=== PATIENT | male | born 1945 | race Caucasian/White ===

== ENCOUNTER 2017-01-04 17:55 | Inpatient (IN) | payer OTHER, BC ==
[~2017-01-04] VITALS: Ht 170.2 cm; Wt 146.3 kg
[~2017-01-04 17:55] MED LIST: ASCO1CAP3 PO; ASPCH81X PO; ATEN50TA8 PO; ATOR-26 PO; CALC-279 PO; CYAN500T13 PO; DICL1GEL12 TOP; ERGO500037 PO; HYDR12.55 PO; IRON OTC PO; LISI-725 PO; MULT-513 PO; NTRGSL/4 UT; ZINC220T PO
--- NOTE | 2017-01-04 19:26 | EMERGENCY ROOM VISIT NOTE ---
History Report prepared by Vijaya: Izabella Sanchez Under the Supervision of: Dr. Janice Kim D.O. First contact with patient: 18:35 Chief Complaint: SHORTNESS OF BREATH Stated Complaint: SOB, DIZZY,HOT AND COLD Nursing Triage Summary: Pt became SOB yesterday. Pt states that he is just SOB with exertion. Pt stated that he is afraid that it is his heart. Pt has also experienced some dizzyness. Pts reports that he also has a history of anemia and has not taken an iron supplement in a week and a half. Pt does not use Oxygen at home. History of Present Illness The patient is a 71 year old male who presents to the Emergency Room with complaints of worsening shortness of breath for the past few days. He is accompanied by his . He reports his shortness of breath has been worse with exertion in the past few days. Today things worsened, so he spoke to his doctor and was referred to the ED. The patient admits to feeling lightheaded when he gets up to walk. He admits his own lips and face do look very pale today. His states he has not been taking his Iron for the past "couple of weeks", but he got it refilled yesterday and has been feeling a little better. The patient denies any history of iron transfusions. He does admit to some melena and hematochezia for the past few days. He denies any abdominal pain. His reports he was supposed to have a colonoscopy later this week. His last scope was approximately 6 years ago. The patients primary care physician is CAPRI Ron. The patient's does admit he passed out several years ago after experiencing a bleeding stomach ulcer. Source of History: patient, spouse/significant other () Onset: past few days Position: chest Quality: other (shortness of breath) Timing: worsening Modifying Factors (Worsening): exertion Associated Symptoms: + hematochezia, + melena, + weakness, No abdominal pain Review of Systems See HPI for pertinent positives & negatives. A total of 10 systems reviewed and were otherwise negative. Past Medical & Surgical Medical Problems: (1) CAD (coronary artery disease) (2) CHF (congestive heart failure) (3) GI bleed (4) HLD (hyperlipidemia) (5) HTN (hypertension) (6) Obesity (7) Osteoarthritis (8) Phimosis Surgical Problems: (1) Bariatric surgery status (2) H/O knee surgery (3) History of esophagogastroduodenoscopy (EGD) (4) History of liver biopsy (5) Hx of CABG (6) S/P cardiac catheterization (7) S/P cholecystectomy (8) S/P colonoscopy with polypectomy (9) S/P panniculectomy Family History FH: cancer FH: heart disease Hypertension Stroke Social History Smoking Status: Never Smoker Smokeless Tobacco Use: No Alcohol Use: occasionally Drug Use: none Marital Status: Housing Status: lives with family Occupation Status: retired Current/Historical Medications Scheduled Ascorbic Acid (Vitamin C), 500 MG PO QAM Aspirin (Aspirin Chewable), 81 MG PO QAM Atenolol (Tenormin), 50 MG PO QAM Atorvastatin (Lipitor), 80 MG PO QAM Calcium Citrate-Vitamin D (Calcium Citrate + D), 1 TAB PO QAM Cyanocobalamin (Vitamin B12 500MCG), 1,000 MCG PO QAM Ergocalciferol (Vitamin D 00511 Unit), 50,000 UNIT PO 2XWEEK Hydrochlorothiazide (Hydrochlorothiazide), 1 TAB PO 3XWEEK Lisinopril (Zestril), 20 MG PO QAM Zinc Sulfate (Zinc Sulfate), 220 MG PO QAM Scheduled PRN Diclofenac Sodium (Actinic Ker (Solaraze), 1 DOSE TOP QID PRN for Pain Nitroglycerin (Nitrostat), 0.4 MG UT UD PRN for Chest Pain Allergies Coded Allergies: No Known Allergies (Verified , 01/04/17) Physical Exam Vital Signs Date Time Temp Pulse Resp B/P Pulse Ox O2 Delivery O2 Flow Rate FiO2 01/04/17 19:44 61 01/04/17 18:40 98 Room Air 01/04/17 18:35 Room Air 01/04/17 18:28 36.8 72 24 106/40 95 Room Air Physical Exam HEENT: Head - normocephalic and atraumatic Pupils are equal, round, and reactive to light. Extraocular eye muscles are intact, and sclera are anicteric. Noted conjunctival pallor. Nose - moist nasal mucosa without discharge. Mouth - moist buccal mucosa. His lips are extremely pale. Oropharynx is nonerythematous and there is no tonsillar exudate or edema noted. Neck: Supple; no JVD, nuchal rigidity, cervical lymphadenopathy. Heart: Regular rate and rhythm. There is a normal S1 and S2 with no murmurs, clicks, or gallops appreciated. Lungs: Clear to auscultation bilaterally with no wheezes, rales, or rhonchi. Abdomen: Soft, completely nontender, nondistended, with good bowel sounds. There are no palpable pulsatile masses or hepatosplenomegaly. There is no guarding, rigidity, or rebound noted. Extremities: No evidence of cyanosis, clubbing, or edema. There are easily palpable peripheral pulses. Skin: Skin is extremely pale but warm and dry with good turgor and no rashes. Medical Decision & Procedures ER Provider Diagnostic Interpretation: This X-Ray was reviewed and interpreted by myself and the radiologist. CHEST ONE VIEW PORTABLE IMPRESSION: 1. No acute findings. 2. Stable moderate cardiomegaly. 3. Study compromised by suboptimal penetration related to portable technique. Electronically signed by: Tio Emmanuel M.D. 01/04/2017 7:29 PM Laboratory Results Test 01/04/17 19:10 Immature Granulocyte % (Auto) 0.7 % White Blood Count 10.56 K/uL (4.8-10.8) Red Blood Count 2.17 M/uL (4.7-6.1) Hemoglobin 6.0 g/dL (14.0-18.0) Hematocrit 18.3 % (42-52) Mean Corpuscular Volume 84.3 fL (80-100) Mean Corpuscular Hemoglobin 27.6 pg (25-34) Mean Corpuscular Hemoglobin Concent 32.8 g/dl (32-36) Platelet Count 257 K/uL (130-400) Mean Platelet Volume 8.8 fL (7.4-10.4) Neutrophils (%) (Auto) 61.1 % Lymphocytes (%) (Auto) 22.4 % Monocytes (%) (Auto) 12.0 % Eosinophils (%) (Auto) 3.7 % Basophils (%) (Auto) 0.1 % Neutrophils # (Auto) 6.45 K/uL (1.4-6.5) Lymphocytes # (Auto) 2.37 K/uL (1.2-3.4) Monocytes # (Auto) 1.27 K/uL (0.11-0.59) Eosinophils # (Auto) 0.39 K/uL (0-0.5) Basophils # (Auto) 0.01 K/uL (0-0.2) Immature Granulocyte # (Auto) 0.07 K/uL (0.00-0.02) Polychromasia 1+ Anisocytosis PRESENT Prothrombin Time 11.4 SECONDS (9.0-12.0) Prothromb Time International Ratio 1.1 (0.9-1.1) Activated Partial Thromboplast Time 22.8 SECONDS (21.0-31.0) Partial Thromboplastin Ratio 0.9 Total Bilirubin 0.5 mg/dl (0.2-1) Direct Bilirubin 0.1 mg/dl (0-0.2) Aspartate Amino Transf (AST/SGOT) 13 U/L (15-37) Alanine Aminotransferase (ALT/SGPT) 16 U/L (12-78) Alkaline Phosphatase 67 U/L (45-117) Total Creatine Kinase 91 U/L (39-308) Creatine Kinase MB 2.3 ng/ml (0.5-3.6) Creatine Kinase MB Ratio 2.5 (0-3.0) Troponin I 0.015 ng/ml (0-0.045) Pro-B-Type Natriuretic Peptide 929 pg/ml (0-900) Total Protein 6.3 gm/dl (6.4-8.2) Albumin 2.9 gm/dl (3.4-5.0) Hepatitis C Antibody Screen NEG (NEG) Laboratory results per my review. Procedure 2 units of packed red blood cells transfused ECG Indication: SOB/dyspnea Rate (beats per minute): 65 Rhythm: normal sinus (normal sinus rhythm) Findings: no acute ischemic change, no ectopy ED Course 184: Past medical records reviewed. The patient was evaluated in room B3. A complete history and physical exam was performed. An IV lock was initiated and labs were drawn as above. The patient was typed and crossed for packed red blood cells. He had a twelve-lead EKG as described above. He had a portal chest x-ray as described above. 2009: I reevaluated the patient. I discussed his lab results and my recommendation that he remain in the hospital for further evaluation and management and he verbalized complete understanding and agreement. 2017: [facility] the [facility] The patient will be further evaluated. 2020: I reevaluated the patient. He is resting comfortably. I also performed blood consent paperwork. His blood transfusion will start. Medical Decision The patient is a 71 year old male who presents to the ED with shortness of breath. The differential diagnoses include iron deficiency, blood loss anemia, GI bleeding, CHF and cardiac ischemia. Lab results show WBC is 10.5, Hemoglobin is 6, Hematocrit is 18.3, Platelets are 257, BUN is 32, Creatinine is 0.8, Glucose is 103, cardiac enzymes are negative, LFT's are normal, COAG's are normal. This is a 71-year-old male patient presents to the emergency department with extreme weakness and increasing exertional shortness of breath the past couple of days. His has noticed that he is pale. He was scheduled to have colonoscopy on this upcoming Wednesday. The patient was hemodynamically stable. He had no active GI bleeding while here in the emergency department. He was typed and crossed for 2 units of packed red blood cells. [facility] and [facility] will [facility] for further management. Impression Primary Impression: GI bleeding Additional Impression: Anemia Critical Care I have personally spent greater than 45 minutes of critical care time in the direct management of this patient. This includes bedside care, interpretation of diagnostic studies, and testing, discussion with consultants, patient, and family members, and other required patient management activities. This 45 minutes is in excess of all separately billable procedures. Scribe Attestation The scribe's documentation has been prepared under my direction and personally reviewed by me in its entirety. I confirm that the note above accurately reflects all work, treatment, procedures, and medical decision making performed by me. Departure Information Dispostion Being Evaluated By Hospitalist Referrals Corona Fleming D.O. (PCP) Patient Instructions My [facility] Problem Qualifiers
--- NOTE | 2017-01-04 19:30 | DIAGNOSTIC IMAGING REPORT ---
CHEST ONE VIEW PORTABLE CLINICAL HISTORY: Shortness of breath. COMPARISON STUDY: Chest radiograph August 06, 2016. FINDINGS: There are median sternotomy wires. This study is compromised by suboptimal penetration related to portable technique and body habitus. Moderate cardiomegaly is unchanged. There is no evidence of pulmonary edema. There is no lobar consolidation. IMPRESSION: 1. No acute findings. 2. Stable moderate cardiomegaly. 3. Study compromised by suboptimal penetration related to portable technique. Electronically signed by: Tio Emmanuel M.D. 01/04/2017 7:29 PM Dictated Date/Time: 01/04/2017 7:28 PM
[2017-01-04 19:33] LABS: INR 1.1 (0.9-1.1); PARTIAL THROMBOPLASTIN RATIO 0.9; PROTHROMBIN TIME (PATIENT) 11.4 SECONDS (9.0-12.0)
[2017-01-04 19:45] LABS: BUN/CREATININE RATIO 37.6 (10-20); CALCIUM 8.4 mg/dl (8.5-10.1); CREATININE 0.85 mg/dl (0.60-1.40); POTASSIUM 4.5 mmol/L (3.5-5.1)
[2017-01-04 19:49] LABS: HEMATOCRIT 18.3 % (42-52); MEAN CELL VOLUME 84.3 fL (80-100); MEAN CORPUSCULAR HEMOGLOBIN 27.6 pg (25-34); MEAN CORPUSCULAR HGB CONC 32.8 g/dl (32-36); MEAN PLATELET VOLUME 8.8 fL (7.4-10.4); PLATELET COUNT 257 K/uL (130-400); RED BLOOD COUNT 2.17 M/uL (4.7-6.1); WHITE BLOOD COUNT 10.56 K/uL (4.8-10.8)
[2017-01-04 19:50] LABS: CKMB/CK RATIO 2.5 (0-3.0)
[2017-01-04 19:56] LABS: ANISOCYTOSIS PRESENT; BASO % 0.1 %; BASO ABS # 0.01 K/uL (0-0.2); COMPLETE YES; EOS % 3.7 %; IG% 0.7 %; LYMPH % 22.4 %; LYMPH ABS # 2.37 K/uL (1.2-3.4); NEUT % 61.1 %; POLYCHROMASIA 1+
[2017-01-04] MEDS ORDERED: DICL3GEL TOP (20:40)
[2017-01-04] MEDS ORDERED: ACETAMINOPHEN 325 MG TAB PO PRN (21:00)
[2017-01-04] MEDS ORDERED: ONDANSETRON INJ 2 MG/ML 2 ML VIAL IV PRN (21:00)
[2017-01-04] MEDS ORDERED: NITROGLYCERIN 0.4 MG SL PER TAB CHARGE UT PRN (21:15)
[2017-01-04 21:17] VITALS: Ht 170.2 cm; Wt 146.3 kg
[2017-01-04] MEDS ORDERED: PANTOprazole INJ 80 MG in DEXTROSE 5% 100ML IV SCH (21:45)
[2017-01-04] MEDS ORDERED: FUROSEMIDE INJ 40 MG in SYRINGE 0 ML IV SCH (21:45)
--- NOTE | 2017-01-04 21:48 | History and Physical ---
History & Physical Date & Time of Service: Jan 04, 2017 at 21:15 Chief Complaint: Sob, Dizzy,Hot And Cold Primary Care Physician: Corona Fleming D.O. History of Present Illness Source: patient, clinic records, hospital records This is a 71 year old male with PMH of CAD s/p CABG x 4, chronic diastolic CHF, hypertension, dyslipidemia, obesity s/p gastric bypass, hx gastric ulcer, hx colon polyps, who presented to the ED with dizziness and SOB. Patient was recently seen in clinic on 12/28/16 with complaint of intermittent hematochezia and melena. At that time rectal exam was positive for occult blood. Patient was referred for colonoscopy scheduled for 01/07/17. Pt then had normal stool again until 2 days ago he had recurrent black stool with bright red blood x 2 episodes , had similar movements x 2 yesterday, then today TIM[facility] RIDER had 1 episode of black stool without red blood. Since yesterday he was intermittently lightheaded. Then today he was SOB at rest and with activity. He states he is still mildly SOB at present. He reports chronic L>R edema which is unchanged from baseline. Denies fever, chills, cough, syncope, chest pain, reflux, abdominal pain, nausea , vomiting, diarrhea, urinary change, weight gain. He takes baby aspirin daily and topical Voltaren gel PRN but no other NSAID or blood thinner. Prior EGD in by Dr. Munoz showed gastric bypass, anastomotic ulcer. Per patient last colonoscopy was approximately 4-5 years ago at [facility] and polyps were removed at that time. Past Medical/Surgical History Medical Problems: (1) CAD (coronary artery disease) Status: Chronic (2) CHF (congestive heart failure) Permanent Comment: echo 11/2015- EF 55-59%, grade I diastolic dysfunction Status: Chronic (3) HLD (hyperlipidemia) Status: Chronic (4) HTN (hypertension) Status: Chronic (5) Osteoarthritis Status: Chronic Surgical Problems: (1) Bariatric surgery status Status: Chronic (2) H/O knee surgery Status: Chronic (3) History of esophagogastroduodenoscopy (EGD) Status: Chronic (4) History of liver biopsy Status: Chronic (5) Hx of CABG Permanent Comment: Status: Chronic (6) S/P cardiac catheterization Permanent Comment: 12/24/2015- Severe viejas vessel disease. Patent PUGA-mid LAD, patent SVG-PDA, patent jump graft [id number]. The left ventricular end diastolic pressure was normal. Status: Chronic (7) S/P cholecystectomy Status: Chronic (8) S/P colonoscopy with polypectomy Status: Chronic (9) S/P panniculectomy Status: Chronic Family History FH: cancer FH: heart disease Hypertension Stroke Social History Smoking Status: Former Smoker (quit 40 years ago. prior 1 ppd x 10 years) Alcohol Use: occasionally (none in past few weeks) Drug Use: none Marital Status: Housing status: lives with family Occupational Status: retired Immunizations History of Tetanus Vaccine?: Unknown History of Pneumococcal: Unknown History of Hepatitis B Vaccine: Unknown Multi-Drug Resistant Organisms History of MDRO: No Allergies Coded Allergies: No Known Allergies (Verified , 01/04/17) Home Medications Scheduled Ascorbic Acid (Vitamin C), 500 MG PO QAM Aspirin (Aspirin Chewable), 81 MG PO QAM Atenolol (Tenormin), 50 MG PO QAM Atorvastatin (Lipitor), 80 MG PO QAM Calcium Citrate-Vitamin D (Calcium Citrate + D), 1 TAB PO QAM Cyanocobalamin (Vitamin B12 500MCG), 1,000 MCG PO QAM Ergocalciferol (Vitamin D 97858 Unit), 50,000 UNIT PO 2XWEEK Hydrochlorothiazide (Hydrochlorothiazide), 1 TAB PO 3XWEEK Lisinopril (Zestril), 20 MG PO QAM Zinc Sulfate (Zinc Sulfate), 220 MG PO QAM Scheduled PRN Diclofenac Sodium (Actinic Ker (Solaraze), 1 DOSE TOP QID PRN for Pain Nitroglycerin (Nitrostat), 0.4 MG UT UD PRN for Chest Pain Review of Systems Ten point ROS performed with pertinent positives and negatives noted in HPI. Physical Exam Vital Signs Date Time Temp Pulse Resp B/P Pulse Ox O2 Delivery O2 Flow Rate FiO2 01/04/17 19:44 61 01/04/17 18:40 98 Room Air 01/04/17 18:35 Room Air 01/04/17 18:28 36.8 72 24 106/40 95 Room Air General Appearance: + obese, + pertinent finding (pleasant alert 71 y/o male, not in distress, at bedside) Head: normocephalic, atraumatic Eyes: normal inspection, PERRL, EOMI, sclerae normal ENT: hearing grossly normal, pharynx normal Neck: supple, no JVD, trachea midline, + pertinent finding (neck is thick) Respiratory/Chest: lungs clear, normal breath sounds, no respiratory distress, no accessory muscle use Cardiovascular: regular rate, rhythm, no murmur Abdomen/GI: normal bowel sounds, non tender, soft, + pertinent finding ( paniculectomy scar across lower abdomen) Extremities/Musculoskelatal: no calf tenderness, + pertinent finding (1+ pretibial edema L> R, unchanged from baseline per ) Neurologic/Psych: alert, normal mood/affect, oriented x 3, + pertinent finding (grossly nonfocal ) Skin: warm/dry, + pallor Diagnostics Laboratory Results Results Past 24 Hours Test 01/04/17 19:10 Range/Units White Blood Count 10.56 4.8-10.8 K/uL Red Blood Count 2.17 4.7-6.1 M/uL Hemoglobin 6.0 14.0-18.0 g/dL Hematocrit 18.3 42-52 % Mean Corpuscular Volume 84.3 80-100 fL Mean Corpuscular Hemoglobin 27.6 25-34 pg Mean Corpuscular Hemoglobin Concent 32.8 32-36 g/dl Platelet Count 257 130-400 K/uL Mean Platelet Volume 8.8 7.4-10.4 fL Neutrophils (%) (Auto) 61.1 % Lymphocytes (%) (Auto) 22.4 % Monocytes (%) (Auto) 12.0 % Eosinophils (%) (Auto) 3.7 % Basophils (%) (Auto) 0.1 % Neutrophils # (Auto) 6.45 1.4-6.5 K/uL Lymphocytes # (Auto) 2.37 1.2-3.4 K/uL Monocytes # (Auto) 1.27 0.11-0.59 K/uL Eosinophils # (Auto) 0.39 0-0.5 K/uL Basophils # (Auto) 0.01 0-0.2 K/uL RDW Standard Deviation 47.8 36.4-46.3 fL RDW Coefficient of Variation 16.7 11.5-14.5 % Immature Granulocyte % (Auto) 0.7 % Immature Granulocyte # (Auto) 0.07 0.00-0.02 K/uL Polychromasia 1+ Anisocytosis PRESENT Prothrombin Time 11.4 9.0-12.0 SECONDS Prothromb Time International Ratio 1.1 0.9-1.1 Activated Partial Thromboplast Time 22.8 21.0-31.0 SECONDS Partial Thromboplastin Ratio 0.9 Sodium Level 140 136-145 mmol/L Potassium Level 4.5 3.5-5.1 mmol/L Chloride Level 106 98-107 mmol/L Carbon Dioxide Level 23 21-32 mmol/L Anion Gap 11.0 3-11 mmol/L Blood Urea Nitrogen 32 7-18 mg/dl Creatinine 0.85 0.60-1.40 mg/dl Est Creatinine Clear Calc Drug Dose 112.6 ml/min Estimated GFR () 101.6 Estimated GFR (Non- 87.7 BUN/Creatinine Ratio 37.6 10-20 Random Glucose 103 70-99 mg/dl Calcium Level 8.4 8.5-10.1 mg/dl Total Bilirubin 0.5 0.2-1 mg/dl Direct Bilirubin 0.1 0-0.2 mg/dl Aspartate Amino Transf (AST/SGOT) 13 15-37 U/L Alanine Aminotransferase (ALT/SGPT) 16 12-78 U/L Alkaline Phosphatase 67 45-117 U/L Total Creatine Kinase 91 39-308 U/L Creatine Kinase MB 2.3 0.5-3.6 ng/ml Creatine Kinase MB Ratio 2.5 0-3.0 Troponin I 0.015 0-0.045 ng/ml Pro-B-Type Natriuretic Peptide 929 0-900 pg/ml Total Protein 6.3 6.4-8.2 gm/dl Albumin 2.9 3.4-5.0 gm/dl Diagnostic Radiology CHEST ONE VIEW PORTABLE CLINICAL HISTORY: Shortness of breath. COMPARISON STUDY: Chest radiograph August 06, 2016. FINDINGS: There are median sternotomy wires. This study is compromised by suboptimal penetration related to portable technique and body habitus. Moderate cardiomegaly is unchanged. There is no evidence of pulmonary edema. There is no lobar consolidation. IMPRESSION: 1. No acute findings. 2. Stable moderate cardiomegaly. 3. Study compromised by suboptimal penetration related to portable technique. EKG NSR, incomplete RBBB- also present on EKG in [facility] in July 2016 Impression Assessment and Plan SYMPTOMATIC ANEMIA Presents with lightheadedness, SOB, intermittent melena/ hematochezia, heme positive in clinic 12/28/16 Secondary to acute blood loss from GI bleed; possibly upper GI source History of gastric ulcer in 2006; hx colon polyps 4-5 y ago per patient On baby aspirin- will hold Hg is 6.0; hemodynamically stable Transfuse 2 units pRBC with 40 mg IV Lasix in between H/H q4 hours IV Protonix drip Consult GI CAD S/P CABG Cardiac cath 11/2015 showed patent grafts Hold aspirin due to GI bleed Hold statin for now HISTORY OF HYPERTENSION BP running in 100s systolic Hold lisinopril and HCTZ for now Monitor BP CHRONIC DIASTOLIC CHF Echo 11/2015- EF 55-59%, grade I diastolic dysfunction Appears euvolemic Will receive Lasix 40 mg IV between transfusions DVT PROPHYLAXIS SCD's due to GI bleed DISPOSITION Admit to telemetry Follows with Dr. Fleming of [facility] Patient seen in collaboration with Dr. Davis. Please see his addendum. Attending Addendum: The patient was seen and examined in ER About 1 week h/o Black stool and bright red blood per rectum for the last day or two Dizziness with exertional SOB today Denies any pain,Nausea and or vomiting and denies any use of NSAIDs H/O Gastric ulcer and Gastric Bypass O/E No acute distress Pale Hemodynamically stable Chest-clear Heart-regular Legs-trace edema bilaterally ,Left >right Labs and Imaging studies were noted Hb ~6 Transfuse,IV Protonix and GI evaluation Agree with assessment and plan. DR Rosario Davis VTE Prophylaxis VTE Risk Assessment Done? Y/N: Yes Risk Level: Moderate
[2017-01-04] MEDS: PANTOprazole INJ 40 MG in DEXTROSE 5% 100ML IV SCH (22:02)
[2017-01-04 22:04] VITALS: BP 108/58; PULSE 74; TEMP 36.9; O2SAT 92
[2017-01-04] MEDS ORDERED: PNEUMOCOCCAL ADMINISTRATION CHARGE ONE (22:15)
[2017-01-04] MEDS ORDERED: PNEUMOCOCCAL POLYSACCHARIDES 25 MCG/0.5 ML VIAL/SYR IM. ONE (22:15)
[2017-01-04 22:19] VITALS: BP 113/65; PULSE 65; TEMP 37; O2SAT 92
[2017-01-04 22:45] VITALS: BP 111/65; PULSE 64; TEMP 37; O2SAT 96
[2017-01-04 23:15] VITALS: BP 121/71; PULSE 64; TEMP 37; O2SAT 96
[2017-01-04 23:43] VITALS: BP 111/64; PULSE 64; TEMP 36.5; O2SAT 97
[2017-01-05] VITALS (21 sets, daily range): BP systolic 103–150; BP diastolic 59–79; PULSE 50–86; TEMP 36.2–37.1; O2SAT 93–99
[2017-01-05 00:44] LABS: URINE APPEARANCE CLEAR (CLEAR); URINE BILIRUBIN NEG (NEG); URINE COLOR YELLOW; URINE EPITHELIAL CELL AUTO >30 /lpf (0-5); URINE NITRITE NEG (NEG); URINE SPECIFIC GRAVITY 1.011 (1.000-1.030); UROBILINOGEN NEG (NEG)
[2017-01-05 00:52] LABS: MANUAL MICROSCOPIC REQUIRED? NO; REVIEW REQ? YES
[2017-01-05] MEDS: PANTOprazole INJ 40 MG in DEXTROSE 5% 100ML IV SCH ×2 (02:31→08:55)
[2017-01-05 04:42] LABS: HEMATOCRIT 23.8 % (42-52); MEAN CELL VOLUME 84.4 fL (80-100); MEAN CORPUSCULAR HEMOGLOBIN 27.7 pg (25-34); MEAN CORPUSCULAR HGB CONC 32.8 g/dl (32-36); MEAN PLATELET VOLUME 9.5 fL (7.4-10.4); PLATELET COUNT 267 K/uL (130-400); RED BLOOD COUNT 2.82 M/uL (4.7-6.1); WHITE BLOOD COUNT 9.61 K/uL (4.8-10.8)
[2017-01-05 04:50] LABS: BUN/CREATININE RATIO 33.1 (10-20); CALCIUM 8.2 mg/dl (8.5-10.1); CREATININE 0.82 mg/dl (0.60-1.40); MAGNESIUM 2.3 mg/dl (1.8-2.4); POTASSIUM 4.1 mmol/L (3.5-5.1)
[2017-01-05] MEDS: FUROSEMIDE INJ 40 MG in SYRINGE 0 ML IV SCH ×2 (06:15→13:40)
[2017-01-05 08:25] LABS: HEMATOCRIT 23.7 % (42-52)
[2017-01-05] MEDS ORDERED: PROPOFOL IV EMULSION 10 MG/ML 20 ML VIAL IV ONE (10:30)
[2017-01-05] MEDS ORDERED: LIDOCAINE HCL 2% 2 ML VIAL (20MG/ML) ONE (10:30)
--- NOTE | 2017-01-05 11:15 | Gastrointestinal Consultation ---
Gastrointestinal Consultation Date of Consultation: Jan 05, 2017 Attending Physician: Miguel Palomino Consulting Physician: Bob Romero Reason for Consultation: GI bleed History of Present Illness Patient is a 71 year old male w PMHx of CAD s/p CABG x 4, chronic diastolic CHF , HTN, dyslipidemia, gastric bypass hx of anastomotic ulcer, colon polyps who presented to ED w c/o dizziness and SOB. He had been seen in outpt clinic by his PCP on 12/28/16 w c/o intermittent rectal bleeding. His rectal exam was positive for occult blood. He had been scheduled for outpt colonoscopy on . Pt now reports that he's seen dark stools w bleeding for over a week now. He denies any abd pain, n/v. He was having SOB w CP yesterday. Cardiac enzymes negative, BNP 900s. Hgb on admission was 6 (baseline 12). He's been given 2U PRBC overnight and now Hgb is 8. He's on ASA but denies any other blood thinners or NSAIDs. Hx of gastric bypass w EGD on 03/[address] Munoz showing anastomotic ulcer. Hx of colonoscopy 5 yrs ago at [facility] w colon polyps removal. Past Medical/Surgical History Medical Problems: (1) Anemia Status: Acute (2) GI bleeding Status: Acute Past Medical History: See above. Past Surgical History: See above, hx of also cholecystectomy, panniculectomy Family History FH: cancer FH: heart disease Hypertension Stroke Social History Smoking Status: Former Smoker (quit 40 years ago. prior 1 ppd x 10 years) Alcohol Use: occasionally Drug Use: none Marital Status: Housing Status: lives with family Occupation Status: retired Allergies Coded Allergies: No Known Allergies (Verified , 01/04/17) Current Medications Home Meds and Scripts Medications Dose Route/Sig Max Daily Dose Days Date Category Dose Instructions Solaraze (Diclofenac Sodium (Actinic Ker) 3 % Gel 1 Dose TOP QID PRN 01/04/17 Reported Aspirin Chewable (Aspirin) 81 Mg Chew 81 Mg PO QAM 12/31/16 Reported Nitrostat (Nitroglycerin) 0.4 Mg Tab 0.4 Mg UT UD PRN 07/30/16 Reported Calcium Citrate + D (Calcium Citrate-Vitamin D) 1 Tab Tab 1 Tab PO QAM 07/30/16 Reported Vitamin B12 500MCG (Cyanocobalamin) 500 Mcg Tab 1,000 Mcg PO QAM 07/30/16 Reported Vitamin C (Ascorbic Acid) 500 Mg Cap 500 Mg PO QAM 07/30/16 Reported Zestril (Lisinopril) 20 Mg Tab 20 Mg PO QAM 07/30/16 Reported Tenormin (Atenolol) 50 Mg Tab 50 Mg PO QAM 07/30/16 Reported Lipitor (Atorvastatin Calcium) 80 Mg Tab 80 Mg PO QAM 07/30/16 Reported Vitamin D 64738 Unit (Ergocalciferol) 50,000 Unit Cap 50,000 Unit PO 2XWEEK 07/30/16 Reported Zinc Sulfate 220 Mg Tab 220 Mg PO QAM 07/30/16 Reported Hydrochlorothiazide 12.5 Mg Tab 1 Tab PO 3XWEEK 07/30/16 Reported Wednesday AM Review of Systems Constitutional: No chills, No fever Respiratory: + shortness of breath (resolved), No cough Cardiac: + chest pain (resolved) Abdomen: + GI bleeding, No diarrhea, No nausea, No pain, No vomiting Physical Exam Date Time Temp Pulse Resp B/P Pulse Ox O2 Delivery O2 Flow Rate FiO2 01/05/17 10:58 36.3 62 20 149/64 96 0.0 01/05/17 10:53 36.3 63 20 149/64 97 Room Air 01/05/17 08:10 36.2 70 18 133/79 96 Room Air 01/05/17 08:00 Room Air 01/05/17 04:00 Room Air 01/05/17 03:10 36.6 61 20 103/65 97 01/05/17 02:19 36.6 62 20 131/70 95 01/05/17 01:40 37.0 66 16 109/63 93 01/05/17 01:15 37.0 68 16 109/63 93 01/05/17 01:00 37.0 64 16 115/64 96 01/05/17 00:30 37.0 65 18 111/65 96 01/05/17 00:01 37.0 68 18 121/71 96 01/04/17 23:59 Room Air 01/04/17 23:43 36.5 64 20 111/64 97 Room Air 01/04/17 23:15 37.0 64 18 121/71 96 01/04/17 22:45 37.0 64 18 111/65 96 01/04/17 22:19 37.0 65 18 113/65 92 01/04/17 22:04 36.9 74 18 108/58 92 01/04/17 21:20 67 22 110/62 99 Room Air 01/04/17 21:17 Room Air 01/04/17 19:44 61 01/04/17 18:40 98 Room Air 01/04/17 18:35 Room Air 01/04/17 18:28 36.8 72 24 106/40 95 Room Air General Appearance: WD/WN, no apparent distress, + obese Eyes: normal inspection, PERRL, EOMI Neck: supple, no JVD, trachea midline Respiratory/Chest: no respiratory distress, no accessory muscle use, + decreased breath sounds Cardiovascular: regular rate, rhythm, no gallop, no murmur Abdomen: normal bowel sounds, non tender, soft Extremities: normal inspection, no pedal edema, no calf tenderness Neurologic/Psych: alert, normal mood/affect, oriented x 3 Skin: normal color, no jaundice, no rash Laboratory Results Last 24 Hours Test 01/04/17 19:10 01/05/17 00:00 01/05/17 04:27 01/05/17 08:00 White Blood Count 10.56 K/uL 9.61 K/uL Red Blood Count 2.17 M/uL 2.82 M/uL Hemoglobin 6.0 g/dL 7.8 g/dL 8.0 g/dL Hematocrit 18.3 % 23.8 % 23.7 % Mean Corpuscular Volume 84.3 fL 84.4 fL Mean Corpuscular Hemoglobin 27.6 pg 27.7 pg Mean Corpuscular Hemoglobin Concent 32.8 g/dl 32.8 g/dl Platelet Count 257 K/uL 267 K/uL Mean Platelet Volume 8.8 fL 9.5 fL Neutrophils (%) (Auto) 61.1 % Lymphocytes (%) (Auto) 22.4 % Monocytes (%) (Auto) 12.0 % Eosinophils (%) (Auto) 3.7 % Basophils (%) (Auto) 0.1 % Neutrophils # (Auto) 6.45 K/uL Lymphocytes # (Auto) 2.37 K/uL Monocytes # (Auto) 1.27 K/uL Eosinophils # (Auto) 0.39 K/uL Basophils # (Auto) 0.01 K/uL RDW Standard Deviation 47.8 fL 46.1 fL RDW Coefficient of Variation 16.7 % 16.4 % Immature Granulocyte % (Auto) 0.7 % Immature Granulocyte # (Auto) 0.07 K/uL Polychromasia 1+ Anisocytosis PRESENT Prothrombin Time 11.4 SECONDS Prothromb Time International Ratio 1.1 Activated Partial Thromboplast Time 22.8 SECONDS Partial Thromboplastin Ratio 0.9 Sodium Level 140 mmol/L 142 mmol/L Potassium Level 4.5 mmol/L 4.1 mmol/L Chloride Level 106 mmol/L 106 mmol/L Carbon Dioxide Level 23 mmol/L 30 mmol/L Anion Gap 11.0 mmol/L 6.0 mmol/L Blood Urea Nitrogen 32 mg/dl 27 mg/dl Creatinine 0.85 mg/dl 0.82 mg/dl Est Creatinine Clear Calc Drug Dose 112.6 ml/min 116.8 ml/min Estimated GFR () 101.6 103.1 Estimated GFR (Non- 87.7 89.0 BUN/Creatinine Ratio 37.6 33.1 Random Glucose 103 mg/dl 95 mg/dl Calcium Level 8.4 mg/dl 8.2 mg/dl Total Bilirubin 0.5 mg/dl Direct Bilirubin 0.1 mg/dl Aspartate Amino Transf (AST/SGOT) 13 U/L Alanine Aminotransferase (ALT/SGPT) 16 U/L Alkaline Phosphatase 67 U/L Total Creatine Kinase 91 U/L Creatine Kinase MB 2.3 ng/ml Creatine Kinase MB Ratio 2.5 Troponin I 0.015 ng/ml Pro-B-Type Natriuretic Peptide 929 pg/ml Total Protein 6.3 gm/dl Albumin 2.9 gm/dl Hepatitis C Antibody Screen NEG Urine Color YELLOW Urine Appearance CLEAR Urine pH 5.0 Urine Specific [place] 1.011 Urine Protein NEG Urine Glucose (UA) NEG Urine Ketones NEG Urine Occult Blood NEG Urine Nitrite NEG Urine Bilirubin NEG Urine Urobilinogen NEG Urine Leukocyte Esterase MODERATE Urine WBC (Auto) 10-30 /hpf Urine RBC (Auto) 0-4 /hpf Urine Hyaline Casts (Auto) 1-5 /lpf Urine Epithelial Cells (Auto) >30 /lpf Urine Bacteria (Auto) NEG Urine Renal Epithelial Cells /lpf Magnesium Level 2.3 mg/dl Impression Patient is a 71 year old male currently admission for symptomatic anemia (SOB, CP), treated w 2U PRBC transfusion. Hgb improving from 6 to 8. He had been noticing dark stools w some red blood intermittently for last week. On ASA 81mg daily but denies any NSAIDs or other anticoagulations. Hx of gastric bypass w anastomotic ulcer in 2006 Plan - Keep NPO, for EGD evaluation by Dr. Romero today - Keep PPI gtt for now. - Will evaluate for timing of colonoscopy depending on EGD finding. - Monitor H/H and transfuse prn Attg add: I interviewed and examined pt, reviewed chart and labs. Pt with rectal bleeding, melena x 3 days, small drop in Hgb. Plan EGD.
--- NOTE | 2017-01-05 11:51 | GI REPORT ---
Procedure Date: 01/05/2017 11:09 AM Procedure: Upper GI endoscopy Indications: Melena Medicines: See the Anesthesia note for documentation of the administered medications Complications: No immediate complications. Estimated Blood Loss: Estimated blood loss: none. Procedure: Pre-Anesthesia Assessment: - ASA Grade Assessment: III - A patient with severe systemic disease. After obtaining informed consent, the endoscope was passed under direct vision. Throughout the procedure, the patient's blood pressure, pulse, and oxygen saturations were monitored continuously. The scope was introduced through the mouth, and advanced to the afferent jejunal loop. The upper GI endoscopy was accomplished without difficulty. The patient tolerated the procedure well. Findings: The GE junction was at 37 cm. There was an inflammatory nodule at the GE junction with a small clot and no evidence of bleeding. Two clips were placed on this nodule. There was a poinpoint at the GE junction with brisk oozing; there was no ulcer there, and possible causes of bleeding include AVM or dieulafoy. Three clips were placed on this spot with cessation of oozing. The gastric pouch was unremarkable. There was evidence of a prior gastro enteric anastamosis. The anastamosis was unremarkable, without ulcer. The small intestine was normal. Impression: - Bleeding at the GE junction, clipped with hemostasis. Recommendation: - Discharge patient to floor. I am not sure if this is the source of pt's melena and anemia - plan colonoscopy tomorrow to r/o LGI source. Twice daily oral PPI. Bob Romero M.D. Bob Romero MD 01/05/2017 11:50:34 AM This report has been signed electronically. Note Initiated On: 01/05/2017 11:09 AM I attest to the content of the Intraoperative Record and orders documented therein, exceptions below
--- NOTE | 2017-01-05 12:04 | Anesthesiology Progress Note ---
Anesthesia Post Op Note Date & Time Jan 05, 2017 at 12:05 Vital Signs Pain Intensity: 0 Vital Signs Past 12 Hours Date Time Temp Pulse Resp B/P Pulse Ox O2 Delivery O2 Flow Rate FiO2 01/05/17 11:50 62 20 120/64 99 Mask 10 01/05/17 11:23 36.3 20 149/64 96 Room Air 0.0 01/05/17 10:58 36.3 62 20 149/64 96 0.0 01/05/17 10:53 36.3 63 20 149/64 97 Room Air 01/05/17 09:40 36.7 86 18 129/64 99 01/05/17 09:10 36.5 78 16 116/59 96 01/05/17 08:50 36.5 57 16 109/61 97 01/05/17 08:37 36.3 56 18 104/62 94 01/05/17 08:10 36.2 70 18 133/79 96 Room Air 01/05/17 08:00 Room Air 01/05/17 04:00 Room Air 01/05/17 03:10 36.6 61 20 103/65 97 01/05/17 02:19 36.6 62 20 131/70 95 01/05/17 01:40 37.0 66 16 109/63 93 01/05/17 01:15 37.0 68 16 109/63 93 01/05/17 01:00 37.0 64 16 115/64 96 01/05/17 00:30 37.0 65 18 111/65 96 Notes Mental Status: alert / awake / arousable, participated in evaluation Pt Amnestic to Procedure: Yes Nausea / Vomiting: adequately controlled Pain: adequately controlled Airway Patency, RR, SpO2: stable & adequate BP & HR: stable & adequate Hydration State: stable & adequate Anesthetic Complications: no major complications apparent
[2017-01-05 13:02] LABS: HEMATOCRIT 24.5 % (42-52)
[2017-01-05] MEDS ORDERED: BISACODYL 5 MG TABEC PO ONE (17:00)
[2017-01-05] MEDS ORDERED: POLYETHYLENE (MIRALAX) 17 GM PACK PO ONE ×2 (17:00→21:00)
[2017-01-05 17:02] LABS: HEMATOCRIT 24.4 % (42-52)
--- NOTE | 2017-01-05 19:47 | Progress Note ---
Medicine Progress Note Date & Time of Visit: Jan 05, 2017 at 19:44. Subjective seen resting in bedside chair s/p EGD no recurrence of melena/hematochezia states he is feeling improved denies chest pain, dyspnea, dizziness, weakness no other symptoms Objective Last 8 Hrs Date Time Temp Pulse Resp B/P Pulse Ox O2 Delivery O2 Flow Rate FiO2 01/05/17 16:00 Room Air 01/05/17 15:47 37.1 50 18 118/74 98 Room Air 01/05/17 13:22 58 128/69 01/05/17 13:00 Room Air 01/05/17 12:42 36.8 60 18 150/73 94 01/05/17 12:05 63 20 122/58 97 Room Air 01/05/17 11:50 62 20 120/64 99 Mask 10 Physical Exam: General- oriented x 3, not in distress, speaks in sentences with no effort Eyes- anicteric Neck- supple, no JVD Lungs- clear to auscultation b/l Heart- regular rhythm; no murmur Abdomen- normal bowel sounds, soft, nontender Extremities- no pretibial edema, no calf tenderness Neuro- alert, oriented x 3;no gross focal deficits Skin- warm & dry Laboratory Results: Last 24 Hours Test 01/05/17 00:00 01/05/17 04:27 01/05/17 08:00 01/05/17 12:42 Urine Color YELLOW Urine Appearance CLEAR Urine pH 5.0 Urine Specific [place] 1.011 Urine Protein NEG Urine Glucose (UA) NEG Urine Ketones NEG Urine Occult Blood NEG Urine Nitrite NEG Urine Bilirubin NEG Urine Urobilinogen NEG Urine Leukocyte Esterase MODERATE Urine WBC (Auto) 10-30 /hpf Urine RBC (Auto) 0-4 /hpf Urine Hyaline Casts (Auto) 1-5 /lpf Urine Epithelial Cells (Auto) >30 /lpf Urine Bacteria (Auto) NEG Urine Renal Epithelial Cells /lpf White Blood Count 9.61 K/uL Red Blood Count 2.82 M/uL Hemoglobin 7.8 g/dL 8.0 g/dL 8.3 g/dL Hematocrit 23.8 % 23.7 % 24.5 % Mean Corpuscular Volume 84.4 fL Mean Corpuscular Hemoglobin 27.7 pg Mean Corpuscular Hemoglobin Concent 32.8 g/dl RDW Standard Deviation 46.1 fL RDW Coefficient of Variation 16.4 % Platelet Count 267 K/uL Mean Platelet Volume 9.5 fL Sodium Level 142 mmol/L Potassium Level 4.1 mmol/L Chloride Level 106 mmol/L Carbon Dioxide Level 30 mmol/L Anion Gap 6.0 mmol/L Blood Urea Nitrogen 27 mg/dl Creatinine 0.82 mg/dl Est Creatinine Clear Calc Drug Dose 116.8 ml/min Estimated GFR () 103.1 Estimated GFR (Non- 89.0 BUN/Creatinine Ratio 33.1 Random Glucose 95 mg/dl Calcium Level 8.2 mg/dl Magnesium Level 2.3 mg/dl Test 01/05/17 16:15 Hemoglobin 8.2 g/dL Hematocrit 24.4 % Assessment & Plan ACUTE BLOOD LOSS ANEMIA, LIKELY FROM GI BLEED - s/p EGD 01/05/17 (+) small point of bleeding and nodule s/p clipping for EGD in AM - on Protonix BID - Hg 8.2 s/p 3 units pRBC monitor to maintain > 8 - Aspirin held CAD S/P CABG Cardiac cath 11/2015 showed patent grafts Hold aspirin due to GI bleed Hold statin for now CHRONIC DIASTOLIC CHF Echo 11/2015- EF 55-59%, grade I diastolic dysfunction Appears euvolemic received Lasix 40 mg IV between transfusions HISTORY OF HYPERTENSION BP running in 100s systolic Hold lisinopril and HCTZ for now DVT PROPHYLAXIS SCD's due to GI bleed DISPOSITION pending anticipate d/c home when medically stable Current Inpatient Medications: Current Inpatient Medications Medications (Trade) Dose Ordered Sig/Laura Route Start Time Stop Time Status Last Admin Dose Admin Acetaminophen (Tylenol Tab) 650 mg Q4H PRN PO 01/04/17 21:00 02/03/17 20:59 Ondansetron HCl (Zofran Inj) 4 mg Q6H PRN IV 01/04/17 21:00 02/03/17 20:59 Atenolol (Tenormin Tab) 50 mg QAM PO 01/05/17 09:00 02/04/17 08:59 01/05/17 09:46 50 MG Nitroglycerin (Nitrostat Tab) 0.4 mg UD PRN UT 01/04/17 21:15 02/03/17 21:14 Polyethylene (Miralax Powder Packet) 119 gm ONE ONCE PO 01/05/17 21:00 01/05/17 21:01 Pantoprazole Sodium (Protonix Tab) 40 mg BID PO 01/05/17 21:00 02/04/17 20:59
[2017-01-05 20:25] LABS: HEMATOCRIT 25.3 % (42-52)
[2017-01-05] MEDS: PANTOprazole SOD 40 MG TAB PO SCH (20:58)
[2017-01-06] VITALS (7 sets, daily range): BP systolic 127–158; BP diastolic 68–88; PULSE 56–110; TEMP 36.4–36.7; O2SAT 93–98
[2017-01-06 08:36] LABS: EOS % 4.4 %; HEMATOCRIT 25.5 % (42-52); IG% 0.2 %; LYMPH ABS # 1.54 K/uL (1.2-3.4); MEAN CELL VOLUME 83.6 fL (80-100); MEAN CORPUSCULAR HEMOGLOBIN 27.9 pg (25-34); MEAN CORPUSCULAR HGB CONC 33.3 g/dl (32-36); MEAN PLATELET VOLUME 8.8 fL (7.4-10.4); MONO % 9.5 %; NEUT % 66.9 %; PLATELET COUNT 249 K/uL (130-400); RED BLOOD COUNT 3.05 M/uL (4.7-6.1); WHITE BLOOD COUNT 8.09 K/uL (4.8-10.8)
[2017-01-06 09:06] LABS: COMPLETE YES; GIANT PLATELETS 1+; POLYCHROMASIA 1+
[2017-01-06 09:08] LABS: BUN/CREATININE RATIO 22.5 (10-20); CALCIUM 8.3 mg/dl (8.5-10.1); CREATININE 0.72 mg/dl (0.60-1.40)
[2017-01-06 11:07] LABS: FERRITIN 45.5 ng/ml (8.0-388.0)
--- NOTE | 2017-01-06 11:22 | GI REPORT ---
Procedure Date: 01/06/2017 10:30 AM Procedure: Colonoscopy Indications: Melena Medicines: See the Anesthesia note for documentation of the administered medications Complications: No immediate complications. Estimated Blood Loss: Estimated blood loss: none. Procedure: Pre-Anesthesia Assessment: - ASA Grade Assessment: III - A patient with severe systemic disease. After I obtained informed consent, the scope was passed under direct vision. Throughout the procedure, the patient's blood pressure, pulse, and oxygen saturations were monitored continuously. The scope was introduced through the anus and advanced to the terminal ileum. The colonoscopy was performed without difficulty. The patient tolerated the procedure well. The quality of the bowel preparation was good. Findings: The perianal and digital rectal examinations were normal. Two sessile polyps were found in the ascending colon and in the cecum. The polyps were 1 to 2 mm in size. These polyps were removed with a cold biopsy forceps. Resection and retrieval were complete. Three sessile polyps were found in the sigmoid colon, in the descending colon and in the transverse colon. The polyps were 3 to 5 mm in size. These polyps were removed with a cold snare. Resection and retrieval were complete. Multiple small and large-mouthed diverticula were found in the sigmoid colon and in the descending colon. Hemorrhoids on retroflexion. The exam was otherwise without abnormality. Impression: - Two 1 to 2 mm polyps in the ascending colon and in the cecum, removed with a cold biopsy forceps. Resected and retrieved. - Three 3 to 5 mm polyps in the sigmoid colon, in the descending colon and in the transverse colon, removed with a cold snare. Resected and retrieved. - Diverticulosis in the sigmoid colon and in the descending colon. - The examination was otherwise normal. Recommendation: - Discharge patient to home. Pt is without further evidence of GIB x 48 hours. OK for d/c home from our stand point. Pt should f/u with PCP for hgb check. Should cont empiric BID PPI x 2 weeks, and then d/c. Ok to resume baby asa today. Bob Romero M.D. Bob Romero MD 01/06/2017 11:21:58 AM This report has been signed electronically. Note Initiated On: 01/06/2017 10:30 AM I attest to the content of the Intraoperative Record and orders documented therein, exceptions below
--- NOTE | 2017-01-06 14:21 | Progress Note ---
Medicine Progress Note Date & Time of Visit: Jan 06, 2017 at 14:15. Subjective patient seen sitting up in bed s/p Colonoscopy today denies melena/hematochezia denies chest pain, dyspnea, dizziness, abdominal pain no other symptoms states he is ready and would like to be discharged today Objective Last 8 Hrs Date Time Temp Pulse Resp B/P Pulse Ox O2 Delivery O2 Flow Rate FiO2 01/06/17 12:00 Room Air 01/06/17 11:55 56 156/75 01/06/17 11:38 61 18 139/59 97 Room Air 0 01/06/17 11:20 63 18 141/63 97 Room Air 0.0 01/06/17 11:05 63 16 105/51 97 Room Air 0.0 01/06/17 09:55 36.5 65 20 142/74 97 Room Air 01/06/17 08:00 97 Room Air 01/06/17 07:40 36.7 68 18 158/88 97 Room Air 0.0 01/06/17 07:40 36.7 68 18 158/88 97 Room Air Physical Exam: General- oriented x 3, not in distress, speaks in sentences with no effort Neck- no JVD Lungs- clear breath sounds bilaterally Heart- normal rate, regular rhythm; no murmur Abdomen- normal bowel sounds, soft, nontender Extremities- no pretibial edema, no calf tenderness Neuro- alert, oriented x 3;no gross focal deficits Skin- warm & dry Laboratory Results: Last 24 Hours Test 01/05/17 16:15 01/05/17 20:13 01/06/17 08:22 Hemoglobin 8.2 g/dL 8.3 g/dL 8.5 g/dL Hematocrit 24.4 % 25.3 % 25.5 % White Blood Count 8.09 K/uL Red Blood Count 3.05 M/uL Mean Corpuscular Volume 83.6 fL Mean Corpuscular Hemoglobin 27.9 pg Mean Corpuscular Hemoglobin Concent 33.3 g/dl Platelet Count 249 K/uL Mean Platelet Volume 8.8 fL Neutrophils (%) (Auto) 66.9 % Lymphocytes (%) (Auto) 19.0 % Monocytes (%) (Auto) 9.5 % Eosinophils (%) (Auto) 4.4 % Basophils (%) (Auto) 0.0 % Neutrophils # (Auto) 5.40 K/uL Lymphocytes # (Auto) 1.54 K/uL Monocytes # (Auto) 0.77 K/uL Eosinophils # (Auto) 0.36 K/uL Basophils # (Auto) 0.00 K/uL RDW Standard Deviation 48.6 fL RDW Coefficient of Variation 17.3 % Immature Granulocyte % (Auto) 0.2 % Immature Granulocyte # (Auto) 0.02 K/uL Giant Platelets 1+ Polychromasia 1+ Sodium Level 141 mmol/L Potassium Level 4.0 mmol/L Chloride Level 107 mmol/L Carbon Dioxide Level 28 mmol/L Anion Gap 6.0 mmol/L Blood Urea Nitrogen 16 mg/dl Creatinine 0.72 mg/dl Est Creatinine Clear Calc Drug Dose 130.7 ml/min Estimated GFR () 108.8 Estimated GFR (Non- 93.9 BUN/Creatinine Ratio 22.5 Random Glucose 93 mg/dl Calcium Level 8.3 mg/dl Iron Level 27 mcg/dl Total Iron Binding Capacity 349 mcg/dl Ferritin 45.5 ng/ml Assessment & Plan ACUTE BLOOD LOSS ANEMIA, LIKELY FROM GI BLEED, IRON DEFICIENCY - evaluated by GI Dr. Romero/CARLOS Drake - s/p EGD 01/05/17: Impression:- Bleeding at the GE junction, clipped with hemostasis. s/p Colonoscopy 01/06/17: Impression: - Two 1 to 2 mm polyps in the ascending colon and in the cecum, removed with a cold biopsy forceps. Resected and retrieved. - Three 3 to 5 mm polyps in the sigmoid colon, in the descending colon and in the transverse colon, removed with a cold snare. Resected and retrieved. - Diverticulosis in the sigmoid colon and in the descending colon. - The examination was otherwise normal. Iron Level 27 - Placed on Protonix drip transitioned to Protonix 40mg po BID - s/p 3 units pRBC Hg improved from 6.0 to 8.5 no recurrence of melena/hematochezia - discharge plan: Protonix 40mg BID x 2 weeks FeSO4 BID resume Aspirin no NSAIDs repeat CBC in 1 week ff up Biopsy from EGD and Colonoscopy CAD S/P CABG Cardiac cath 11/2015 showed patent grafts may resume Aspirin per GI CHRONIC DIASTOLIC CHF Echo 11/2015- EF 55-59%, grade I diastolic dysfunction euvolemic HISTORY OF HYPERTENSION resume lisinopril and HCTZ DVT PROPHYLAXIS SCD's due to GI bleed DISPOSITION d/c home today ff up with PCP in 1 week Current Inpatient Medications: Current Inpatient Medications Medications (Trade) Dose Ordered Sig/Laura Route Start Time Stop Time Status Last Admin Dose Admin Acetaminophen (Tylenol Tab) 650 mg Q4H PRN PO 01/04/17 21:00 02/03/17 20:59 Ondansetron HCl (Zofran Inj) 4 mg Q6H PRN IV 01/04/17 21:00 02/03/17 20:59 Atenolol (Tenormin Tab) 50 mg QAM PO 01/05/17 09:00 02/04/17 08:59 01/05/17 09:46 50 MG Nitroglycerin (Nitrostat Tab) 0.4 mg UD PRN UT 01/04/17 21:15 02/03/17 21:14 Pantoprazole Sodium (Protonix Tab) 40 mg BID PO 01/05/17 21:00 02/04/17 20:59 01/05/17 20:58 40 MG
[2017-01-06] MEDS ORDERED: FRRS300 PO (14:24)
[2017-01-06] MEDS ORDERED: PRT40 PO (14:24)
--- NOTE | 2017-01-06 14:38 | Discharge Instructions ---
Discharge Instructions Date of Service Jan 06, 2017. Admission Reason for Admission: Anemia, Gi Bleed Discharge Discharge Diagnosis / Problem: ANEMIA FROM GASTROINTESTINAL BLEEDING Discharge Goals Goal(s): Diagnostic testing, Therapeutic intervention Activity Recommendations Activity Limitations: as noted below (NO HEAVY EXERTION UNTIL RE-EVALUATED BY PRIMARY CARE PHYSICIAN) . Instructions / Follow-Up Instructions / Follow-Up PLEASE REVIEW YOUR NEW MEDICATION LIST AND FOLLOW INSTRUCTIONS CAREFULLY. DO NOT TAKE NSAIDS (EX. IBUPROFEN, NAPROXEN, CELEBREX, ETC.) CONSULT WITH YOUR DOCTOR PRIOR TO STARTING ANY NEW MEDICATION. AVOID ALCOHOLIC/CARBONATED DRINKS, SMOKING. CALL YOUR PRIMARY CARE PHYSICIAN IMMEDIATELY IF WITH RECURRENCE OF SYMPTOMS, BLOOD IN THE STOOLS, WEAKNESS, DIZZINESS, SHORTNESS OF BREATH. FOLLOW UP WITH DR. PENA ON WEDNESDAY JANUARY 11, 2017 AT 2:10PM. Current Hospital Diet Patient's current hospital diet: AHA Diet (Heart Healthy) Discharge Diet Recommended Diet: AHA Diet (Heart Healthy) Procedures Procedures Performed: EGD ON 01/05/17; COLONOSCOPY WITH POLYPECTOMY ON 01/06/17 Pending Studies Studies pending at discharge: yes List of pending studies: REPEAT BLOOD WORK CBC Medical Emergencies . Who to Call and When: Medical Emergencies: If at any time you feel your situation is an emergency, please call 911 immediately. . Non-Emergent Contact Non-Emergency issues call your: Primary Care Provider Call Non-Emergent contact if: you have a fever, you have any medication questions . Past History Medical & Surgical History: (1) Obesity (2) CAD (coronary artery disease) (3) CHF (congestive heart failure) (4) HTN (hypertension) (5) HLD (hyperlipidemia) (6) Phimosis (7) GI bleeding (8) Anemia (9) Osteoarthritis (10) Hx of CABG (11) Bariatric surgery status (12) H/O knee surgery (13) S/P cholecystectomy (14) History of esophagogastroduodenoscopy (EGD) (15) History of liver biopsy (16) S/P cardiac catheterization (17) S/P colonoscopy with polypectomy (18) S/P panniculectomy . "Provider Documentation" section prepared by Miguel Palomino. VTE Core Measure Inpt VTE Proph given/why not?: SCD's
--- NOTE | 2017-01-06 14:44 | Discharge Summary ---
Discharge Summary Date of Service Jan 06, 2017. Discharge Summary Admission Date: Jan 04, 2017 at 20:33 Discharge Date: Jan 06, 2017 Discharge Disposition: Home Principal Diagnosis: ACUTE BLOOD LOSS ANEMIA, LIKELY FROM GI BLEED, IRON DEFICIENCY Secondary Diagnoses/Problems: PLEASE REFER TO HOSPITAL COURSE BELOW FOR FURTHER DETAILS. Procedures: S/P EGD 01/05/17 AND COLONOSCOPY WITH POLYPECTOMY 01/06/[address] CASTRO; S/P 3 UNITS PRBC TRANSFUSION Procedure Date: 01/05/2017 11:09 AM Procedure: Upper GI endoscopy Indications: Melena Medicines: See the Anesthesia note for documentation of the administered medications Complications: No immediate complications. Estimated Blood Loss: Estimated blood loss: none. Procedure: Pre-Anesthesia Assessment: - ASA Grade Assessment: III - A patient with severe systemic disease. After obtaining informed consent, the endoscope was passed under direct vision. Throughout the procedure, the patient's blood pressure, pulse, and oxygen saturations were monitored continuously. The scope was introduced through the mouth, and advanced to the afferent jejunal loop. The upper GI endoscopy was accomplished without difficulty. The patient tolerated the procedure well. Findings: The GE junction was at 37 cm. There was an inflammatory nodule at the GE junction with a small clot and no evidence of bleeding. Two clips were placed on this nodule. There was a poinpoint at the GE junction with brisk oozing; there was no ulcer there, and possible causes of bleeding include AVM or dieulafoy. Three clips were placed on this spot with cessation of oozing. The gastric pouch was unremarkable. There was evidence of a prior gastro enteric anastamosis. The anastamosis was unremarkable, without ulcer. The small intestine was normal. Impression: - Bleeding at the GE junction, clipped with hemostasis. Recommendation: - Discharge patient to floor. I am not sure if this is the source of pt's melena and anemia - plan colonoscopy tomorrow to r/o LGI source. Twice daily oral PPI. Bob Castro M.D. Bob Castro MD 01/05/2017 11:50:34 AM Procedure Date: 01/06/2017 10:30 AM Procedure: Colonoscopy Indications: Melena Medicines: See the Anesthesia note for documentation of the administered medications Complications: No immediate complications. Estimated Blood Loss: Estimated blood loss: none. Procedure: Pre-Anesthesia Assessment: - ASA Grade Assessment: III - A patient with severe systemic disease. After I obtained informed consent, the scope was passed under direct vision. Throughout the procedure, the patient's blood pressure, pulse, and oxygen saturations were monitored continuously. The scope was introduced through the anus and advanced to the terminal ileum. The colonoscopy was performed without difficulty. The patient tolerated the procedure well. The quality of the bowel preparation was good. Findings: The perianal and digital rectal examinations were normal. Two sessile polyps were found in the ascending colon and in the cecum. The polyps were 1 to 2 mm in size. These polyps were removed with a cold biopsy forceps. Resection and retrieval were complete. Three sessile polyps were found in the sigmoid colon, in the descending colon and in the transverse colon. The polyps were 3 to 5 mm in size. These polyps were removed with a cold snare. Resection and retrieval were complete. Multiple small and large-mouthed diverticula were found in the sigmoid colon and in the descending colon. Hemorrhoids on retroflexion. The exam was otherwise without abnormality. Impression: - Two 1 to 2 mm polyps in the ascending colon and in the cecum, removed with a cold biopsy forceps. Resected and retrieved. - Three 3 to 5 mm polyps in the sigmoid colon, in the descending colon and in the transverse colon, removed with a cold snare. Resected and retrieved. - Diverticulosis in the sigmoid colon and in the descending colon. - The examination was otherwise normal. Recommendation: - Discharge patient to home. Pt is without further evidence of GIB x 48 hours. OK for d/c home from our stand point. Pt should f/u with PCP for hgb check. Should cont empiric BID PPI x 2 weeks, and then d/c. Ok to resume baby asa today. Bob Castro M.D. Bob Castro MD 01/06/2017 11:21:58 AM Consultations: GI - DR. CASTRO Pending Studies/Follow-Up: PLEASE REPEAT CBC ON FOLLOW UP ; PLEASE REFER TO HOSPITAL COURSE BELOW FOR FURTHER DETAILS. Medication Reconciliation New Medications: Ferrous Sulfate (Ferrous Sulfate) 325 Mg Tab 1 TAB PO BID for 30 Days, #60 TABS 2 Refills Pantoprazole (Pantoprazole Sodium) 40 Mg Tab 40 MG PO BID for 14 Days, #28 TAB 0 Refills take 30 minutes before breakfast and dinner Continued Medications: Ascorbic Acid (Vitamin C) 500 Mg Cap 500 MG PO QAM Aspirin (Aspirin Chewable) 81 Mg Chew 81 MG PO QAM Atenolol (Tenormin) 50 Mg Tab 50 MG PO QAM, TAB Atorvastatin (Lipitor) 80 Mg Tab 80 MG PO QAM, TAB Calcium Citrate-Vitamin D (Calcium Citrate + D) 1 Tab Tab 1 TAB PO QAM Cyanocobalamin (Vitamin B12 500MCG) 500 Mcg Tab 1000 MCG PO QAM, TAB Ergocalciferol (Vitamin D 81271 Unit) 50,000 Unit Cap 52361 UNIT PO 2XWEEK, CAP Hydrochlorothiazide (Hydrochlorothiazide) 12.5 Mg Tab 1 TAB PO 3XWEEK for 90 Days, TAB 3 Refills Wednesday AM Lisinopril (Zestril) 20 Mg Tab 20 MG PO QAM, TAB Nitroglycerin (Nitrostat) 0.4 Mg Tab 0.4 MG UT UD PRN for Chest Pain, BTL Zinc Sulfate (Zinc Sulfate) 220 Mg Tab 220 MG PO QAM Discontinued Medications: Diclofenac Sodium (Actinic Ker (Solaraze) 3 % Gel 1 DOSE TOP QID PRN for Pain Admission Information HPI (per Admitting provider): This is a 71 year old male with PMH of CAD s/p CABG x 4, chronic diastolic CHF, hypertension, dyslipidemia, obesity s/p gastric bypass, hx gastric ulcer, hx colon polyps, who presented to the ED with dizziness and SOB. Patient was recently seen in clinic on 12/28/16 with complaint of intermittent hematochezia and melena. At that time rectal exam was positive for occult blood. Patient was referred for colonoscopy scheduled for 01/07/17. Pt then had normal stool again until 2 days ago he had recurrent black stool with bright red blood x 2 episodes , had similar movements x 2 yesterday, then today [employer] had 1 episode of black stool without red blood. Since yesterday he was intermittently lightheaded. Then today he was SOB at rest and with activity. He states he is still mildly SOB at present. He reports chronic L>R edema which is unchanged from baseline. Denies fever, chills, cough, syncope, chest pain, reflux, abdominal pain, nausea , vomiting, diarrhea, urinary change, weight gain. He takes baby aspirin daily and topical Voltaren gel PRN but no other NSAID or blood thinner. Prior EGD in by Dr. Munoz showed gastric bypass, anastomotic ulcer. Per patient last colonoscopy was approximately 4-5 years ago at [facility] and polyps were removed at that time. Physical Exam (per Admitting): General Appearance: + obese, + pertinent finding (pleasant alert 71 y/o male , not in distress, at bedside) Head: normocephalic, atraumatic Eyes: normal inspection, PERRL, EOMI, sclerae normal ENT: hearing grossly normal, pharynx normal Neck: supple, no JVD, trachea midline, + pertinent finding (neck is thick) Respiratory/Chest: lungs clear, normal breath sounds, no respiratory distress, no accessory muscle use Cardiovascular: regular rate, rhythm, no murmur Abdomen/GI: normal bowel sounds, non tender, soft, + pertinent finding ( paniculectomy scar across lower abdomen) Extremities/Musculoskelatal: no calf tenderness, + pertinent finding (1+ pretibial edema L> R, unchanged from baseline per ) Neurologic/Psych: alert, normal mood/affect, oriented x 3, + pertinent finding (grossly nonfocal ) Skin: warm/dry, + pallor Hospital Course ACUTE BLOOD LOSS ANEMIA, LIKELY FROM GI BLEED, IRON DEFICIENCY - evaluated by GI Dr. Castro/CARLOS Drake - s/p EGD 01/05/17: Impression:- Bleeding at the GE junction, clipped with hemostasis. s/p Colonoscopy 01/06/17: Impression: - Two 1 to 2 mm polyps in the ascending colon and in the cecum, removed with a cold biopsy forceps. Resected and retrieved. - Three 3 to 5 mm polyps in the sigmoid colon, in the descending colon and in the transverse colon, removed with a cold snare. Resected and retrieved. - Diverticulosis in the sigmoid colon and in the descending colon. - The examination was otherwise normal. Iron Level 27 - Placed on Protonix drip transitioned to Protonix 40mg po BID - s/p 3 units pRBC Hg improved from 6.0 to 8.5 no recurrence of melena/hematochezia - discharge plan: Protonix 40mg BID x 2 weeks FeSO4 BID resume Aspirin no NSAIDs repeat CBC in 1 week ff up Biopsy from EGD and Colonoscopy CAD S/P CABG Cardiac cath 11/2015 showed patent grafts may resume Aspirin per GI CHRONIC DIASTOLIC CHF Echo 11/2015- EF 55-59%, grade I diastolic dysfunction euvolemic HYPERTENSION resume lisinopril and HCTZ DVT PROPHYLAXIS SCD's due to GI bleed DISPOSITION d/c home ff up with PCP in 1 week Total time spent on discharge = 35 MINUTES This includes examination of the patient, discharge planning, medication reconciliation, and communication with other providers. Discharge Instructions Discharge Instructions Date of Service Jan 06, 2017. Admission Reason for Admission: Anemia, Gi Bleed Discharge Discharge Diagnosis / Problem: ANEMIA FROM GASTROINTESTINAL BLEEDING Discharge Goals Goal(s): Diagnostic testing, Therapeutic intervention Activity Recommendations Activity Limitations: as noted below (NO HEAVY EXERTION UNTIL RE-EVALUATED BY PRIMARY CARE PHYSICIAN) . Instructions / Follow-Up Instructions / Follow-Up PLEASE REVIEW YOUR NEW MEDICATION LIST AND FOLLOW INSTRUCTIONS CAREFULLY. DO NOT TAKE NSAIDS (EX. IBUPROFEN, NAPROXEN, CELEBREX, ETC.) CONSULT WITH YOUR DOCTOR PRIOR TO STARTING ANY NEW MEDICATION. AVOID ALCOHOLIC/CARBONATED DRINKS, SMOKING. CALL YOUR PRIMARY CARE PHYSICIAN IMMEDIATELY IF WITH RECURRENCE OF SYMPTOMS, BLOOD IN THE STOOLS, WEAKNESS, DIZZINESS, SHORTNESS OF BREATH. FOLLOW UP WITH DR. PENA ON WEDNESDAY JANUARY 11, 2017 AT 2:10PM. Current Hospital Diet Patient's current hospital diet: AHA Diet (Heart Healthy) Discharge Diet Recommended Diet: AHA Diet (Heart Healthy) Procedures Procedures Performed: EGD ON 01/05/17; COLONOSCOPY WITH POLYPECTOMY ON 01/06/17 Pending Studies Studies pending at discharge: yes List of pending studies: REPEAT BLOOD WORK CBC Medical Emergencies . Who to Call and When: Medical Emergencies: If at any time you feel your situation is an emergency, please call 911 immediately. . Non-Emergent Contact Non-Emergency issues call your: Primary Care Provider Call Non-Emergent contact if: you have a fever, you have any medication questions . Past History Medical & Surgical History: (1) Obesity (2) CAD (coronary artery disease) (3) CHF (congestive heart failure) (4) HTN (hypertension) (5) HLD (hyperlipidemia) (6) Phimosis (7) GI bleeding (8) Anemia (9) Osteoarthritis (10) Hx of CABG (11) Bariatric surgery status (12) H/O knee surgery (13) S/P cholecystectomy (14) History of esophagogastroduodenoscopy (EGD) (15) History of liver biopsy (16) S/P cardiac catheterization (17) S/P colonoscopy with polypectomy (18) S/P panniculectomy . "Provider Documentation" section prepared by Miguel Palomino. VTE Core Measure Inpt VTE Proph given/why not?: SCD's
[2017-01-06] MEDS: PANTOprazole SOD 40 MG TAB PO SCH (14:51)
[2017-03-18] MEDS ORDERED: HYDR12.56 PO (18:42)
[2017-03-18] MEDS ORDERED: FURO-85 PO (18:42)
== END 2017-01-06 16:20 | disposition home or self-care (01) | DRG 378 ==
LOC: ENRESERVTM → ENRESERVDT → C.EDB 17:56 → C.2T 20:33
PROVIDERS: ADMIT Internal Medicine; ATTEND Internal Medicine
PROC: 0W3P8ZZ Control Bleeding in Gastrointestinal Tract, Via Natural or Artificial Opening Endoscopic (ICD-10-PCS; principal; 2017-01-05 11:00)
PROC: 0DBK8ZX Excision of Ascending Colon, Via Natural or Artificial Opening Endoscopic, Diagnostic (ICD-10-PCS; 2017-01-06)
PROC: 0DBL8ZX Excision of Transverse Colon, Via Natural or Artificial Opening Endoscopic, Diagnostic (ICD-10-PCS; 2017-01-06)
PROC: 0DBM8ZX Excision of Descending Colon, Via Natural or Artificial Opening Endoscopic, Diagnostic (ICD-10-PCS; 2017-01-06)
PROC: 0DBH8ZX Excision of Cecum, Via Natural or Artificial Opening Endoscopic, Diagnostic (ICD-10-PCS; 2017-01-06)
PROC: 0DBN8ZX Excision of Sigmoid Colon, Via Natural or Artificial Opening Endoscopic, Diagnostic (ICD-10-PCS; 2017-01-06)
DX: K92.2 Gastrointestinal hemorrhage, unspecified (principal); D62 Acute posthemorrhagic anemia; I50.32 Chronic diastolic (congestive) heart failure; K57.31 Diverticulosis of large intestine without perforation or abscess with bleeding; I25.10 Atherosclerotic heart disease of native coronary artery without angina pectoris; I11.0 Hypertensive heart disease with heart failure; E78.5 Hyperlipidemia, unspecified; D12.5 Benign neoplasm of sigmoid colon; I45.10 Unspecified right bundle-branch block; D12.2 Benign neoplasm of ascending colon; D12.0 Benign neoplasm of cecum; Z95.1 Presence of aortocoronary bypass graft; Z87.891 Personal history of nicotine dependence; Z82.3 Family history of stroke; Z82.49 Family history of ischemic heart disease and other diseases of the circulatory system; Z80.9 Family history of malignant neoplasm, unspecified; Z79.82 Long term (current) use of aspirin; K64.9 Unspecified hemorrhoids; Z98.84 Bariatric surgery status; I85.00 Esophageal varices without bleeding; M19.90 Unspecified osteoarthritis, unspecified site

== ENCOUNTER 2017-03-16 17:53 | Inpatient (IN) | payer OTHER, BC ==
[~2017-03-16] VITALS: Ht 170.2 cm; Wt 147.6 kg
[~2017-03-16 17:53] MED LIST changes: -DICL1GEL12 TOP; +FRRS300 PO; -IRON OTC PO; -MULT-513 PO; +PRT40 PO
[2017-03-17] VITALS (11 sets, daily range): BP systolic 91–133; BP diastolic 58–78; PULSE 58–80; TEMP 36.4–36.8; O2SAT 95–100; Ht 170.2 cm; Wt 147.6 kg
--- NOTE | 2017-03-17 01:12 | History and Physical ---
History & Physical Date & Time of Service: March 17, 2017 at 01:06 Chief Complaint: Complicated Gi Bleed Primary Care Physician: Corona Fleming D.ODarshan History of Present Illness Source: patient This is a 71 year old male with PMH of CAD s/p CABG x 4, chronic diastolic CHF, hypertension, dyslipidemia, obesity s/p gastric bypass, hx gastric ulcer, hx colon polyps, sent as a direct admission form ED for anemia , GI bleed pt was seen at [facility] for complain of chest pain /SOB had CT chest with contrast -which was negative for PE cardiac markers negative ,EKG no acute change pt's HB was found to be in 6.9 with dark stool pt was given 2 units of PRBC transfusion as pt been followed with GI at [facility] had EGD , colonoscopy done pt was transferred to [facility] Past Medical/Surgical History Medical Problems: (1) CAD (coronary artery disease) Status: Chronic (2) CHF (congestive heart failure) Permanent Comment: echo 11/2015- EF 55-59%, grade I diastolic dysfunction Status: Chronic (3) HLD (hyperlipidemia) Status: Chronic (4) HTN (hypertension) Status: Chronic (5) Osteoarthritis Status: Chronic Surgical Problems: (1) Bariatric surgery status Status: Chronic (2) H/O knee surgery Status: Chronic (3) History of esophagogastroduodenoscopy (EGD) Status: Chronic (4) History of liver biopsy Status: Chronic (5) Hx of CABG Permanent Comment: Status: Chronic (6) S/P cardiac catheterization Permanent Comment: 12/24/2015- Severe salt river vessel disease. Patent PUGA-mid LAD, patent SVG-PDA, patent jump graft [id number]. The left ventricular end diastolic pressure was normal. Status: Chronic (7) S/P cholecystectomy Status: Chronic (8) S/P colonoscopy with polypectomy Status: Chronic (9) S/P panniculectomy Status: Chronic Family History FH: cancer FH: heart disease Hypertension Stroke Social History Smoking Status: Former Smoker Drug Use: none Marital Status: Housing status: lives with family Occupational Status: retired Immunizations History of Tetanus Vaccine?: Unknown History of Pneumococcal: Unknown History of Hepatitis B Vaccine: Unknown Multi-Drug Resistant Organisms History of MDRO: No Allergies Coded Allergies: No Known Allergies (Verified , 01/04/17) Home Medications Scheduled Ascorbic Acid (Vitamin C), 500 MG PO QAM Aspirin (Aspirin Chewable), 81 MG PO QAM Atenolol (Tenormin), 50 MG PO QAM Atorvastatin (Lipitor), 80 MG PO QAM Calcium Citrate-Vitamin D (Calcium Citrate + D), 1 TAB PO QAM Cyanocobalamin (Vitamin B12 500MCG), 1,000 MCG PO QAM Ergocalciferol (Vitamin D 03625 Unit), 50,000 UNIT PO 2XWEEK Ferrous Sulfate (Ferrous Sulfate), 1 TAB PO BID Lisinopril (Zestril), 20 MG PO QAM Pantoprazole (Pantoprazole Sodium), 40 MG PO BID Zinc Sulfate (Zinc Sulfate), 220 MG PO QAM Scheduled PRN Nitroglycerin (Nitrostat), 0.4 MG UT UD PRN for Chest Pain Review of Systems Respiratory: + shortness of breath Cardiovascular: + chest pain Abdomen: + GI bleeding Physical Exam General Appearance: no apparent distress Head: normocephalic, atraumatic Respiratory/Chest: chest non-tender, lungs clear, normal breath sounds, no respiratory distress, no accessory muscle use Cardiovascular: regular rate, rhythm Abdomen/GI: non tender, soft Extremities/Musculoskelatal: no calf tenderness, normal capillary refill, no pedal edema Neurologic/Psych: alert, normal mood/affect, oriented x 3 Skin: normal color, warm/dry, no rash Lymphatic: no adenopathy Diagnostics Laboratory Results Results Past 24 Hours Test 03/17/17 01:01 Range/Units Impression Assessment and Plan ANEMIA /POSSIBLE GI BLEED sent form out side hospital with hb 6.9 s/p 2 units of PRBC transfusion last Hb check in office 03/08/17 10.7 rule out GI bleed ordered for NPO repeat H&H Protonix IV gtt GI eval requested pt is known to [facility] GI team had EGD /Colonoscopy done at [facility] on 01/06/17 for concern for GI bleed coloscopy done by Dr Romero showed colonic polyps , sigmoid diverticulosis EGD 01/05/17 : Bleeding at GE junction , clipped with hemostasis pt is kept NPO may need possible repeat Endoscopy this admission GI eval requested CHEST PAIN /SOB; possible due to symptomatic anemia work up at outside hospital was negative -CT chest negative for PE /normal EKG , cardiac markers no symptom now s/p 2 units of PRBC tx Hb improved ~ 8 monitor in tele follow H&H HTN ; BP stable monitor in tele hold Lasix , HCTZ/ACEI for concern for GI bleed Atenolol with sips of water CHRONIC DIASTOLIC HEART FAILURE : ECHO 11/2015 : EF 55-59 % , grade 1 diastolic dysfunction currently compensated hold Lasix for concern of GI bleed HX OF CAD no angina symptom hold Aspirin due to anemia , concern for GI bleed Atenolol can be continued in AM with sips of water prior to procedure hold statin DYSLIPIDEMIA hold statin due to NPO status FULL CODE DVT PROPHYLAXIS SCD and TEDS ambulate avoid anticoagulation due to concern for GI bleed , anemia DISPOSITION ; expected to return home when medically stable Level of Care Med/Surg Resuscitation Status FULL RESUSCITATION VTE Prophylaxis VTE Risk Assessment Done? Y/N: Yes Risk Level: Moderate Given or contraindicated: TDarshanEArtur Stockings, SCD's Additional Copies To Bob Romero M.D.
[2017-03-17] MEDS ORDERED: ACETAMINOPHEN 325 MG TAB PO PRN (01:15)
[2017-03-17] MEDS ORDERED: ONDANSETRON INJ 2 MG/ML 2 ML VIAL IV PRN (01:15)
[2017-03-17] MEDS ORDERED: NITROGLYCERIN 0.4 MG SL PER TAB CHARGE SL PRN (01:15)
[2017-03-17] MEDS ORDERED: PANTOprazole INJ 80 MG in DEXTROSE 5% 100ML IV STA (01:21)
[2017-03-17 01:43] LABS: MEAN CELL VOLUME 88.2 fL (80-100); MEAN CORPUSCULAR HEMOGLOBIN 28.4 pg (25-34); MEAN CORPUSCULAR HGB CONC 32.2 g/dl (32-36); MEAN PLATELET VOLUME 9.5 fL (7.4-10.4); PLATELET COUNT 238 K/uL (130-400); RED BLOOD COUNT 3.06 M/uL (4.7-6.1); WHITE BLOOD COUNT 12.08 K/uL (4.8-10.8)
[2017-03-17 01:56] LABS: PROTHROMBIN TIME (PATIENT) 10.7 SECONDS (9.0-12.0)
[2017-03-17 02:00] LABS: ALT/SGPT 14 U/L (12-78); AST/SGOT 13 U/L (15-37); BLOOD UREA NITROGEN 34 mg/dl (7-18); BUN/CREATININE RATIO 52.2 (10-20); CALCIUM 7.9 mg/dl (8.5-10.1); CARBON DIOXIDE 32 mmol/L (21-32); CHLORIDE 108 mmol/L (98-107); CREATININE 0.66 mg/dl (0.60-1.40); GLUCOSE 93 mg/dl (70-99); POTASSIUM 4.3 mmol/L (3.5-5.1); SODIUM 145 mmol/L (136-145)
[2017-03-17 02:03] LABS: ALKALINE PHOSPHATASE 63 U/L (45-117)
[2017-03-17] MEDS: PANTOprazole INJ 40 MG in DEXTROSE 5% 100ML IV SCH ×3 (02:17→12:31)
[2017-03-17 06:48] LABS: HEMATOCRIT 25.9 % (42-52)
--- NOTE | 2017-03-17 08:02 | DIAGNOSTIC IMAGING REPORT ---
CHEST ONE VIEW PORTABLE CLINICAL HISTORY: pre op preoperative evaluation COMPARISON STUDY: 01/04/2017 FINDINGS: Mild stable cardiomegaly. Prior median sternotomy. Lungs are clear. IMPRESSION: No acute process. Mild stable cardiomegaly. Electronically signed by: Julien Armenta M.D. 03/17/2017 8:01 AM Dictated Date/Time: 03/17/2017 8:00 AM
--- NOTE | 2017-03-17 09:18 | Gastrointestinal Consultation ---
Gastrointestinal Consultation Date of Consultation: March 17, 2017 Attending Physician: Dhruv Huddleston Consulting Physician: Bob Alexis Reason for Consultation: Anemia, GI bleed History of Present Illness Patient is a 71 year old male who was transferred from [facility] for symptomatic anemia, dark stools. He presented there w s/s of CP, SOB, w/u negative for PE, cardiac enzymes negative, no EKG changes. His Hgb was noted to be 6.9, he was also c/o dizziness, started having dark stools on Wednesday. He was having associated dizziness, epigastric abd pain, nausea. He had similar symptoms when he was admitted here last in December. He has hx of gastric bypass, found to have gastric ulcer in 2006 via EGD when done by Dr. Munoz. He had EGD /Colonoscopy in December [address] Romero. EGD w blood noted on GE junction but source unknown, Colonoscopy showed TA polyps, diverticulosis. He was given 2U PRBC at [facility] currently Hgb around 8. He had last BM at night, stools still dark and tarry per pt's report. He denies any more dizziness, CP, SOB, nausea, but still having some epigastric area discomfort. At home he was taking ASA 81mg daily and Protonix 40mg BID. Coags normal. CMP unremarkable. Past Medical/Surgical History Medical Problems: (1) Anemia Status: Acute (2) GI bleeding Status: Acute Past Medical History: CAD, CHF, Hyperlipidemia, HTN, OA, Past Surgical History: Knee surgery, CABG, Cholecystectomy, Panniculectomy Family History FH: cancer FH: heart disease Hypertension Stroke Social History Smoking Status: Former Smoker Alcohol Use: occasionally Drug Use: none Marital Status: Housing Status: lives with family Occupation Status: retired Allergies Coded Allergies: No Known Allergies (Verified , 01/04/17) Current Medications Home Meds and Scripts Medications Dose Route/Sig Max Daily Dose Days Date Category Dose Instructions Ferrous Sulfate 325 Mg Tab 1 Tab PO BID 30 01/06/17 Rx Pantoprazole Sodium (Pantoprazole) 40 Mg Tab 40 Mg PO BID 14 01/06/17 Rx take 30 minutes before breakfast and dinner Aspirin Chewable (Aspirin) 81 Mg Chew 81 Mg PO QAM 12/31/16 Reported Calcium Citrate + D (Calcium Citrate-Vitamin D) 1 Tab Tab 1 Tab PO QAM 07/30/16 Reported Vitamin B12 500MCG (Cyanocobalamin) 500 Mcg Tab 1,000 Mcg PO QAM 07/30/16 Reported Vitamin C (Ascorbic Acid) 500 Mg Cap 500 Mg PO QAM 07/30/16 Reported Zestril (Lisinopril) 20 Mg Tab 20 Mg PO QAM 07/30/16 Reported Tenormin (Atenolol) 50 Mg Tab 50 Mg PO QAM 07/30/16 Reported Lipitor (Atorvastatin Calcium) 80 Mg Tab 80 Mg PO QAM 07/30/16 Reported Vitamin D 31797 Unit (Ergocalciferol) 50,000 Unit Cap 50,000 Unit PO 2XWEEK 07/30/16 Reported Zinc Sulfate 220 Mg Tab 220 Mg PO QAM 07/30/16 Reported Review of Systems Constitutional: No chills, No fever Respiratory: No cough, No shortness of breath Cardiac: No chest pain, No edema Abdomen: + GI bleeding, + see HPI, No nausea, No pain, No vomiting Skin: No itch, No rash Physical Exam Date Time Temp Pulse Resp B/P Pulse Ox O2 Delivery O2 Flow Rate FiO2 03/17/17 07:18 36.6 77 20 130/70 95 Nasal Cannula 2.0 03/17/17 05:57 36.8 72 18 91/58 98 Nasal Cannula 2.0 03/17/17 04:00 Nasal Cannula 2.0 03/17/17 04:00 36.8 72 18 91/58 98 03/17/17 00:03 36.8 80 18 118/66 95 Nasal Cannula 2.0 General Appearance: WD/WN, no apparent distress, + obese Eyes: normal inspection, PERRL, EOMI Neck: supple, no JVD, trachea midline Respiratory/Chest: normal breath sounds, no respiratory distress, no accessory muscle use Cardiovascular: regular rate, rhythm, no gallop, no murmur Abdomen: normal bowel sounds, non tender, soft Extremities: + swelling (bilateral LE ) Neurologic/Psych: alert, normal mood/affect, oriented x 3 Skin: normal color, no jaundice, no rash Laboratory Results Last 24 Hours Test 03/17/17 01:32 03/17/17 06:24 White Blood Count 12.08 K/uL Red Blood Count 3.06 M/uL Hemoglobin 8.7 g/dL 8.1 g/dL Hematocrit 27.0 % 25.9 % Mean Corpuscular Volume 88.2 fL Mean Corpuscular Hemoglobin 28.4 pg Mean Corpuscular Hemoglobin Concent 32.2 g/dl RDW Standard Deviation 49.4 fL RDW Coefficient of Variation 15.5 % Platelet Count 238 K/uL Mean Platelet Volume 9.5 fL Prothrombin Time 10.7 SECONDS Prothromb Time International Ratio 1.0 Sodium Level 145 mmol/L Potassium Level 4.3 mmol/L Chloride Level 108 mmol/L Carbon Dioxide Level 32 mmol/L Anion Gap 5.0 mmol/L Blood Urea Nitrogen 34 mg/dl Creatinine 0.66 mg/dl Estimated GFR () 112.7 Estimated GFR (Non- 97.3 BUN/Creatinine Ratio 52.2 Random Glucose 93 mg/dl Calcium Level 7.9 mg/dl Total Bilirubin 0.5 mg/dl Aspartate Amino Transf (AST/SGOT) 13 U/L Alanine Aminotransferase (ALT/SGPT) 14 U/L Alkaline Phosphatase 63 U/L Total Protein 6.1 gm/dl Albumin 3.0 gm/dl Globulin 3.1 gm/dl Albumin/Globulin Ratio 1.0 Impression Patient is a 71 year old male admitted as a transfer from [facility] w symptomatic anemia, s/s of dark stools. Hx of gastric bypass surgery previously had gastric ulcer in 2006, recent EGD in December 2016 w signs of GE junction bleed w/o obvious source, colonoscopy around that time w benign findings. Plan - Keep NPO, plan for EGD w Dr. Romero today - Monitor H/H and transfuse prn - Further recs after EGD completed.
[2017-03-17] MEDS ORDERED: PROPOFOL IV EMULSION 10 MG/ML 20 ML VIAL IV ONE (11:33)
[2017-03-17] MEDS ORDERED: PHENYLEPHRINE 100MCG/ML 5ML SYR ONE (11:33)
[2017-03-17] MEDS ORDERED: LIDOCAINE HCL 2% 2 ML VIAL (20MG/ML) ONE (11:33)
--- NOTE | 2017-03-17 11:42 | GI REPORT ---
Procedure Date: 03/17/2017 11:05 AM Procedure: Upper GI endoscopy Indications: Melena Medicines: See the Anesthesia note for documentation of the administered medications Complications: No immediate complications. Estimated Blood Loss: Estimated blood loss: none. Procedure: Pre-Anesthesia Assessment: - ASA Grade Assessment: III - A patient with severe systemic disease. After obtaining informed consent, the endoscope was passed under direct vision. Throughout the procedure, the patient's blood pressure, pulse, and oxygen saturations were monitored continuously. The scope was introduced through the mouth, and advanced to the afferent and efferent jejunal loops. The upper GI endoscopy was accomplished without difficulty. The patient tolerated the procedure well. Findings: LA Grade B (one or more mucosal breaks greater than 5 mm, not extending between the tops of two mucosal folds) esophagitis with no bleeding was found. Lower esophagus was mildy tortuous. The Z-line was found 38 cm from the incisors. There was a gastroenteric anastamosis. There was a single small erosion in the stomach pouch. There were parish in the stomach. The anastamosis was unremarkable. The examined portion of the small intestine was normal. Impression: - LA Grade B reflux esophagitis. - No anastamotic ulcer. Recommendation: - Discharge patient to floor. Consider colonoscopy. Bob Romero M.D. Bob Romero MD 03/17/2017 11:42:59 AM This report has been signed electronically. Note Initiated On: 03/17/2017 11:05 AM I attest to the content of the Intraoperative Record and orders documented therein, exceptions below
--- NOTE | 2017-03-17 12:26 | Anesthesiology Progress Note ---
Anesthesia Post Op Note Date & Time March 17, 2017 at 12:25 Vital Signs Pain Intensity: 0.0 Vital Signs Past 12 Hours Date Time Temp Pulse Resp B/P Pulse Ox O2 Delivery O2 Flow Rate FiO2 03/17/17 12:05 61 16 115/47 100 Nasal Cannula 3 03/17/17 11:50 60 16 97/53 98 Nasal Cannula 3 03/17/17 11:35 67 12 107/50 97 Mask 15 03/17/17 10:32 36.7 60 20 110/49 96 Nasal Cannula 3 03/17/17 10:04 36.6 77 20 130/70 95 Nasal Cannula 2.0 03/17/17 08:00 Nasal Cannula 2.0 03/17/17 07:18 36.6 77 20 130/70 95 Nasal Cannula 2.0 03/17/17 05:57 36.8 72 18 91/58 98 Nasal Cannula 2.0 03/17/17 04:00 Nasal Cannula 2.0 03/17/17 04:00 36.8 72 18 91/58 98 Notes Mental Status: alert / awake / arousable, participated in evaluation Pt Amnestic to Procedure: Yes Nausea / Vomiting: adequately controlled Pain: adequately controlled Airway Patency, RR, SpO2: stable & adequate BP & HR: stable & adequate Hydration State: stable & adequate Anesthetic Complications: no major complications apparent
[2017-03-17 14:37] LABS: HEMATOCRIT 24.9 % (42-52)
[2017-03-17] MEDS ORDERED: BISACODYL 5 MG TABEC PO ONE (17:00)
[2017-03-17] MEDS ORDERED: POLYETHYLENE (MIRALAX) 17 GM PACK PO ONE ×2 (17:00→21:00)
--- NOTE | 2017-03-17 17:38 | Progress Note ---
Internal Med Progress Note Date of Service: March 17, 2017. Provider Documentation: SUBJECTIVE: feeling much better today no sob or chest pain no abdominal pain no bloody bowel movements stool is more brown today OBJECTIVE: Vital Signs-as noted below Exam: General-alert and awake and oriented x 3 ENT-normal hearing Neck-no neck masses Lungs-cta b/l no wheezing or crackles Heart-s1 and s2 heard regular rate and rhythm no murmurs Abdomen-soft bowel sounds present non tender no distension Extremities- no edema present no erythema Neuro-alert and awake oriented x 3 moves extremities Lab data as noted below. ASSESSMENT & PLAN: ANEMIA /POSSIBLE GI BLEED sent form out side hospital with hb 6.9 s/p 2 units of PRBC transfusion As pwer H and P: 'had EGD /Colonoscopy done at [facility] on 01/06/17 for concern for GI bleed coloscopy done by Dr Romero showed colonic polyps , sigmoid diverticulosis EGD 01/05/17 : Bleeding at GE junction , clipped with hemostasis' s/p EGD today: reflux gastritis no anastomosis ulcer hb 7.8 will transfuse two more units prbc today monitor on tele. CHEST PAIN /SOB; mostly from above asymptomatic today HTN ; BP stable monitor in tele holding Lasix and HCTZ/ACEI for concern for GI bleed Atenolol with hold parameters CHRONIC DIASTOLIC HEART FAILURE : ECHO 11/2015 : EF 55-59 % , grade 1 diastolic dysfunction currently compensated holding Lasix for concern of GI bleed monitor for volume overload. HX OF CAD no angina symptom holding Aspirin due to anemia , concern for GI bleed hold statin continuing atenolol, DYSLIPIDEMIA hold statin FULL CODE DVT PROPHYLAXIS SCD and TEDS ambulate avoid anticoagulation due to concern for GI bleed , anemia DISPOSITION ; expected to return home when medically stable Vital Signs: Date Time Temp Pulse Resp B/P Pulse Ox O2 Delivery O2 Flow Rate FiO2 03/17/17 12:15 Nasal Cannula 2.0 03/17/17 12:15 36.7 60 20 133/76 100 Nasal Cannula 3.0 03/17/17 12:05 61 16 115/47 100 Nasal Cannula 3 03/17/17 11:50 60 16 97/53 98 Nasal Cannula 3 03/17/17 11:35 67 12 107/50 97 Mask 15 03/17/17 10:32 36.7 60 20 110/49 96 Nasal Cannula 3 03/17/17 10:04 36.6 77 20 130/70 95 Nasal Cannula 2.0 03/17/17 08:00 Nasal Cannula 2.0 03/17/17 07:18 36.6 77 20 130/70 95 Nasal Cannula 2.0 03/17/17 05:57 36.8 72 18 91/58 98 Nasal Cannula 2.0 03/17/17 04:00 Nasal Cannula 2.0 03/17/17 04:00 36.8 72 18 91/58 98 03/17/17 00:03 36.8 80 18 118/66 95 Nasal Cannula 2.0 Lab Results: Results Past 24 Hours Test 03/17/17 01:32 03/17/17 06:24 03/17/17 14:07 Range/Units White Blood Count 12.08 4.8-10.8 K/uL Red Blood Count 3.06 4.7-6.1 M/uL Hemoglobin 8.7 8.1 7.8 14.0-18.0 g/dL Hematocrit 27.0 25.9 24.9 42-52 % Mean Corpuscular Volume 88.2 80-100 fL Mean Corpuscular Hemoglobin 28.4 25-34 pg Mean Corpuscular Hemoglobin Concent 32.2 32-36 g/dl RDW Standard Deviation 49.4 36.4-46.3 fL RDW Coefficient of Variation 15.5 11.5-14.5 % Platelet Count 238 130-400 K/uL Mean Platelet Volume 9.5 7.4-10.4 fL Prothrombin Time 10.7 9.0-12.0 SECONDS Prothromb Time International Ratio 1.0 0.9-1.1 Sodium Level 145 136-145 mmol/L Potassium Level 4.3 3.5-5.1 mmol/L Chloride Level 108 98-107 mmol/L Carbon Dioxide Level 32 21-32 mmol/L Anion Gap 5.0 3-11 mmol/L Blood Urea Nitrogen 34 7-18 mg/dl Creatinine 0.66 0.60-1.40 mg/dl Estimated GFR () 112.7 Estimated GFR (Non- 97.3 BUN/Creatinine Ratio 52.2 10-20 Random Glucose 93 70-99 mg/dl Calcium Level 7.9 8.5-10.1 mg/dl Total Bilirubin 0.5 0.2-1 mg/dl Aspartate Amino Transf (AST/SGOT) 13 15-37 U/L Alanine Aminotransferase (ALT/SGPT) 14 12-78 U/L Alkaline Phosphatase 63 45-117 U/L Total Protein 6.1 6.4-8.2 gm/dl Albumin 3.0 3.4-5.0 gm/dl Globulin 3.1 2.5-4.0 gm/dl Albumin/Globulin Ratio 1.0 0.9-2
[2017-03-17] MEDS ORDERED: FUROSEMIDE INJ 20 MG in SYRINGE 0 ML IV SCH (18:00)
[2017-03-17] MEDS: PANTOprazole SOD 40 MG TAB PO SCH (20:40)
[2017-03-18] VITALS (12 sets, daily range): BP systolic 102–138; BP diastolic 54–81; PULSE 60–88; TEMP 36.4–37.1; O2SAT 91–98
[2017-03-18 05:37] LABS: HEMATOCRIT 28.9 % (42-52); MEAN CELL VOLUME 88.7 fL (80-100); MEAN CORPUSCULAR HEMOGLOBIN 28.5 pg (25-34); MEAN CORPUSCULAR HGB CONC 32.2 g/dl (32-36); MEAN PLATELET VOLUME 9.7 fL (7.4-10.4); PLATELET COUNT 231 K/uL (130-400); RED BLOOD COUNT 3.26 M/uL (4.7-6.1); WHITE BLOOD COUNT 13.38 K/uL (4.8-10.8)
[2017-03-18 06:18] LABS: BUN/CREATININE RATIO 30.1 (10-20); CALCIUM 8.4 mg/dl (8.5-10.1); CREATININE 0.67 mg/dl (0.60-1.40); POTASSIUM 4.2 mmol/L (3.5-5.1)
--- NOTE | 2017-03-18 07:12 | Clinical Documentation Query ---
QUERY 1 OF [address] ROY, In your clinical opinion is this patient being managed for: ( ) Acute blood loss anemia ( ) Other explanation of clinical findings (Please Explain) ( ) Unable to determine (Please Define) ( ) Need to Discuss ( ) Not Agree The medical record reflects the following clinical findings, treatment, and risk factors. Clinical Indicators:71 yo male transferred to [facility] for symptomatic anemia and possible GI bleed. Had been transfused 2U PRBC at prior hospital due to Hgb 6.9/Hct 21.7. Initial [facility] labs: Hgb 8.7/Hct 27 which dropped to 7.8/24.9. Pt had anemia associated chest pain. Treatment: Transfuse additional 2U PRBC, IV protonix gtt, GI consult, EGD, O2 support, tele monitoring, serial H/H Risk Factors: suspected GI bleed, Hx gastric ulcers, reflux esophagitis QUERY 2 OF 2 In your clinical opinion is this patient being managed for: ( ) Morbid obesity with BMI of 51.8 ( ) Other explanation of clinical findings (Please Explain) ( ) Unable to determine (Please Define) ( ) Need to Discuss ( ) Not Agree BMI: A significantly high (> 40) BMI will impact the severity of illness and risk of mortality of your patient. However, the physician must document a correlating diagnosis in the medical Record. Please clarify and document your clinical opinion in the progress notes and discharge summary. Terms such as "probable", "suspected", "likely", "questionable", "possible", or "still to be ruled out" are acceptable. IF IN AGREEMENT, YOU MUST DOCUMENT ABOVE DIAGNOSTIC STATEMENT IN DAILY PROGRESS NOTES AND DISCHARGE SUMMARY. This document is not part of the patient's record. Thank You, Akila Sepulveda RN [phone]
[2017-03-18] MEDS: PANTOprazole SOD 40 MG TAB PO SCH ×2 (07:40→20:56)
[2017-03-18] MEDS ORDERED: EpHEDrine SULFATE INJ 50 MG/ML AMP IV PRN (10:00)
[2017-03-18] MEDS ORDERED: ATROPINE SULFATE 0.1 MG/ML 5ML SYR IV PRN (10:00)
[2017-03-18] MEDS ORDERED: MIDAZOLAM HCL 1 MG/ML 2ML VIAL ONE (10:17)
[2017-03-18] MEDS ORDERED: LIDOCAINE HCL 2% 2 ML VIAL (20MG/ML) ONE (10:18)
[2017-03-18] MEDS ORDERED: PROPOFOL IV EMULSION 10 MG/ML 20 ML VIAL IV ONE (10:19)
[2017-03-18] MEDS ORDERED: ONDANSETRON INJ 2 MG/ML 2 ML VIAL ONE (10:20)
[2017-03-18] MEDS ORDERED: EpHEDrine SULFATE 50MG/5ML SYR ONE (10:57)
--- NOTE | 2017-03-18 11:17 | Anesthesiology Progress Note ---
Anesthesia Post Op Note Date & Time March 18, 2017 at 11:17 Vital Signs Pain Intensity: 0.0 Vital Signs Past 12 Hours Date Time Temp Pulse Resp B/P Pulse Ox O2 Delivery O2 Flow Rate FiO2 03/18/17 11:14 75 16 101/41 95 Nasal Cannula 2 03/18/17 10:59 74 16 106/45 100 Room Air 5 Mask 03/18/17 09:41 36.1 66 16 136/57 98 Room Air 03/18/17 08:00 Nasal Cannula 2.0 03/18/17 07:24 36.7 78 20 138/72 91 Room Air 03/18/17 04:00 Nasal Cannula 2.0 03/18/17 03:15 37.1 75 20 105/63 93 03/18/17 02:02 36.6 73 21 102/64 91 2.5 03/18/17 01:10 36.5 73 20 118/71 91 2.5 03/18/17 00:40 36.6 72 22 110/55 98 2.5 03/18/17 00:25 36.5 70 20 104/62 98 2.5 03/18/17 00:10 36.5 88 21 107/63 96 2.5 03/18/17 00:00 Nasal Cannula 2.0 Notes Mental Status: alert / awake / arousable, participated in evaluation Pt Amnestic to Procedure: Yes Nausea / Vomiting: adequately controlled Pain: adequately controlled Airway Patency, RR, SpO2: stable & adequate BP & HR: stable & adequate Hydration State: stable & adequate Anesthetic Complications: no major complications apparent
--- NOTE | 2017-03-18 11:28 | GI REPORT ---
Procedure Date: 03/18/2017 10:20 AM Procedure: Colonoscopy Indications: Melena Medicines: See the Anesthesia note for documentation of the administered medications Complications: No immediate complications. Estimated Blood Loss: Estimated blood loss: none. Procedure: Pre-Anesthesia Assessment: - ASA Grade Assessment: IV - A patient with severe systemic disease that is a constant threat to life. After I obtained informed consent, the scope was passed under direct vision. Throughout the procedure, the patient's blood pressure, pulse, and oxygen saturations were monitored continuously. The Scope was introduced through the anus and advanced to the terminal ileum. The colonoscopy was performed without difficulty. The patient tolerated the procedure well. The quality of the bowel preparation was good. Findings: The perianal and digital rectal examinations were normal. There was dark stool throughout the colon. The prep in the ascending colon was fair. There was scant red blood in the proximal colon. There appeared to be an adherent blood clot in the ascending colon, just distal to the IC valve. This was removed with a cold snare. There was mild oozing at the point the clot was removed, although no AVM's were seen. This was clipped with one clip. Pictures of this were lost. There was a small lipoma in theascending colon. There was diverticulosis throughout the sigmoid and descending colon. The ileum was normal. Impression: Clot in the ascending colon, removed with cold snare and site clipped. Recommendation: - Discharge patient to floor. Adv diet as tolerated. If pt rebleeds now or in the future, would consider small bowel eval. He is ok for d/c tomorrow if hgb remains stable. Bob Romero M.D. Bob Romero MD 03/18/2017 11:28:45 AM This report has been signed electronically. Note Initiated On: 03/18/2017 10:20 AM I attest to the content of the Intraoperative Record and orders documented therein, exceptions below
[2017-03-18] MEDS ORDERED: HYDR12.56 PO (18:42)
[2017-03-18] MEDS ORDERED: FURO-85 PO (18:42)
--- NOTE | 2017-03-18 18:43 | Progress Note ---
Internal Med Progress Note Date of Service: March 18, 2017. Provider Documentation: SUBJECTIVE: resting comfortably no black stools afebrile no chest pain or sob OBJECTIVE: Vital Signs-as noted below Exam: General-alert and awake and oriented x 3 ENT-normal hearing Neck-no neck masses Lungs-cta b/l no wheezing or crackles Heart-s1 and s2 heard regular rate and rhythm no murmurs Abdomen-soft bowel sounds present non tender no distension Extremities- no edema present no erythema Neuro-alert and awake oriented x 3 moves extremities Lab data as noted below. ASSESSMENT & PLAN: ANEMIA /POSSIBLE GI BLEED sent form out side hospital with hb 6.9 s/p 2 units of PRBC transfusion As pwer H and P: 'had EGD /Colonoscopy done at [facility] on 01/06/17 for concern for GI bleed coloscopy done by Dr Romero showed colonic polyps , sigmoid diverticulosis EGD 01/05/17 : Bleeding at GE junction , clipped with hemostasis' s/p EGD today: reflux gastritis no anastomosis ulcer hb 7.8 . transfused two more units prbc hb 9.3 today s/p colonoscopy unremarkable. plan for small bowel workup if rebleeds as per Gi monitor on tele. CHEST PAIN /SOB; mostly from above asymptomatic now HTN ; BP stable monitor in tele restart lisinopril in am Atenolol with hold parameters CHRONIC DIASTOLIC HEART FAILURE : ECHO 11/2015 : EF 55-59 % , grade 1 diastolic dysfunction currently compensated holding Lasix for concern of GI bleed monitor for volume overload. HX OF CAD no angina symptom holding Aspirin due to anemia , concern for GI bleed hold statin continuing atenolol, DYSLIPIDEMIA hold statin FULL CODE DVT PROPHYLAXIS SCD and TEDS ambulate avoid anticoagulation due to concern for GI bleed , anemia DISPOSITION ; possible d/c in am Vital Signs: Date Time Temp Pulse Resp B/P Pulse Ox O2 Delivery O2 Flow Rate FiO2 03/18/17 16:00 98 Room Air 03/18/17 15:43 37.0 60 16 107/54 98 Room Air 03/18/17 12:00 Nasal Cannula 2.0 03/18/17 11:40 36.4 66 18 138/81 96 Nasal Cannula 2.0 03/18/17 11:14 75 16 101/41 95 Nasal Cannula 2 03/18/17 10:59 74 16 106/45 100 Room Air 5 Mask 03/18/17 09:41 36.1 66 16 136/57 98 Room Air 03/18/17 08:00 Nasal Cannula 2.0 03/18/17 07:24 36.7 78 20 138/72 91 Room Air 03/18/17 04:00 Nasal Cannula 2.0 03/18/17 03:15 37.1 75 20 105/63 93 03/18/17 02:02 36.6 73 21 102/64 91 2.5 03/18/17 01:10 36.5 73 20 118/71 91 2.5 03/18/17 00:40 36.6 72 22 110/55 98 2.5 03/18/17 00:25 36.5 70 20 104/62 98 2.5 03/18/17 00:10 36.5 88 21 107/63 96 2.5 03/18/17 00:00 Nasal Cannula 2.0 03/17/17 22:15 36.4 69 16 106/67 96 03/17/17 21:15 36.6 63 15 119/74 99 03/17/17 20:45 36.7 59 16 97/61 95 03/17/17 20:30 36.4 60 22 115/78 98 2.0 03/17/17 20:00 Nasal Cannula 2.0 Lab Results: Results Past 24 Hours Test 03/18/17 05:18 Range/Units White Blood Count 13.38 4.8-10.8 K/uL Red Blood Count 3.26 4.7-6.1 M/uL Hemoglobin 9.3 14.0-18.0 g/dL Hematocrit 28.9 42-52 % Mean Corpuscular Volume 88.7 80-100 fL Mean Corpuscular Hemoglobin 28.5 25-34 pg Mean Corpuscular Hemoglobin Concent 32.2 32-36 g/dl RDW Standard Deviation 49.6 36.4-46.3 fL RDW Coefficient of Variation 15.3 11.5-14.5 % Platelet Count 231 130-400 K/uL Mean Platelet Volume 9.7 7.4-10.4 fL Sodium Level 143 136-145 mmol/L Potassium Level 4.2 3.5-5.1 mmol/L Chloride Level 105 98-107 mmol/L Carbon Dioxide Level 33 21-32 mmol/L Anion Gap 5.0 3-11 mmol/L Blood Urea Nitrogen 20 7-18 mg/dl Creatinine 0.67 0.60-1.40 mg/dl Est Creatinine Clear Calc Drug Dose 142.6 ml/min Estimated GFR () 112.0 Estimated GFR (Non- 96.7 BUN/Creatinine Ratio 30.1 10-20 Random Glucose 90 70-99 mg/dl Calcium Level 8.4 8.5-10.1 mg/dl
[2017-03-19 00:36] VITALS: BP 110/62; PULSE 76; TEMP 37.5; O2SAT 93
[2017-03-19 03:54] VITALS: BP 98/60; PULSE 70; TEMP 36.8; O2SAT 93
[2017-03-19 07:33] VITALS: BP 115/68; PULSE 68; TEMP 37.1; O2SAT 95
[2017-03-19 07:51] LABS: COMPLETE YES; EOS % 3.1 %; HEMATOCRIT 28.1 % (42-52); IG% 0.3 %; LYMPH % 11.1 %; LYMPH ABS # 1.13 K/uL (1.2-3.4); MEAN CELL VOLUME 90.4 fL (80-100); MEAN CORPUSCULAR HEMOGLOBIN 28.9 pg (25-34); MONO % 10.8 %; NEUT % 74.7 %; PLATELET COUNT 252 K/uL (130-400); RED BLOOD COUNT 3.11 M/uL (4.7-6.1); WHITE BLOOD COUNT 10.16 K/uL (4.8-10.8)
[2017-03-19 08:21] LABS: BUN/CREATININE RATIO 19.9 (10-20); CREATININE 0.81 mg/dl (0.60-1.40); MAGNESIUM 2.3 mg/dl (1.8-2.4); POTASSIUM 4.1 mmol/L (3.5-5.1)
[2017-03-19 09:00] LABS: CALCIUM 8.3 mg/dl (8.5-10.1)
[2017-03-19] MEDS ORDERED: LISINOPRIL 20 MG TAB PO SCH (09:00)
[2017-03-19] MEDS: PANTOprazole SOD 40 MG TAB PO SCH (09:53)
[2017-03-19 11:23] VITALS: BP 119/67; PULSE 64; TEMP 37.3; O2SAT 90
[2017-03-19 11:38] VITALS: BP 119/67; PULSE 64; TEMP 37.3; O2SAT 90
--- NOTE | 2017-03-19 12:26 | Gastroenterology Progress Note ---
Progress Note Date of Service: March 19, 2017 Subjective Pt evaluation today including: conversation w/ patient, conversation w/ family , physical exam, chart review, lab review, review of inpatient medication list Pt feels well, denies any more signs of GI bleeding, also no abd pain, n/v. Hgb improved to 9. Review of Systems Constitutional: No chills, No fever Respiratory: No cough, No shortness of breath Cardiac: No chest pain Abdomen: No GI bleeding, No nausea, No pain, No vomiting Medications Current Inpatient Medications Medications (Trade) Dose Ordered Sig/Laura Route Start Time Stop Time Status Last Admin Dose Admin Acetaminophen (Tylenol Tab) 650 mg Q4H PRN PO 03/17/17 01:15 04/16/17 01:14 Ondansetron HCl (Zofran Inj) 4 mg Q6H PRN IV 03/17/17 01:15 04/16/17 01:14 Nitroglycerin (Nitrostat Tab) 0.4 mg UD PRN SL 03/17/17 01:15 04/16/17 01:14 Atenolol (Tenormin Tab) 50 mg QAM PO 03/17/17 09:00 04/16/17 08:59 03/18/17 20:57 50 MG Pantoprazole Sodium (Protonix Tab) 40 mg BID PO 03/17/17 21:00 04/16/17 20:59 03/19/17 09:53 40 MG Lisinopril (Zestril Tab) 20 mg QAM PO 03/19/17 09:00 04/18/17 08:59 03/19/17 09:53 20 MG Objective Vital Signs Date Time Temp Pulse Resp B/P Pulse Ox O2 Delivery O2 Flow Rate FiO2 03/19/17 11:38 37.3 64 18 119/67 90 2.0 03/19/17 11:23 37.3 64 18 119/67 90 2.0 03/19/17 08:00 Room Air 03/19/17 07:33 37.1 68 16 115/68 95 Nasal Cannula 2.0 03/19/17 03:54 36.8 70 20 98/60 93 Nasal Cannula 2.0 03/19/17 00:36 37.5 76 20 110/62 93 Nasal Cannula 4.0 03/18/17 23:59 Nasal Cannula 2.0 03/18/17 20:04 36.8 73 20 123/70 94 Room Air 03/18/17 20:00 94 Room Air 03/18/17 16:00 98 Room Air 03/18/17 15:43 37.0 60 16 107/54 98 Room Air Physical Exam General Appearance: WD/WN, no apparent distress, + obese Eyes: normal inspection, PERRL, EOMI Neck: supple, no JVD, trachea midline Respiratory/Chest: no respiratory distress, no accessory muscle use Extremities: + swelling Neurologic/Psych: alert, normal mood/affect, oriented x 3 Skin: normal color, no jaundice, no rash Laboratory Results Last 24 Hours Test 03/19/17 06:38 White Blood Count 10.16 K/uL Red Blood Count 3.11 M/uL Hemoglobin 9.0 g/dL Hematocrit 28.1 % Mean Corpuscular Volume 90.4 fL Mean Corpuscular Hemoglobin 28.9 pg Mean Corpuscular Hemoglobin Concent 32.0 g/dl Platelet Count 252 K/uL Mean Platelet Volume 10.0 fL Neutrophils (%) (Auto) 74.7 % Lymphocytes (%) (Auto) 11.1 % Monocytes (%) (Auto) 10.8 % Eosinophils (%) (Auto) 3.1 % Basophils (%) (Auto) 0.0 % Neutrophils # (Auto) 7.59 K/uL Lymphocytes # (Auto) 1.13 K/uL Monocytes # (Auto) 1.10 K/uL Eosinophils # (Auto) 0.31 K/uL Basophils # (Auto) 0.00 K/uL RDW Standard Deviation 52.0 fL RDW Coefficient of Variation 15.7 % Immature Granulocyte % (Auto) 0.3 % Immature Granulocyte # (Auto) 0.03 K/uL Sodium Level 139 mmol/L Potassium Level 4.1 mmol/L Chloride Level 102 mmol/L Carbon Dioxide Level 32 mmol/L Anion Gap 5.0 mmol/L Blood Urea Nitrogen 16 mg/dl Creatinine 0.81 mg/dl Est Creatinine Clear Calc Drug Dose 116.8 ml/min Estimated GFR () 103.6 Estimated GFR (Non- 89.4 BUN/Creatinine Ratio 19.9 Random Glucose 94 mg/dl Calcium Level 8.3 mg/dl Magnesium Level 2.3 mg/dl Assessment and Plan Impression Patient is a 71 year old male admitted as a transfer from [facility] w symptomatic anemia, s/s of dark stools. Hx of gastric bypass surgery previously had gastric ulcer in 2006, recent EGD in December 2016 w signs of GE junction bleed w/o obvious source, colonoscopy around that time w benign findings. EGD on 03/17/17: - Grade B Relux Esophagitis - No ulcer noted Colonoscopy on 02/23/17: - Diverticulosis - Clot on ascending colon near IC valve area, some oozing noted but no AVMs - Lipoma Pt hasn't any anymore s/s of GI bleeding. H/H improving. Also no abd pain, n/v - OK for DC from GI standpoint - Diet advanced to regular - May need small bowel exam such as w VCE if anemia, GI bleeding reoccurs
--- NOTE | 2017-03-19 13:21 | Discharge Instructions ---
Discharge Instructions Date of Service March 19, 2017. Admission Reason for Admission: Complicated Gi Bleed Discharge Discharge Diagnosis / Problem: anemia. Gi bleed Discharge Goals Goal(s): Decrease discomfort, Improve function Activity Recommendations Activity Limitations: resume your previous activity . Instructions / Follow-Up Instructions / Follow-Up FOLLOWUP WITH FAMILY DOCTOR Corona Cerrato ON March AT 10:20AM. LAB:CBC IN ONE WEEK AND FOLLOW RESULTS WITH FAMILY DOCTOR. TO USE OXYGEN 2LTS CONTINUOUSLY Current Hospital Diet Patient's current hospital diet: Regular Diet, AHA Diet (Heart Healthy) Discharge Diet Recommended Diet: AHA Diet (Heart Healthy) Procedures Procedures Performed: COLONOSCOPY WITH ENDO CLIP Pending Studies Studies pending at discharge: no Medical Emergencies . Who to Call and When: Medical Emergencies: If at any time you feel your situation is an emergency, please call 911 immediately. . Non-Emergent Contact Non-Emergency issues call your: Primary Care Provider . . "Provider Documentation" section prepared by Dhruv Huddleston. . VTE Core Measure Inpt VTE Proph given/why not?: Gera Thayer, SCD's
[2017-03-19 13:30] VITALS: BP 119/67; PULSE 64; TEMP 37.3; O2SAT 90
--- NOTE | 2017-03-19 18:45 | Progress Note ---
Internal Med Progress Note Date of Service: March 19, 2017. Provider Documentation: SUBJECTIVE: resting comfortably stools are brown now no chest pain requiring oxygen all the time on two step afebrile ok to go home OBJECTIVE: Vital Signs-as noted below Exam: General-alert and awake and oriented x 3 ENT-normal hearing Neck-no neck masses Lungs-cta b/l no wheezing or crackles Heart-s1 and s2 heard regular rate and rhythm no murmurs Abdomen-soft bowel sounds present non tender no distension Extremities- no edema present no erythema Neuro-alert and awake oriented x 3 moves extremities Lab data as noted below. ASSESSMENT & PLAN: ANEMIA /POSSIBLE GI BLEED ACUTE BLOOD LOSS ANEMIA? sent form out side hospital with hb 6.9 s/p 2 units of PRBC transfusion As pwer H and P: 'had EGD /Colonoscopy done at [facility] on 01/06/17 for concern for GI bleed coloscopy done by Dr Romero showed colonic polyps , sigmoid diverticulosis EGD 01/05/17 : Bleeding at GE junction , clipped with hemostasis' s/p EGD today: reflux gastritis no anastomosis ulcer hb 7.8 . transfused two more units prbc hb 9.0 today s/p colonoscopy unremarkable. plan for small bowel workup if rebleeds as per Gi stable f/u labs with pcp CHEST PAIN /SOB; mostly from above asymptomatic now HTN ; BP stable monitor in tele restarted lisinopril Atenolol with hold parameters CHRONIC DIASTOLIC HEART FAILURE : ECHO 11/2015 : EF 55-59 % , grade 1 diastolic dysfunction currently compensated holding Lasix for concern of GI bleed restarted home medications on discharge requiring 2lts oxygen all the time on two step. HX OF CAD no angina symptom holding Aspirin due to anemia , concern for GI bleed hold statin continuing atenolol, stable DYSLIPIDEMIA statin MORBID OBESITY BMI 51 F/U WITH PCP discharged home Vital Signs: Date Time Temp Pulse Resp B/P Pulse Ox O2 Delivery O2 Flow Rate FiO2 03/19/17 13:30 37.3 64 18 90 Nasal Cannula 03/19/17 12:00 Room Air 03/19/17 11:38 37.3 64 18 119/67 90 2.0 03/19/17 11:23 37.3 64 18 119/67 90 2.0 03/19/17 08:00 Room Air 03/19/17 07:33 37.1 68 16 115/68 95 Nasal Cannula 2.0 03/19/17 03:54 36.8 70 20 98/60 93 Nasal Cannula 2.0 03/19/17 00:36 37.5 76 20 110/62 93 Nasal Cannula 4.0 03/18/17 23:59 Nasal Cannula 2.0 03/18/17 20:04 36.8 73 20 123/70 94 Room Air 03/18/17 20:00 94 Room Air Lab Results: Results Past 24 Hours Test 03/19/17 06:38 Range/Units White Blood Count 10.16 4.8-10.8 K/uL Red Blood Count 3.11 4.7-6.1 M/uL Hemoglobin 9.0 14.0-18.0 g/dL Hematocrit 28.1 42-52 % Mean Corpuscular Volume 90.4 80-100 fL Mean Corpuscular Hemoglobin 28.9 25-34 pg Mean Corpuscular Hemoglobin Concent 32.0 32-36 g/dl Platelet Count 252 130-400 K/uL Mean Platelet Volume 10.0 7.4-10.4 fL Neutrophils (%) (Auto) 74.7 % Lymphocytes (%) (Auto) 11.1 % Monocytes (%) (Auto) 10.8 % Eosinophils (%) (Auto) 3.1 % Basophils (%) (Auto) 0.0 % Neutrophils # (Auto) 7.59 1.4-6.5 K/uL Lymphocytes # (Auto) 1.13 1.2-3.4 K/uL Monocytes # (Auto) 1.10 0.11-0.59 K/uL Eosinophils # (Auto) 0.31 0-0.5 K/uL Basophils # (Auto) 0.00 0-0.2 K/uL RDW Standard Deviation 52.0 36.4-46.3 fL RDW Coefficient of Variation 15.7 11.5-14.5 % Immature Granulocyte % (Auto) 0.3 % Immature Granulocyte # (Auto) 0.03 0.00-0.02 K/uL Sodium Level 139 136-145 mmol/L Potassium Level 4.1 3.5-5.1 mmol/L Chloride Level 102 98-107 mmol/L Carbon Dioxide Level 32 21-32 mmol/L Anion Gap 5.0 3-11 mmol/L Blood Urea Nitrogen 16 7-18 mg/dl Creatinine 0.81 0.60-1.40 mg/dl Est Creatinine Clear Calc Drug Dose 116.8 ml/min Estimated GFR () 103.6 Estimated GFR (Non- 89.4 BUN/Creatinine Ratio 19.9 10-20 Random Glucose 94 70-99 mg/dl Calcium Level 8.3 8.5-10.1 mg/dl Magnesium Level 2.3 1.8-2.4 mg/dl
--- NOTE | 2017-03-19 18:48 | Discharge Summary ---
Discharge Summary Date of Service March 19, 2017. Discharge Summary Admission Date: March 17, 2017 at 00:11 Discharge Date: March 19, 2017 Discharge Disposition: Home Principal Diagnosis: GI bleed acute blood loss anemia Secondary Diagnoses/Problems: 1) CAD (coronary artery disease) Status: Chronic (2) CHF (congestive heart failure) Permanent Comment: echo 11/2015- EF 55-59%, grade I diastolic dysfunction Status: Chronic (3) HLD (hyperlipidemia) Status: Chronic (4) HTN (hypertension) Status: Chronic (5) Osteoarthritis Status: Chronic Procedures: S/P EGD S/P COLONOSCOPY Consultations: GI Medication Reconciliation Continued Medications: Ascorbic Acid (Vitamin C) 500 Mg Cap 500 MG PO QAM Aspirin (Aspirin Chewable) 81 Mg Chew 81 MG PO QAM Atenolol (Tenormin) 50 Mg Tab 50 MG PO QAM, TAB Atorvastatin (Lipitor) 80 Mg Tab 80 MG PO QAM, TAB Calcium Citrate-Vitamin D (Calcium Citrate + D) 1 Tab Tab 1 TAB PO QAM Cyanocobalamin (Vitamin B12 500MCG) 500 Mcg Tab 1000 MCG PO QAM, TAB Ergocalciferol (Vitamin D 56798 Unit) 50,000 Unit Cap 21255 UNIT PO 2XWEEK, CAP Ferrous Sulfate (Ferrous Sulfate) 325 Mg Tab 1 TAB PO BID for 30 Days, #60 TABS 2 Refills Furosemide (Lasix) 20 Mg Tab 20 MG PO DAILY for 30 Days, #30 TAB Hydrochlorothiazide (Hctz) 12.5 Mg Cap 1 CAP PO 3XWK for 30 Days, CAP 1 Refill Lisinopril (Zestril) 20 Mg Tab 20 MG PO QAM, TAB Nitroglycerin (Nitrostat) 0.4 Mg Tab 0.4 MG UT UD PRN for Chest Pain, BTL Pantoprazole (Pantoprazole Sodium) 40 Mg Tab 40 MG PO BID for 14 Days, #28 TAB 0 Refills take 30 minutes before breakfast and dinner Zinc Sulfate (Zinc Sulfate) 220 Mg Tab 220 MG PO QAM Admission Information HPI (per Admitting provider): This is a 71 year old male with PMH of CAD s/p CABG x 4, chronic diastolic CHF, hypertension, dyslipidemia, obesity s/p gastric bypass, hx gastric ulcer, hx colon polyps, sent as a direct admission form [facility] ED for anemia , GI bleed pt was seen at [facility] for complain of chest pain /SOB had CT chest with contrast -which was negative for PE cardiac markers negative ,EKG no acute change pt's HB was found to be in 6.9 with dark stool pt was given 2 units of PRBC transfusion as pt been followed with GI at [facility] had EGD , colonoscopy done pt was transferred to [facility] Physical Exam (per Admitting): General Appearance: no apparent distress Head: normocephalic, atraumatic Respiratory/Chest: chest non-tender, lungs clear, normal breath sounds, no respiratory distress, no accessory muscle use Cardiovascular: regular rate, rhythm Abdomen/GI: non tender, soft Extremities/Musculoskelatal: no calf tenderness, normal capillary refill, no pedal edema Neurologic/Psych: alert, normal mood/affect, oriented x 3 Skin: normal color, warm/dry, no rash Lymphatic: no adenopathy Hospital Course ANEMIA /POSSIBLE GI BLEED ACUTE BLOOD LOSS ANEMIA? sent form out side hospital with hb 6.9 s/p 2 units of PRBC transfusion As pwer H and P: 'had EGD /Colonoscopy done at [facility] on 01/06/17 for concern for GI bleed coloscopy done by Dr Romero showed colonic polyps , sigmoid diverticulosis EGD 01/05/17 : Bleeding at GE junction , clipped with hemostasis' s/p EGD today: reflux gastritis no anastomosis ulcer hb 7.8 . transfused two more units prbc hb 9.0 today s/p colonoscopy unremarkable. plan for small bowel workup if rebleeds as per Gi stable f/u labs with pcp CHEST PAIN /SOB; mostly from above asymptomatic now HTN ; BP stable monitor in tele restarted lisinopril Atenolol with hold parameters CHRONIC DIASTOLIC HEART FAILURE : ECHO 11/2015 : EF 55-59 % , grade 1 diastolic dysfunction currently compensated holding Lasix for concern of GI bleed restarted home medications on discharge requiring 2lts oxygen all the time on two step. HX OF CAD no angina symptom holding Aspirin due to anemia , concern for GI bleed hold statin continuing atenolol, stable DYSLIPIDEMIA statin discharged home Total time spent on discharge = 35MINUTES This includes examination of the patient, discharge planning, medication reconciliation, and communication with other providers. Discharge Instructions Discharge Instructions Date of Service March 19, 2017. Admission Reason for Admission: Complicated Gi Bleed Discharge Discharge Diagnosis / Problem: anemia. Gi bleed Discharge Goals Goal(s): Decrease discomfort, Improve function Activity Recommendations Activity Limitations: resume your previous activity . Instructions / Follow-Up Instructions / Follow-Up FOLLOWUP WITH FAMILY DOCTOR Corona Cerrato ON March AT 10:20AM. LAB:CBC IN ONE WEEK AND FOLLOW RESULTS WITH FAMILY DOCTOR. TO USE OXYGEN 2LTS CONTINUOUSLY Current Hospital Diet Patient's current hospital diet: Regular Diet, AHA Diet (Heart Healthy) Discharge Diet Recommended Diet: AHA Diet (Heart Healthy) Procedures Procedures Performed: COLONOSCOPY WITH ENDO CLIP Pending Studies Studies pending at discharge: no Medical Emergencies . Who to Call and When: Medical Emergencies: If at any time you feel your situation is an emergency, please call 911 immediately. . Non-Emergent Contact Non-Emergency issues call your: Primary Care Provider . . "Provider Documentation" section prepared by Dhruv Huddleston. . VTE Core Measure Inpt VTE Proph given/why not?: Gera Thayer, SCD's
== END 2017-03-19 14:00 | disposition home or self-care (01) | DRG 378 ==
LOC: C.2T 03-17 00:11
PROVIDERS: ADMIT Hospitalist; ATTEND Internal Medicine
PROC: 0W3P8ZZ Control Bleeding in Gastrointestinal Tract, Via Natural or Artificial Opening Endoscopic (ICD-10-PCS; principal; 2017-03-17 10:25)
PROC: 0DCK8ZZ Extirpation of Matter from Ascending Colon, Via Natural or Artificial Opening Endoscopic (ICD-10-PCS; 2017-03-18)
PROC: 0DJ08ZZ Inspection of Upper Intestinal Tract, Via Natural or Artificial Opening Endoscopic (ICD-10-PCS; 2017-03-18)
DX: K92.2 Gastrointestinal hemorrhage, unspecified (principal); D62 Acute posthemorrhagic anemia; I50.32 Chronic diastolic (congestive) heart failure; Z68.43 Body mass index [BMI] 50.0-59.9, adult; K55.9 Vascular disorder of intestine, unspecified; I25.10 Atherosclerotic heart disease of native coronary artery without angina pectoris; K63.5 Polyp of colon; E78.5 Hyperlipidemia, unspecified; K29.60 Other gastritis without bleeding; M19.90 Unspecified osteoarthritis, unspecified site; R07.9 Chest pain, unspecified; E66.01 Morbid (severe) obesity due to excess calories; G47.33 Obstructive sleep apnea (adult) (pediatric); R06.02 Shortness of breath; I11.0 Hypertensive heart disease with heart failure; Z95.1 Presence of aortocoronary bypass graft; Z87.891 Personal history of nicotine dependence; Z79.899 Other long term (current) drug therapy; Z79.82 Long term (current) use of aspirin; Z87.11 Personal history of peptic ulcer disease

== ENCOUNTER 2017-05-26 10:28 | Emergency (ER) | payer OTHER, BC ==
[~2017-05-26] VITALS: Ht 172.7 cm; Wt 140.0 kg
[~2017-05-26 10:28] MED LIST changes: -HYDR12.55 PO; +HYDR12.56 PO
[2017-05-26 10:30] VITALS: TEMP 36.9; Ht 172.7 cm; Wt 140.0 kg
[2017-05-26 11:04] LABS: BASO % 0.1 %; BASO ABS # 0.01 K/uL (0-0.2); COMPLETE YES; EOS % 4.8 %; HEMATOCRIT 32.1 % (42-52); IG% 0.3 %; LYMPH % 14.4 %; LYMPH ABS # 1.49 K/uL (1.2-3.4); MEAN CELL VOLUME 82.7 fL (80-100); MEAN CORPUSCULAR HEMOGLOBIN 26.3 pg (25-34); MEAN CORPUSCULAR HGB CONC 31.8 g/dl (32-36); MEAN PLATELET VOLUME 9.4 fL (7.4-10.4); MONO % 9.5 %; NEUT % 70.9 %; PLATELET COUNT 289 K/uL (130-400); RED BLOOD COUNT 3.88 M/uL (4.7-6.1); WHITE BLOOD COUNT 10.32 K/uL (4.8-10.8)
[2017-05-26 11:16] LABS: BLOOD UREA NITROGEN 30 mg/dl (7-18); BUN/CREATININE RATIO 31.9 (10-20); CALCIUM 8.8 mg/dl (8.5-10.1); CARBON DIOXIDE 29 mmol/L (21-32); CHLORIDE 105 mmol/L (98-107); CREATININE 0.94 mg/dl (0.60-1.40); GLUCOSE 92 mg/dl (70-99); POTASSIUM 4.5 mmol/L (3.5-5.1); SODIUM 139 mmol/L (136-145)
[2017-05-26 11:21] LABS: CKMB/CK RATIO 1.5 (0-3.0)
--- NOTE | 2017-05-26 11:27 | DIAGNOSTIC IMAGING REPORT ---
CHEST ONE VIEW PORTABLE HISTORY: Atypical Chest Pain COMPARISON: Chest 03/17/2017. FINDINGS: Poststernotomy changes. The heart remains mildly enlarged. There are low lung volumes. No pneumothorax. No pleural effusions. A few bibasilar linear densities favor scarring or atelectasis. No new focal lung consolidations. No evidence for pulmonary edema. IMPRESSION: No significant change compared to the prior study. No acute process. Stable mild cardiomegaly. Electronically signed by: Tom Gonzalez M.D. 05/26/2017 11:26 AM Dictated Date/Time: 05/26/2017 11:25 AM
[2017-05-26] MEDS ORDERED: SODIUM CHLORIDE 0.9% 1000ML 1,000 ML IV STA (11:38)
[2017-05-26] MEDS ORDERED: OPTIRAY 320 IV PRN (11:45)
--- NOTE | 2017-05-26 11:48 | EMERGENCY ROOM VISIT NOTE ---
History First contact with patient: 10:49 Chief Complaint: CARDIAC ASSESSMENT Stated Complaint: CHEST DISCOMFORT,SOB Nursing Triage Summary: increased sob and "mild " cp for several days. called md this am told to come in. pain is an ache that comes and goes History of Present Illness The patient is a 71 year old male who presents to the Emergency Room for evaluation of right chest pain. Ongoing last few days after working in heat. Worst yesterday when in heat and over exerting self. Associated with mild SOB worse with humid air. Symptoms resolved now. Notes history CAD with CABG 25 yrs ago though cath last year was negative. No history DVT. Takes ASA 81mg Daily. No other symptoms. Denies syncope, palpitations, nausea, vomiting, headache, neck pain, radiation of pain. No mediations prior to arrival. Humidity makes worse, rest makes better. Review of Systems See HPI for pertinent positives & negatives. A total of 10 systems reviewed and were otherwise negative. Past Medical/Surgical History Medical Problems: (1) Anemia (2) CAD (coronary artery disease) (3) CHF (congestive heart failure) (4) GI bleed (5) HLD (hyperlipidemia) (6) HTN (hypertension) (7) Obesity (8) Osteoarthritis (9) Phimosis Surgical Problems: (1) Bariatric surgery status (2) H/O knee surgery (3) History of esophagogastroduodenoscopy (EGD) (4) History of liver biopsy (5) Hx of CABG (6) S/P cardiac catheterization (7) S/P cholecystectomy (8) S/P colonoscopy with polypectomy (9) S/P panniculectomy Family History FH: cancer FH: heart disease Hypertension Stroke Social History Smoking Status: Former Smoker Alcohol Use: occasionally Drug Use: none Marital Status: Housing Status: lives with family Occupation Status: retired Current/Historical Medications Scheduled Ascorbic Acid (Vitamin C), 500 MG PO QAM Aspirin (Aspirin Chewable), 81 MG PO QAM Atenolol (Tenormin), 50 MG PO QAM Atorvastatin (Lipitor), 80 MG PO QAM Calcium Citrate-Vitamin D (Calcium Citrate + D), 1 TAB PO QAM Cyanocobalamin (Vitamin B12 500MCG), 1,000 MCG PO QAM Ergocalciferol (Vitamin D 95218 Unit), 50,000 UNIT PO 2XWEEK Ferrous Sulfate (Ferrous Sulfate), 1 TAB PO BID Hydrochlorothiazide (Hctz), 1 CAP PO 3XWK Lisinopril (Zestril), 20 MG PO QAM Pantoprazole (Pantoprazole Sodium), 40 MG PO BID Zinc Sulfate (Zinc Sulfate), 220 MG PO QAM Scheduled PRN Nitroglycerin (Nitrostat), 0.4 MG UT UD PRN for Chest Pain Physical Exam Vital Signs Date Time Temp Pulse Resp B/P (MAP) Pulse Ox O2 Delivery O2 Flow Rate FiO2 05/26/17 14:16 53 16 113/58 96 05/26/17 12:57 56 05/26/17 12:12 57 20 99/52 96 Room Air 05/26/17 10:44 64 05/26/17 10:41 Room Air 05/26/17 10:30 36.9 62 18 134/62 94 Room Air Physical Exam GENERAL: Patient is well appearing and in no acute distress. HEENT: No acute trauma, normocephalic atraumatic, mucous membranes moist, no nasal congestion, no scleral icterus. NECK: No stridor, no adenopathy, no meningismus, trachea is midline. LUNGS: No dyspnea. Clear to auscultation and equal bilaterally. No wheeze, no rhonchi. HEART: Regular rate and rhythm. No murmurs, rubs, gallops appreciated. ABDOMEN: Soft, nontender, bowel sounds positive, no masses appreciated, no peritonitis. BACK: No midline tenderness, no CVA tenderness EXTREMITIES: Normal motion all extremities, no cyanosis, no edema. NEUROLOGIC: Alert and oriented, no acute motor or sensory deficits, no focal weakness, cranial nerves grossly intact. SKIN: No rash, no jaundice, no diaphoresis. Medical Decision & Procedures Laboratory Results 05/26/17 10:45 Red Blood Count 3.88, Mean Corpuscular Volume 82.7, Mean Corpuscular Hemoglobin 26.3, Mean Corpuscular Hemoglobin Concent 31.8, Mean Platelet Volume 9.4, Neutrophils (%) (Auto) 70.9, Lymphocytes (%) (Auto) 14.4, Monocytes (%) (Auto) 9.5, Eosinophils (%) (Auto) 4.8, Basophils (%) (Auto) 0.1, Neutrophils # (Auto) 7.31, Lymphocytes # (Auto) 1.49, Monocytes # (Auto) 0.98, Eosinophils # (Auto) 0.50, Basophils # (Auto) 0.01 05/26/17 10:45 Test 05/26/17 10:45 05/26/17 12:30 White Blood Count 10.32 K/uL (4.8-10.8) Red Blood Count 3.88 M/uL (4.7-6.1) Hemoglobin 10.2 g/dL (14.0-18.0) Hematocrit 32.1 % (42-52) Mean Corpuscular Volume 82.7 fL (80-100) Mean Corpuscular Hemoglobin 26.3 pg (25-34) Mean Corpuscular Hemoglobin Concent 31.8 g/dl (32-36) Platelet Count 289 K/uL (130-400) Mean Platelet Volume 9.4 fL (7.4-10.4) Neutrophils (%) (Auto) 70.9 % Lymphocytes (%) (Auto) 14.4 % Monocytes (%) (Auto) 9.5 % Eosinophils (%) (Auto) 4.8 % Basophils (%) (Auto) 0.1 % Neutrophils # (Auto) 7.31 K/uL (1.4-6.5) Lymphocytes # (Auto) 1.49 K/uL (1.2-3.4) Monocytes # (Auto) 0.98 K/uL (0.11-0.59) Eosinophils # (Auto) 0.50 K/uL (0-0.5) Basophils # (Auto) 0.01 K/uL (0-0.2) RDW Standard Deviation 45.3 fL (36.4-46.3) RDW Coefficient of Variation 15.0 % (11.5-14.5) Immature Granulocyte % (Auto) 0.3 % Immature Granulocyte # (Auto) 0.03 K/uL (0.00-0.02) D-Dimer 1000 ug/L FEU (0-500) Anion Gap 5.0 mmol/L (3-11) Est Creatinine Clear Calc Drug Dose 98.9 ml/min Estimated GFR () 94.2 Estimated GFR (Non- 81.2 BUN/Creatinine Ratio 31.9 (10-20) Calcium Level 8.8 mg/dl (8.5-10.1) Total Creatine Kinase 123 U/L (39-308) Creatine Kinase MB 1.8 ng/ml (0.5-3.6) Creatine Kinase MB Ratio 1.5 (0-3.0) Troponin I < 0.015 ng/ml (0-0.045) Pro-B-Type Natriuretic Peptide 543 pg/ml (0-900) Bedside Troponin I < 0.030 ng/ml (0-0.045) Medications Administered Medications (Trade) Dose Ordered Sig/Laura Route Start Time Stop Time Status Last Admin Dose Admin Sodium Chloride 1,000 ml @ 75 mls/hr [id number] STAT IV 05/26/17 11:38 05/26/17 14:33 DC 05/26/17 11:38 75 MLS/HR Medical Decision Differential: Cardiac Ischemia (STEMI, NSTEMI, Unstable Angina, etc), Aortic Dissection, Arrhythmia, Pulmonary Embolism, Pneumonia, Pneumothorax, MSK, Infectious, Pericarditis/Myocarditis, Esophageal Rupture, Gastrointestinal, amongst other pathologies entertained. Pleasant 71 yr old male with history of CABG 25 yrs ago though no cardiac issues since and a reportedly clear cath (per patient) within the last year. Notes exertion in yard yesterday and since with right chest discomfort which has slowly been improving. EKG looks OK, Trop x 2 negative, CXR clear. Mild bump in dimer thus CT which is negative though with poor contrast thus US legs which are negative. I do not feel this is PE nor dissection. With a recent cath and cardiac rule out here I feel that obs for stress is not indicated in setting of patient who has close relationship with his Child Adolescent Psychiatrist. I do not feel this is ACS given > 24 hours symptoms with now 2 negative trops. Stable and in no distress breathing comfortably. He wishes to go home as does . Stressed calling PCP in am. RTED at any time if change in symptoms or worsening. Suspect MSK cause, especially given started while gardening. Medication Reconcilliation Current Medication List: was personally reviewed by me Blood Pressure Screening Patient's blood pressure: Normal blood pressure Impression Primary Impression: Right-sided chest pain Departure Information Dispostion Home / Self-Care Condition GOOD Referrals Corona Fleming D.O. (PCP) Patient Instructions ED Chest Pain Atypical Unkn Cause, My [facility] Additional Instructions Call your survey supervisor tomorrow to schedule a follow up appointment.
--- NOTE | 2017-05-26 12:18 | DIAGNOSTIC IMAGING REPORT ---
CT ANGIOGRAM OF THE CHEST CLINICAL HISTORY: Atypical chest pain and shortness of breath COMPARISON STUDY: Chest x-ray dated 05/26/2017 TECHNIQUE: Following the IV administration of 118 mL of [id number]-320, CT angiogram of the thorax was performed from the thoracic inlet to the lung bases utilizing the pulmonary embolus protocol. Images are reviewed in the axial, sagittal, and coronal planes. IV contrast was administered without complication. MIP imaging was performed. A dose lowering technique was utilized adhering to the principles of ALARA. CT DOSE: 552.92 mGy.cm FINDINGS: Within the upper abdomen, there are partially visualized left renal cysts. There is cholelithiasis. There are postsurgical changes involving the stomach. Right paratracheal lymph nodes are the upper limits of normal in size. There is no pathologic axillary, mediastinal, or hilar adenopathy by size criteria. There are coronary artery calcifications present. The ascending thoracic aorta measures 37 mm in diameter No central emboli are visualized. Evaluation of lower lobe pulmonary artery branches is significantly limited due to respiratory motion artifact. There are few small equivocal lower lobe filling defects but these may be artifactual. Correlation with serial leg ultrasonography is recommended. No pleural effusions are visualized. There are mild lower lobe atelectatic changes. There is no lobar consolidation. IMPRESSION: 1. Technically limited study secondary to respiratory motion artifact 2. No central emboli identified 3. Limited evaluation of lower lobe pulmonary artery branches. There are a few equivocal small filling defects, these may be artifactual. Correlation with serial leg ultrasonography should be considered 4. Cholelithiasis Electronically signed by: Kobe Turner M.D. 05/26/2017 12:17 PM Dictated Date/Time: 05/26/2017 12:11 PM
--- NOTE | 2017-05-26 13:51 | DIAGNOSTIC IMAGING REPORT ---
ULTRASOUND VENOUS DOPPLER LWR EXT BILA CLINICAL HISTORY: Positive d-dimer. TECHNICAL LIMITED CT ANGIOGRAPHY THE CHEST. COMPARISON STUDY: 08/06/2016 FINDINGS: Real-time and color flow Doppler imaging were performed. Flow was seen within the femoral, popliteal and calf veins with no intraluminal thrombus demonstrated. The saphenous vein is patent. IMPRESSION: No evidence of lower extremity DVT. Electronically signed by: Kobe Turner M.D. 05/26/2017 1:49 PM Dictated Date/Time: 05/26/2017 1:45 PM
[2017-05-26 14:16] VITALS: BP 113/58; PULSE 53; O2SAT 96
== END 2017-05-26 14:17 | disposition home or self-care (01) ==
LOC: C.EDB 10:30 → C.EDC 14:17
DX: R07.9 Chest pain, unspecified (principal); R06.02 Shortness of breath; I10 Essential (primary) hypertension; I25.10 Atherosclerotic heart disease of native coronary artery without angina pectoris; Z95.1 Presence of aortocoronary bypass graft; Z79.899 Other long term (current) drug therapy

== ENCOUNTER 2017-06-23 09:20 | Emergency (ER) | payer OTHER, BC ==
[~2017-06-23] VITALS: Ht 172.7 cm; Wt 135.1 kg
[2017-06-23 09:23] VITALS: TEMP 36.6; Ht 172.7 cm; Wt 135.1 kg
[2017-06-23] MEDS ORDERED: FAMOTIDINE 20MG/102 ML D5W IV STA (09:54)
[2017-06-23] MEDS ORDERED: GI COCKTAIL PO STA (09:54)
--- NOTE | 2017-06-23 10:01 | EMERGENCY ROOM VISIT NOTE ---
History Report prepared by Vijaya: Amy Ingram Under the Supervision of: Dr. Tawanda Richardson M.D. First contact with patient: 09:33 Chief Complaint: NAUSEA Stated Complaint: NAUSEA History of Present Illness The patient is a 71 year old male who presents to the Emergency Room with complaints of intermittent nausea that began two days ago. He currently rates his discomfort as a 3/10 in severity. The patient states that two days ago he began experiencing nausea and dry heaving, but denies any vomiting. He states that he has experienced constant dull abdominal pain from retching. The patient denies ever having symptoms like this in the past. He denies the pain being related to eating. The patient states that he has experienced central chest discomfort intermittently and states that he felt short of breath two days ago. He denies any history of a cholecystectomy. The patient reports a surgical history of coronary bypass surgery. He denies being on any anticoagulants. The patient denies any fever, chills, back pain, arm pain, diarrhea, constipation, or urinary symptoms. He states that his last bowel movement was yesterday, noting that his it was mostly brown, but additionally notes black colored stool. The patient reports a history of rectal bleeding in February. He states that he has a history of anemia, noting that he is on iron supplements. The patient additionally reports a history of gastric bypass six years ago, denying any complications. Source of History: patient Onset: two days ago Position: other (global) Symptom Intensity: 3/10 Quality: other (nausea) Timing: intermittent Associated Symptoms: + chest pain, + SOB, + abdominal pain, No fevers, No chills, No vomiting, No back pain, No diarrhea, No urinary symptoms Note: Associated Symptoms: dry heaving Review of Systems See HPI for pertinent positives and negatives. A total of ten systems were reviewed and were otherwise negative. Past Medical & Surgical Medical Problems: (1) Anemia (2) CAD (coronary artery disease) (3) CHF (congestive heart failure) (4) GI bleed (5) HLD (hyperlipidemia) (6) HTN (hypertension) (7) Obesity (8) Osteoarthritis (9) Phimosis Surgical Problems: (1) Bariatric surgery status (2) H/O knee surgery (3) History of esophagogastroduodenoscopy (EGD) (4) History of liver biopsy (5) Hx of CABG (6) S/P cardiac catheterization (7) S/P cholecystectomy (8) S/P colonoscopy with polypectomy (9) S/P panniculectomy Family History FH: cancer FH: heart disease Hypertension Stroke Social History Smoking Status: Former Smoker Alcohol Use: occasionally Drug Use: none Marital Status: Housing Status: lives with family Occupation Status: retired Current/Historical Medications Scheduled Ascorbic Acid (Vitamin C), 500 MG PO QAM Aspirin (Aspirin Chewable), 81 MG PO QAM Atenolol (Tenormin), 50 MG PO QAM Atorvastatin (Lipitor), 80 MG PO QAM Calcium Citrate-Vitamin D (Calcium Citrate + D), 1 TAB PO QAM Cyanocobalamin (Vitamin B12 500MCG), 1,000 MCG PO QAM Ergocalciferol (Vitamin D 78037 Unit), 50,000 UNIT PO 2XWEEK Famotidine (Pepcid), 20 MG PO BID Ferrous Sulfate (Ferrous Sulfate), 1 TAB PO BID Hydrochlorothiazide (Hctz), 1 CAP PO 3XWK Lisinopril (Zestril), 20 MG PO QAM Ondasetron Odt (Zofran Odt), 4 MG SL Q6H Pantoprazole (Pantoprazole Sodium), 40 MG PO BID Zinc Sulfate (Zinc Sulfate), 220 MG PO QAM Scheduled PRN Nitroglycerin (Nitrostat), 0.4 MG UT UD PRN for Chest Pain Allergies Coded Allergies: No Known Allergies (Verified , 06/23/17) Physical Exam Vital Signs Date Time Temp Pulse Resp B/P (MAP) Pulse Ox O2 Delivery O2 Flow Rate FiO2 06/23/17 16:26 61 17 117/65 98 06/23/17 14:34 69 16 131/80 06/23/17 13:49 66 06/23/17 13:48 69 15 132/59 06/23/17 11:33 56 17 116/60 06/23/17 10:34 61 18 130/60 06/23/17 09:51 54 06/23/17 09:38 56 22 142/60 06/23/17 09:23 36.6 57 20 131/75 97 Room Air Physical Exam GENERAL: Awake, alert, well-appearing, in no distress HENT: Normocephalic, atraumatic. Dry mucous membranes. EYES: Normal conjunctiva. Sclera non-icteric. NECK: Supple. No nuchal rigidity. FROM. No JVD. RESPIRATORY: Clear to auscultation. CARDIAC: Regular rate, normal rhythm. Extremities warm and well perfused. Pulses equal. ABDOMEN: Soft, non-distended. Mild epigastric and right upper quadrant tenderness to palpation. No peritoneal signs. No rebound or guarding. No masses. RECTAL: Deferred. MUSCULOSKELETAL: Chest examination reveals no tenderness. The back is symmetrical on inspection without obvious abnormality. There is no CVA tenderness to palpation. No joint edema. LOWER EXTREMITIES: 1+ lower extremity edema at baseline. Calves are equal size bilaterally and non-tender. No discoloration. NEURO: Normal sensorium. No sensory or motor deficits noted. SKIN: No rash or jaundice noted. Medical Decision & Procedures ER Provider Diagnostic Interpretation: Radiology results as stated below per my review and radiologist interpretation: CHEST ONE VIEW PORTABLE HISTORY: Atypical CHEST PAIN COMPARISON: Chest 05/26/2017. FINDINGS: The heart remains enlarged. There are poststernotomy changes. No pneumothorax. No pleural effusions. No focal lung consolidations to suggest pneumonia. No evidence for pulmonary edema. IMPRESSION: No significant change compared to the prior study. No acute process. Stable cardiomegaly. Electronically signed by: Tom Gonzalez M.D. 06/23/2017 10:23 AM Dictated Date/Time: 06/23/2017 10:22 AM ABD/PELVIS IV AND ORAL CONT HISTORY: 71 years-old Male acute epigastric abdominal pain with nausea and vomiting. History of prior gastric bypass. COMPARISON: CTA 03/16/2017. TECHNIQUE: Multiple axial CT images of the abdomen and pelvis were obtained utilizing the intravenous administration of 119 mL Optiray 320. Oral contrast was also used. A dose lowering technique was used consistent with the principals of ALARA. FINDINGS: Unchanged right partially calcified and soft tissue attenuating pleural plaque is noted. Groundglass opacities of the lung bases suggest atelectasis. There is no pneumoperitoneum identified. Prior median sternotomy. The imaged inferior cardiac chambers are enlarged with dense calcifications seen involving the mitral annulus. Coronary arterial calcifications are also noted. The liver, spleen and adrenal glands are within normal limits. Multiple layering gallstones are seen within the gallbladder without CT evidence of acute cholecystitis or biliary ductal dilation. There is mild stranding stranding the pancreatic head and proximal duodenum. Mild wall thickening of the duodenum is also seen. Additionally, there are a few nonspecific mildly prominent periduodenal lymph nodes seen measuring up to 7 mm in short axis. There is background moderate pancreatic atrophy. Low attenuating lesions involving the kidneys bilaterally suggests cysts, largest within the interpolar left kidney measuring 7.4 x 7.1 cm containing a thin internal calcified septations. No renal calculi or hydronephrosis. Prostate is enlarged causing mass effect upon the floor of the urinary bladder. There is moderate atherosclerotic plaquing of the abdominal aorta and its branches. No bulky adenopathy is identified. Small right and large left inguinal hernias are present which are fat filled. Prior gastric bypass which appears to be a Mahesh-en-Y. Oral contrast is noted within the third and fourth portions of the duodenum, likely from retrograde flow without oral contrast seen within the excluded stomach. Appendix not seen and may be surgically absent. Postsurgical changes are seen involving the anterior abdominal wall. Severe multilevel facet arthrosis involves the lower lumbar spine with severe multilevel intervertebral disc space narrowing. IMPRESSION: 1. Mild inflammatory stranding surrounding the pancreatic head and proximal duodenum is suspicious for developing acute pancreatitis without associated fluid collection. Correlate with lipase level. 2. Cholelithiasis without CT evidence of acute cholecystitis. 3. Prior Mahesh-en-Y gastric bypass without complication. There is however oral contrast seen within the distal duodenum, likely from retrograde flow with no contrast seen within the excluded stomach to suggest dehiscence. 4. Multiple bilateral renal cysts with mildly complicated large cyst of the lateral left kidney. 5. Prostamegaly. 6. Small right and large left fat filled inguinal hernias. The above report was generated using voice recognition software. It may contain grammatical, syntax or spelling errors. Electronically signed by: Aditya Nicolas M.D. 06/23/2017 1:58 PM Dictated Date/Time: 06/23/2017 1:44 PM Laboratory Results 06/23/17 10:15 Red Blood Count 3.81, Mean Corpuscular Volume 81.6, Mean Corpuscular Hemoglobin 26.5, Mean Corpuscular Hemoglobin Concent 32.5, Mean Platelet Volume 10.1, Neutrophils (%) (Auto) 78.4, Lymphocytes (%) (Auto) 11.9, Monocytes (%) (Auto) 7.3, Eosinophils (%) (Auto) 2.0, Basophils (%) (Auto) 0.1, Neutrophils # (Auto) 8.00, Lymphocytes # (Auto) 1.21, Monocytes # (Auto) 0.74, Eosinophils # (Auto) 0.20, Basophils # (Auto) 0.01 06/23/17 10:15 Test 06/23/17 10:15 06/23/17 14:34 White Blood Count 10.19 K/uL (4.8-10.8) Red Blood Count 3.81 M/uL (4.7-6.1) Hemoglobin 10.1 g/dL (14.0-18.0) Hematocrit 31.1 % (42-52) Mean Corpuscular Volume 81.6 fL (80-100) Mean Corpuscular Hemoglobin 26.5 pg (25-34) Mean Corpuscular Hemoglobin Concent 32.5 g/dl (32-36) Platelet Count 276 K/uL (130-400) Mean Platelet Volume 10.1 fL (7.4-10.4) Neutrophils (%) (Auto) 78.4 % Lymphocytes (%) (Auto) 11.9 % Monocytes (%) (Auto) 7.3 % Eosinophils (%) (Auto) 2.0 % Basophils (%) (Auto) 0.1 % Neutrophils # (Auto) 8.00 K/uL (1.4-6.5) Lymphocytes # (Auto) 1.21 K/uL (1.2-3.4) Monocytes # (Auto) 0.74 K/uL (0.11-0.59) Eosinophils # (Auto) 0.20 K/uL (0-0.5) Basophils # (Auto) 0.01 K/uL (0-0.2) RDW Standard Deviation 45.0 fL (36.4-46.3) RDW Coefficient of Variation 15.1 % (11.5-14.5) Immature Granulocyte % (Auto) 0.3 % Immature Granulocyte # (Auto) 0.03 K/uL (0.00-0.02) Anion Gap 7.0 mmol/L (3-11) Est Creatinine Clear Calc Drug Dose 107.2 ml/min Estimated GFR () 101.6 Estimated GFR (Non- 87.7 BUN/Creatinine Ratio 39.5 (10-20) Calcium Level 9.4 mg/dl (8.5-10.1) Total Bilirubin 0.5 mg/dl (0.2-1) Direct Bilirubin 0.1 mg/dl (0-0.2) Aspartate Amino Transf (AST/SGOT) 15 U/L (15-37) Alanine Aminotransferase (ALT/SGPT) 13 U/L (12-78) Alkaline Phosphatase 92 U/L (45-117) Pro-B-Type Natriuretic Peptide 936 pg/ml (0-900) Total Protein 7.1 gm/dl (6.4-8.2) Albumin 3.5 gm/dl (3.4-5.0) Lipase 325 U/L (73-393) Troponin I < 0.015 ng/ml (0-0.045) Laboratory results reviewed by me Medications Administered Medications (Trade) Dose Ordered Sig/Laura Route Start Time Stop Time Status Last Admin Dose Admin Famotidine (Pepcid 20mg/100 ml) 20 mg ONE STAT IV 06/23/17 09:54 06/23/17 09:59 DC 06/23/17 10:47 20 MG Al Hydroxide/Mg Hydroxide (Maalox Susp) 30 ml STK-MED ONCE .ROUTE 06/23/17 10:32 06/23/17 10:33 DC 06/23/17 10:47 30 ML Lidocaine HCl (Viscous Lidocaine 2% Soln) 20 ml STK-MED ONCE .ROUTE 06/23/17 10:32 06/23/17 10:33 DC 06/23/17 10:47 20 ML Sodium Chloride 500 ml @ 999 mls/hr Q31M STAT IV 06/23/17 14:25 06/23/17 14:55 DC 06/23/17 14:37 999 MLS/HR ECG Indication: nausea, SOB/dyspnea Rate (beats per minute): 63 Rhythm: normal sinus Findings: no acute ischemic change, other (normal intervals) ED Course 0953: The patient was evaluated in room B3B. A complete history and physical exam was performed. 0954: Ordered GI Cocktail 25 ml PO, Famotidine 20 mg IV. 1415: I reevaluated the patient and he is feeling better. I discussed the exam findings with him and I discussed the treatment plan. He is going to have a repeat EKG and a repeat troponin. Medical Decision Differential diagnosis: Etiologies such as cardiac ischemia, aortic dissection, pulmonary embolism, pneumonia, pneumothorax, musculoskeletal, infections, pericarditis, myocarditis , gastrointestinal, as well as others were entertained. I reviewed the patient's past medical history, medications, and the nursing notes as described above. Patient is a 71-year-old gentleman with a past medical history of CAD status post cardiac bypass as well as history of gastric bypass who presents to emergency department with intermittent nausea for the past 2 days per history of present illness. The patient is in no acute distress. Afebrile stable vital signs. On exam he has mild discomfort in the epigastric region but no peritoneal signs. EKG and troponin are unremarkable. Chest x-ray negative. LFTs unremarkable. Lipase in the 300s but still within normal limits. CT scan with IV and oral contrast in the setting of the patient's history of gastric bypass notable only for question of stranding around the pancreatic head without any fluid collection recommending correlation with lab results. Given that the patient's lipase is within normal limits and otherwise no LFT elevations concerning for obstructive pathology patient's symptoms are unlikely secondary to pancreatitis. Further clarified with right upper quadrant ultrasound and CBC wnl and otherwise unremarkable. Delta 4 hour trop and EKG unchanged in the setting of patient's constant prolonged sx. Thus, ACS unlikely. Patient denies tearing pain and pulses equal making dissection/ aneurysm unlikely. Patient improved sx with IV Pepcid and GI cocktail suggesting likely gastritis. Findings and plan for follow-up d/w patient. Patient agreeable and d/c'd per discharge instructions. Medication Reconcilliation Current Medication List: was personally reviewed by me Impression Primary Impression: Nausea Additional Impression: Acute gastritis Scribe Attestation The scribe's documentation has been prepared under my direction and personally reviewed by me in its entirety. I confirm that the note above accurately reflects all work, treatment, procedures, and medical decision making performed by me. Departure Information Dispostion Home / Self-Care Prescriptions Ondasetron Odt (ZOFRAN ODT) 4 Mg Tab 4 MG SL Q6H for Nausea, #6 TAB Prov: Tawanda Richardson M.D. 06/23/17 Famotidine (PEPCID) 20 Mg Tab 20 MG PO BID for 10 Days, #20 TAB Prov: Tawanda Richardson M.D. 06/23/17 Referrals Corona Fleming D.O. (PCP) Patient Instructions ED Gastritis, ED Nausea Vomiting, My [facility] Additional Instructions Please follow up with your primary care physician in the next 1-3 days for re- evaluation. Otherwise, your exam, EKG, Chest xray, lab results, CT scan, and ultrasound did not show signs of an emergent condition at this time. Pepcid as directed. Zofran as need for nausea. Return to the emergency department for worsening symptoms as described in the accompanying instructions. Problem Qualifiers
--- NOTE | 2017-06-23 10:24 | DIAGNOSTIC IMAGING REPORT ---
CHEST ONE VIEW PORTABLE HISTORY: Atypical CHEST PAIN COMPARISON: Chest 05/26/2017. FINDINGS: The heart remains enlarged. There are poststernotomy changes. No pneumothorax. No pleural effusions. No focal lung consolidations to suggest pneumonia. No evidence for pulmonary edema. IMPRESSION: No significant change compared to the prior study. No acute process. Stable cardiomegaly. Electronically signed by: Tom Gonzalez M.D. 06/23/2017 10:23 AM Dictated Date/Time: 06/23/2017 10:22 AM
[2017-06-23 10:29] LABS: BASO % 0.1 %; BASO ABS # 0.01 K/uL (0-0.2); COMPLETE YES; HEMATOCRIT 31.1 % (42-52); IG% 0.3 %; LYMPH % 11.9 %; LYMPH ABS # 1.21 K/uL (1.2-3.4); MEAN CELL VOLUME 81.6 fL (80-100); MEAN CORPUSCULAR HEMOGLOBIN 26.5 pg (25-34); MEAN CORPUSCULAR HGB CONC 32.5 g/dl (32-36); MEAN PLATELET VOLUME 10.1 fL (7.4-10.4); MONO % 7.3 %; NEUT % 78.4 %; PLATELET COUNT 276 K/uL (130-400); RED BLOOD COUNT 3.81 M/uL (4.7-6.1); WHITE BLOOD COUNT 10.19 K/uL (4.8-10.8)
[2017-06-23] MEDS ORDERED: LIDOCAINE HCL 2% VISC SOLN 20 ML UDC ONE (10:32)
[2017-06-23] MEDS ORDERED: ALUMINUM/MAGNESIUM SUSP 30 ML UDC ONE (10:32)
[2017-06-23 10:48] LABS: ALT/SGPT 13 U/L (12-78); AST/SGOT 15 U/L (15-37); BLOOD UREA NITROGEN 34 mg/dl (7-18); BUN/CREATININE RATIO 39.5 (10-20); CALCIUM 9.4 mg/dl (8.5-10.1); CARBON DIOXIDE 27 mmol/L (21-32); CHLORIDE 104 mmol/L (98-107); CREATININE 0.85 mg/dl (0.60-1.40); GLUCOSE 112 mg/dl (70-99); POTASSIUM 4.2 mmol/L (3.5-5.1); SODIUM 138 mmol/L (136-145)
[2017-06-23 10:53] LABS: ALKALINE PHOSPHATASE 92 U/L (45-117)
[2017-06-23] MEDS ORDERED: OPTIRAY 320 IV PRN (11:00)
--- NOTE | 2017-06-23 13:59 | DIAGNOSTIC IMAGING REPORT ---
ABD/PELVIS IV AND ORAL CONT HISTORY: 71 years-old Male acute epigastric abdominal pain with nausea and vomiting. History of prior gastric bypass. COMPARISON: CTA 03/16/2017. TECHNIQUE: Multiple axial CT images of the abdomen and pelvis were obtained utilizing the intravenous administration of 119 mL Optiray 320. Oral contrast was also used. A dose lowering technique was used consistent with the principals of CELESTINA. FINDINGS: Unchanged right partially calcified and soft tissue attenuating pleural plaque is noted. Groundglass opacities of the lung bases suggest atelectasis. There is no pneumoperitoneum identified. Prior median sternotomy. The imaged inferior cardiac chambers are enlarged with dense calcifications seen involving the mitral annulus. Coronary arterial calcifications are also noted. The liver, spleen and adrenal glands are within normal limits. Multiple layering gallstones are seen within the gallbladder without CT evidence of acute cholecystitis or biliary ductal dilation. There is mild stranding stranding the pancreatic head and proximal duodenum. Mild wall thickening of the duodenum is also seen. Additionally, there are a few nonspecific mildly prominent periduodenal lymph nodes seen measuring up to 7 mm in short axis. There is background moderate pancreatic atrophy. Low attenuating lesions involving the kidneys bilaterally suggests cysts, largest within the interpolar left kidney measuring 7.4 x 7.1 cm containing a thin internal calcified septations. No renal calculi or hydronephrosis. Prostate is enlarged causing mass effect upon the floor of the urinary bladder. There is moderate atherosclerotic plaquing of the abdominal aorta and its branches. No bulky adenopathy is identified. Small right and large left inguinal hernias are present which are fat filled. Prior gastric bypass which appears to be a Mahesh-en-Y. Oral contrast is noted within the third and fourth portions of the duodenum, likely from retrograde flow without oral contrast seen within the excluded stomach. Appendix not seen and may be surgically absent. Postsurgical changes are seen involving the anterior abdominal wall. Severe multilevel facet arthrosis involves the lower lumbar spine with severe multilevel intervertebral disc space narrowing. IMPRESSION: 1. Mild inflammatory stranding surrounding the pancreatic head and proximal duodenum is suspicious for developing acute pancreatitis without associated fluid collection. Correlate with lipase level. 2. Cholelithiasis without CT evidence of acute cholecystitis. 3. Prior Mahesh-en-Y gastric bypass without complication. There is however oral contrast seen within the distal duodenum, likely from retrograde flow with no contrast seen within the excluded stomach to suggest dehiscence. 4. Multiple bilateral renal cysts with mildly complicated large cyst of the lateral left kidney. 5. Prostamegaly. 6. Small right and large left fat filled inguinal hernias. The above report was generated using voice recognition software. It may contain grammatical, syntax or spelling errors. Electronically signed by: Aditya Nicolas M.D. 06/23/2017 1:58 PM Dictated Date/Time: 06/23/2017 1:44 PM
[2017-06-23] MEDS ORDERED: SODIUM CHLORIDE 0.9% 500ML 500 ML IV STA (14:25)
--- NOTE | 2017-06-23 15:54 | DIAGNOSTIC IMAGING REPORT ---
GALLBLADDER-ABD LIMITED HISTORY: 71 years-old Male acute epigastric pain.- r/o obstructing gallstone COMPARISON: CT abdomen and pelvis 06/23/2017 TECHNIQUE: Multiple real-time sonographic images of the abdominal right upper quadrant were obtained assessing grayscale appearance. FINDINGS: Study is limited secondary to patient body habitus and increased bowel gas. Pancreas is mostly obscured by bowel gas. The liver appears mildly heterogeneous and echogenic which is nonspecific without focal mass. Cholelithiasis noted without gallbladder wall thickening or pericholecystic fluid. Positive sonographic Hutchison's sign was not reported. Common bile duct appears normal, 0.5 cm. No right-sided hydronephrosis. IMPRESSION: 1. Cholelithiasis without sonographic evidence of acute cholecystitis. 2. Heterogeneous echogenic hepatic parenchyma suggests fatty infiltration. 3. Pancreas obscured by bowel gas. 4. No biliary ductal dilation. The above report was generated using voice recognition software. It may contain grammatical, syntax or spelling errors. Electronically signed by: Aditya Nicolas M.D. 06/23/2017 3:52 PM Dictated Date/Time: 06/23/2017 3:49 PM
[2017-06-23] MEDS ORDERED: ONDA4TAB10 SL (15:59)
[2017-06-23] MEDS ORDERED: FAMO20TA9 PO (15:59)
[2017-06-23 16:26] VITALS: BP 117/65; PULSE 61; O2SAT 98
== END 2017-06-23 16:25 | disposition home or self-care (01) ==
LOC: C.EDB 09:22
DX: K29.00 Acute gastritis without bleeding (principal); Z95.1 Presence of aortocoronary bypass graft; D64.9 Anemia, unspecified; I25.10 Atherosclerotic heart disease of native coronary artery without angina pectoris; I10 Essential (primary) hypertension; E78.5 Hyperlipidemia, unspecified; E66.9 Obesity, unspecified; Z68.42 Body mass index [BMI] 45.0-49.9, adult; M19.90 Unspecified osteoarthritis, unspecified site; Z90.49 Acquired absence of other specified parts of digestive tract; Z86.010 Personal history of colon polyps; Z80.9 Family history of malignant neoplasm, unspecified; Z82.49 Family history of ischemic heart disease and other diseases of the circulatory system; Z82.3 Family history of stroke; Z87.891 Personal history of nicotine dependence; Z79.82 Long term (current) use of aspirin; Z79.899 Other long term (current) drug therapy; Z98.84 Bariatric surgery status

== ENCOUNTER 2023-04-21 10:17 | Inpatient (IN) ==
--- NOTE | 2023-04-21 10:43 | Emergency Department Note ---
Impression & Plan Chest pain, CHF (congestive heart failure) ED Provider Note NAME: TAY VIEYRA AGE: 77 SEX: M : 1945 ARRIVES VIA: Walk-In INFORMANT: Patient, the patient's family member ED PROVIDER(S): Aiden Lindsay DO CHIEF COMPLAINT: Palpitations HPI: The patient is a 77-year-old male who presented to the emergency department for an evaluation of palpitations. Family member noted that he was gaining weight and noticing lower extremity edema. 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 ROS: See above HPI for pertinent positives & negatives. A total of 10 systems reviewed and were otherwise negative. PAST MEDICAL HISTORY: See Below PAST SURGICAL HISTORY: See Below FAMILY HISTORY: See Below SOCIAL HISTORY: See Below HOME MEDICATIONS: See Below ALLERGIES: See Below VITALS: See Below PHYSICAL EXAMINATION: GENERAL: Patient is awake alert in no acute distress patient is resting comfortably and showing no signs of anxiety EYES: The conjunctivae are clear. The pupils are round and reactive. EARS, NOSE, MOUTH AND THROAT: The nose is without any evidence of any deformity. Mucous membranes are moist. Tongue is midline. NECK: The neck is nontender and supple. RESPIRATORY: Normal respiratory effort is noted there is no evidence of wheezing rhonchi or rales CARDIOVASCULAR: Regular rate and rhythm noted there no murmurs rubs or gallops normal S1 normal S2. GASTROINTESTINAL: The abdomen is soft. Abdomen is nontender. MUSCULOSKELETAL/EXTREMITIES: There is no evidence of gross deformity full range of motion is noted in the hips and shoulders. SKIN: Pedal edema was noted bilaterally. Skin was warm and dry. NEUROLOGIC: Patient is awake alert and oriented x3 MEDICAL DECISION MAKING: The patient is a 77-year-old male who presented to the emergency department for an evaluation of difficulty breathing as well as lower extremity swelling. The patient has a history of CHF as well as coronary artery disease. The patient's had bypass in the past. The patient was found have signs of possible pneumonia on chest x-ray. He was not febrile but he did have an elevation in his white blood cell count. The patient's history is difficult as he does have some underlying dementia. I discussed the patient's laboratory and radiographic studies with him and his family member. I also discussed his condition with the on-call [facility] hospitalist group. I will defer any antibiotics to their discretion but I did order inflammatory markers as well as blood cultures. Triage Nursing notes reviewed. Prior medical records reviewed Vital Signs: reviewed and remarkable for elevated blood pressure. Differential diagnosis: Premature contractions, electrolyte abnormality, cardiac dysrhythmia, thyroid dysfunction, pulmonary embolism, infection, gastrointestinal, as well as other pathologies. ER treatment provided: See below Diagnostics interpreted by me: ECG: EKG was obtained in the emergency department. My interpretation is normal sinus rhythm at 67 bpm. PACs were noted. LVH was suggested by voltage criteria. This was compared to a tracing from June 23, 2017. The ectopy is new otherwise no changes were noted. A second EKG was obtained in the emergency department for ongoing chest pain. My interpretation is sinus bradycardia at 50 bpm. LVH was noted by voltage criteria. There is no acute ST segment abnormalities. This compares favorably to the previous EKG. Cardiac Monitoring: An order was placed for continuous cardiac monitoring. The monitor shows a rate of 66 bpm with sinus rhythm. Laboratory studies: As stated above and show below. Imaging studies: See below. Radiographic imaging was reviewed by myself Consultation(s): I discussed this case with [place] who is on for the [facility] hospitalist group. Past Med/Surg History Medical History Anemia Arteriosclerosis of both carotid arteries CAD (coronary artery disease) CHF (congestive heart failure) "echo 11/2015- EF 55-59%, grade I diastolic dysfunction " GERD without esophagitis GI bleed Hearing loss History of MT (myocardial infarction) HLD (hyperlipidemia) HTN (hypertension) Mixed Alzheimer's and vascular dementia Obesity Surgical History Bariatric surgery status H/O knee surgery History of esophagogastroduodenoscopy (EGD) History of liver biopsy Hx of CABG S/P cardiac catheterization "12/24/2015- Severe knik vessel disease. Patent PUGA-mid LAD, patent SVG-PDA, patent jump graft [id number]. The left ventricular end diastolic pressure was normal. " S/P cholecystectomy S/P colonoscopy with polypectomy S/P panniculectomy Family History (Updated 04/21/23 @ 15:23 by Lily Domínguez PA-C) Mother Hypertension Stroke Father Hypertension Cancer Social History (Updated 04/21/23 @ 15:24 by Lily Domínguez PA-C) Smoking Status: Former smoker Current Living Situation: Spouse Feels Safe at Home: Yes Assistive Devices: Cane Allergies Allergies Allergy/AdvReac Type Severity Reaction Status Date / Time No Known Allergies Allergy Verified 04/21/23 12:33 Home Meds Home Medications Medication Instructions Recorded Confirmed ascorbic acid (vitamin C) 500 mg 500 mg PO QAM ##0 07/30/16 04/21/23 tablet atenolol 50 mg tablet 50 mg PO QAM #0 tabs 07/30/16 04/21/23 atorvastatin 80 mg tablet 80 mg PO QAM #0 tabs 07/30/16 04/21/23 cyanocobalamin (vitamin B-12) 50 1,000 mcg PO QAM #0 tabs 07/30/16 04/21/23 mcg tablet lisinopril 20 mg tablet 20 mg PO QAM #0 tabs 07/30/16 04/21/23 nitroglycerin 0.4 mg sublingual 0.4 mg UT UD PRN Chest Pain #0 BTLS 07/30/16 04/21/23 tablet (Nitrostat) aspirin 81 mg chewable tablet 81 mg PO QAM ##0 12/31/16 04/21/23 cholecalciferol (vitamin D3) 50 50 mcg PO QAM 04/21/23 04/21/23 mcg (2,000 unit) tablet (Vitamin D3) donepezil 10 mg tablet 10 mg PO QAM 04/21/23 04/21/23 famotidine 20 mg tablet 20 mg PO DAILY 04/21/23 04/21/23 ferrous sulfate 325 mg (65 mg 325 mg PO BID 04/21/23 04/21/23 iron) tablet furosemide 20 mg tablet 20 mg PO QAM 04/21/23 04/21/23 omega-3 fatty acids-vitamin E 1 cap PO DAILY 04/21/23 04/21/23 1,000 mg-5 unit capsule Results & Data (ED) Vital Signs Vital Signs - 24 hr 04/21/23 10:26 04/21/23 10:26 04/21/23 10:35 Temperature 36.8 C Temperature Source Oral Pulse Rate 65 68 Pulse Rate [Apical] 66 Pulse Rhythm Regular Respiratory Rate 20 20 Respiratory Effort / Characteristics Non-Labored Spontaneous Non-Labored Respiratory Depth Normal Normal Blood Pressure 114/61 Blood Pressure [Right Arm] 114/61 Blood Pressure Mean 78 Blood Pressure Mean [Right Arm] 78 Blood Pressure Position [Right Arm] Pulse Oximetry 93 95 95 Oxygen Delivery Method Room Air Room Air Room Air Sepsis Recent Fever Within 48 Hours No Sepsis New/Unexplained Change in Mental Status No Sepsis Action Taken by Nursing No Action Required 04/21/23 12:11 04/21/23 12:02 04/21/23 15:08 Temperature Temperature Source Pulse Rate 66 Pulse Rate [Apical] 54 L Pulse Rhythm Respiratory Rate 17 Respiratory Effort / Characteristics Respiratory Depth Blood Pressure Blood Pressure [Right Arm] 145/61 H Blood Pressure Mean Blood Pressure Mean [Right Arm] 89 Blood Pressure Position [Right Arm] Semi-fowlers Pulse Oximetry 94 Oxygen Delivery Method Room Air Room Air Sepsis Recent Fever Within 48 Hours Sepsis New/Unexplained Change in Mental Status Sepsis Action Taken by Intermediate Medications Current Medication List: was personally reviewed by me Laboratory Data Attestation: I reviewed the patient's lab results. 04/21/23 10:30 04/21/23 10:30 Lab Results 04/21/23 04/21/23 04/21/23 Range/Units 10:30 10:30 10:30 WBC 12.40 H (4.8-10.8) K/ul RBC 4.41 L (4.70-6.10) M/uL Hgb 11.9 L (14.0-18.0) g/dl Hct 37.3 L (42.0-52.0) % MCV 84.6 (80.0-100.0) fL MCH 27.0 (25.0-34.0) pg MCHC 31.9 L (32.0-36.0) g/dL RDW Std Deviation 44.2 (36.4-46.3) fL RDW Coeff of Jean Claude 14.2 (11.5-14.5) % Plt Count 284 (130-400) K/uL MPV 9.8 (9.4-12.4) fL Immature Gran % (Auto) 0.3 % Neut % (Auto) 74.8 % Lymph % (Auto) 10.5 % [place] % (Auto) 9.8 % Eos % (Auto) 4.4 % Baso % (Auto) 0.2 % Neut # (Auto) 9.27 H (1.40-6.50) K/uL Lymph # (Auto) 1.30 (1.2-3.4) K/uL [place] # (Auto) 1.22 H (0.11-0.59) K/uL Eos # (Auto) 0.55 H (0-0.50) K/uL Baso # (Auto) 0.02 (0-0.2) K/uL Immature Gran # (Auto) 0.04 (0.01-0.20) K/uL PT 11.2 (9.0-12.0) Seconds INR 1.0 (0.9-1.1) APTT 26.0 (21.0-31.0) Seconds PTT Ratio 0.9 Sodium 138 (136-145) mmol/L Potassium 4.5 (3.5-5.1) mmol/L Chloride 105 (98-107) mmol/L Carbon Dioxide 26 (21-32) mmol/L Anion Gap 7 (3-11) BUN 30 H (6-23) mg/dl Creatinine 1.00 (0.6-1.4) mg/dl Est Cr Clr Drug Dosing 84.7 ml/min Est GFR ( Amer) 83.8 ml/min Est GFR (Non-Af Amer) 72.3 ml/min BUN/Creatinine Ratio 30.0 H (10-20) Glucose 104 H (70-99(Fasting)) mg/dl Lactate (0.4-2.0) mmol/L Calcium 8.8 (8.6-10.3) mg/dl Total Bilirubin 0.9 (0.2-1.0) mg/dl AST 12 L (13-39) U/L ALT 6 L (7-52) U/L Alkaline Phosphatase 108 H (34-104) U/L Troponin I High Sens 7.6 (0-20) pg/ml C-Reactive Protein 0.81 H (0-0.5) mg/dl B-Natriuretic Peptide (0-100) pg/ml Total Protein 7.0 (6.0-8.3) gm/dl Albumin 3.7 (3.4-5.0) gm/dl Globulin 3.3 (2.5-4.0) gm/dl Albumin/Globulin Ratio 1.1 (0.9-2) Lipase 30 (11-82) U/L Procalcitonin (0-0.5) ng/ml SARS-CoV-2, RNA, NAAT (NEGATIVE) 04/21/23 04/21/23 04/21/23 Range/Units 10:30 10:37 11:57 WBC (4.8-10.8) K/ul RBC (4.70-6.10) M/uL Hgb (14.0-18.0) g/dl Hct (42.0-52.0) % MCV (80.0-100.0) fL MCH (25.0-34.0) pg MCHC (32.0-36.0) g/dL RDW Std Deviation (36.4-46.3) fL RDW Coeff of Jean Claude (11.5-14.5) % Plt Count (130-400) K/uL MPV (9.4-12.4) fL Immature Gran % (Auto) % Neut % (Auto) % Lymph % (Auto) % [place] % (Auto) % Eos % (Auto) % Baso % (Auto) % Neut # (Auto) (1.40-6.50) K/uL Lymph # (Auto) (1.2-3.4) K/uL [place] # (Auto) (0.11-0.59) K/uL Eos # (Auto) (0-0.50) K/uL Baso # (Auto) (0-0.2) K/uL Immature Gran # (Auto) (0.01-0.20) K/uL PT (9.0-12.0) Seconds INR (0.9-1.1) APTT (21.0-31.0) Seconds PTT Ratio Sodium (136-145) mmol/L Potassium (3.5-5.1) mmol/L Chloride (98-107) mmol/L Carbon Dioxide (21-32) mmol/L Anion Gap (3-11) BUN (6-23) mg/dl Creatinine (0.6-1.4) mg/dl Est Cr Clr Drug Dosing ml/min Est GFR ( Amer) ml/min Est GFR (Non-Af Amer) ml/min BUN/Creatinine Ratio (10-20) Glucose (70-99(Fasting)) mg/dl Lactate 1.0 (0.4-2.0) mmol/L Calcium (8.6-10.3) mg/dl Total Bilirubin (0.2-1.0) mg/dl AST (13-39) U/L ALT (7-52) U/L Alkaline Phosphatase (34-104) U/L Troponin I High Sens (0-20) pg/ml C-Reactive Protein (0-0.5) mg/dl B-Natriuretic Peptide 462 H (0-100) pg/ml Total Protein (6.0-8.3) gm/dl Albumin (3.4-5.0) gm/dl Globulin (2.5-4.0) gm/dl Albumin/Globulin Ratio (0.9-2) Lipase (11-82) U/L Procalcitonin (0-0.5) ng/ml SARS-CoV-2, RNA, NAAT NEGATIVE (NEGATIVE) 04/21/23 Range/Units 14:00 WBC (4.8-10.8) K/ul RBC (4.70-6.10) M/uL Hgb (14.0-18.0) g/dl Hct (42.0-52.0) % MCV (80.0-100.0) fL MCH (25.0-34.0) pg MCHC (32.0-36.0) g/dL RDW Std Deviation (36.4-46.3) fL RDW Coeff of Jean Claude (11.5-14.5) % Plt Count (130-400) K/uL MPV (9.4-12.4) fL Immature Gran % (Auto) % Neut % (Auto) % Lymph % (Auto) % [place] % (Auto) % Eos % (Auto) % Baso % (Auto) % Neut # (Auto) (1.40-6.50) K/uL Lymph # (Auto) (1.2-3.4) K/uL [place] # (Auto) (0.11-0.59) K/uL Eos # (Auto) (0-0.50) K/uL Baso # (Auto) (0-0.2) K/uL Immature Gran # (Auto) (0.01-0.20) K/uL PT (9.0-12.0) Seconds INR (0.9-1.1) APTT (21.0-31.0) Seconds PTT Ratio Sodium (136-145) mmol/L Potassium (3.5-5.1) mmol/L Chloride (98-107) mmol/L Carbon Dioxide (21-32) mmol/L Anion Gap (3-11) BUN (6-23) mg/dl Creatinine (0.6-1.4) mg/dl Est Cr Clr Drug Dosing ml/min Est GFR ( Amer) ml/min Est GFR (Non-Af Amer) ml/min BUN/Creatinine Ratio (10-20) Glucose (70-99(Fasting)) mg/dl Lactate (0.4-2.0) mmol/L Calcium (8.6-10.3) mg/dl Total Bilirubin (0.2-1.0) mg/dl AST (13-39) U/L ALT (7-52) U/L Alkaline Phosphatase (34-104) U/L Troponin I High Sens (0-20) pg/ml C-Reactive Protein (0-0.5) mg/dl B-Natriuretic Peptide (0-100) pg/ml Total Protein (6.0-8.3) gm/dl Albumin (3.4-5.0) gm/dl Globulin (2.5-4.0) gm/dl Albumin/Globulin Ratio (0.9-2) Lipase (11-82) U/L Procalcitonin < 0.05 (0-0.5) ng/ml SARS-CoV-2, RNA, NAAT (NEGATIVE) Administered Medications Discontinued Medications Furosemide (Furosemide 40 Mg/4 Ml Vial) 40 mg IV ONE ONE Stop: 04/21/23 13:13 Last Admin: 04/21/23 13:24 Dose: 40 mg Documented By: AB Imaging Data Attestation: I personally reviewed and interpreted this imaging study as follows: My Impression: 1 view chest x-ray was obtained in the emergency department. My interpretation is cardiomegaly, no free air, final report below. Radiologist's Impression: Chest X-Ray 04/21/23 10:30 XR chest 1V portable CLINICAL HISTORY: Chest pain, nonspecific COMPARISON STUDY: Chest CT May 26, 2017 and chest radiograph June 23, 2017. FINDINGS: Median sternotomy wires are noted. There is no pneumothorax or pleural effusion. Cardiomegaly is unchanged. There is no evidence for overt pulmonary edema. A 1.3 cm nodular right midlung opacity is present. IMPRESSION: 1. 1.3 cm nodular right midlung opacity. This could represent an infectious process or pulmonary nodule. Radiographic follow up to ensure resolution is recommended. 2. Cardiomegaly without overt pulmonary edema. ACT 112: Negative or not required by law. Electronically signed by: Tio Emmanuel M.D. 04/21/2023 10:56 AM Discharge Plan Visit Data Chief Complaint: Cardiac Assessment Stated Complaint: PALPITATIONS,CHEST PAIN,SOB, ED Provider: Aiden Lindsay Discharge Problem: Chest pain, CHF (congestive heart failure) Patient Disposition: Admitted As Inpatient Discharge Instructions Interventions: ED Discharge Assessment Last Done: 04/21/23 15:08 Forms Stand Alone Forms: [facility] [email or web address] Prescriptions Prescriptions: No Action atorvastatin 80 mg Tablet 80 mg PO QAM Qty: 0 lisinopril 20 mg Tablet 20 mg PO QAM Qty: 0 cyanocobalamin (vitamin B-12) 50 mcg Tablet 1,000 mcg PO QAM Qty: 0 ascorbic acid (vitamin C) 500 mg Tablet 500 mg PO QAM Qty: 0 atenolol 50 mg Tablet 50 mg PO QAM Qty: 0 nitroglycerin [Nitrostat] 0.4 mg Tablet, Sublingual 0.4 mg UT UD PRN (Reason: Chest Pain) Qty: 0 aspirin 81 mg Tablet,Chewable 81 mg PO QAM Qty: 0 donepezil 10 mg tablet 10 mg PO QAM famotidine 20 mg tablet 20 mg PO DAILY ferrous sulfate 325 mg (65 mg iron) tablet 325 mg PO BID furosemide 20 mg tablet 20 mg PO QAM Rx Instructions: May take an additional 20 mg as needed but not consecutively cholecalciferol (vitamin D3) [Vitamin D3] 50 mcg (2,000 unit) Tablet 50 mcg PO QAM [place]-3 Fish Oil 1,000-5 mg-unit Capsule 1 cap PO DAILY Referrals Referrals: PCP,NO [Physician] -
--- NOTE | 2023-04-21 10:57 | XRay Report ---
XR chest 1V portable CLINICAL HISTORY: Chest pain, nonspecific COMPARISON STUDY: Chest CT May 26, 2017 and chest radiograph June 23, 2017. FINDINGS: Median sternotomy wires are noted. There is no pneumothorax or pleural effusion. Cardiomega ly is unchanged. There is no evidence for overt pulmonary edema. A 1.3 cm nodular right midlung opaci ty is present. IMPRESSION: 1. 1.3 cm nodular right midlung opacity. This could represent an infectious process or pulmonary nodu le. Radiographic follow up to ensure resolution is recommended. 2. Cardiomegaly without overt pulmonary edema. ACT 112: Negative or not required by law. Electronically signed by: Tio Emmanuel M.D. 04/21/2023 10:56 AM
[2023-04-21 11:09] LABS: Basophils # (auto) 0.02 K/uL (0-0.2); Basophils % (auto) 0.2 %; Eosinophils # (auto) 0.55 K/uL (0-0.50); Eosinophils % (auto) 4.4 %; Hematocrit (blood only) 37.3 % (42.0-52.0); Hemoglobin 11.9 g/dl (14.0-18.0); Immature Granulocytes # (auto) 0.04 K/uL (0.01-0.20); Immature Granulocytes % (auto) 0.3 %; Lymphocytes % (auto) 10.5 %; Mean Corpuscular Hgb Conc 31.9 g/dL (32.0-36.0); Mean Corpuscular Volume 84.6 fL (80.0-100.0); Mean Platelet Volume 9.8 fL (9.4-12.4); Monocytes # (auto) 1.22 K/uL (0.11-0.59); Monocytes % (auto) 9.8 %; Neutrophils # (auto) 9.27 K/uL (1.40-6.50); Neutrophils % (auto) 74.8 %; Platelet Count 284 K/uL (130-400); RDW Coefficient of Variation 14.2 % (11.5-14.5); RDW Standard Deviation 44.2 fL (36.4-46.3); Red Blood Count 4.41 M/uL (4.70-6.10)
[2023-04-21 11:24] LABS: Albumin Globulin Ratio 1.1 (0.9-2); Albumin Level 3.7 gm/dl (3.4-5.0); Bilirubin,Total 0.9 mg/dl (0.2-1.0); Calcium 8.8 mg/dl (8.6-10.3); Creatinine Clr Calc Pharmacy 84.7 ml/min; Est GFR (African American) 83.8 ml/min; Est GFR (Non-African American) 72.3 ml/min; Globulin 3.3 gm/dl (2.5-4.0); Potassium 4.5 mmol/L (3.5-5.1)
[2023-04-21 11:29] LABS: Troponin I High Sensitivity 7.6 pg/ml (0-20)
[2023-04-21 11:35] LABS: Partial Thromboplastin Ratio 0.9; Prothrombin Time 11.2 Seconds (9.0-12.0)
[2023-04-21 12:23] LABS: C Reactive Protein 0.81 mg/dl (0-0.5)
--- NOTE | 2023-04-21 12:34 | Electrocardiogram Report ---
Test Reason : Blood Pressure : / mmHG Vent. Rate : 067 BPM Atrial Rate : 067 BPM P-R Int : 172 ms QRS Dur : 098 ms QT Int : 430 ms P-R-T Axes : 055 -21 022 degrees QTc Int : 454 ms Sinus rhythm with Premature atrial complexes Incomplete right bundle branch block Minimal voltage criteria for LVH, may be normal variant ( R in aVL ) Borderline ECG When compared with ECG of 23-JUN-2017 14:46, Premature atrial complexes are now Present Incomplete right bundle branch block is now Present Confirmed by Corona Masterson ([id number]) on 04/21/2023 12:34:24 PM Referred By: REFERRED SELF Confirmed By:Corona Masterson
[2023-04-21] MEDS ORDERED: FUROSEMIDE 40 MG/4 ML VIAL IV ONE (13:12)
--- NOTE | 2023-04-21 13:17 | Electrocardiogram Report ---
Test Reason : Blood Pressure : / mmHG Vent. Rate : 058 BPM Atrial Rate : 058 BPM P-R Int : 154 ms QRS Dur : 092 ms QT Int : 456 ms P-R-T Axes : 028 -19 019 degrees QTc Int : 447 ms Sinus bradycardia with marked sinus arrhythmia Incomplete right bundle branch block Minimal voltage criteria for LVH, may be normal variant ( R in aVL ) Borderline ECG When compared with ECG of 21-APR-2023 10:27, (unconfirmed) Premature atrial complexes are no longer Present Confirmed by Corona Masterson ([id number]) on 04/21/2023 1:17:33 PM Referred By: REFERRED SELF Confirmed By:Corona Masterson
--- NOTE | 2023-04-21 14:13 | History & Physical Report ---
Date of Service April 21, 2023 Assessment & Plan (1) Chest pain: Plan: This is a 77 y/o male with a history of chronic diastolic heart failure, CAD s/p CABG, SCOTT, HTN, prior LA, GERD, dyslipidemia, dementia, and carotid artery disease who presents to the ED with an episode of heart racing, chest pain, and trouble breathing. His weight is up 4 lbs from last month and he is noted to have LE edema on exam, elevated BNP. CXR reviewed and c/w mild pulmonary vascular congestion. Clinical picture seems most consistent with acute on chronic CHF. Procalcitonin is negative, pt is afebrile and denies s/s that would be more consistent with infection so pneumonia thought less likely. - Observe in PCU overnight - trend troponin, repeat EKG in AM - Given furosemide 40 mg IV x 1 in the ED with appropriate diuresis. Will continue 40 mg IV daily for now and titrate as needed - Check ECHO since last done in 2017 - Will hold on cardiology consult for today but would have low threshold for consult pending additional work-up, clinical response to diuresis - Continue other home meds - Daily weights, Is and Os - Follow BMP and magnesium with diuresis and replete as needed (2) Leukocytosis: Plan: No clear infectious etiology at present. Procal is normal. - Repeat in AM and continue to monitor. Holding antibiotics for now (3) Acute on chronic diastolic (congestive) heart failure: Plan: See plan for #1 (4) Mixed Alzheimer's and vascular dementia: Plan: Pt needs frequent reorientation. Continue to reorient as needed. requests updates from the provider directly as pt will likely forget anything he is told. (5) HTN (hypertension): (6) HLD (hyperlipidemia): (7) CAD (coronary artery disease): (8) GERD without esophagitis: Plan Continue other home medications as appropriate Pt seen and reviewed with collaborating physician, Dr. Zarate. Plan of care discussed and as outlined above. Code Status: Full code DVT Prophylaxis: Mari Domínguez PA-C History of Present Illness Chief Complaint: heart racing, chest pain Primary Care Provider: Mika Baxter MD This is a 77 y/o male with a history of chronic diastolic heart failure, CAD s/p CABG, SCOTT, HTN, prior LA, GERD, dyslipidemia, dementia, and carotid artery disease who presents to the ED with an episode of heart racing, chest pain, and trouble breathing. Pt has dementia with short-term memory issues so history from the pt was limited and pt struggled to remember his symptoms at times. His at the bedside assisted with the history. Two days ago, pt had an episode of heart racing in the morning lasting a few minutes. His thought it may be due to fluid so she gave him an extra furosemide. Yesterday, he was at his baseline. Around 7 am today, he again started with heart racing but this time had associated left substernal chest pain and shortness of breath. The breathing and palpitations have improved but he is still having some intermittent chest pain. He has not had any recent illness. They deny fevers, chills, URI symptoms, N/V/D, dizziness, syncope, or recent falls. His weight is up 4 lbs from last month but he does not weigh himself daily at home. He takes furosemide 20 mg daily but can take an additional dose prn. His reports t hat he takes this extra dose about once a week. His pedal edema has been about at baseline. His last ECHO in 2017 showed moderately increased LV wall thickness with normal motion; LVEF 60-64%; grade I LV diastolic dysfunction; moderate aortic valve sclerosis; moderate LAE. Allergies Allergy/AdvReac Type Severity Reaction Status Date / Time No Known Allergies Allergy Verified 04/21/23 12:33 Home Medications Medication Instructions Recorded Confirmed Type ascorbic acid (vitamin C) 500 mg 500 mg PO QAM ##0 07/30/16 04/21/23 History tablet atenolol 50 mg tablet 50 mg PO QAM #0 tabs 07/30/16 04/21/23 History atorvastatin 80 mg tablet 80 mg PO QAM #0 tabs 07/30/16 04/21/23 History cyanocobalamin (vitamin B-12) 50 1,000 mcg PO QAM #0 tabs 07/30/16 04/21/23 History mcg tablet lisinopril 20 mg tablet 20 mg PO QAM #0 tabs 07/30/16 04/21/23 History nitroglycerin 0.4 mg sublingual 0.4 mg UT UD PRN Chest Pain #0 BTLS 07/30/16 04/21/23 History tablet (Nitrostat) aspirin 81 mg chewable tablet 81 mg PO QAM ##0 12/31/16 04/21/23 History cholecalciferol (vitamin D3) 50 50 mcg PO QAM 04/21/23 04/21/23 History mcg (2,000 unit) tablet (Vitamin D3) donepezil 10 mg tablet 10 mg PO QAM 04/21/23 04/21/23 History famotidine 20 mg tablet 20 mg PO DAILY 04/21/23 04/21/23 History ferrous sulfate 325 mg (65 mg 325 mg PO BID 04/21/23 04/21/23 History iron) tablet furosemide 20 mg tablet 20 mg PO QAM 04/21/23 04/21/23 History omega-3 fatty acids-vitamin E 1 cap PO DAILY 04/21/23 04/21/23 History 1,000 mg-5 unit capsule Past Med/Surg History Medical History Anemia Arteriosclerosis of both carotid arteries CAD (coronary artery disease) CHF (congestive heart failure) "echo 11/2015- EF 55-59%, grade I diastolic dysfunction " GERD without esophagitis GI bleed Hearing loss History of [place] (myocardial infarction) HLD (hyperlipidemia) HTN (hypertension) Mixed Alzheimer's and vascular dementia Obesity Surgical History Bariatric surgery status H/O knee surgery History of esophagogastroduodenoscopy (EGD) History of liver biopsy Hx of CABG S/P cardiac catheterization "12/24/2015- Severe [place] vessel disease. Patent PUGA-mid LAD, patent SVG-PDA, patent jump graft [id number]. The left ventricular end diastolic pressure was normal. " S/P cholecystectomy S/P colonoscopy with polypectomy S/P panniculectomy Family History (Updated 04/21/23 @ 15:23 by Lily Domínguez PA-C) Mother Hypertension Stroke Father Hypertension Cancer Social History (Updated 04/21/23 @ 15:24 by Lily Domínguez PA-C) Smoking Status: Former smoker Hx Alcohol Use: No Hx Substance Use: No Preferred Language: Macedonian Communication Ability: Effective Telegraph Inspector Required: No Beliefs That Will Affect Care: None Current Living Situation: Spouse and Family Other Information That Helps Us Care for You: No Feels Safe at Home: Yes Safety Concerns: Feels Safe At This Time Assistive Devices: Cane and Glasses Review of Systems Review of Systems: Other (limited due to dementia - see HPI) Physical Exam Constitutional: well developed and well nourished; no acute distress Eyes: + anicteric sclerae ENMT: external ear and nose normal, oropharynx normal Neck: trachea midline Respiratory: no respiratory distress and no labored breathing Auscultation: + diminished lung sounds (at bilateral bases) Cardiovascular: Rate/Rhythm: regular rate and regular rhythm Vessels: radial pulses present Extremities: + pedal edema Gastrointestinal (Abdomen): Inspection/Auscultation: normal bowel sounds; abdomen not distended Percussion/Palpation: abdomen soft; abdomen nontender Musculoskeletal: Head/Neck/Chest: normocephalic, head atraumatic and neck supple Skin: no jaundice Neurologic: moves all extremities; no focal motor deficits short-term memory issues - did not remember that he was in/why he was in the hospital despite redirecting and discussing several times during the encounter Results & Data Results & Data Vital Signs (Past 12 Hours) Vital Signs Temp Pulse Pulse Resp BP BP Pulse Ox 04/21/23 12:02 54 L 17 145/61 H 94 04/21/23 12:11 66 04/21/23 10:35 68 95 04/21/23 10:26 66 20 114/61 95 04/21/23 10:26 36.8 C 65 20 114/61 93 O2 Del Method 04/21/23 12:02 Room Air 04/21/23 12:11 04/21/23 10:35 Room Air 04/21/23 10:26 Room Air 04/21/23 10:26 Room Air Laboratory Results Laboratory Results - last 24 hr 04/21/23 04/21/23 04/21/23 10:30 10:30 10:30 WBC 12.40 H RBC 4.41 L Hgb 11.9 L Hct 37.3 L MCV 84.6 MCH 27.0 MCHC 31.9 L RDW Std Deviation 44.2 RDW Coeff of [place] 14.2 Plt Count 284 MPV 9.8 Immature Gran % (Auto) 0.3 Neut % (Auto) 74.8 Lymph % (Auto) 10.5 [place] % (Auto) 9.8 Eos % (Auto) 4.4 Baso % (Auto) 0.2 Neut # (Auto) 9.27 H Lymph # (Auto) 1.30 [place] # (Auto) 1.22 H Eos # (Auto) 0.55 H Baso # (Auto) 0.02 Immature Gran # (Auto) 0.04 PT 11.2 INR 1.0 APTT 26.0 PTT Ratio 0.9 Sodium 138 Potassium 4.5 Chloride 105 Carbon Dioxide 26 Anion Gap 7 BUN 30 H Creatinine 1.00 Est Cr Clr Drug Dosing 84.7 Est GFR ( Amer) 83.8 Est GFR (Non-Af Amer) 72.3 BUN/Creatinine Ratio 30.0 H Glucose 104 H Lactate Calcium 8.8 Total Bilirubin 0.9 AST 12 L ALT 6 L Alkaline Phosphatase 108 H Troponin I High Sens 7.6 C-Reactive Protein 0.81 H B-Natriuretic Peptide Total Protein 7.0 Albumin 3.7 Globulin 3.3 Albumin/Globulin Ratio 1.1 Lipase 30 Procalcitonin SARS-CoV-2, RNA, NAAT 04/21/23 04/21/23 04/21/23 10:30 10:37 11:57 WBC RBC Hgb Hct MCV MCH MCHC RDW Std Deviation RDW Coeff of [place] Plt Count MPV Immature Gran % (Auto) Neut % (Auto) Lymph % (Auto) [place] % (Auto) Eos % (Auto) Baso % (Auto) Neut # (Auto) Lymph # (Auto) [place] # (Auto) Eos # (Auto) Baso # (Auto) Immature Gran # (Auto) PT INR APTT PTT Ratio Sodium Potassium Chloride Carbon Dioxide Anion Gap BUN Creatinine Est Cr Clr Drug Dosing Est GFR ( Amer) Est GFR (Non-Af Amer) BUN/Creatinine Ratio Glucose Lactate 1.0 Calcium Total Bilirubin AST ALT Alkaline Phosphatase Troponin I High Sens C-Reactive Protein B-Natriuretic Peptide 462 H Total Protein Albumin Globulin Albumin/Globulin Ratio Lipase Procalcitonin SARS-CoV-2, RNA, NAAT NEGATIVE 04/21/23 14:00 WBC RBC Hgb Hct MCV MCH MCHC RDW Std Deviation RDW Coeff of Jean Claude Plt Count MPV Immature Gran % (Auto) Neut % (Auto) Lymph % (Auto) [place] % (Auto) Eos % (Auto) Baso % (Auto) Neut # (Auto) Lymph # (Auto) [place] # (Auto) Eos # (Auto) Baso # (Auto) Immature Gran # (Auto) PT INR APTT PTT Ratio Sodium Potassium Chloride Carbon Dioxide Anion Gap BUN Creatinine Est Cr Clr Drug Dosing Est GFR ( Amer) Est GFR (Non-Af Amer) BUN/Creatinine Ratio Glucose Lactate Calcium Total Bilirubin AST ALT Alkaline Phosphatase Troponin I High Sens C-Reactive Protein B-Natriuretic Peptide Total Protein Albumin Globulin Albumin/Globulin Ratio Lipase Procalcitonin Pending SARS-CoV-2, RNA, NAAT Diagnostic Findings Chest X-Ray 04/21/23 10:30 XR chest 1V portable CLINICAL HISTORY: Chest pain, nonspecific COMPARISON STUDY: Chest CT May 26, 2017 and chest radiograph June 23, 2017. FINDINGS: Median sternotomy wires are noted. There is no pneumothorax or pleural effusion. Cardiomegaly is unchanged. There is no evidence for overt pulmonary edema. A 1.3 cm nodular right midlung opacity is present. IMPRESSION: 1. 1.3 cm nodular right midlung opacity. This could represent an infectious process or pulmonary nodule. Radiographic follow up to ensure resolution is recommended. 2. Cardiomegaly without overt pulmonary edema. ACT 112: Negative or not required by law. Electronically signed by: Tio Emmanuel M.D. 04/21/2023 10:56 AM Medications Administered Discontinued Medications Furosemide (Furosemide 40 Mg/4 Ml Vial) 40 mg IV ONE ONE Stop: 04/21/23 13:13 Last Admin: 04/21/23 13:24 Dose: 40 mg Documented By:
[2023-04-21] MEDS ORDERED: ACETAMINOPHEN 325 MG TAB PO PRN (15:56)
[2023-04-21] MEDS ORDERED: NITROGLYCERIN SL 0.4 MG/TAB TAB SL PRN (15:56)
[2023-04-21] MEDS: DONEPEZIL HCL 10 MG TAB PO SCH (16:59)
[2023-04-21 17:52] LABS: Magnesium 2.1 mg/dl (1.7-2.4)
[2023-04-21 17:59] LABS: Troponin I High Sensitivity 7.4 pg/ml (0-20)
--- NOTE | 2023-04-21 18:38 | Communication Note ---
Date of Service: April 21, 2023 Notified by RN that patient had a recurrent episode of chest pain while coming back from the bathroom. Rated as 4/10. EKG repeated - personally reviewed, no ischemic changes. When I evaluated patient shortly after being notified, he reported that chest pain was already improving. Vitals stable. Troponin from 16:39 negative. Repeat troponin scheduled for later this evening. Diuresing well from IV furosemide x1 given in the ED. >400 cc urine output since arriving on the floor plus urine output in the ED, which was not measured. No additional interventions at this time. Discussed with collaborating physician, Dr. Zarate. Chelle Domínguez PA-C
[2023-04-21] MEDS: FERROUS SULFATE 325 MG TAB PO SCH (20:13)
[2023-04-22 06:47] LABS: Basophils # (auto) 0.01 K/uL (0-0.2); Basophils % (auto) 0.1 %; Eosinophils # (auto) 0.46 K/uL (0-0.50); Eosinophils % (auto) 4.3 %; Hematocrit (blood only) 34.4 % (42.0-52.0); Hemoglobin 11.2 g/dl (14.0-18.0); Immature Granulocytes # (auto) 0.04 K/uL (0.01-0.20); Immature Granulocytes % (auto) 0.4 %; Lymphocytes # (auto) 1.56 K/uL (1.2-3.4); Lymphocytes % (auto) 14.7 %; Mean Corpuscular Hemoglobin 27.3 pg (25.0-34.0); Mean Corpuscular Hgb Conc 32.6 g/dL (32.0-36.0); Mean Corpuscular Volume 83.9 fL (80.0-100.0); Mean Platelet Volume 9.7 fL (9.4-12.4); Monocytes # (auto) 1.03 K/uL (0.11-0.59); Monocytes % (auto) 9.7 %; Neutrophils # (auto) 7.52 K/uL (1.40-6.50); Neutrophils % (auto) 70.8 %; Platelet Count 261 K/uL (130-400); RDW Coefficient of Variation 14.2 % (11.5-14.5); RDW Standard Deviation 43.1 fL (36.4-46.3); White Blood Count 10.62 K/ul (4.8-10.8)
[2023-04-22 07:13] LABS: Calcium 8.8 mg/dl (8.6-10.3); Creatinine Clr Calc Pharmacy 87.8 ml/min; Est GFR (African American) 91.5 ml/min; Est GFR (Non-African American) 78.9 ml/min; Magnesium 2.1 mg/dl (1.7-2.4); Potassium 4.1 mmol/L (3.5-5.1)
[2023-04-22] MEDS: CHOLECALCIFEROL 1,000 UNITS 25 MCG TAB PO SCH (08:16)
[2023-04-22] MEDS: FAMOTIDINE 20 MG TAB PO SCH (08:16)
[2023-04-22] MEDS: ATORVASTATIN 40 MG TAB PO SCH (08:16)
[2023-04-22] MEDS: OMEGA-3 (PURIFIED FISH OIL) 1 GM CAP PO SCH (08:16)
[2023-04-22] MEDS: DONEPEZIL HCL 10 MG TAB PO SCH (08:16)
[2023-04-22] MEDS: lisinopril 20 MG TAB PO SCH (08:16)
[2023-04-22] MEDS: ASCORBIC ACID 500 MG TAB PO SCH (08:16)
[2023-04-22] MEDS: CYANOCOBALAMIN (B-12) 500 MCG TABLET PO SCH (08:17)
[2023-04-22] MEDS: FUROSEMIDE 40 MG/4 ML VIAL IV SCH (08:17)
[2023-04-22] MEDS: FERROUS SULFATE 325 MG TAB PO SCH ×2 (08:17→19:36)
[2023-04-22] MEDS: ENOXAPARIN INJ 40 MG/0.4 ML SYR SQ SCH (08:17)
--- NOTE | 2023-04-22 08:31 | Electrocardiogram Report ---
Test Reason : Blood Pressure : / mmHG Vent. Rate : 069 BPM Atrial Rate : 069 BPM P-R Int : 174 ms QRS Dur : 102 ms QT Int : 426 ms P-R-T Axes : 059 -22 017 degrees QTc Int : 456 ms Normal sinus rhythm with sinus arrhythmia Voltage criteria for left ventricular hypertrophy Borderline ECG When compared with ECG of 21-APR-2023 11:30, Incomplete right bundle branch block no longer present Confirmed by Kingston Lozano ([id number]) on 04/22/2023 8:31:29 AM Referred By: REFERRED SELF Confirmed By:Kingston Lozano
--- NOTE | 2023-04-22 08:41 | Electrocardiogram Report ---
Test Reason : Blood Pressure : / mmHG Vent. Rate : 062 BPM Atrial Rate : 062 BPM P-R Int : 176 ms QRS Dur : 098 ms QT Int : 432 ms P-R-T Axes : 014 -21 005 degrees QTc Int : 438 ms Sinus rhythm with marked sinus arrhythmia Incomplete right bundle branch block Minimal voltage criteria for LVH, may be normal variant Borderline ECG When compared with ECG of 21-APR-2023 18:20, Incomplete right bundle branch block is now Present Confirmed by Kingston Lozano ([id number]) on 04/22/2023 8:40:56 AM Referred By: REFERRED SELF Confirmed By:Kingston Lozano
[2023-04-22] MEDS ORDERED: ATENOLOL 50 MG TABLET PO SCH (09:00)
[2023-04-22] MEDS: ASPIRIN 81 MG CHEW PO SCH (09:19)
[2023-04-22] MEDS: ATENOLOL 25 MG TABLET PO SCH (09:19)
--- NOTE | 2023-04-22 18:01 | Hospitalist Progress Note ---
Date of Service April 22, 2023 Assessment & Plan (1) Chest pain: Plan: Patient is a 77 yr male with H/O Chronic diastolic heart failure, CAD s/p CABG, SCOTT, HTN, prior [place], GERD, dyslipidemia, dementia, and carotid artery disease who presents to the ED with an episode of heart racing, chest pain, and trouble breathing. His weight is up 4 lbs from last month and he is noted to have LE edema on exam, elevated BNP. Acute on chronic diastolic heart failure --CXR:1.3 cm nodular right midlung opacity. This could represent an infectious process or pulmonary nodule. Radiographic follow up to ensure resolution is recommended. Cardiomegaly without overt pulmonary edema. Elevated BNP --ECHO: Left ventricle is normal in size. Moderate concentric LVH. Left ventricle wall motion is normal. EF 60 to 65%. Grade 1 diastolic dysfunction. Aortic valve sclerosis and calcification, moderate without significant aortic valvular stenosis. Mild mitral annular calcification. --Continue IV Lasix Monitor I's and O's, daily weight . Follows with [facility] cardiology as outpatient We will consider cardiology evaluation if needed Sinus arrhythmia Atrial tachycardia ? Tachybradycardia syndrome Increase atenolol dose to 75 mg daily Monitor on telemetry Consult cardiology if no improvement (2) Leukocytosis: Plan: No clear infectious etiology Resolved Monitor (3) Acute on chronic diastolic (congestive) heart failure: Plan: Management as above (4) Mixed Alzheimer's and vascular dementia: Plan: Needs frequent reorientation. Continue Aricept for now Stated to discontinue Aricept if bradycardia persists (5) HTN (hypertension): Plan: Continue lisinopril, atenolol (6) HLD (hyperlipidemia): Plan: Continue on Lipitor (7) CAD (coronary artery disease): Plan: Continue aspirin, beta-nadeem, statin (8) GERD without esophagitis: Plan: Continue Pepcid Plan DVT Px: Lovenox SQ Code Status: Full code Admission and Anticipated Discharge Date Admission Date: April 21, 2023 Subjective Patient is seen and examined at bedside Historian unreliable secondary to dementia States palpitations resolved Denies any chest pain, dyspnea, dizziness, nausea, vomiting, abdominal pain Has chronic lower extremity edema Discussed with patient's at bedside Review of Systems Review of Systems: All systems reviewed & are unremarkable except as noted in Subjective Physical Exam Physical Exam: Physical Exam: Vitals signs as noted above General Appearance:Morbidly Obese, no apparent distress Head: normocephalic, Atraumatic Eyes: normal inspection, EOMI Neck: supple, Trachea midline Respiratory/Chest: Normal breath sounds, CTA, No accessory muscle use Cardiovascular: S1, S2, Irregular, No murmur Abdomen/GI:Soft, Non tender, Bowel sounds present Extremities/Musculoskeletal:normal inspection, B/L LE edema Neurologic/Psych:AAOX3, grossly no focal neurological deficits Skin: normal color, warm Results & Data Results & Data Vital Signs (Past 12 Hours) Vital Signs Temp Pulse Pulse Resp BP Pulse Ox O2 Del Method 04/22/23 15:45 36.4 C L 51 L 18 100/60 95 Room Air 04/22/23 15:38 68 04/22/23 12:00 68 04/22/23 11:16 36.7 C 61 19 118/71 92 Room Air 04/22/23 08:00 68 04/22/23 07:28 36.5 C 63 17 122/72 95 Room Air Laboratory Results Short CBC 04/22/23 Range/Units 05:39 WBC 10.62 (4.8-10.8) K/ul Hgb 11.2 L (14.0-18.0) g/dl Hct 34.4 L (42.0-52.0) % Plt Count 261 (130-400) K/uL BMP 04/22/23 05:39 Sodium 140 Potassium 4.1 Chloride 104 Carbon Dioxide 29 BUN 26 H Creatinine 0.93 Glucose 84 Calcium 8.8
[2023-04-23 06:02] LABS: Basophils # (auto) 0.02 K/uL (0-0.2); Basophils % (auto) 0.2 %; Eosinophils # (auto) 0.52 K/uL (0-0.50); Eosinophils % (auto) 5.1 %; Hematocrit (blood only) 34.7 % (42.0-52.0); Hemoglobin 11.2 g/dl (14.0-18.0); Immature Granulocytes # (auto) 0.03 K/uL (0.01-0.20); Immature Granulocytes % (auto) 0.3 %; Lymphocytes # (auto) 1.79 K/uL (1.2-3.4); Lymphocytes % (auto) 17.5 %; Mean Corpuscular Hemoglobin 27.2 pg (25.0-34.0); Mean Corpuscular Hgb Conc 32.3 g/dL (32.0-36.0); Mean Corpuscular Volume 84.2 fL (80.0-100.0); Mean Platelet Volume 9.8 fL (9.4-12.4); Monocytes # (auto) 1.18 K/uL (0.11-0.59); Monocytes % (auto) 11.5 %; Neutrophils # (auto) 6.71 K/uL (1.40-6.50); Neutrophils % (auto) 65.4 %; Platelet Count 260 K/uL (130-400); RDW Coefficient of Variation 14.2 % (11.5-14.5); RDW Standard Deviation 43.4 fL (36.4-46.3); Red Blood Count 4.12 M/uL (4.70-6.10); White Blood Count 10.25 K/ul (4.8-10.8)
[2023-04-23 06:23] LABS: BUN Creatinine Ratio 31.7 (10-20); Calcium 8.6 mg/dl (8.6-10.3); Creatinine Clr Calc Pharmacy 78.5 ml/min; Est GFR (African American) 79.9 ml/min; Est GFR (Non-African American) 68.9 ml/min; Magnesium 2.1 mg/dl (1.7-2.4); Potassium 4.1 mmol/L (3.5-5.1)
[2023-04-23] MEDS: ATORVASTATIN 40 MG TAB PO SCH (08:39)
[2023-04-23] MEDS: ATENOLOL 25 MG TABLET PO SCH (08:39)
[2023-04-23] MEDS: ASCORBIC ACID 500 MG TAB PO SCH (08:39)
[2023-04-23] MEDS: CHOLECALCIFEROL 1,000 UNITS 25 MCG TAB PO SCH (08:40)
[2023-04-23] MEDS: lisinopril 20 MG TAB PO SCH (08:40)
[2023-04-23] MEDS: OMEGA-3 (PURIFIED FISH OIL) 1 GM CAP PO SCH (08:40)
[2023-04-23] MEDS: CYANOCOBALAMIN (B-12) 500 MCG TABLET PO SCH (08:40)
[2023-04-23] MEDS: FERROUS SULFATE 325 MG TAB PO SCH ×2 (08:40→20:53)
[2023-04-23] MEDS: FAMOTIDINE 20 MG TAB PO SCH (08:40)
[2023-04-23] MEDS: FUROSEMIDE 40 MG/4 ML VIAL IV SCH (08:40)
[2023-04-23] MEDS: ENOXAPARIN INJ 40 MG/0.4 ML SYR SQ SCH (08:40)
[2023-04-23] MEDS: DONEPEZIL HCL 10 MG TAB PO SCH (08:40)
[2023-04-23] MEDS: ASPIRIN 81 MG CHEW PO SCH (08:48)
--- NOTE | 2023-04-23 12:12 | Cardiology Consultation ---
Date of Consultation April 23, 2023 Assessment & Plan (1) Acute on chronic diastolic (congestive) heart failure: (2) Mixed Alzheimer's and vascular dementia: (3) Palpitations with regular cardiac rhythm: Plan 77-year-old male admitted for chest pressure, palpitations and increasing edema, diastolic heart failure per review of records. Patient unable to offer information regarding symptoms preceding admission. No significant arrhythmias noted on telemetry other than bradycardia during sleeping hours. Bradycardia more pronounced after increasing atenolol dosing this admission Lower extremity edema and diastolic heart failure per report has responded to IV furosemide Recommendations: Transition furosemide to 40 mg p.o. daily. Given heart failure diagnosis as well as bradycardia would discontinue atenolol. Begin heart failure indicated beta-nadeem with metoprolol succinate 50 mg p.o. daily Elevated potassium as outpatient precludes use of spironolactone. Would begin Jardiance 10 mg p.o. daily if formulary costs allow Nocturnal bradycardia suggestive of hypoventilation. Nocturnal oximetry will be ordered Contact with further questions History of Present Illness Reason for Consultation: Sinus arrhythmia Requesting Physician: Dr. Anglin Attending Physician: Kit Anglin MD History of Present Illness Patient is a 77-year-old male with ongoing cardiac and medical issues by review of records longstanding hypertension which include 1. Chronic stable ischemic heart disease status post coronary artery bypass grafting May 1997, PUGA graft LAD, saphenous vein graft to PDA, sequential saphenous vein graft LAD diagonal, marginal. Patent grafts with severe [place] vessel coronary disease 2015 2. Chronic atypical right-sided chest pain 3. Longstanding hypertension/hypertensive heart disease 4. Chronic diastolic heart failure 5. Mixed etiology dementia 6. Morbid obesity Patient very poor historian. Uncertain of exact etiology as to why he is in hospital. Outpatient and inpatient records reviewed Records reflect admission for heart racing and shortness of breath Telemetry reveals only one 6 beat run of atrial tachycardia since admission mild sinus arrhythmia and a tendency towards slow heart rates during sleep hours Atenolol increased during this admission He has been treated for diastolic heart failure/lower extremity edema since admission. Patient feels edema may have been improved but not certain Denies any current complaints but poor historian Allergies Allergy/AdvReac Type Severity Reaction Status Date / Time No Known Allergies Allergy Verified 04/21/23 12:33 Home Medications Medication Instructions Recorded Confirmed Type ascorbic acid (vitamin C) 500 mg 500 mg PO QAM ##0 07/30/16 04/21/23 History tablet atenolol 50 mg tablet 50 mg PO QAM #0 tabs 07/30/16 04/21/23 History atorvastatin 80 mg tablet 80 mg PO QAM #0 tabs 07/30/16 04/21/23 History cyanocobalamin (vitamin B-12) 50 1,000 mcg PO QAM #0 tabs 07/30/16 04/21/23 History mcg tablet lisinopril 20 mg tablet 20 mg PO QAM #0 tabs 07/30/16 04/21/23 History nitroglycerin 0.4 mg sublingual 0.4 mg UT UD PRN Chest Pain #0 BTLS 07/30/16 04/21/23 History tablet (Nitrostat) aspirin 81 mg chewable tablet 81 mg PO QAM ##0 12/31/16 04/21/23 History cholecalciferol (vitamin D3) 50 50 mcg PO QAM 04/21/23 04/21/23 History mcg (2,000 unit) tablet (Vitamin D3) donepezil 10 mg tablet 10 mg PO QAM 04/21/23 04/21/23 History famotidine 20 mg tablet 20 mg PO DAILY 04/21/23 04/21/23 History ferrous sulfate 325 mg (65 mg 325 mg PO BID 04/21/23 04/21/23 History iron) tablet furosemide 20 mg tablet 20 mg PO QAM 04/21/23 04/21/23 History omega-3 fatty acids-vitamin E 1 cap PO DAILY 04/21/23 04/21/23 History 1,000 mg-5 unit capsule Patient History Medical History Anemia Arteriosclerosis of both carotid arteries CAD (coronary artery disease) CHF (congestive heart failure) "echo 11/2015- EF 55-59%, grade I diastolic dysfunction " GERD without esophagitis GI bleed Hearing loss History of [place] (myocardial infarction) HLD (hyperlipidemia) HTN (hypertension) Mixed Alzheimer's and vascular dementia Obesity Surgical History Bariatric surgery status H/O knee surgery History of esophagogastroduodenoscopy (EGD) History of liver biopsy Hx of CABG S/P cardiac catheterization "12/24/2015- Severe [place] vessel disease. Patent PUGA-mid LAD, patent SVG-PDA, patent jump graft [id number]. The left ventricular end diastolic pressure was normal. " S/P cholecystectomy S/P colonoscopy with polypectomy S/P panniculectomy Family History Mother Hypertension Stroke Father Hypertension Cancer Social History Smoking Status: Former smoker Hx Alcohol Use: No Hx Substance Use: No Preferred Language: Japanese Communication Ability: Impaired Closing Coordinator Required: No Beliefs That Will Affect Care: None Current Living Situation: Spouse and Family Other Information That Helps Us Care for You: No Feels Safe at Home: Yes Safety Concerns: Feels Safe At This Time Assistive Devices: Cane Review of Systems Review of Systems: Unobtainable due to cognitive status Physical Exam Constitutional: + obese; no acute distress Eyes: PERRL, conjunctivae normal, anicteric sclerae ENMT: external ear and nose normal, oropharynx normal Neck: trachea midline, no thyromegaly Respiratory: normal respiratory effort, lungs clear to auscultation Cardiovascular: Rate/Rhythm: regular rate and regular rhythm Heart Sounds: normal S1 and normal S2 Vessels: no JVD Extremities: + edema (Chronic 2+ stasis edema) Gastrointestinal (Abdomen): normal bowel sounds, soft, nontender, no hepatosplenomegaly Musculoskeletal: no cyanosis or clubbing, extremities motor strength 5/5 Psychiatric: Orientation: alert Marked short-term memory abnormality Results & Data Vital Signs (Past 12 Hours) Vital Signs Temp Pulse Pulse Resp BP Pulse Ox O2 Del Method 04/23/23 11:56 52 L 04/23/23 11:47 36.7 C 77 16 129/69 97 Room Air 04/23/23 08:00 52 L 04/23/23 07:54 36.6 C 69 20 119/65 97 Room Air 04/23/23 03:18 36.4 C L 56 L 18 103/66 95 Room Air Laboratory Results Laboratory Results - last 24 hr 04/23/23 04/23/23 05:25 05:25 WBC 10.25 RBC 4.12 L Hgb 11.2 L Hct 34.7 L MCV 84.2 MCH 27.2 MCHC 32.3 RDW Std Deviation 43.4 RDW Coeff of Jean Claude 14.2 Plt Count 260 MPV 9.8 Immature Gran % (Auto) 0.3 Neut % (Auto) 65.4 Lymph % (Auto) 17.5 [place] % (Auto) 11.5 Eos % (Auto) 5.1 Baso % (Auto) 0.2 Neut # (Auto) 6.71 H Lymph # (Auto) 1.79 [place] # (Auto) 1.18 H Eos # (Auto) 0.52 H Baso # (Auto) 0.02 Immature Gran # (Auto) 0.03 Sodium 137 Potassium 4.1 Chloride 103 Carbon Dioxide 28 Anion Gap 6 BUN 33 H Creatinine 1.04 Est Cr Clr Drug Dosing 78.5 Est GFR ( Amer) 79.9 Est GFR (Non-Af Amer) 68.9 BUN/Creatinine Ratio 31.7 H Glucose 86 Calcium 8.6 Magnesium 2.1
--- NOTE | 2023-04-23 15:59 | Hospitalist Progress Note ---
Date of Service April 23, 2023 Assessment & Plan (1) Chest pain: Plan: Patient is a 77 yr male with H/O Chronic diastolic heart failure, CAD s/p CABG, SCOTT, HTN, prior [place], GERD, dyslipidemia, dementia, and carotid artery disease who presents to the ED with an episode of heart racing, chest pain, and trouble breathing. His weight is up 4 lbs from last month and he is noted to have LE edema on exam, elevated BNP. Acute on chronic diastolic heart failure --CXR:1.3 cm nodular right midlung opacity. This could represent an infectious process or pulmonary nodule. Radiographic follow up to ensure resolution is recommended. Cardiomegaly without overt pulmonary edema. Elevated BNP --ECHO: Left ventricle is normal in size. Moderate concentric LVH. Left ventricle wall motion is normal. EF 60 to 65%. Grade 1 diastolic dysfunction. Aortic valve sclerosis and calcification, moderate without significant aortic valvular stenosis. Mild mitral annular calcification. --Continue IV Lasix>> transition to Lasix 40 mg daily Monitor I's and O's, daily weight Follows with [facility] cardiology as outpatient Started on Jardiance 10 mg daily Appreciate cardiology input Sinus arrhythmia Possible Atrial tachycardia Sinus bradycardia ? Tachybradycardia syndrome Atenolol changed to metoprolol succinate 50 mg daily Monitor on telemetry Appreciate cardiology input Plan for nocturnal oximetry study today (2) Leukocytosis: Plan: No clear infectious etiology Resolved Monitor (3) Acute on chronic diastolic (congestive) heart failure: Plan: Management as above (4) Mixed Alzheimer's and vascular dementia: Plan: Needs frequent reorientation. Continue Aricept for now Consider to discontinue Aricept if bradycardia persists (5) HTN (hypertension): Plan: Continue lisinopril, metoprolol (6) HLD (hyperlipidemia): Plan: Continue on Lipitor (7) CAD (coronary artery disease): Plan: Continue aspirin, beta-nadeem, statin (8) GERD without esophagitis: Plan: Continue Pepcid Plan DVT Px: Lovenox SQ Code Status: Full code Admission and Anticipated Discharge Date Admission Date: April 22, 2023 Subjective Patient is seen and examined at bedside Historian unreliable secondary to dementia Offers no new complaint Denies any chest pain, dyspnea, dizziness, nausea, vomiting, abdominal pain Has chronic lower extremity edema Discussed with cardiology today Review of Systems Review of Systems: All systems reviewed & are unremarkable except as noted in Subjective Physical Exam Physical Exam: Physical Exam: Vitals signs as noted above General Appearance:Morbidly Obese, no apparent distress Head: normocephalic, Atraumatic Eyes: normal inspection, EOMI Neck: supple, Trachea midline Respiratory/Chest: Normal breath sounds, CTA, No accessory muscle use Cardiovascular: S1, S2, No murmur Abdomen/GI:Soft, Non tender, Bowel sounds present Extremities/Musculoskeletal:normal inspection, B/L LE edema Neurologic/Psych:AAOX3, grossly no focal neurological deficits Skin: normal color, warm Results & Data Results & Data Vital Signs (Past 12 Hours) Vital Signs Temp Pulse Pulse Resp BP Pulse Ox O2 Del Method 04/23/23 15:35 52 L 04/23/23 11:56 52 L 04/23/23 11:47 36.7 C 77 16 129/69 97 Room Air 04/23/23 08:00 52 L 04/23/23 07:54 36.6 C 69 20 119/65 97 Room Air Laboratory Results Short CBC 04/23/23 Range/Units 05:25 WBC 10.25 (4.8-10.8) K/ul Hgb 11.2 L (14.0-18.0) g/dl Hct 34.7 L (42.0-52.0) % Plt Count 260 (130-400) K/uL BMP 04/23/23 05:25 Sodium 137 Potassium 4.1 Chloride 103 Carbon Dioxide 28 BUN 33 H Creatinine 1.04 Glucose 86 Calcium 8.6
[2023-04-24 06:17] LABS: Hemoglobin 12.4 g/dl (14.0-18.0); Mean Corpuscular Hemoglobin 27.3 pg (25.0-34.0); Mean Corpuscular Hgb Conc 32.6 g/dL (32.0-36.0); Mean Corpuscular Volume 83.5 fL (80.0-100.0); Mean Platelet Volume 9.3 fL (9.4-12.4); Platelet Count 300 K/uL (130-400); RDW Coefficient of Variation 14.2 % (11.5-14.5); RDW Standard Deviation 43.3 fL (36.4-46.3); Red Blood Count 4.55 M/uL (4.70-6.10); White Blood Count 13.11 K/ul (4.8-10.8)
[2023-04-24 06:18] LABS: Basophils # (auto) 0.02 K/uL (0-0.2); Basophils % (auto) 0.2 %; Eosinophils # (auto) 0.59 K/uL (0-0.50); Eosinophils % (auto) 4.5 %; Immature Granulocytes # (auto) 0.05 K/uL (0.01-0.20); Immature Granulocytes % (auto) 0.4 %; Lymphocytes # (auto) 2.59 K/uL (1.2-3.4); Lymphocytes % (auto) 19.8 %; Monocytes # (auto) 1.35 K/uL (0.11-0.59); Monocytes % (auto) 10.3 %; Neutrophils # (auto) 8.51 K/uL (1.40-6.50); Neutrophils % (auto) 64.8 %
[2023-04-24 06:43] LABS: BUN Creatinine Ratio 33.1 (10-20); Calcium 8.9 mg/dl (8.6-10.3); Creatinine Clr Calc Pharmacy 61.4 ml/min; Est GFR (African American) 59.3 ml/min; Est GFR (Non-African American) 51.2 ml/min; Potassium 4.4 mmol/L (3.5-5.1)
[2023-04-24] MEDS: FERROUS SULFATE 325 MG TAB PO SCH (08:44)
[2023-04-24] MEDS: lisinopril 20 MG TAB PO SCH (08:46)
[2023-04-24] MEDS: FAMOTIDINE 20 MG TAB PO SCH (08:47)
[2023-04-24] MEDS: ATORVASTATIN 40 MG TAB PO SCH (08:48)
[2023-04-24] MEDS: DONEPEZIL HCL 10 MG TAB PO SCH (08:49)
[2023-04-24] MEDS: ASCORBIC ACID 500 MG TAB PO SCH (08:50)
[2023-04-24] MEDS: CYANOCOBALAMIN (B-12) 500 MCG TABLET PO SCH (08:50)
[2023-04-24] MEDS: ENOXAPARIN INJ 40 MG/0.4 ML SYR SQ SCH (08:51)
[2023-04-24] MEDS: CHOLECALCIFEROL 1,000 UNITS 25 MCG TAB PO SCH (08:51)
[2023-04-24] MEDS: OMEGA-3 (PURIFIED FISH OIL) 1 GM CAP PO SCH (08:51)
[2023-04-24] MEDS ORDERED: EMPAGLIFLOZIN 10 MG TAB PO SCH (09:00)
[2023-04-24] MEDS ORDERED: FUROSEMIDE 40 MG TAB PO SCH (09:00)
[2023-04-24] MEDS ORDERED: METOPROLOL SUCC 50MG EXT REL TAB PO SCH (09:00)
[2023-04-24] MEDS: ASPIRIN 81 MG CHEW PO SCH (09:40)
--- NOTE | 2023-04-24 13:08 | Hospitalist Progress Note ---
Date of Service April 24, 2023 Assessment & Plan (1) Chest pain: Plan: Patient is a 77 yr male with H/O Chronic diastolic heart failure, CAD s/p CABG, SCOTT, HTN, prior [place], GERD, dyslipidemia, dementia, and carotid artery disease who presents to the ED with an episode of heart racing, chest pain, and trouble breathing. His weight is up 4 lbs from last month and he is noted to have LE edema on exam, elevated BNP. Acute on chronic diastolic heart failure --CXR:1.3 cm nodular right midlung opacity. This could represent an infectious process or pulmonary nodule. Radiographic follow up to ensure resolution is recommended. Cardiomegaly without overt pulmonary edema. Elevated BNP --ECHO: Left ventricle is normal in size. Moderate concentric LVH. Left ventricle wall motion is normal. EF 60 to 65%. Grade 1 diastolic dysfunction. Aortic valve sclerosis and calcification, moderate without significant aortic valvular stenosis. Mild mitral annular calcification. --Continue IV Lasix>> transition to Lasix 40 mg daily Monitor I's and O's, daily weight Follows with [facility] cardiology as outpatient Started on Jardiance 10 mg daily Appreciate cardiology input Advised to follow-up with cardiology upon discharge Sinus arrhythmia Possible Atrial tachycardia Sinus bradycardia ? Tachybradycardia syndrome Atenolol changed to metoprolol succinate 50 mg daily Monitor on telemetry Appreciate cardiology input Nocturnal Hypoxia Intolerance to CPAP in the past Qualifies for supplemental oxygen at bedtime Advised to use supplemental oxygen at bedtime (2) Leukocytosis: Plan: No clear infectious etiology Resolved Monitor (3) Acute on chronic diastolic (congestive) heart failure: Plan: Management as above (4) Mixed Alzheimer's and vascular dementia: Plan: Needs frequent reorientation. Continue Aricept (5) HTN (hypertension): Plan: Continue lisinopril, metoprolol (6) HLD (hyperlipidemia): Plan: Continue on Lipitor (7) CAD (coronary artery disease): Plan: Continue aspirin, beta-nadeem, statin (8) GERD without esophagitis: Plan: Continue Pepcid Plan DVT Px: Lovenox SQ Code Status: Full code Disposition Home Admission and Anticipated Discharge Date Admission Date: April 22, 2023 Subjective Patient is seen and examined at bedside Historian unreliable secondary to dementia States feeling well today Denies any chest pain, dyspnea, dizziness, nausea, vomiting, abdominal pain Had nocturnal Oximetry study overnight Discussed with cardiology and patient's family at bedside Plan to discharge home today Review of Systems Review of Systems: All systems reviewed & are unremarkable except as noted in Subjective Physical Exam Physical Exam: Physical Exam: Vitals signs as noted above General Appearance:Morbidly Obese, no apparent distress Head: normocephalic, Atraumatic Eyes: normal inspection, EOMI Neck: supple, Trachea midline Respiratory/Chest: Normal breath sounds, CTA, No accessory muscle use Cardiovascular: S1, S2, No murmur Abdomen/GI:Soft, Non tender, Bowel sounds present Extremities/Musculoskeletal:normal inspection, B/L LE edema Neurologic/Psych:AAOX3, grossly no focal neurological deficits Skin: normal color, warm Results & Data Results & Data Vital Signs (Past 12 Hours) Vital Signs Temp Pulse Pulse Resp BP BP Pulse Ox 04/24/23 12:15 68 04/24/23 11:27 37.2 C 60 19 106/60 95 04/24/23 08:00 36.5 C 56 L 19 111/63 92 04/24/23 03:15 37.0 C 61 18 115/71 95 04/24/23 03:11 59 L 91 O2 Del Method 04/24/23 12:15 04/24/23 11:27 Room Air 04/24/23 08:00 Room Air 04/24/23 03:15 Room Air 04/24/23 03:11 Room Air Laboratory Results Short CBC 04/24/23 Range/Units 05:42 WBC 13.11 H (4.8-10.8) K/ul Hgb 12.4 L (14.0-18.0) g/dl Hct 38.0 L (42.0-52.0) % Plt Count 300 (130-400) K/uL BMP 04/24/23 05:42 Sodium 137 Potassium 4.4 Chloride 102 Carbon Dioxide 27 BUN 44 H Creatinine 1.33 Glucose 92 Calcium 8.9
--- NOTE | 2023-04-24 13:16 | Discharge Summary ---
Date of Service April 24, 2023 Admission HPI Per Admitting Provider This is a 77 y/o male with a history of chronic diastolic heart failure, CAD s/p CABG, SCOTT, HTN, prior [place], GERD, dyslipidemia, dementia, and carotid artery disease who presents to the ED with an episode of heart racing, chest pain, and trouble breathing. Pt has dementia with short-term memory issues so history from the pt was limited and pt struggled to remember his symptoms at times. His at the bedside assisted with the history. Two days ago, pt had an episode of heart racing in the morning lasting a few minutes. His thought it may be due to fluid so she gave him an extra furosemide. Yesterday, he was at his baseline. Around 7 am today, he again started with heart racing but this time had associated left substernal chest pain and shortness of breath. The breathing and palpitations have improved but he is still having some intermittent chest pain. He has not had any recent illness. They deny fevers, chills, URI symptoms, N/V/D, dizziness, syncope, or recent falls. His weight is up 4 lbs from last month but he does not weigh himself daily at home. He takes furosemide 20 mg daily but can take an additional dose prn. His reports that he takes this extra dose about once a week. His pedal edema has been about at baseline. His last ECHO in 2017 showed moderately increased LV wall thickness with normal motion; LVEF 60-64%; grade I LV diastolic dysfunction; moderate aortic valve sclerosis; moderate LAE. Admission Exam Per Admitting Provider Physical Exam Constitutional: well developed and well nourished; no acute distress Eyes: + anicteric sclerae ENMT: external ear and nose normal, oropharynx normal Neck: trachea midline Respiratory: no respiratory distress and no labored breathing Auscultation: + diminished lung sounds (at bilateral bases) Cardiovascular: Rate/Rhythm: regular rate and regular rhythm Vessels: radial pulses present Extremities: + pedal edema Gastrointestinal (Abdomen): Inspection/Auscultation: normal bowel sounds; abdomen not distended Percussion/Palpation: abdomen soft; abdomen nontender Musculoskeletal: Head/Neck/Chest: normocephalic, head atraumatic and neck supple Skin: no jaundice Neurologic: moves all extremities; no focal motor deficits short-term memory issues - did not remember that he was in/why he was in the hospital despite redirecting and discussing several times during the encounter Principal Diagnosis Acute on chronic diastolic heart failure Sinus arrhythmia/Bradycardia Nocturnal hypoxia Discharge Data Allergies Allergy/AdvReac Type Severity Reaction Status Date / Time No Known Allergies Allergy Verified 04/21/23 12:33 Consultations 04/21/23 13:28 ED Decision to Admit Stat 04/23/23 08:55 Consult Cardiology Routine Procedures Performed Laboratory Results WBC 13.11 K/ul (4.8-10.8) H 04/24/23 05:42 RBC 4.55 M/uL (4.70-6.10) L 04/24/23 05:42 Hgb 12.4 g/dl (14.0-18.0) L 04/24/23 05:42 Hct 38.0 % (42.0-52.0) L 04/24/23 05:42 MCV 83.5 fL (80.0-100.0) 04/24/23 05:42 MCH 27.3 pg (25.0-34.0) 04/24/23 05:42 MCHC 32.6 g/dL (32.0-36.0) 04/24/23 05:42 RDW Std Deviation 43.3 fL (36.4-46.3) 04/24/23 05:42 RDW Coeff of Jean Claude 14.2 % (11.5-14.5) 04/24/23 05:42 Plt Count 300 K/uL (130-400) 04/24/23 05:42 MPV 9.3 fL (9.4-12.4) L 04/24/23 05:42 Immature Gran % (Auto) 0.4 % 04/24/23 05:42 Neut % (Auto) 64.8 % 04/24/23 05:42 Lymph % (Auto) 19.8 % 04/24/23 05:42 Zavala % (Auto) 10.3 % 04/24/23 05:42 Eos % (Auto) 4.5 % 04/24/23 05:42 Baso % (Auto) 0.2 % 04/24/23 05:42 Neut # (Auto) 8.51 K/uL (1.40-6.50) H 04/24/23 05:42 Lymph # (Auto) 2.59 K/uL (1.2-3.4) 04/24/23 05:42 Zavala # (Auto) 1.35 K/uL (0.11-0.59) H 04/24/23 05:42 Eos # (Auto) 0.59 K/uL (0-0.50) H 04/24/23 05:42 Baso # (Auto) 0.02 K/uL (0-0.2) 04/24/23 05:42 Immature Gran # (Auto) 0.05 K/uL (0.01-0.20) 04/24/23 05:42 PT 11.2 Seconds (9.0-12.0) 04/21/23 10:30 INR 1.0 (0.9-1.1) 04/21/23 10:30 APTT 26.0 Seconds (21.0-31.0) 04/21/23 10:30 PTT Ratio 0.9 04/21/23 10:30 Sodium 137 mmol/L (136-145) 04/24/23 05:42 Potassium 4.4 mmol/L (3.5-5.1) 04/24/23 05:42 Chloride 102 mmol/L (98-107) 04/24/23 05:42 Carbon Dioxide 27 mmol/L (21-32) 04/24/23 05:42 Anion Gap 8 (3-11) 04/24/23 05:42 BUN 44 mg/dl (6-23) H 04/24/23 05:42 Creatinine 1.33 mg/dl (0.6-1.4) 04/24/23 05:42 Est Cr Clr Drug Dosing 61.4 ml/min 04/24/23 05:42 Est GFR ( Amer) 59.3 ml/min 04/24/23 05:42 Est GFR (Non-Af Amer) 51.2 ml/min 04/24/23 05:42 BUN/Creatinine Ratio 33.1 (10-20) H 04/24/23 05:42 Glucose 92 mg/dl (70-99(Fasting)) 04/24/23 05:42 Lactate 1.0 mmol/L (0.4-2.0) 04/21/23 11:57 Calcium 8.9 mg/dl (8.6-10.3) 04/24/23 05:42 Magnesium 2.1 mg/dl (1.7-2.4) 04/23/23 05:25 Total Bilirubin 0.9 mg/dl (0.2-1.0) 04/21/23 10:30 AST 12 U/L (13-39) L 04/21/23 10:30 ALT 6 U/L (7-52) L 04/21/23 10:30 Alkaline Phosphatase 108 U/L (34-104) H 04/21/23 10:30 Troponin I High Sens 9.4 pg/ml (0-20) 04/21/23 20:26 C-Reactive Protein 0.81 mg/dl (0-0.5) H 04/21/23 10:30 B-Natriuretic Peptide 462 pg/ml (0-100) H 04/21/23 10:30 Total Protein 7.0 gm/dl (6.0-8.3) 04/21/23 10:30 Albumin 3.7 gm/dl (3.4-5.0) 04/21/23 10:30 Globulin 3.3 gm/dl (2.5-4.0) 04/21/23 10:30 Albumin/Globulin Ratio 1.1 (0.9-2) 04/21/23 10:30 Lipase 30 U/L (11-82) 04/21/23 10:30 Procalcitonin < 0.05 ng/ml (0-0.5) 04/21/23 14:00 SARS-CoV-2, RNA, NAAT NEGATIVE (NEGATIVE) 04/21/23 10:37 Impressions Chest X-Ray 04/21/23 10:30 XR chest 1V portable CLINICAL HISTORY: Chest pain, nonspecific COMPARISON STUDY: Chest CT May 26, 2017 and chest radiograph June 23, 2017. FINDINGS: Median sternotomy wires are noted. There is no pneumothorax or pleural effusion. Cardiomegaly is unchanged. There is no evidence for overt pulmonary edema. A 1.3 cm nodular right midlung opacity is present. IMPRESSION: 1. 1.3 cm nodular right midlung opacity. This could represent an infectious process or pulmonary nodule. Radiographic follow up to ensure resolution is recommended. 2. Cardiomegaly without overt pulmonary edema. ACT 112: Negative or not required by law. Electronically signed by: Tio Emmanuel M.D. 04/21/2023 10:56 AM Hospital Course (1) Chest pain: Patient is a 77 yr male with H/O Chronic diastolic heart failure, CAD s/p CABG, SCOTT, HTN, prior [place], GERD, dyslipidemia, dementia, and carotid artery disease who presents to the ED with an episode of heart racing, chest pain, and trouble breathing. His weight is up 4 lbs from last month and he is noted to have LE edema on exam, elevated BNP. Acute on chronic diastolic heart failure --CXR:1.3 cm nodular right midlung opacity. This could represent an infectious process or pulmonary nodule. Radiographic follow up to ensure resolution is recommended. Cardiomegaly without overt pulmonary edema. Elevated BNP --ECHO: Left ventricle is normal in size. Moderate concentric LVH. Left ventricle wall motion is normal. EF 60 to 65%. Grade 1 diastolic dysfunction. Aortic valve sclerosis and calcification, moderate without significant aortic valvular stenosis. Mild mitral annular calcification. --Continue IV Lasix>> transition to Lasix 40 mg daily Monitor I's and O's, daily weight Follows with [facility] cardiology as outpatient Started on Jardiance 10 mg daily Appreciate cardiology input Advised to follow-up with cardiology upon discharge Sinus arrhythmia Possible Atrial tachycardia Sinus bradycardia ? Tachybradycardia syndrome Atenolol changed to metoprolol succinate 50 mg daily Monitor on telemetry Appreciate cardiology input Nocturnal Hypoxia Intolerance to CPAP in the past Qualifies for supplemental oxygen at bedtime Advised to use supplemental oxygen at bedtime (2) Leukocytosis: No clear infectious etiology Resolved Monitor (3) Acute on chronic diastolic (congestive) heart failure: Management as above (4) Mixed Alzheimer's and vascular dementia: Needs frequent reorientation. Continue Aricept (5) HTN (hypertension): Continue lisinopril, metoprolol (6) HLD (hyperlipidemia): Continue on Lipitor (7) CAD (coronary artery disease): Continue aspirin, beta-nadeem, statin (8) GERD without esophagitis: Continue Pepcid Plan DVT Px: Lovenox SQ Code Status: Full code Disposition Home Total Time Total Time Spent Total Time Spent (In Minutes): 55 minutes Discharge Plan Discharge Items Patient Disposition: Home - Self-Care Reason For Visit: CHEST PAIN Discharge Diagnosis: Acute on chronic diastolic heart failure Sinus arrhythmia/Bradycardia Nocturnal hypoxia Activity: Per Instructions section Sexual Activity: Wait until after follow-up appointment Non-emergency contact: Primary Care Provider and Mailing Clerk Call non-emergency contact if: you have any medication questions, your symptoms worsen, your pain is concerning for you and you have a fever Follow-up/Referrals: Mika Baxter MD [Primary Care Provider] - Diet: Heart Healthy Addtl Attending Provider Instructions: Follow-up with your primary care physician Dr. Oliver on 04/29/2023 at 2 PM as scheduled Follow-up with your tire bagger Dr. Moseley in 3 to 4 weeks as advised. --- Use supplemental oxygen via nasal cannula 2 L at bedtime as advised. --- Obtain sleep study as outpatient. Seek immediate medical attention if your symptoms reoccur or worsen Please take all medications as instructed on discharge list below. Please call if you have any questions or problems. You can reach a [facility] hospitalist on duty at [facility] 24 hours a day by calling [phone] Call your Primary Care doctor if any of the following symptoms or problems start or get worse: * Shortness of breath or difficulty breathing * Wake up at night short of breath * Chest pain * Cough * Swelling of your hands, feet, or legs * More fatigued or tired with your normal activity * Palpitations - sudden fast heart beats WEIGHT * Weigh yourself every morning after using the bathroom. * Use the same scale. * Wear the same amount of clothing. * Write your weight down on a chart. * Call your Primary Care doctor if you gain more than 2-3 pounds in 1-2 days. MEDICATIONS * Use this discharge instruction sheet for medication instructions. * Take your medications at the time your doctor ordered. * Do not skip a dose of your medicines. * If you miss a dose of medicine, take it as soon as possible, but DO NOT DOUBLE A DOSE. * Read your medicine information when you get home. * Know all of the side effects of your medicine. If in doubt, ask your pharmacist * Call your Primary Care doctor's office if you have any side effects. * Be sure all of your doctors know what medicine and herbs you take (including cold, flu, and herbal medicine). Take the following with you to your follow-up doctor appointments: * Weight Chart * Medication List * List of questions Do not drink excessive alcohol, beer or wine. Pending Studies at Discharge: No Stand-Alone Forms: My [facility], Smoking Cessation Medications and DC Order Prescriptions: New metoprolol succinate 50 mg Tablet Extended Release 24 Hr 50 mg PO QAM Qty: 30 1RF Jardiance 10 mg Tablet 10 mg PO DAILY Qty: 30 1RF Continued atorvastatin 80 mg Tablet 80 mg PO QAM Qty: 0 lisinopril 20 mg Tablet 20 mg PO QAM Qty: 0 cyanocobalamin (vitamin B-12) 50 mcg Tablet 1,000 mcg PO QAM Qty: 0 ascorbic acid (vitamin C) 500 mg Tablet 500 mg PO QAM Qty: 0 nitroglycerin [Nitrostat] 0.4 mg Tablet, Sublingual 0.4 mg UT UD PRN (Reason: Chest Pain) Qty: 0 aspirin 81 mg Tablet,Chewable 81 mg PO QAM Qty: 0 donepezil 10 mg tablet 10 mg PO QAM famotidine 20 mg tablet 20 mg PO DAILY ferrous sulfate 325 mg (65 mg iron) tablet 325 mg PO BID cholecalciferol (vitamin D3) [Vitamin D3] 50 mcg (2,000 unit) Tablet 50 mcg PO QAM [place]-3 Fish Oil 1,000-5 mg-unit Capsule 1 cap PO DAILY Changed furosemide 20 mg tablet 40 mg PO QAM Qty: 60 0RF Rx Instructions: May take an additional 20 mg as needed but not consecutively Discontinued atenolol 50 mg Tablet 50 mg PO QAM Qty: 0 Discharge Orders: Discharge Order (Routine); Ordered 04/24/23 Ordered By: Kit Anglin Admission Data Admit Date/Time: 04/22/23 19:33 Attending Provider: Kit Anglin Admit Provider: Bibiana Zarate Primary Care Provider: Mika Baxter Other Providers: Julien Melo ; Bibiana Zarate ; Tk Moseley
== END 2023-04-24 15:33 | disposition home or self-care (01) | DRG 291 ==
LOC: 2S 10:17 → ED 10:17 → SUATTDRO 14:18 → 2S 15:08

== ENCOUNTER 2024-06-02 14:49 | Inpatient (IN) ==
--- NOTE | 2024-06-02 15:18 | Emergency Department Note ---
Impression & Plan Acute GI bleeding, Non-ST elevation LA (NSTEMI), SEGUNDO (acute kidney injury) ED Provider Note HISTORY OF PRESENT ILLNESS: Patient is a 78-year-old male presenting with lightheadedness and rectal bleeding. provides most of history, secondary to patient's Alzheimer's dementia. States that the patient has been having bright red rectal bleeding with passage of blood clots over the past few weeks. Reports that the bleeds would be intermittent, but in the last few days he has been bleeding daily and passing large blood clots with bowel movements. reports the patient has lost 50 pounds in the last 2 months. Patient passed out 3 days ago. He reportedly has been very dizzy and unstable when up and about in the last 72 hours. reports he seems very short of breath with any minimal exertion. Patient denies any chest pain. Patient is on aspirin daily but no other anticoagulation or antiplatelet therapy. He has not yet had a colonoscopy or seeing a GI doctor. Denies any chest pain or shortness of breath. reports that 7 years ago the patient had a similar episode and required a unit of blood to be transfused. Patient has a history of anemia and is on iron supplementation. No reported fevers recently. No abdominal pain, nausea or vomiting. ROS: as above PHYSICAL EXAM: Constitutional: Patient appears in no acute distress. HENT: Head: Normocephalic and atraumatic. Eyes: EOMI, PERRL. Conjunctival pallor. Mouth/Throat: Mucous membranes moist. Neck: Trachea midline. Neck supple. Cardiovascular: Tachycardic with irregularly irregular rhythm. No murmurs, rubs or gallops. Intact distal pulses. Pulmonary/Chest: No respiratory distress. Breath sounds clear and equal bilaterally. No wheezes or rales. Abdominal: Abdomen soft, no tenderness, rebound or guarding. Rectal: Chaperoned by nursing staff. No palpable masses or hemorrhoids. Stool is dark in color. Hemoccult positive. No maxine blood noted. Musculoskeletal: No edema, tenderness or deformity noted. Skin: Warm and dry. No rash, erythema, or cyanosis. Patient pale in appearance. Neurological: Alert. CN II-XII grossly intact, moving all extremities equally and fully. MDM: - Vitals signs showed hypotension and tachycardia. - History obtained via patient. History as above. - Chronic conditions affecting care: HTN; HLD; CAD (s/p CABG); CHF - Differential diagnoses include, but are not limited to: peptic ulcer bleed; diverticular bleed; colitis; diverticulitis - Order placed for continuous cardiac monitoring. At this time, monitor showed rate of 109 bpm with irregular rhythm, per my interpretation. - External medical records reviewed. Discharge summary dated 04/24/2023 was reviewed. Patient was admitted at that time for acute on chronic diastolic heart failure. - EKG interpreted by myself showed atrial fibrillation. Rate 109 bpm. QT 352. No acute ischemic changes. Atrial fibrillation does appear to be new from previous EKG comparison. - Laboratory workup interpreted by myself showed normal WBC; anemia (Hgb 9.3 - down from 12.4 one month ago); normal PT/INR; stable electrolytes; elevated BUN (56); SEGUNDO (Cr 2.51 - baseline around 1.3); hypocalcemia (Ca 8.1); elevated troponin (1217.7); normal lipase - Type and screen ordered. - Patient initially given 20 mg IV pepcid, 1L NS, 40 mg IV protonix. A second 1L NS ordered for hypotension. - Given patient's hypotension, 2 units of PRBC ordered. - Discussed case with GI pay station attendant, Dr. Diaz, at 16:27. He agrees with admission to hospital and volume resuscitation and blood transfusion. Recommended PPI twice daily. Recommends that CT be obtained once patient's creatinine has improved, as concern for possible diverticular bleed. - Discussed elevated troponin with cardiology pay station attendant, Dr. Christianson, at 16:44. He agrees with blood and small dose of lopressor. - Blood pressures did improve with normal saline volume resuscitation. - Discussion was had with hospice case manager about patient's case and need for admission - Hospitalist consulted for admission - Patient admitted to [facility] service for further evaluation and management. I have personally spent 41 minutes of critical care time in the direct management of this patient. This includes bedside care, interpretation of diagnostic studies, and testing, discussion with consultants, patient, and family members, and other required patient management activities. This 41 minutes is in excess of all separately billable procedures. ASSESSMENT AND PLAN: Diagnosis: acute GI bleeding; NSTEMI; SEGUNDO Plan: admit Past Med/Surg History Problem List (Updated 06/02/24 @ 16:47 by Ester Al MD) SEGUNDO (acute kidney injury) (Acute) Non-ST elevation LA (NSTEMI) (Acute) Acute GI bleeding (Acute) Palpitations with regular cardiac rhythm Palpitation Leukocytosis Acute on chronic diastolic (congestive) heart failure Chest pain GERD without esophagitis Arteriosclerosis of both carotid arteries Mixed Alzheimer's and vascular dementia Anemia S/P cardiac catheterization (Chronic) "12/24/2015- Severe unga vessel disease. Patent PUGA-mid LAD, patent SVG-PDA, patent jump graft [id number]. The left ventricular end diastolic pressure was normal. " S/P cholecystectomy (Chronic) H/O knee surgery (Chronic) Hx of CABG (Chronic) GI bleed HLD (hyperlipidemia) (Chronic) HTN (hypertension) (Chronic) CAD (coronary artery disease) (Chronic) CHF (congestive heart failure) (Chronic) "echo 11/2015- EF 55-59%, grade I diastolic dysfunction " Phimosis Osteoarthritis (Chronic) Medical History Anemia Arteriosclerosis of both carotid arteries CAD (coronary artery disease) CHF (congestive heart failure) "echo 11/2015- EF 55-59%, grade I diastolic dysfunction " GERD without esophagitis GI bleed Hearing loss History of LA (myocardial infarction) HLD (hyperlipidemia) HTN (hypertension) Mixed Alzheimer's and vascular dementia Obesity Surgical History Bariatric surgery status H/O knee surgery History of esophagogastroduodenoscopy (EGD) History of liver biopsy Hx of CABG S/P cardiac catheterization "12/24/2015- Severe unga vessel disease. Patent PUGA-mid LAD, patent SVG-PDA, patent jump graft [id number]. The left ventricular end diastolic pressure was normal. " S/P cholecystectomy S/P colonoscopy with polypectomy S/P panniculectomy Family History Mother Hypertension Stroke Father Hypertension Cancer Social History Smoking Status: Former smoker Hx Alcohol Use: No Hx Substance Use: No Preferred Language: Citizen Of [place] Communication Ability: Impaired Director Talent Management Required: No Beliefs That Will Affect Care: None Current Living Situation: Spouse and Family Feels Safe at Home: Yes Assistive Devices: Cane Allergies Allergies Allergy/AdvReac Type Severity Reaction Status Date / Time No Known Allergies Allergy Verified 06/02/24 16:23 Home Meds Home Medications Medication Instructions Recorded Confirmed aspirin 81 mg tablet,delayed 81 mg PO DAILY 06/02/24 06/02/24 release atorvastatin 80 mg tablet 80 mg PO DAILY 06/02/24 06/02/24 cholecalciferol (vitamin D3) 25 25 mcg PO DAILY 06/02/24 06/02/24 mcg (1,000 unit) tablet (Vitamin D3) cyanocobalamin (vitamin B-12) 1,000 mcg PO DAILY 06/02/24 06/02/24 1,000 mcg tablet (Vitamin B-12) diclofenac sodium 1 % topical gel 0 g topical QID PRN .. 06/02/24 06/02/24 (Voltaren Arthritis Pain) donepezil 10 mg tablet 10 mg PO DAILY 06/02/24 06/02/24 famotidine 20 mg tablet 20 mg PO QAM 06/02/24 06/02/24 ferrous sulfate 325 mg (65 mg 650 mg PO DAILY 06/02/24 06/02/24 iron) tablet furosemide 20 mg tablet 20 mg PO DAILY 06/02/24 06/02/24 lisinopril 5 mg tablet 5 mg PO DAILY 06/02/24 06/02/24 metoprolol succinate 50 mg 75 mg PO QAM 06/02/24 06/02/24 tablet,extended release 24 hr omega-3 fatty acids 1,000 mg 1,000 mg PO DAILY 06/02/24 06/02/24 capsule Results & Data (ED) Vital Signs Vital Signs - 24 hr 06/02/24 14:51 06/02/24 15:10 06/02/24 16:20 Temperature 36.7 C Temperature Source Temporal Artery Scan Pulse Rate 93 H 109 H Pulse Rhythm Irregular Respiratory Rate 16 18 Respiratory Effort / Characteristics Non-Labored Spontaneous Respiratory Depth Normal Blood Pressure [] 86/52 L Blood Pressure Mean [] 63 Pulse Oximetry 97 98 Oxygen Delivery Method Room Air Room Air Sepsis Recent Fever Within 48 Hours No Sepsis New/Unexplained Change in Mental Status No Sepsis Action Taken by Nursing No Action Required Laboratory Data 06/02/24 15:16 06/02/24 15:16 Lab Results 06/02/24 06/02/24 Range/Units 15:10 15:16 WBC 7.18 (4.8-10.8) K/ul RBC 3.52 L (4.70-6.10) M/uL Hgb 9.3 L (14.0-18.0) g/dl Hct 29.3 L (42.0-52.0) % MCV 83.2 (80.0-100.0) fL MCH 26.4 (25.0-34.0) pg MCHC 31.7 L (32.0-36.0) g/dL RDW Std Deviation 44.5 (36.4-46.3) fL RDW Coeff of Jean Claude 14.9 H (11.5-14.5) % Plt Count 243 (130-400) K/uL MPV 9.7 (9.4-12.4) fL Immature Gran % (Auto) 0.4 % Neut % (Auto) 65.5 % Lymph % (Auto) 17.0 % Posey % (Auto) 15.0 % Eos % (Auto) 2.1 % Baso % (Auto) 0.0 % Neut # (Auto) 4.70 (1.40-6.50) K/uL Lymph # (Auto) 1.22 (1.20-3.40) K/uL Posey # (Auto) 1.08 H (0.11-0.59) K/uL Eos # (Auto) 0.15 (0.00-0.50) K/uL Baso # (Auto) 0.00 (0.00-0.20) K/uL Immature Gran # (Auto) 0.03 (0.01-0.20) K/uL PT 11.4 (9.0-12.0) Seconds INR 1.1 (0.9-1.1) APTT 30 (21-31) Seconds PTT Ratio 1.1 Sodium 136 (136-145) mmol/L Potassium 4.3 (3.5-5.1) mmol/L Chloride 105 (98-107) mmol/L Carbon Dioxide 21 (21-32) mmol/L Anion Gap 10 (3-11) BUN 56 H (6-23) mg/dl Creatinine 2.51 H (0.6-1.4) mg/dl Est Cr Clr Drug Dosing 30.1 ml/min Est GFR ( Amer) 27.3 ml/min Est GFR (Non-Af Amer) 23.6 ml/min BUN/Creatinine Ratio 22.3 H (10-20) Glucose 105 H (70-99(Fasting)) mg/dl Lactate 1.9 (0.4-2.0) mmol/L Calcium 8.1 L (8.6-10.3) mg/dl Total Bilirubin 0.5 (0.2-1.0) mg/dl AST 20 (13-39) U/L ALT 10 (7-52) U/L Alkaline Phosphatase 138 H (34-104) U/L Troponin I High Sens 1217.7 H* (0-20) pg/ml Total Protein 6.1 (6.0-8.3) gm/dl Albumin 3.1 L (3.4-5.0) gm/dl Globulin 3.0 (2.5-4.0) gm/dl Albumin/Globulin Ratio 1.0 (0.9-2) Lipase 47 (11-82) U/L POC Stool Occult Blood Positive A (Negative) Blood Type A Positive Antibody Screen NEGATIVE Administered Medications Discontinued Medications Sodium Chloride (Nss) 1,000 mls @ 999 mls/hr IV .Q1H1M EVELYN Stop: 06/02/24 16:00 Last Admin: 06/02/24 15:51 Dose: 999 mls/hr Documented By: ZANE Famotidine (Pepcid 20mg Iv Push) 20 mg in 5 mls @ 2.5 mls/min IV NOW STA Stop: 06/02/24 14:56 Last Admin: 06/02/24 15:51 Dose: 2.5 mls/min Documented By: ZANE Discharge Plan Visit Data Chief Complaint: Rectal Bleed Stated Complaint: RECTAL BLEED WORSENING, BLOOD CLOTS, DIZZY, FALL ED Provider: Ester Al Discharge Problem: Acute GI bleeding, Non-ST elevation LA (NSTEMI), SEGUNDO (acute kidney injury) Forms Stand Alone Forms: My [facility] Prescriptions Prescriptions: No Action atorvastatin 80 mg tablet 80 mg PO DAILY metoprolol succinate 50 mg tablet extended release 24 hr 75 mg PO QAM donepezil 10 mg tablet 10 mg PO DAILY famotidine 20 mg tablet 20 mg PO QAM ferrous sulfate 325 mg (65 mg iron) Tablet 650 mg PO DAILY lisinopril 5 mg tablet 5 mg PO DAILY furosemide 20 mg tablet 20 mg PO DAILY Rx Instructions: states this dose. Estrada says to alternate with 40 mg QOD. omega-3 fatty acids [Fish Oil Concentrate] 1,000 mg Capsule 1,000 mg PO DAILY cyanocobalamin (vitamin B-12) [Vitamin B-12] 1,000 mcg Tablet 1,000 mcg PO DAILY aspirin [Aspir-Low] 81 mg Tablet,Delayed Release (Dr/Ec) 81 mg PO DAILY cholecalciferol (vitamin D3) [Vitamin D3] 25 mcg (1,000 unit) Tablet 25 mcg PO DAILY diclofenac sodium [Voltaren Arthritis Pain] 1 % Gel 0 g TOPICAL QID PRN (Reason: ..) Referrals Referrals: Mika Baxter MD [Primary Care Provider] -
[2024-06-02 15:31] LABS: Eosinophils # (auto) 0.15 K/uL (0.00-0.50); Eosinophils % (auto) 2.1 %; Hematocrit (blood only) 29.3 % (42.0-52.0); Hemoglobin 9.3 g/dl (14.0-18.0); Immature Granulocytes # (auto) 0.03 K/uL (0.01-0.20); Immature Granulocytes % (auto) 0.4 %; Lymphocytes # (auto) 1.22 K/uL (1.20-3.40); Mean Corpuscular Hemoglobin 26.4 pg (25.0-34.0); Mean Corpuscular Hgb Conc 31.7 g/dL (32.0-36.0); Mean Corpuscular Volume 83.2 fL (80.0-100.0); Mean Platelet Volume 9.7 fL (9.4-12.4); Monocytes # (auto) 1.08 K/uL (0.11-0.59); Neutrophils % (auto) 65.5 %; Platelet Count 243 K/uL (130-400); RDW Coefficient of Variation 14.9 % (11.5-14.5); RDW Standard Deviation 44.5 fL (36.4-46.3); Red Blood Count 3.52 M/uL (4.70-6.10); White Blood Count 7.18 K/ul (4.8-10.8)
[2024-06-02 15:45] LABS: Albumin Level 3.1 gm/dl (3.4-5.0); BUN Creatinine Ratio 22.3 (10-20); Bilirubin,Total 0.5 mg/dl (0.2-1.0); Calcium 8.1 mg/dl (8.6-10.3); Creatinine Clr Calc Pharmacy 30.1 ml/min; Est GFR (African American) 27.3 ml/min; Est GFR (Non-African American) 23.6 ml/min; Potassium 4.3 mmol/L (3.5-5.1); Total Protein 6.1 gm/dl (6.0-8.3)
[2024-06-02] MEDS: SODIUM CHLORIDE 0.9% 1,000 ML IV SCH (15:51)
[2024-06-02] MEDS: FAMOTIDINE 20MG IV PUSH 20 MG/5 ML SYR IV STA (15:51)
[2024-06-02 15:55] LABS: Troponin I High Sensitivity 1217.7 pg/ml (0-20)
[2024-06-02 15:57] LABS: INR 1.1 (0.9-1.1); Partial Thromboplastin Ratio 1.1; Partial Thromboplastin Time 30 Seconds (21-31); Prothrombin Time 11.4 Seconds (9.0-12.0)
[2024-06-02] MEDS ORDERED: SODIUM CHLORIDE 0.9% 250 ML IV PRN ×2 (16:30→17:32)
--- NOTE | 2024-06-02 17:00 | Electrocardiogram Report ---
Test Reason : Blood Pressure : */* mmHG Vent. Rate : 109 BPM Atrial Rate : * BPM P-R Int : * ms QRS Dur : 102 ms QT Int : 352 ms P-R-T Axes : * -34 2 degrees QTcB Int : 474 ms Atrial fibrillation with rapid ventricular response Left axis deviation Minimal voltage criteria for LVH, may be normal variant Abnormal ECG When compared with ECG of 22-Apr-2023 06:53, Atrial fibrillation has replaced Sinus rhythm Vent. rate has increased by 47 bpm Incomplete right bundle branch block is no longer Present Confirmed by Sergio Landin ([id number]) on 06/02/2024 4:59:32 PM Referred By: REFERRED SELF Confirmed By: Sergio Landin
--- NOTE | 2024-06-02 17:19 | History & Physical Report ---
Date of Service June 02, 2024 Assessment & Plan (1) Acute GI bleeding: (2) Acute blood loss anemia: Plan: Admit to tele Patient presenting from home with reports of dizziness. History obtained from due to underlying dementia. Patient has been having bright red bleeding per rectum for the past 3 weeks. Saw PCP on 05/25 and had labs that showed Hgb 10.5. reports worsening generalized weakness, pallor, dizziness. In the ED, labs show Hgb 9.3. Patient is in atrial fibrillation with RVR with borderline low BPs. Patient was given IV famotidine, IV Protonix, IVF Given underlying CAD and hemodynamic instability, patient will be given 1 unit PRBC Serial H/H NPO IV PPI BID GI consult History of GI bleed in 2017: - Colonoscopy 2017-dark stool throughout the colon and a clot in the ascending colon - EGD 2017-bleeding at the GE junction,Clipped with hemostasis (3) Atrial fibrillation with RVR: (4) Non-ST elevation CT (NSTEMI): (5) Hx of CABG: (6) CAD (coronary artery disease): Plan: Patient with history of SVT with possible short runs of paroxysmal atrial fibrillation, CABG x4 in 1996, cardiac cath in 2015 demonstrating patent grafts In the ED, patient found to be in atrial fibrillation with RVR with rates in the 120s HS Troponin 1200 Cardiology consulted and evaluated patient in the ED Likely type II NSTEMI due to demand ischemia in the setting of acute blood loss anemia and GI bleeding Continue to trend trop Echo Per cardiology, may try low-dose metoprolol 2.5 mg IV as needed for rate control (7) Acute kidney injury superimposed on CKD: Plan: Baseline creatinine runs in the low to mid 1s Creatinine 2.5 today Will avoid additional IVF while giving PRBC Follow renal functions Hold COURT inhibitor (8) HTN (hypertension): Plan: Holding lisinopril and metoprolol due to SEGUNDO and hypotension DVT PROPHYLAXIS SCDs due to GI bleeding Patient seen in collaboration with Dr. Georgette Rust spent a total of 75 minutes coordinating, documenting, and providing care for this patient excluding time spent in the performance of separately billed services. This included personally reviewing all current laboratories and imaging studies, medication reconciliation, outpatient chart review, and discussion with specialists. (9) Myocardial infarction due to demand ischemia: (10) Lower gastrointestinal bleed: (11) Upper respiratory tract infection due to COVID-19 virus: (12) Hypomagnesemia: (13) Mixed Alzheimer's and vascular dementia: (14) Delirium superimposed on dementia: (15) BPH loc w urin obs/LUTS: (16) Acute on chronic heart failure with preserved ejection fraction: Plan Patient remains critically ill and requiring hospital level care for IV medications, specialty evaluation and procedures. Continue telemetry monitoring Hemoglobin has remained stable continue to monitor daily Increase Toprol XL for better rate control Continue to hold anticoagulation due to GI bleeding Reviewed cardiology consultation, patient had acceptable risk to undergo GI procedure Communication with GI team, anticipate colonoscopy on Wednesday, will proceed with a 2-day colon prep, clear liquid diet Patient is at high risk for decompensation from COVID-19. Will start empiric remdesivir. Patient is not hypoxic does not meet criteria for Decadron at this time Replace magnesium Kidney function is significantly improved, continue to monitor daily and as needed Anticipate patient will need rehab/intermediate facility placement upon discharge, case management to be involved Phone conversation with patient's , updated her to the plan of care 56 minutes spent coordinating care, communication with medical team, review of EMR History of Present Illness Chief Complaint: dizziness Primary Care Provider: Mika Baxter MD 78-year-old male with PMH HLD, chronic HFpEF, HTN, CAD s/p CABG x 4 in 1996, carotid artery disease, dementia, history of SVT with possible short runs of paroxysmal atrial fibrillation, GERD, CKD stage III, history of bariatric surgery, and other problems listed below who presents to the ED for evaluation of dizziness. Due to underlying dementia, history is obtained from patient's who is the bedside. History also obtained from review of outpatient PCP and cardiology records. states that patient has been having rectal bleeding over the past few weeks and it has been worsening. describes patient passing bright red blood as well as clots. Patient was seen at PCPs office on 05/25 and had labs drawn that showed Hgb 10.5, previously 11.2 02/2024. states that patient had a fall an unwitnessed few days ago. It is unclear if the patient passed out. also reports a 50 pound weight loss over the past 2 months. There has not been much change in patient's appetite. No other complaints offered by patient. In the ED, labs show Hgb 9.3, creatinine 2.5, troponin 1200. Stool is Hemoccult positive. Blood pressures have been borderline low. Patient was given IV famotidine, IV Protonix, IVF. Allergies Allergy/AdvReac Type Severity Reaction Status Date / Time No Known Allergies Allergy Verified 06/02/24 16:23 Home Medications Medication Instructions Recorded Confirmed Type aspirin 81 mg tablet,delayed 81 mg PO DAILY 06/02/24 06/02/24 History release atorvastatin 80 mg tablet 80 mg PO DAILY 06/02/24 06/02/24 History cholecalciferol (vitamin D3) 25 25 mcg PO DAILY 06/02/24 06/02/24 History mcg (1,000 unit) tablet (Vitamin D3) cyanocobalamin (vitamin B-12) 1,000 mcg PO DAILY 06/02/24 06/02/24 History 1,000 mcg tablet (Vitamin B-12) diclofenac sodium 1 % topical gel 0 g topical QID PRN .. 06/02/24 06/02/24 History (Voltaren Arthritis Pain) donepezil 10 mg tablet 10 mg PO DAILY 06/02/24 06/02/24 History famotidine 20 mg tablet 20 mg PO QAM 06/02/24 06/02/24 History ferrous sulfate 325 mg (65 mg 650 mg PO DAILY 06/02/24 06/02/24 History iron) tablet furosemide 20 mg tablet 20 mg PO DAILY 06/02/24 06/02/24 History lisinopril 5 mg tablet 5 mg PO DAILY 06/02/24 06/02/24 History metoprolol succinate 50 mg 75 mg PO QAM 06/02/24 06/02/24 History tablet,extended release 24 hr omega-3 fatty acids 1,000 mg 1,000 mg PO DAILY 06/02/24 06/02/24 History capsule Past Med/Surg History Problem List (Updated 06/04/24 @ 10:13 by Yoandy Cabrera DO) Acute on chronic heart failure with preserved ejection fraction Hypomagnesemia Upper respiratory tract infection due to COVID-19 virus BPH loc w urin obs/LUTS Delirium superimposed on dementia Myocardial infarction due to demand ischemia Lower gastrointestinal bleed Rectal bleeding Acute blood loss anemia Acute kidney injury superimposed on CKD Atrial fibrillation with RVR SEGUNDO (acute kidney injury) (Acute) Non-ST elevation CT (NSTEMI) (Acute) Acute GI bleeding (Acute) GERD without esophagitis Arteriosclerosis of both carotid arteries Mixed Alzheimer's and vascular dementia Anemia S/P cardiac catheterization (Chronic) "12/24/2015- Severe q[place]in vessel disease. Patent PUGA-mid LAD, patent SVG-PDA, patent jump graft [id number]. The left ventricular end diastolic pressure was normal. " S/P cholecystectomy (Chronic) H/O knee surgery (Chronic) Hx of CABG (Chronic) x 4 in 1996 HLD (hyperlipidemia) (Chronic) HTN (hypertension) (Chronic) CAD (coronary artery disease) (Chronic) CHF (congestive heart failure) (Chronic) "echo 11/2015- EF 55-59%, grade I diastolic dysfunction " Phimosis Osteoarthritis (Chronic) Medical History CKD (chronic kidney disease), stage III SVT (supraventricular tachycardia) with possible short runs of PAF Chronic heart failure with preserved ejection fraction (HFpEF) Hearing loss Obesity Surgical History S/P panniculectomy S/P colonoscopy with polypectomy History of liver biopsy History of esophagogastroduodenoscopy (EGD) Bariatric surgery status Family History Mother Hypertension Stroke Father Hypertension Cancer Social History Smoking Status: Never smoker Second Hand Exposure: No; Do You Dip or Chew Tobacco: No; Tobacco Cessation Education Requested by Patient: No Hx Alcohol Use: No Hx Substance Use: No Preferred Language: Bengali Communication Ability: Effective Talent Solutions Manager Required: No Beliefs That Will Affect Care: None Current Living Situation: Spouse Other Information That Helps Us Care for You: No Feels Safe at Home: Yes Safety Concerns: Feels Safe At This Time Assistive Devices: Cane, Glasses and Oxygen - at Night Review of Systems Review of Systems: Limited due to underlying dementia Physical Exam Physical Exam: Please refer to Dr. Palomino's addendum for physical exam Results & Data Results & Data Vital Signs (Past 12 Hours) Vital Signs Temp Pulse Resp BP BP Pulse Ox O2 Del Method 06/02/24 16:33 107 H 20 92 06/02/24 16:30 110/60 06/02/24 16:30 110/60 06/02/24 16:20 86/52 L 06/02/24 15:10 109 H 18 98 Room Air 06/02/24 14:51 36.7 C 93 H 16 97 Room Air Laboratory Results Short CBC 06/02/24 Range/Units 15:16 WBC 7.18 (4.8-10.8) K/ul Hgb 9.3 L (14.0-18.0) g/dl Hct 29.3 L (42.0-52.0) % Plt Count 243 (130-400) K/uL BMP 06/02/24 15:16 Sodium 136 Potassium 4.3 Chloride 105 Carbon Dioxide 21 BUN 56 H Creatinine 2.51 H Glucose 105 H Calcium 8.1 L Liver Function 06/02/24 Range/Units 15:16 Total Bilirubin 0.5 (0.2-1.0) mg/dl AST 20 (13-39) U/L ALT 10 (7-52) U/L Alkaline Phosphatase 138 H (34-104) U/L Albumin 3.1 L (3.4-5.0) gm/dl Supervising Physician Co-Signing Physician Notes delayed entry date of service noted above Attending Addendum: Case reviewed with the advanced practitioner. I have personally performed a history and physical examination on the patient. I have reviewed the advanced practitioner's documentation on the date of service referenced in note, and I agree with, and take responsibility for the plan of care. please refer to her notes for full details patient seen and examined, records reviewed by myself as well on exam, patient seen resting in bed, comfortable states he feels fine overall no chest pain, dyspnea, palpitations, dizziness no abdominal pain, nausea/vomiting no melena/hematochezia while at the ER no other symptoms VS noted and reviewed: oriented x3, not in distress, speaks in sentences with no effort nor accessory muscle use normal rate, regular rhythm, no murmurs clear breath sounds bilaterally non distended, soft, nontender no bipedal edema, erythema, warmth no neuro deficits all labs, imaging noted and reviewed ASSESSMENT AND PLAN GI BLEED likely lower GI NSTEMI, ATRIAL FIBRILLATION transfuse 1 unit to maintain Hg > 10 Protonix IV consult GI discussed with Weapons And Tactics Instructor Dr. Meghan will initiate low dose beta nadeem fo rate control other diagnoses and plan of care as per advanced practitioner's notes Miguel Palomino MD
[2024-06-02] MEDS: SODIUM CHLORIDE 0.9% 1,000 ML IV ONE (17:23)
[2024-06-02] MEDS: PANTOprazole 40 MG in SYRINGE 0 ML IV ONE (17:46)
--- NOTE | 2024-06-02 17:53 | CT Scan Report ---
CT abd pelvis wo con CLINICAL HISTORY: rectal bleeding, weight loss, anemia TECHNIQUE: Helical axial images of the abdomen and pelvis were obtained. Automated dose lowering tech niques and/or adjustment according to patient size were utilized for this exam. This exam was perfor med without intravenous contrast. CT DOSE: 1535.53 mGy.cm COMPARISON: Comparison is made to CT abdomen pelvis 06/23/2017 FINDINGS: Lower chest: Bronchial wall thickening is seen. Atelectasis is noted. Cardiomegaly is seen. Microcal cifications are seen. Pleural-based calcifications are seen in the right diaphragmatic pleura. Liver: Unremarkable. No focal lesions are seen. Gallbladder and biliary tree: Cholelithiasis is seen without evidence of cholecystitis. No intra- or extrahepatic biliary ductal dilation. Pancreas: Unremarkable, no focal lesions. Spleen: Calcifications are noted in the spleen compatible with prior granulomatous disease. Adrenals: Unremarkable. Kidneys and ureters: Renal cysts are seen. There is a thin calcified wall in a left-sided cyst. [place] nephrosis is seen bilaterally without obstructive stone. Bladder: Diffuse homogeneous wall thickening is seen. Reproductive organs: Prostatomegaly is seen. Bowel: Thickening of the rectal wall is seen. The appendix is unremarkable. Gastric bypass is seen. T here is a small hiatal hernia. Lymph nodes Retroperitoneal: Unremarkable. Pelvic: Unremarkable. Mesenteric: Unremarkable. Peritoneum: Normal. Vessels: Atherosclerotic calcifications are seen. Abdominal wall: Unremarkable. Bones: Degenerative changes in the visualized spine. Subacute appearing right rib fracture. Prominent sclerosis is seen about the sacroiliac joints and vertebral bodies most prominently T11. IMPRESSION: 1. Thickening of the rectal wall may represent proctitis in this patient with rectal bleeding. Under lying mass cannot entirely excluded. 2. Bilateral hydronephrosis likely due to chronic outlet obstruction. 3. 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 4. Cholelithiasis without cholecystitis. 5. Additional findings as above. ACT 112: Negative or not required by law. Electronically signed by: Francisco Javier Stoner M.D. 06/02/2024 5:50 PM
--- NOTE | 2024-06-02 18:09 | Cardiology Consultation ---
Date of Consultation June 02, 2024 Assessment & Plan (1) Acute GI bleeding: * Hemoglobin as outpatient on 02/23/2024 was 11.2, then 10.5 on 05/25/2024, and is now 9.3 g/dL * Given concerns for myocardial ischemia, would consider transfusion of at least 1 unit of packed red blood cells to start for goal hemoglobin of 10 g/dL * Hold aspirin * Recommend GI consultation (2) Atrial fibrillation with RVR: * Anticoagulation contraindicated at present due to gastrointestinal bleeding. * Consider metoprolol 2.5 mg IV x 1 for acute rate control as blood pressure allows. * if able to take oral medication, consider transitioning from metoprolol succinate at 12.5 mg daily to metoprolol tartrate 12.5 mg 4 times daily or even 3 times daily with hold for systolic blood pressure less than 100 mmHg, heart rate less than 60 bpm (3) Non-ST elevation NE (NSTEMI): * Initial troponin 1217, repeat was 1141 PG per mL. * Likely due to demand ischemia in the setting of anemia, tachycardia, and fixed coronary heart disease with history of cardiac catheterization 27 years ago. * Hold aspirin * Metoprolol as tolerated from a blood pressure standpoint * Hold prior to hospital treatment lisinopril, * Continue home dose of atorvastatin * Echocardiogram tomorrow (4) Acute kidney injury superimposed on CKD: * Patient is CKD, with creatinine typically in the range of 1.3-1.7, was 2.2 on 05/25/24 as an outpatient and 2.5 today. * Patient has already received a liter of fluid. Continue fluid resuscitation as tolerated, blood transfusion as noted above. Plan Case reviewed and discussed with Dr Al of emergency medicine and Dr Walton of the hospitalist service. History of Present Illness History of Present Illness Santo Maravilla is a 78-year-old male seen in cardiology consultation per the request of Dr. Al for the evaluation of new onset atrial fibrillation and elevated troponin. Patient seen in the emergency department, room B6. He was already being assessed by Dr. Palomino who was examining him when I arrived. History obtained from review of his record and interview with his spouse and daughter who are at the bedside as the patient's ability to provide history is limited due to dementia. The patient's spouse describes the patient has been having rectal bleeding over the last few days which has been worsening described as bright red blood and passing clots. Patient has reportedly had a 50 pound weight loss in the last 2 months. The patient had an unwitnessed fall several days ago, is uncertain w hether or not he may have passed out. During my assessment, patient without cardiac complaints, denied chest discomfort or shortness of breath. Although his presenting systolic blood pressure was 86 mmHg, this was increased to the range of 110 to 112 mmHg during my assessment. athletic monitor revealed atrial fibrillation with rate in the range of 100 to 112 bpm. Past Medical History: Chronic coronary heart disease, status post CABG x 4 in May, -Underwent diagnostic cardiac catheterization via left radial artery in December, demonstrated severe [place] vessel disease with patent PUGA to mid LAD, patent SVG to PDA, and patent sequential SVG graft to diagonal and marginal Chronic atypical right-sided chest discomfort Hypertension with hypertensive heart disease Diastolic congestive heart failure with history of fluid retention Supraventricular tachycardia, possible short runs of paroxysmal atrial fibrillation noted on previous pvc monitor Dyslipidemia Bilateral internal carotid artery disease (less than 50% bilateral stenosis, carotid duplex, July,) Dementia Allergies Allergy/AdvReac Type Severity Reaction Status Date / Time No Known Allergies Allergy Verified 06/02/24 16:23 Home Medications Medication Instructions Recorded Confirmed Type aspirin 81 mg tablet,delayed 81 mg PO DAILY 06/02/24 06/02/24 History release atorvastatin 80 mg tablet 80 mg PO DAILY 06/02/24 06/02/24 History cholecalciferol (vitamin D3) 25 25 mcg PO DAILY 06/02/24 06/02/24 History mcg (1,000 unit) tablet (Vitamin D3) cyanocobalamin (vitamin B-12) 1,000 mcg PO DAILY 06/02/24 06/02/24 History 1,000 mcg tablet (Vitamin B-12) diclofenac sodium 1 % topical gel 0 g topical QID PRN .. 06/02/24 06/02/24 History (Voltaren Arthritis Pain) donepezil 10 mg tablet 10 mg PO DAILY 06/02/24 06/02/24 History famotidine 20 mg tablet 20 mg PO QAM 06/02/24 06/02/24 History ferrous sulfate 325 mg (65 mg 650 mg PO DAILY 06/02/24 06/02/24 History iron) tablet furosemide 20 mg tablet 20 mg PO DAILY 06/02/24 06/02/24 History lisinopril 5 mg tablet 5 mg PO DAILY 06/02/24 06/02/24 History metoprolol succinate 50 mg 75 mg PO QAM 06/02/24 06/02/24 History tablet,extended release 24 hr omega-3 fatty acids 1,000 mg 1,000 mg PO DAILY 06/02/24 06/02/24 History capsule Patient History Medical History CKD (chronic kidney disease), stage III SVT (supraventricular tachycardia) with possible short runs of PAF Chronic heart failure with preserved ejection fraction (HFpEF) Hearing loss Obesity Surgical History S/P panniculectomy S/P colonoscopy with polypectomy History of liver biopsy History of esophagogastroduodenoscopy (EGD) Bariatric surgery status Family History Mother Hypertension Stroke Father Hypertension Cancer Social History Smoking Status: Former smoker Hx Alcohol Use: No Hx Substance Use: No Preferred Language: Slovenian Communication Ability: Impaired Soft Sugar Supervisor Required: No Beliefs That Will Affect Care: None Current Living Situation: Spouse and Family Feels Safe at Home: Yes Assistive Devices: Cane Review of Systems Review of Systems: Unobtainable due to cognitive status Physical Exam Physical Exam: General: no acute distress and stated age Eyes: conjunctiva are pink and non-injected, sclera clear Neck: normal jugular venous pulse, no hepatojugular reflux Chest: normal shape and normal respiratory effort Lungs: clear to auscultation and percussion Cardiac Exam: -Irregular rhythm, mildly tachycardic, no murmurs Abdomen: abdomen soft, non-tender, no abnormal masses and no hepatosplenomegaly Musculoskeletal: no gait disturbance, no weakness Extremities: no edema and no cyanosis Neuro:awake, conversant, follows commands, no focal motor deficits, cognitive impairment Results & Data Vital Signs (Past 12 Hours) Vital Signs Temp Pulse Resp BP BP Pulse Ox O2 Del Method 06/02/24 16:33 107 H 20 92 06/02/24 16:30 110/60 06/02/24 16:30 110/60 06/02/24 16:20 86/52 L 06/02/24 15:10 109 H 18 98 Room Air 06/02/24 14:51 36.7 C 93 H 16 97 Room Air Laboratory Results Cardiac Enzymes 06/02/24 06/02/24 Range/Units 15:16 17:24 AST 20 (13-39) U/L Troponin I High Sens 1217.7 H* 1141.3 H* (0-20) pg/ml Coagulation 06/02/24 Range/Units 15:16 PT 11.4 (9.0-12.0) Seconds APTT 30 (21-31) Seconds CBC 06/02/24 Range/Units 15:16 WBC 7.18 (4.8-10.8) K/ul RBC 3.52 L (4.70-6.10) M/uL Hgb 9.3 L (14.0-18.0) g/dl Hct 29.3 L (42.0-52.0) % Plt Count 243 (130-400) K/uL Neut # (Auto) 4.70 (1.40-6.50) K/uL Lymph # (Auto) 1.22 (1.20-3.40) K/uL Brooks # (Auto) 1.08 H (0.11-0.59) K/uL Eos # (Auto) 0.15 (0.00-0.50) K/uL Baso # (Auto) 0.00 (0.00-0.20) K/uL Comprehensive Metabolic Panel 06/02/24 Range/Units 15:16 Sodium 136 (136-145) mmol/L Potassium 4.3 (3.5-5.1) mmol/L Chloride 105 (98-107) mmol/L Carbon Dioxide 21 (21-32) mmol/L BUN 56 H (6-23) mg/dl Creatinine 2.51 H (0.6-1.4) mg/dl Glucose 105 H (70-99(Fasting)) mg/dl Calcium 8.1 L (8.6-10.3) mg/dl AST 20 (13-39) U/L ALT 10 (7-52) U/L Alkaline Phosphatase 138 H (34-104) U/L Total Protein 6.1 (6.0-8.3) gm/dl Albumin 3.1 L (3.4-5.0) gm/dl
--- OUTSIDE RECORDS SUMMARY | 2024-06-02 18:36 | External Medical Summary | Summary of Care ---
Author Name Unknown Organization [facility] Address [address] [place] [address] Phone [phone] Care Team Providers Care Drywall Finisher Name Role Phone Mika Baxter MD Primary Care Provider [phone]- [phone] Reason for Referral * Ancillary Services (Within 10 days (routine)) - Authorized Specialty Diagnoses / Procedures Referred By Contac t Referred To Contact Gastroenterology Diagnoses Blood clots in stool Iron deficiency anemia, unspecified iron deficiency anemia type Ashleigh Pink MD [address] [place] [address] Referral ID Status Reason Start Date Expiration Date Visits Requested Visits Authorized [id number] Authorized Ancillary Services Required 05/29/2024 [id number] Question Answer Referral Priority Within 10 days (routine) Where should this appointment be scheduled? [facility] Comments ALERT: Do not order for pediatric patients (18 years or younger). Cancel off screen and order PEDS GASTROENTEROLOGY CONSULT (Type: 1 visit only-Evaluate and Treat) The following Pt. Instructions are available: - Gastro Colonoscopy Prep Instructions [[id number]] - Gastro Colonoscopy Prep Instructions (Belarusian Version) [[id number]] Go to the Pt. Instructions section within the Visit Navigator to access. Colonoscopy ASGE Guidelines: Hematochezia ADDITIONAL INFORMATION 1. Is the patient on Coumadin? No 2. Is the patient on Pradaxa? No * Ancillary Services (Within 10 days (routine)) - Authorized Specialty Diagnoses / Procedures Referred By Contac t Referred To Contact Gastroenterology Diagnoses Blood clots in stool Iron deficiency anemia, unspecified iron deficiency anemia type Ashleigh Pink MD [address] [place] [address] Referral ID Status Reason Start Date Expiration Date Visits Requested Visits Authorized [id number] Authorized Ancillary Services Required 05/29/[phone] Question Answer Referral Priority Within 10 days (routine) Where should this appointment be scheduled? [facility] Comments Upper Endoscopy ASGE Guidelines Melena ADDITIONAL INFORMATION 1. Is the patient on Coumadin? No 2. Is the patient on Pradaxa? No Encounter Details Date Type Department Care Team (Late st Contact Info) Description 05/26/2024 Telephone [facility] [address] [place] [address] Ashleigh Pink MD [address] [place] [address] Allergies No known active allergiesdocumented as of this encounter (statuses as of 05/29/2024) Medications Medication Sig Dispensed Refills Start Date End Date Status ASPIRIN 81 MG PO TABS 1 TABLET DAILY 0 03/03/2007 Active VITAMIN B-12 1000 MCG SL SUBL 1 tab daily Active VITAMIN C 500 MG PO TABS 1 daily- unsure of mg dose 0 02/11/2010 Active [place]-3 Fatty Acids (FISH OIL) 1000 MG Capsule Take 1 Capsule by mouth in the morning. Active Vitamin D 25 MCG (1000 UT) Oral Tablet Take by mouth. Active oxygen IN GAS Use 2 L/min(Oxygen) as directed at bedtime. Active Metoprolol Succinate ER 50 MG Oral Tablet Extended Release 24 Hour (toPROL XL) Take 1.5 Tablets by mouth in the morning. 150 Tablet 3 06/09/2023 Active Furosemide 20 MG Oral Tablet (Lasix)Indication s:Peripheral edema Take 1 tablet by mouth one day alternating with 2 tablets by mouth the next day. 135 Tablet 3 06/23/2023 Active Famotidine 20 MG Oral Tablet (Pepcid) TAKE ONE TABLET BY MOUTH EVERY MORNING AND TAKE ONE TABLET BEFORE BEDTIME 180 Tablet 2 09/20/2023 Active Diclofenac Sodium 1 % External Gel (Voltaren) APPLY TOPICALLY TO LEFT SHOULDER FOUR TIMES A DAY NEEDED FOR PAIN 350 g 1 02/25/2024 02/24/2025 Active Atorvastatin Calcium 80 MG Oral Tablet (Lipitor)Indicati ons:Dyslipidemia, goal LDL below 70 TAKE ONE TABLET BY MOUTH EVERY DAY 100 Tablet 1 02/28/2024 02/27/2025 Active Donepezil HCl 10 MG Oral Tablet (Aricept) TAKE ONE TABLET BY MOUTH ONCE DAILY WITH LARGEST MEAL OF THE DAY 100 Tablet 3 02/28/2024 02/27/2025 Active Ferrous Sulfate 325 (65 Fe) MG Oral Tablet (Feosol) Take 1 tab by mouth per day. 180 Tablet 3 03/13/2024 Active Lisinopril 5 MG Oral Tablet (Prinivil)Indicat ions:HTN, goal below 140/90,Atheroscle rosis of [place] coronary artery of [place] heart without angina pectoris Take 1 Tablet by mouth in the morning. 90 Tablet 1 05/13/2024 Active documented as of this encounter (statuses as of 05/29/2024) Active Problems Problem Noted Date Diagnosed Date Hypertensive kidney disease 05/25/2024 SVT (supraventricular tachycardia) 03/13/2024 Chronic kidney disease, stage 3a 03/06/2024 Overview: Per CKD protocol Body mass index (BMI) of 40.0 to 44.9 in adult 0 05/03/2023 Overview: Per Obesity protocol Mixed Alzheimer's and vascular dementia 04/29/20 23 History of colonoscopy 04/29/2023 S/P cholecystectomy 04/29/2023 History of cardiac catheterization 04/29/2023 History of biliary T-tube placement 04/29/2023 History of biliary T-tube placement 04/29/2023 History of knee surgery 04/29/2023 Hx of CABG 04/29/2023 Posterior tibial tendon dysf unction (PTTD) of right lower extremity 04/29/2023 Phimosis 04/29/2023 Palpitations with regular cardiac rhythm 023 GI bleed 04/29/2023 Anemia 04/29/2023 History of [place] (myocardial infarction) 02/23/2023 Arteriosclerosis of both carotid arteries 2021 GERD without esophagitis 12/15/2021 Mild carotid artery disease 11/20/2019 ASCVD (arteriosclerotic cardiovascular disease) 11/20/2019 Dementia without behavioral disturbance 05/15/20 19 Overview: ICD-10 update of inactive term Atherosclerosis of coronary artery 08/06/2015 Osteoarthritis of ankle 12/10/2010 HLD (hyperlipidemia) 03/06/2010 Chronic diastolic heart failure 08/22/2009 Overview: Per Heart Failure Taxonomy Protocol. Vitamin deficiency 09/01/2007 Bariatric surgery status 01/27/2007 Intestinal postoperative nonabsorption Knee joint replacement status 05/31/2006 SCOTT RESEARCH OTHER*[id number] 05/31/2006 HTN (hypertension) 03/11/2004 GENERAL OSTEOARTHROSIS 01/14/2004 documented as of this encounter (statuses as of 05/29/2024) Resolved Problems Problem Noted Date Diagnosed Date Resolved Date Osteoarthritis 04/29/2023 05/25/2024 Overview: More specified on pl Obesity 02/23/2023 05/25/2024 Overview: historical CHF (congestive heart failure) 05/15/2019 05/25/2024 Overview: More specified on pl Concealed penis 04/26/2017 05/15/2019 Obesity, morbid (more than 1 00 lbs over ideal weight or BMI > 40) 01/21/2010 03/03/2023 Overview: Per Obesity Taxonomy ICD-10 update of inactive term Dyslipidemia, goal LDL below 100 10/07/2009 03/06/2010 Overview: Per Lipid Taxonomy. ABDOMINAL PANNICULITIS 01/01/200905/15 Esophagitis 05/31/2006 05/15/2019 Overview: ICD-10 update of inactive term ADVANCE DIRECTIVE INFORMATION 03/02/2006 05/15/2019 Overview: Yes, Patient instructed to provide copy of advance directive for provider to review and to be scanned into Electronic Medical Record CORONARY ATHEROSCLEROSIS VESSEL NOS 07/02/2005 08/06/2015 Morbid obesity, BMI not known 10/03/2004 01/21/2010 Overview: Per Obesity Taxonomy REDUN PREPUCE & PHIMOSIS 10/03/2004 Dyslipidemia, goal to be determined 03/11/2004 10/07/2009 Overview: Per Lipid Taxonomy. Aortocoronary bypass status 03/11/2004 05/15/2019 Heart failure, etiology unknown 01/14/2004 08/22/2009 Overview: Per Heart Failure Taxonomy Protocol. Heart failure, etiology unknown 04/03/2015 documented as of this encounter (statuses as of 05/29/2024) Immunizations Name Administration Dates Next Due COVID-19 mRNA, LNP-s, No Pre serve, 2-Dose Series ([employer]) 09/22/2021,01/29/2021,01/08/2021 COVID-19, LNP-s, No Preserve , Geronimo-sucrose, Ages 12+ (Pfizer) 05/04/2022 Covid-19, Mrna, Lnp-s, Pf, B ivalent, 30 Mcg, IM, 12 yrs and above ([employer]) 09/04/2022 H1N1 2009 Influenza, IM 11/02/2009 Pneumococcal Conjugate Vacc, 13 Valent (Prevnar) 05/15/2019 Pneumococcal Polysaccharide PPV23 (Pneumovax) 01/06/2017,08/06/2016,01/27/2007 Seasonal Influenza Virus Vac cine, Unspecified Formulation 07/07/2019,09/02/2018,07/22/2017,07/25,08/30/2014,08/03/2013,07/19/20 12,07/16/2011,11/11/2010,07/10/2009,1 12/05/2007,10/27/2007,08/31/2006 Seasonal Influenza, PF, 6 M & above, IM , (FluLaval or Fluzone) 07/07/2019,09/02/2018,07/22/2017 Seasonal Influenza, Quadriva lent Hd (Fluzone Hd) 07/15/2023 Seasonal Influenza, Quadriva lent, No Preserve, IM 08/06/2015 Seasonal Influenza, Split, I IV3, With Preserve, Inj 08/30/2014,08/03/2013,07/19/2012,06/26,11/11/2010,07/10/2009,10/04/20 08,10/27/2007,08/31/2006 08/31/2007 Seasonal Influenza, Trivalen t, High Dose, No Preserve, IM 09/04/2022 TDAP, Age 7 and older, IM (Adacel) 02/01/2007 Varicella Zoster Vaccine (Adult) 01/03/2016 documented as of this encounter Social History Tobacco Use Types Packs/Day Years Used Date Smoking Tobacco: Former Cigarettes 0.5 10 Smokeless Tobacco: Former Chew Comments:quit smoking 1977 Alcohol Use Standard Drinks/Week Comments Not Currently 0 (1 standard drink = 0.6 oz pur e alcohol) a glass of wine occasional PHQ-2 Answer Date Recorded PHQ-2 Score 0 07/07/2019 Hunger Vital Sign Answer Date Recorded Worried About Running Out of Food in the Last Ye ar Never true 07/07/2019 Ran Out of Food in the Last Year Never true 07/07/2019 Utilities Answer Date Recorded Do you have trouble paying y our heating, water, or electric bill? (Adult - for ages 18 years and over) Not on file 04/11/2024 Is your family able to pay t he heat, water, or electric bill? (Household - for ages 0-17 years) Not on file 04/11/2024 Does your family have access to good internet? (Household - for ages 0-17 years) Not on file 04/11/2024 Social Connections Answer Date Recorded How often do you feel lonely or isolated from those around you? (Adult - for ages 18 years and over) Not on file 04/11/2024 Sex and Gender Information Value Date Recorded Sex Assigned at Not on file Gender Identity Not on file Sexual Orientation Not on file Job Start Date Occupation Industry Not on file Not on file Not on file documented as of this encounter Functional Status Functional Status Response Date of Assess ment Are you deaf or do you have serious difficulty h earing? Yes 08/19/2017 Are you blind or do you have serious difficulty seeing, even when wearing glasses? No 08/19/2017 Do you have serious difficul ty walking or climbing stairs? (5 years old or older) No 08/19/2017 Do you have difficulty dress ing or bathing? (5 years old or older) No 08/19/2017 Because of a physical, menta l, or emotional condition, do you have difficulty doing errands alone such as visiting a doctor s office or shopping? (15 years old or older) No 08/19/20 17 Cognitive Status Response Date of Assessm ent Because of a physical, menta l, or emotional condition, do you have serious difficulty concentrating, remembering, or making decisions? (5 years old or older) No 08/19/2017 documented as of this encounter Miscellaneous Notes * Telephone Encounter - Juani Smiley OSA - 05/29/2024 1:54 PM EDT Spoke to patient's she is aware of info below. Gastro will call to schedule as we do not schedule those anymore. 05/29/2024 * Addendum Note - Ashleigh Pink MD - 05/29/2024 1:51 PM EDTAddended by: ASHLEIGH PINK on: 05/29/2024 01:51 PM Modules accepted: Orders * Telephone Encounter - Ashleigh Pink MD - 05/29/2024 1:50 PM EDT Discussed with GI Ordered EGD and colonoscopy Please schedule And also please advise pt to keep iron pill twice daily , And repeat blood test in one week * Telephone Encounter - Ashleigh Pink MD - 05/29/2024 11:44 AM EDT Until pt sees GI in sep, please increase iron pill twice daily for now * Telephone Encounter - Olivia Lebron LPN - 05/29/2024 9:08 AM EDT Patient's EC Kim aware and verbalized understanding. Reports that the pt already takes Iron 325 mg daily. Please advise. * Telephone Encounter - Brandie Miller LPN - 05/26/2024 2:55 PM EDT left message on machine for pt to call office When the pt calls back please give him the message below. Thank you * Telephone Encounter - Ashleigh Pink MD - 05/26/2024 2:34 PM EDT Blood test showed mild anemia with rectal bleeding/clots Please start taking iron pill daily for now And f/u with GI Currently pt is scheduled in jun But I sent a separate message to GI provider yesterday Once I hear form them , will try to move you to earlier appointment documented in this encounter Plan of Treatment Upcoming Encounters Date Type Department Care Team (Late st Contact Info) Description 07/10/2024 1:00 PM EDT Office Visit Gastroenterology, [facility] [address] [facility] [place] [address] Lisbeth Castro CRNP [address] [facility] [place] [address] 10/10/2024 1:20 PM EST Office Visit [facility] [address] [place] [id number] Mika Baxter MD [address] [place] [address] Scheduled Orders Name Type Priority Associated Diagnoses Orde r Schedule CBC WITH WBC DIFFERENTIAL AND ANEMIA REFLEX WORKUP Lab Routine Blood clots in stool Iron deficiency anemia, unspecified iron deficiency anemia type Expected: 05/29/2024 (Approximate), Expires: 05/29/2025 Scheduled Referrals Name Type Priority Associated Diagnoses Orde r Schedule UPPER ENDOSCOPY GI REFERRAL OP Referral Within 10 days (routine) Blood clots in stool Iron deficiency anemia, unspecified iron deficiency anemia type Ordered: 05/29/2024 COLONOSCOPY, GI REFERRAL OP Referral Within 10 days (routine) Blood clots in stool Iron deficiency anemia, unspecified iron deficiency anemia type Ordered: 05/29/2024 Health Maintenance Due Date Last Done Comments CKD PHOS USE SMARTSET 20845 1963 Hepatitis C Screening 1963 Zoster Vaccines (2 of 3) 02/28/2016 01/03/2016 DTaP,Tdap,and Td Vaccines (2 - Td or Tdap) 02/01/2017 02/01/2007 Depression Screening 07/07/2020 07/07/2019 COVID-19 Vaccine ( season) 2024 09/18/2023, 09/04/2022, 05/04/2022, Additional history exists Influenza Vaccine (FLU shot) (#1) 2024 07/15/2023, 09/04/2022, 07/07/2019, Additional history exists GFR 11/25/2024 05/25/2024, 0510/2023, 05/21/2023, Additional history exists Albumin/Creatinine Ratio 02/22/2025 024, 04/07/2023, 12/18/2004 CKD HGB USE SMARTSET [id number] 05/25/202505/25, 05/25/2024, 02/23/2024, Additional history exists Pneumococcal Vaccine: 65+ Years Completed 05/15/2019, 01/06/2017, 08/06/2016, Additional history exists HPV (Gardasil) Vaccine Aged Out No lo nger eligible based on patient's age to complete this topic Hepatitis B Vaccine Aged Out No longe r eligible based on patient's age to complete this topic MENINGOCOCCAL (MENACTRA/MENVEO) Aged Out No longer eligible based on patient's age to complete this topic documented as of this encounter Medical Devices Not on filedocumented as of this encounter Visit Diagnoses Diagnosis Blood clots in stool- Primary Iron deficiency anemia, unspecified iron deficiency anemia type documented in this encounter Advance Directives * Full Code (Latest Code Status on File) Date Activated Date Inactivated Comments 08/19/2017 1:20 PM 08/25/2017 7:37 PM Question Answer Comments Discussion of Advance Directives occurred with: Not Discussed Does the patient have a Living Will? No Does the patient have Health Care Power of Attor claudio? No * Full Code Date Activated Date Inactivated Comments 04/03/2009 1:06 PM 04/04/2009 3:40 PM This order r eflects the patients wishes and were consensually agreed upon. Care Teams Drywall Finisher Relationship Specialty Start Date End Date Mika Baxter MD [address] [place] [facility] [place] [address] PCP - General Family Medicine 02/22/18 documented as of this encounter
--- OUTSIDE RECORDS SUMMARY | 2024-06-02 18:36 | External Medical Summary | Summary of Care ---
Author Name Unknown Organization [facility] Address [address] [place] [facility] [place] [address] Phone [phone] Care Team Providers Care Beam Press Operator Name Role Phone Mika Baxter MD Primary Care Provider [phone]- [phone] Encounter Details Date Type Department Care Team (Late st Contact Info) Description 05/29/2024 Telephone Gastroenterology, [facility] [address] [place] [address] Bob Romero MD [address] [place] [address] Allergies No known active allergiesdocumented as of this encounter (statuses as of 05/29/2024) Medications Medication Sig Dispensed Refills Start Date End Date Status ASPIRIN 81 MG PO TABS 1 TABLET DAILY 0 03/03/2007 Active VITAMIN B-12 1000 MCG SL SUBL 1 tab daily Active VITAMIN C 500 MG PO TABS 1 daily- unsure of mg dose 0 02/11/2010 Active [place]-3 Fatty Acids (FISH OIL) 1000 MG Capsule [...] (Prinivil)Indicat ions:HTN, goal below 140/90,Atheroscle rosis of [place] coronary artery of [place] heart without angina pectoris Take 1 Tablet [...] GI bleed 04/29/2023 Anemia 04/29/2023 History of [place] (myocardial infarction) 02/23/2023 Arteriosclerosis of both carotid [...] Knee joint replacement status 05/31/2006 SCOTT RESEARCH OTHER*[id number] 05/31/2006 HTN (hypertension) 03/11/2004 GENERAL OSTEOARTHROSIS 01/14/2004 [...] mRNA, LNP-s, No Pre serve, 2-Dose Series ([employer]) 09/22/2021,01/29/2021,01/08/2021 COVID-19, LNP-s, No Preserve , [place]eronimo-sucrose, Ages 12+ (Pfizer) 05/04/2022 Covid-19, Mrna, Lnp-s, Pf, B ivalent, 30 Mcg, IM, 12 yrs and above ([employer]) 09/04/2022 H1N1 2009 Influenza, IM 11/02/2009 Pneumococcal [...] encounter Miscellaneous Notes * Telephone Encounter - Debbie Luis, MEME - 05/29/2024 4:47 PM EDT ----- Message from Bob Romero MD sent at 05/29/2024 1:24 PM EDT ----- Regarding: RE: ? colonoscopy or other procedure Skye - I wanted to make sure that he is appropriate for an outpt endoscopy and colonoscopy. Most likely, he will be scoped within abt 4 weeks as an outpt. He should have repeat hgb this week - If his bleeding is rapid, or hgb is falling on serial labs, then please consider admitting him. Can you place order for an EGD and colonoscopy for his iron deficiency? Schedulers - can you arrange for this pt to have EGD and cscopy, any provider, within 4 weeks? He should keep his follow up apptment with Lisbeth Castro. ----- Message ----- From: Ashleigh Pink MD Sent: 05/25/2024 4:17 PM EDT To: Bob Romero MD Subject: ? colonoscopy or other procedure Tio felix This is Skye Hope you all are doing well , going through summer I just saw Santo for rectal bleeding ( more clots) who has hx of recurrent hx Last colonoscopy was done by you in 2017 per record And he lost significant weight , more than 50 pounds last 2 mo although his appetite has been very poor , has moderate to advanced dementia I put urgent referral for GI. Wonder if you or your colleague could check on this patient anytime soon ? He looks stable, V/S is good, getting labs today which I will f/u too Thanks in advance ! Eduar Pink documented in this encounter Plan of Treatment Upcoming Encounters Date Type Department Care Team (Late st Contact Info) Description 07/10/2024 1:00 PM EDT Office Visit Gastroenterology, [facility] [address] [place] [address] Lisbeth Castro CRNP [address] [place] [address] 10/10/2024 1:20 PM EST Office Visit [facility] [address] [place] [phone] Mika Baxter MD [address] [place] [address] Health Maintenance Due Date Last Done Comments CKD PHOS USE SMARTSET 98806 1963 Hepatitis C Screening 1963 Zoster Vaccines (2 of 3) 02/28/2016 01/03/2016 DTaP,Tdap,and Td Vaccines (2 - Td or Tdap) 02/01/2017 02/01/2007 Depression Screening 07/07/2020 07/07/2019 COVID-19 Vaccine ( season) 2024 09/18/2023, 09/04/2022, 05/04/2022, Additional history exists Influenza Vaccine (FLU shot) (#1) 2024 07/15/2023, 09/04/2022, 07/07/2019, Additional history exists GFR 11/25/2024 05/25/2024, 05/0 10/2023, 05/21/2023, Additional history exists Albumin/Creatinine Ratio 02/22/2025 024, 04/07/2023, 12/18/2004 CKD HGB USE SMARTSET 52088 05/25/202505/25, 05/25/2024, 02/23/2024, Additional history exists Pneumococcal [...] Not on filedocumented as of this encounter Advance Directives * Full Code [...] and were consensually agreed upon. Care Teams Beam Press Operator Relationship Specialty Start Date End Date Mika Baxter MD [address] [place] [address] PCP - General Family Medicine 02/22/18 documented as of this encounter
--- OUTSIDE RECORDS SUMMARY | 2024-06-02 18:36 | External Medical Summary | Summary of Care ---
Author Name Unknown Organization [facility] Address [address] [place] [address] Phone [phone] Care Team Providers Care Zyglo Inspector Name Role Phone Mika Baxter MD Primary Care Provider [phone]- [phone] Reason for Referral * Ancillary Services (Within 10 days (routine)) - Authorized Specialty Diagnoses / Procedures Referred By Contac t Referred To Contact Gastroenterology Diagnoses Blood clots in stool Iron deficiency anemia, unspecified iron deficiency anemia type Ashleigh Pink MD [address] [place] [address] Referral ID Status Reason Start Date Expiration Date Visits Requested Visits Authorized [id number] Authorized Ancillary Services Required 05/29/2024 999 999 Question Answer Referral Priority Within 10 days (routine) Where should this appointment be scheduled? [facility] Comments ALERT: Do not order for pediatric patients (18 years or younger). Cancel off screen and order PEDS GASTROENTEROLOGY CONSULT (Type: 1 visit only-Evaluate and Treat) The following Pt. Instructions are available: - Gastro Colonoscopy Prep Instructions [[id number]] - Gastro Colonoscopy Prep Instructions (Bolivian Version) [[id number]] Go to the Pt. Instructions section within [...] anemia type Ashleigh Pink MD [address] [place] [address] Referral ID Status Reason Start Date Expiration Date Visits Requested Visits Authorized [id number] Authorized Ancillary Services Required 05/29/2024 999 999 Question Answer Referral Priority Within 10 days (routine) Where should this appointment be scheduled? [facility] Comments Upper Endoscopy ASGE Guidelines Melena ADDITIONAL INFORMATION 1. Is the patient on Coumadin? No 2. Is the patient on Pradaxa? No Encounter Details Date Type Department Care Team (Late st Contact Info) Description 05/26/2024 Telephone [facility] [address] [place] [address] Ashleigh Pink MD [address] [place] [address] Allergies No known active allergiesdocumented as of this encounter (statuses as of 05/29/2024) Medications Medication Sig Dispensed Refills Start Date End Date Status ASPIRIN 81 MG PO TABS 1 TABLET DAILY 0 03/03/2007 Active VITAMIN B-12 1000 MCG SL SUBL 1 tab daily Active VITAMIN C 500 MG PO TABS 1 daily- unsure of mg dose 0 02/11/2010 Active [place]-3 Fatty Acids (FISH OIL) 1000 MG Capsule [...] (Prinivil)Indicat ions:HTN, goal below 140/90,Atheroscle rosis of [place] coronary artery of [place] heart without angina pectoris Take 1 Tablet [...] GI bleed 04/29/2023 Anemia 04/29/2023 History of MA (myocardial infarction) 02/23/2023 Arteriosclerosis of both carotid [...] Knee joint replacement status 05/31/2006 [facility] OTHER*[id number] 05/31/2006 HTN (hypertension) 03/11/2004 GENERAL OSTEOARTHROSIS 01/14/2004 [...] mRNA, LNP-s, No Pre serve, 2-Dose Series ([employer]) 09/22/2021,01/29/2021,01/08/2021 COVID-19, LNP-s, No Preserve , Geronimo-sucrose, Ages 12+ ([employer]) 05/04/2022 Covid-19, Mrna, Lnp-s, Pf, B ivalent, 30 Mcg, IM, 12 yrs and above ([employer]) 09/04/2022 H1N1 2009 Influenza, IM 11/02/2009 Pneumococcal [...] as of this encounter Miscellaneous Notes * Addendum Note - Ashleigh Pink MD [...] with GI Currently pt is scheduled in sep But I sent a separate message to GI provider yesterday Once I hear form them , will try to move you to earlier appointment documented in this encounter Plan of Treatment Upcoming Encounters Date Type Department Care Team (Late st Contact Info) Description 07/10/2024 1:00 PM EDT Office Visit Gastroenterology, [facility] [address] [facility] [place] [address] [facility] Castro [facility] [place] [address] 10/10/2024 1:20 PM EST Office Visit [facility] [address] [place] [address] Mika Baxter MD [address] [place] [address] Scheduled Orders Name Type Priority Associated Diagnoses [...] Last Done Comments CKD PHOS USE SMARTSET 58251 1963 Hepatitis C Screening 1963 Zoster Vaccines [...] 024, 04/07/2023, 12/18/2004 CKD HGB USE SMARTSET 55105 05/25/202505/25, 05/25/2024, 02/23/2024, Additional history exists Pneumococcal [...] and were consensually agreed upon. Care Teams Zyglo Inspector Relationship Specialty Start Date End Date Mika Baxter MD [address] [facility] [address] PCP - General Family Medicine 02/22/18 documented as of this encounter
--- OUTSIDE RECORDS SUMMARY | 2024-06-02 18:36 | External Medical Summary | Summary of Care ---
Author Name Unknown Organization [facility] Address [address] [place] [place] [facility] [place] [address] Phone [phone] Care Team Providers Care Twister Tender Name Role Phone Mika Baxter MD Primary Care Provider +1- [phone] Encounter Details Date Type Department Care Team (Late st Contact Info) Description 05/29/2024 Telephone Gastroenterology, [facility] [address] [place] [address] Isidro Romero MD [address] [place] [address] Allergies No known active allergiesdocumented as of this encounter (statuses as of 05/30/2024) Medications Medication Sig Dispensed Refills Start Date End Date Status ASPIRIN 81 MG PO TABS 1 TABLET DAILY 0 03/03/2007 Active VITAMIN B-12 1000 MCG SL SUBL 1 tab daily Active VITAMIN C 500 MG PO TABS 1 daily- unsure of mg dose 0 02/11/2010 Active [place]-3 Fatty Acids (FISH OIL) 1000 MG Capsule [...] (Prinivil)Indicat ions:HTN, goal below 140/90,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 90 Tablet 1 05/13/2024 Active documented as of this encounter (statuses as of 05/30/2024) Active Problems Problem Noted Date Diagnosed Date [...] GI bleed 04/29/2023 Anemia 04/29/2023 History of CA (myocardial infarction) 02/23/2023 Arteriosclerosis of both carotid [...] Knee joint replacement status 05/31/2006 [employer] OTHER*[id number] 05/31/2006 HTN (hypertension) 03/11/2004 GENERAL OSTEOARTHROSIS 01/14/2004 documented as of this encounter (statuses as of 05/30/2024) Resolved Problems Problem Noted Date Diagnosed Date [...] as of this encounter (statuses as of 05/30/2024) Immunizations Name Administration Dates Next Due COVID-19 mRNA, LNP-s, No Pre serve, 2-Dose Series ([employer]) 09/22/2021,01/29/2021,01/08/2021 COVID-19, LNP-s, No Preserve , Geronimo-sucrose, Ages 12+ (Pfizer) 05/04/2022 Covid-19, Mrna, Lnp-s, Pf, B ivalent, 30 Mcg, IM, 12 yrs and above ([employer]) 09/04/2022 H1N1 2009 Influenza, IM 11/02/2009 Pneumococcal [...] Miscellaneous Notes * Telephone Encounter - Debbie Luis OSA - 05/30/2024 9:31 AM EDT Lmm * Telephone Encounter - Debbie Luis OSA - 05/29/2024 4:47 PM EDT ----- Message from Isidro Romero MD sent at 05/29/2024 1:24 PM [...] MD Sent: 05/25/2024 4:17 PM EDT To: Isidro Romero MD Subject: ? colonoscopy or other procedure Tio isidro This is Skye Hope you all are [...] 07/10/2024 1:00 PM EDT Office Visit Gastroenterology, [facility] [address] [facility] [address] Lisbeth Castro CRNP [address] [address] 10/10/2024 1:20 PM EST Office Visit [facility] [address] [place] [id number] Mika Baxter MD [address], [place] [id number] Health Maintenance Due Date Last Done Comments CKD PHOS USE SMARTSET 59110 1963 Hepatitis C Screening 1963 Adult Wellness Visit 2011 Zoster Vaccines (2 of 3) 02/28/2016 01/03/2016 DTaP,Tdap,and Td Vaccines (2 - Td or Tdap) 02/01/2017 02/01/2007 Depression Screening 07/07/2020 07/07/2019 COVID-19 Vaccine ( season) 2024 09/18/2023, 09/04/2022, 05/04/2022, Additional history exists Influenza Vaccine (FLU shot) (#1) 2024 07/15/2023, 09/04/2022, 07/07/2019, Additional history exists GFR 11/25/2024 05/25/2024, 0510/2023, 05/21/2023, Additional history exists Albumin/Creatinine Ratio 02/22/2025 024, 04/07/2023, 12/18/2004 CKD HGB USE SMARTSET 99951 05/25/202505/25, 05/25/2024, 02/23/2024, Additional history exists Pneumococcal [...] and were consensually agreed upon. Care Teams Twister Tender Relationship Specialty Start Date End Date Mika Baxter MD [address] [place] [address] PCP - General Family Medicine 02/22/18 documented as of this encounter
--- OUTSIDE RECORDS SUMMARY | 2024-06-02 18:37 | External Medical Summary ---
Author Name Unknown Address Unknown Organization K01:[facility] [place] [address] [facility] [place] [address] Laboratory Report Ordering Provider Test Date Status WESTON CARRILLO 05/25/2024 16:23:33 Final Observation Date Value Abnormality Reference (Units ) Status WBC, Total 05/25/2024 16:23:33 12.47 Above high normal 4 .00-10.80 (K/uL) Final RBC 05/25/2024 16:23:33 3.90 4.50-5.25 (M/uL) Final Hemoglobin 05/25/2024 16:23:33 10.5 Below low normal 14 .0-16.8 (g/dL) Final Anemia reflex testing trigge rs on a HGB < 12.0 for Females and HGB < 13.0 for Males in accordance with the WHO Anemia Guidelines
Anemia reflex testing triggers on a HGB < 12.0 for Females and HGB < 13.0 for Males in accordance with the WHO Anemia Guidelines HCT 05/25/2024 16:23:33 33.6 Below low normal 40. 0-48.4 (%) Final MCV 05/25/2024 16:23:33 86.2 82.0-99.5 (fL) Final MCH 05/25/2024 16:23:33 26.9 27.0-34.0 (pg) Final MCHC 05/25/2024 16:23:33 31.3 32.0-36.0 (g/dL) Final RDW 05/25/2024 16:23:33 14.7 11.5-15.5 (%) Final Platelets 05/25/2024 16:23:33 310 140-400 (K /uL) Final MPV 05/25/2024 16:23:33 10.3 6.6-11.1 ( fL) Final Nucleated erythrocytes/100 leukocytes [Ratio] in Blood by Automated count 05/25/2024 16:23:33 0 <=0 (/100 WBCs) Final Performing Location [facility] [place] [facility] [address] [facility] [address]
--- OUTSIDE RECORDS SUMMARY | 2024-06-02 18:37 | External Medical Summary | Summary of Care ---
Author Name Unknown Organization [facility] Address [address] [place] [address] Phone [phone] Care Team Providers Care Gas Dispenser Name Role Phone Mika Baxter MD Primary Care Provider [phone] Reason for Referral * Evaluate & Treat - Unlimited Visits (Within 3 days (urgent)) - Authorized Specialty Diagnoses / Procedures Referred By Lee rush Referred To Contact Gastroenterology Diagnoses Rectal bleeding Ashleigh Pink MD [address] [place] [address] Referral ID Status Reason Start Date Expiration Date Visits Requested Visits Authorized [id number] Authorized Specialty Services Required 05/25/2024 999 999 Question Answer Referral Priority Within 3 days (urgent) Where should this appointment be scheduled? [facility] For what condition is the patient being referred? All Gastro Conditions Reason for Visit * Reason Comments Acute Patient is here toda y due to rectal bleeding. Patient had passed a "clot" a couple of weeks ago; patient hasn't been passing a lot of blood but its every time he has a bowel movement. Patient states he is still having regular bowel movements and the stool is dark, but no pain. Patient has dementia and isn't eating much, patient's states he is losing a lot of weight; patient was 270lb a couple of months ago and is now 227.9 lbPatient would like lab work done. Encounter Details Date Type Department Care Team ([facility] st Contact Info) Description 05/25/2024 3:40 PM EDT Office Visit [facility] [address] [place] [address] Ashleigh Pink MD [address] [place] [address] Rectal bleeding*; Loss of weight; History of colonoscopy; Dementia without behavioral disturbance (HCC); Chronic kidney disease, stage 3a (HCC); Chronic diastolic heart failure (HCC); Hypertensive kidney disease Allergies No known active allergiesdocumented as of this encounter (statuses as of 05/25/2024) Medications Medication Sig Dispensed Refills Start Date End Date Status ASPIRIN 81 MG PO TABS 1 TABLET DAILY 0 03/03/2007 Active VITAMIN B-12 1000 MCG SL SUBL 1 tab daily Active VITAMIN C 500 MG PO TABS 1 daily- unsure of mg dose 0 02/11/2010 Active [place]-3 Fatty Acids (FISH OIL) 1000 MG Capsule [...] 06/09/2023 Active Furosemide 20 MG Oral Tablet (Lasix)Indicatio ns:Peripheral edema Take 1 tablet by mouth one [...] NEEDED FOR PAIN 350 g 1 02/25/2024 5 Active Atorvastatin Calcium 80 MG Oral Tablet (Lipitor)Indicat ions:Dyslipidemi a, goal LDL below 70 TAKE ONE TABLET BY MOUTH EVERY DAY 100 Tablet 1 02/28/2024 5 Active Donepezil HCl 10 MG Oral Tablet (Aricept) TAKE ONE TABLET BY MOUTH ONCE DAILY WITH LARGEST MEAL OF THE DAY 100 Tablet 3 02/28/2024 5 Active Ferrous Sulfate 325 (65 Fe) MG Oral Tablet (Feosol) Take 1 tab by mouth per day. 180 Tablet 3 03/13/2024 Active Lisinopril 5 MG Oral Tablet (Prinivil)Indica tions:HTN, goal below 140/90,Atheroscl erosis of [place] coronary artery of [place] heart without angina pectoris Take 1 Tablet by mouth in the morning. 90 Tablet 1 05/13/2024 Active Empagliflozin 10 MG Oral Tablet Take 1 Tablet by mouth in the morning. 4 Discontinue d(Patient preference/ discontinua tion) documented as of this encounter (statuses as of 05/25/2024) Active Problems Problem Noted Date Diagnosed Date [...] GI bleed 04/29/2023 Anemia 04/29/2023 History of MO (myocardial infarction) 02/23/2023 Arteriosclerosis of both carotid [...] Bariatric surgery status 01/27/2007 Intestinal postoperative nonabsorption 7 Knee joint replacement status 05/31/2006 [facility] OTHER*[id number] 05/31/2006 HTN (hypertension) 03/11/2004 GENERAL OSTEOARTHROSIS 01/14/2004 documented as of this encounter (statuses as of 05/25/2024) Resolved Problems Problem Noted Date Diagnosed Date [...] as of this encounter (statuses as of 05/25/2024) Immunizations Name Administration Dates Next Due COVID-19 mRNA, LNP-s, No Pre serve, 2-Dose Series ([employer]) 09/22/2021,01/29/2021,01/08/2021 COVID-19, LNP-s, No Preserve , Geronimo-sucrose, Ages 12+ ([employer]) 05/04/2022 Covid-19, Mrna, Lnp-s, Pf, B ivalent, 30 Mcg, IM, 12 yrs and above ([employer]) 09/04/2022 H1N1 2009 Influenza, IM 11/02/2009 [...] on file documented as of this encounter Last Filed Vital Signs Vital Sign Reading Time Taken Comments Blood Pressure 110/60 05/25/2024 3:42 PM EDT Pulse 73 05/25/2024 3:42 PM EDT Temperature 37.3 C (99.2 F) 05/25/2024 3:42 PM ED T Respiratory Rate 16 05/25/2024 3:42 PM EDT Oxygen Saturation 94% 05/25/2024 3:42 PM EDT Inhaled Oxygen Concentration - - Weight 103.4 kg (227 lb 14.4 oz) 05/25/2024 3:42 PM EDT Height 172.7 cm (5' 8") 05/25/2024 3:42 PM EDT Body Mass Index 34.65 05/25/2024 3:42 PM EDT documented in this encounter Functional Status Functional Status Response [...] No 08/19/2017 documented as of this encounter Progress Notes * Ashleigh Pink MD - 05/25/2024 4:09 PM EDT Subjective Santo Maravilla is a 78 year old male. Chief Complaint Patient presents with Acute Patient is here today due to rectal bleeding. Patient had passed a "clot" a couple of weeks ago; patient hasn't been passing a lot of blood but its every time he has a bowel movement. Patient states he is still having regular bowel movements and the stool is dark, but no pain. Patient has dementia and isn't eating much, patient's states he is losing a lot of weight; patient was 270lb a couple of months ago and is now 227.9 lb Patient would like lab work done. HPI: Here for rectal bleeding, clot daily - more persistent per He has hx of GI bleeding, clot Last colonoscopy done in 2017 Pt has dementia, has been showing poor appetite But denies fever, abd pain, N/V Lost more than 50 pounds last 2 mo per record V/S stable , known anemia, usually take iron pill Known extensive CAD, atherosclerosis, hx of MO, taking asa CKD, stable on last blood test in february PMH: Patient Active Problem List Diagnosis GENERAL OSTEOARTHROSIS HTN (hypertension) Knee joint replacement status Intestinal postoperative nonabsorption Bariatric surgery status Vitamin deficiency Chronic diastolic heart failure (HCC) HLD (hyperlipidemia) [facility] OTHER*[id number] Osteoarthritis of ankle Atherosclerosis of coronary artery Dementia without behavioral disturbance ([facility]) Mild carotid artery disease ([facility]) ASCVD (arteriosclerotic cardiovascular disease) Arteriosclerosis of both carotid arteries GERD without esophagitis History of MO (myocardial infarction) Mixed Alzheimer's and vascular dementia ([facility]) History of colonoscopy S/P cholecystectomy History of cardiac catheterization History of biliary T-tube placement History of biliary T-tube placement History of knee surgery Hx of CABG Posterior tibial tendon dysfunction (PTTD) of right lower extremity Phimosis Palpitations with regular cardiac rhythm GI bleed Anemia Body mass index (BMI) of 40.0 to 44.9 in adult ([facility]) Chronic kidney disease, stage 3a ([facility]) SVT (supraventricular tachycardia) ([facility]) Hypertensive kidney disease Current Outpatient Medications Medication Sig Dispense Refill ASPIRIN 81 MG PO TABS 1 TABLET DAILY 0 VITAMIN B-12 1000 MCG SL SUBL 1 tab daily VITAMIN C 500 MG PO TABS 1 daily- unsure of mg dose 0 [place]-3 Fatty Acids (FISH OIL) 1000 MG Capsule Take 1 Capsule by mouth in the morning. Vitamin D 25 MCG (1000 UT) Oral Tablet Take by mouth. oxygen IN GAS Use 2 L/min(Oxygen) as directed at bedtime. Metoprolol Succinate ER 50 MG Oral Tablet Extended Release 24 Hour (toPROL XL) Take 1.5 Tablets by mouth in the morning. 150 Tablet 3 Furosemide 20 MG Oral Tablet (Lasix) Take 1 tablet by mouth one day alternating with 2 tablets by mouth the next day. 135 Tablet 3 Famotidine 20 MG Oral Tablet (Pepcid) TAKE ONE TABLET BY MOUTH EVERY MORNING AND TAKE ONE TABLET BEFORE BEDTIME 180 Tablet 2 Diclofenac Sodium 1 % External Gel (Voltaren) APPLY TOPICALLY TO LEFT SHOULDER FOUR TIMES A DAY NEEDED FOR PAIN 350 g 1 Atorvastatin Calcium 80 MG Oral Tablet (Lipitor) TAKE ONE TABLET BY MOUTH EVERY DAY 100 Tablet 1 Donepezil HCl 10 MG Oral Tablet (Aricept) TAKE ONE TABLET BY MOUTH ONCE DAILY WITH LARGEST MEAL OF THE DAY 100 Tablet 3 Ferrous Sulfate 325 (65 Fe) MG Oral Tablet (Feosol) Take 1 tab by mouth per day. 180 Tablet 3 Lisinopril 5 MG Oral Tablet (Prinivil) Take 1 Tablet by mouth in the morning. 90 Tablet 1 No current facility-administered medications for this visit. Past Medical History: Diagnosis Date Aortocoronary bypass status 03/11/2004 Bariatric surgery status 01/27/2007 Chronic diastolic heart failure (HCC) 08/22/2009 Per Heart Failure Taxonomy Protocol. CORONARY ATHEROSCLEROSIS VESSEL NOS 07/02/2005 Dyslipidemia, goal LDL below 70 03/06/2010 Generalized osteoarthritis [place] (hard of hearing) HTN, goal below 140/90 03/11/2004 INTEST POSTOP NONABSORB 01/25/2007 OBESITY, BMI 40 AND OVER 01/21/2010 Per Obesity Taxonomy Obstructive sleep apnea Intolerant to CPAP VITAMIN DEFICIENCY NOS 09/01/2007 Past Surgical History: Procedure Laterality Date ABDOMEN SURGERY PROCEDURE NEC 1993 panus ADJUNCT TISSUE TRANS,<10SQCM TRUNK N/A 08/19/2017 ADJACENT TISSUE TRANSFER TRUNK LESS THAN 10SQ CM performed by Dev Powell MD at [facility] ARTHROPLASTY KNEE TOTAL 11/25 Right TKR (Total Knee Replacement) ARTHROPLASTY KNEE TOTAL 1998 Left TKR BYPASS GRAFT ANGIOGRAPHY W/LEFT HEART CATH 12/24/2015 BYPASS GRAFT ANGIOGRAPHY W/LEFT HEART CATH performed by Robby Wagner MD at [facility] COLONOSCOPY, DIAGNOSTIC (RECTUM) 01/06/2017 COLONOSCOPY, DIAGNOSTIC (RECTUM) 01/06/2017 TA polyp/[facility] COLONOSCOPY, DIAGNOSTIC (RECTUM) 03/18/2017 clot in acsending colon/[facility] CORONARY ARTERIES BYPASS, FOUR CYSTOSCOPY/TREATMENT OF STRICTURE N/A 04/07/2017 CYSTOURETHROSCOPY WITH CALIBRATION OR DILATION STRICTURE performed by Sharad Merchant MD at [facility] EGD, FLEXIBLE, DIAGNOSTIC 12/31/06 UPPER GI ENDOSCOPY DIAGNOSTIC performed by SHEREE BORRERO at [facility] EGD, FLEXIBLE, DIAGNOSTIC 06/10/07 UPPER GI ENDOSCOPY DIAGNOSTIC performed by SHEREE BORRERO at [facility] EGD, FLEXIBLE, DIAGNOSTIC 01/05/2017 bleeding @ [facility] EGD, FLEXIBLE, DIAGNOSTIC 03/17/2017 reflux esophagitis/[facility] EX OF EXCES SKIN,ABDOM 04/03/09 EXCISION,EXCESSIVE SKIN AND SUBCUTANEOUS TISSUE INCLUDING LIPECTOMY ABDOMEN ABDOMINOPLASTY performed by TANA RAYMOND at [facility] EXCISION EXCES SKIN,PANNICULECTOMY,INFRAUMB 04/03/09 EXCISION EXCESSIVE SKIN AND SUBCUTANEOUS TISSUE INCLUDIING LIPECTOMY ABDOMEN INFRAUMBILICAL PANNICULECTOMY performed by TANA RAYMOND at [place] [facility] INFORMATION Bilateral 08/05/16 bilateral panniculectomy, phimosis LAPAROSCOPIC GASTRIC BYPASS/KILO-EN-Y 12/31/06 LAPAROSCOPIC GASTRIC RESTRICTIVE BYPASS KILO EN Y performed by SHEREE BORRERO at [facility] LAPAROSCOPY; CHOLECYSTECTOMY 12/31/06 LAPAROSCOPIC CHOLECYSTECTOMY performed by SHEREE BORRERO at [place] [facility] REMOVE EXCESSIVE SKIN/TISSUE, HIP 04/03/09 EXCISION EXCESSIVE SKIN AND SUBCUTANEOUS TISSUE HIP performed by TANA RAYMOND at [place] [facility] REVISE PENIS FOR CHORDEE/HYPOSPADIA N/A 04/07/2017 PLASTIC OPERATION FOR CORRECTION CHORDEE performed by Sharad Merchant MD at [place] [facility] RMV LESN,SCALP/NCK/EXT <=.5CM N/A 09/30/2018 EXCISION EXCEPT SKIN TAG SCALP NECK HANDS FEET GENITALIA LESS THAN 0.5 performed by Vic Vargas [place] [facility] SKIN SPLIT GRAFT, FACE/NECK/EARS N/A 08/19/2017 SPLIT GRAFT FACE SCALP ETC LESS THAN 100SQ CM performed by Dev Powell MD at [place] [facility] SLITTING OF PREPUCE N/A 04/07/2017 SLITTING PREPUCE DORSAL OR LATERAL PENIS EXCEPT performed by Sharad Merchant MD at [place] [facility] TISSUE TRANS,=/<10SQCM FACE/HANDS/FEET N/A 08/19/2017 ADJACENT TISSUE TRANSFER FOREHEAD CHEEK CHIN HANDS/FEET LESS THAN 10CM performed by Vic Vargas [place] [facility] TISSUE TRANSFER, LARGE/COMPLICATED 04/03/09 ADJACENT TISSUE TRANSFER 30 PLUS SQ CM UNUSUAL performed by TANA RAYMOND at [facility] WEDGE BIOPSY OF LIVER 12/31/06 BIOPSY OF LIVER WEDGE performed by SHEREE BORRERO at [place] [facility] Review of patient's allergies indicates: No Known Allergies Family History Problem Relation Name Age of Onset Cancer Father liver Cancer Brother asbestos related lung ca Heart Disorder Brother Hypertension Father Hypertension Mother Stroke Mother Thyroid Disorder Father Family Status Relation Status Fa (Not Specified) Bro (Not Specified) Bro (Not Specified) Mo (Not Specified) Social History Socioeconomic History Marital status: Spouse name: Not on file Number of children: Not on file Years of education: Not on file Highest education level: Not on file Occupational History Not on file Tobacco Use Smoking status: Former Current packs/day: 0.50 Average packs/day: 0.5 packs/day for 10.0 years (5.0 ttl pk-yrs) Types: Cigarettes Smokeless tobacco: Former Types: Chew Tobacco comments: quit smoking 1977 Vaping Use Vaping status: Never Used Substance and Sexual Activity Alcohol use: Not Currently Comment: a glass of wine occasional Drug use: No Sexual activity: Not on file Other Topics Concern Not on file Social History Narrative LABS: 12/26 chol 188 327 30 93 glu 122 Social Determinants of Health Financial Resource Strain: Not on file Food Insecurity: No Food Insecurity (07/07/2019) Hunger Vital Sign Worried About Running Out of Food in the Last Year: Never true Ran Out of Food in the Last Year: Never true Transportation Needs: Not on file Social Connections: Unknown (04/11/2024) Social Connections How often do you feel lonely or isolated from those around you? (Adult - for ages 18 years and over): Not on file Housing Stability: Not on file Review of Systems Constitutional: Positive for activity change, appetite change, fatigue and unexpected weight change(weight loss). Negative for chills, diaphoresis and fever. Eyes: Negative for visual disturbance. Respiratory: Negative. Negative for shortness of breath. Cardiovascular: Positive for leg swelling. Negative for chest pain. Gastrointestinal: Positive for anal bleeding (clot) and blood in stool. Negative for abdominal distention, abdominal pain, constipation, diarrhea, nausea, rectal pain and vomiting. Endocrine: Negative. Genitourinary: Negative for hematuria. Musculoskeletal: Positive for arthralgias and gait problem. Neurological: Positive for weakness (general). Negative for dizziness (occ but not currently) and light-headedness. Psychiatric/Behavioral: Positive for confusion. Negative for agitation and behavioral problems. Dementia Objective BP 110/60 | Pulse 73 | Temp 37.3 C (99.2 F) (Tympanic) | Resp 16 | Ht 1.727 m (5' 8") | Wt 103.4 kg (227 lb 14.4 oz) | SpO2 94% | BMI 34.65 kg/m | BSA 2.23 m Physical Exam Constitutional: General: He is not in acute distress. Appearance: Normal appearance. He is obese. He is not ill-appearing, toxic- appearing or diaphoretic. HENT: Head: Normocephalic and atraumatic. Nose: Nose normal. Eyes: Extraocular Movements: Extraocular movements intact. Cardiovascular: Rate and Rhythm: Normal rate and regular rhythm. Pulses: Normal pulses. Heart sounds: Normal heart sounds. Pulmonary: Effort: Pulmonary effort is normal. No respiratory distress. Breath sounds: No stridor. No wheezing, rhonchi or rales. Chest: Chest wall: No tenderness. Abdominal: General: There is no distension. Palpations: Abdomen is soft. Tenderness: There is no abdominal tenderness. Musculoskeletal: General: Tenderness present. Cervical back: Normal range of motion. Neurological: General: No focal deficit present. Mental Status: He is alert and oriented to person, place, and time. Psychiatric: Behavior: Behavior normal. ASSESSMENT/PLAN: Rectal bleeding (Primary) - CBC WITH WBC DIFFERENTIAL AND ANEMIA REFLEX WORKUP; Future; Expected date: 05/25/2024 - ADULT GASTROENTEROLOGY REFERRAL OP Loss of weight History of colonoscopy Dementia without behavioral disturbance (HCC) Chronic kidney disease, stage 3a (HCC) Chronic diastolic heart failure (HCC) Hypertensive kidney disease F/u all the blood tests If rectal bleeding, clot is getting worse ,should go to ER Cont current meds including asa for now F/uw with GI Ashleigh Pink MD documented in this encounter Nursing Notes * Pamela Taylor MED ASSIST - 05/25/2024 3:47 PM EDT The patient has been properly identified by confirmation of name and date of . Chief Complaint Patient presents with Acute Patient is here today due to rectal bleeding. Patient had passed a "clot" a couple of weeks ago; patient hasn't been passing a lot of blood but its every time he has a bowel movement. Patient states he is still having regular bowel movements and the stool is dark, but no pain. Patient has dementia and isn't eating much, patient's states he is losing a lot of weight; patient was 270lb a couple of months ago and is now 227.9 lb Patient would like lab work done. documented in this encounter Plan of Treatment Upcoming Encounters Date Type Department Care Team (Late st Contact Info) Description 07/10/2024 1:00 PM EDT Office Visit Gastroenterology, [facility] [address] [place] [address] Lisbeth Castro CRNP [address] [place] [address] 10/10/2024 1:20 PM EST Office Visit [facility] [address] [facility] [address] Mika Baxter MD [address] [place] [address] Pending Results Name Type Priority Associated Diagnoses Date /Time CBC WITH WBC DIFFERENTIAL AND ANEMIA REFLEX WORKUP Lab Routine Rectal bleeding 05/25/2024 4:23 PM EDT Scheduled Orders Name Type Priority Associated Diagnoses Orde r Schedule CBC WITH WBC DIFFERENTIAL AND ANEMIA REFLEX WORKUP Lab Routine Rectal bleeding Expected: 05/25/2024 (Approximate), Expires: 05/25/2025 Scheduled Referrals Name Type Priority Associated Diagnoses Order Schedule ADULT GASTROENTEROLOGY REFERRAL OP Referral Within 3 days (urgent) Rectal bleeding Ordered: 05/25/2024 Health Maintenance Due Date Last Done Comments CKD PHOS USE SMARTSET 46756 1963 Hepatitis C Screening 1963 Zoster Vaccines (2 of 3) 02/28/2016 01/03/2016 DTaP,Tdap,and Td Vaccines (2 - Td or Tdap) 02/01/2017 02/01/2007 Depression Screening 07/07/2020 07/07/2019 COVID-19 Vaccine ( season) 2024 09/18/2023, 09/04/2022, 05/04/2022, Additional history exists Influenza Vaccine (FLU shot) (#1) 2024 07/15/2023, 09/04/2022, 07/07/2019, Additional history exists GFR 08/25/2024 02/23/2024, 04/25, 05/13/2023, Additional history exists Albumin/Creatinine Ratio 02/22/2025 024, 04/07/2023, 12/18/2004 CKD HGB USE SMARTSET 00818 02/22/202502/22, 04/07/2023, 06/17/2021, Additional history exists Pneumococcal Vaccine: 65+ Years [...] as of this encounter Visit Diagnoses Diagnosis Rectal bleeding- Primary Hemorrhage of rectum and anus Loss of weight History of colonoscopy Other postprocedural status Dementia without behavioral disturbance (HCC) Dementia, unspecified, without behavioral disturbance Chronic kidney disease, stage 3a (HCC) Chronic diastolic heart failure (HCC) Chronic diastolic heart failure Hypertensive kidney disease Unspecified hypertensive kidney disease with chronic kidney disease stage I through stage IV, or unspecified documented in this encounter Advance Directives * [...] and were consensually agreed upon. Care Teams Gas Dispenser Relationship Specialty Start Date End Date Mika Baxter MD [address] [place] [address] PCP - General Family Medicine 02/22/18 documented as of this encounter
--- OUTSIDE RECORDS SUMMARY | 2024-06-02 18:37 | External Medical Summary ---
Author Name Unknown Address Unknown Organization [id number]:[facility] [place] [address] [place] [address] Laboratory Report Ordering Provider Test Date Status WESTON CARRILLO 05/25/2024 16:23:33 Final Observation Date Value Abnormality Reference (Units ) Status Retic, % (auto) 05/25/2024 16:23:33 1.07 0.80-1.90 (%) Final Reticulocytes, Absolute 05/25/2024 16:23:33 42.1 31.3-100.1 (K/uL) Final Reticulocyte fraction, immature 05/25/2024 16:23:33 8.8 2.5-20.6 (%) Final Reticulocyte HGB 05/25/2024 16:23:33 30.5 29.7-37.4 (pg) Final Performing Location [facility] [place] [address] [place] [address]
--- OUTSIDE RECORDS SUMMARY | 2024-06-02 18:37 | External Medical Summary | Summary of Care ---
Author Name Unknown Organization [facility] Address [address] [place] [address] Phone [phone] Care Team Providers Care Senior Principal Architect Name Role Phone Mitali Nguyen MD Primary Care Provider +1- [phone] Reason for Visit * Reason Comments Medication Refill Encounter Details Date Type Department Care Team (Late st Contact Info) Description 05/13/2024 Refill [facility] [address] [place] [address] Mitali Nguyen MD [address] [place] [address] HTN, goal below 140/90; Atherosclerosis of [place] coronary artery of [place] heart without angina pectoris Allergies No known active allergiesdocumented as of this encounter (statuses as of 05/13/2024) Medications Medication Sig Dispensed Refills Start Date End Date Status ASPIRIN 81 MG PO TABS 1 TABLET DAILY 0 03/03/2007 Active VITAMIN B-12 1000 MCG SL SUBL 1 tab daily Active VITAMIN C 500 MG PO TABS 1 daily- unsure of mg dose 0 02/11/2010 Active [place]-3 Fatty Acids (FISH OIL) 1000 MG Capsule Take 1 Capsule by mouth in the morning. Active Empagliflozin 10 MG Oral Tablet Take 1 Tablet by mouth in the morning. Active Vitamin [...] (Prinivil)Indica tions:HTN, goal below 140/90,Atheroscl erosis of [place] coronary artery of [place] heart without angina pectoris Take 1 Tablet by mouth in the morning. 90 Tablet 1 05/13/2024 Active Lisinopril 5 MG Oral Tablet (Prinivil)Indica tions:HTN, goal below 140/90,Atheroscl erosis of [place] coronary artery of [place] heart without angina pectoris Take 1 Tablet by mouth in the morning. 90 Tablet 1 11/21/2023 4 Discontinue d(Refill) documented as of this encounter (statuses as of 05/13/2024) Active Problems Problem Noted Date Diagnosed Date SVT (supraventricular tachycardia) 03/13/2024 Chronic kidney disease, [...] of right lower extremity 04/29/2023 Phimosis 04/29/2023 Osteoarthritis 04/29/2023 Palpitations with regular cardiac rhythm 023 GI bleed 04/29/2023 Anemia 04/29/2023 Obesity 02/23/2023 History of [place] (myocardial infarction) 02/23/2023 Arteriosclerosis of both carotid arteries 2021 GERD without esophagitis 12/15/2021 Mild carotid artery disease 11/20/2019 ASCVD (arteriosclerotic cardiovascular disease) 11/20/2019 CHF (congestive heart failure) 05/15/2019 Dementia without behavioral disturbance 05/15/20 19 Overview: ICD-10 update of inactive term Atherosclerosis of coronary artery 08/06/2015 Osteoarthritis of ankle 12/10/2010 HLD (hyperlipidemia) 03/06/2010 Chronic diastolic heart failure 08/22/2009 Overview: Per Heart Failure Taxonomy Protocol. 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 05/15/2019 Obesity, morbid (more [...] as of this encounter (statuses as of 05/13/2024) Immunizations Name Administration Dates Next Due COVID-19 mRNA, LNP-s, No Pre serve, 2-Dose Series ([employer]) 09/22/2021,01/29/2021,01/08/2021 COVID-19, LNP-s, No Preserve , [place]eronimo-sucrose, Ages 12+ (Pfizer) 05/04/2022 Covid-19, Mrna, Lnp-s, Pf, B ivalent, 30 Mcg, IM, 12 yrs and above ([employer]) 09/04/2022 H1N1 2009 Influenza, IM 11/02/2009 Pneumococcal [...] encounter Miscellaneous Notes * Telephone Encounter - Mandeep Lewis RPh - 05/13/2024 7:40 AM EDTSigned Prescriptions: Disp Refills Lisinopril 5 MG Oral Tablet (Prinivil) 90 Tab*1 Sig: Take 1 Tablet by mouth in the morning.Authorizing Provider: MITALI NGUYEN User: MANDEEP LEWIS documented in this encounter Plan of Treatment Upcoming Encounters Date Type Department Care Team (Late st Contact Info) Description 10/10/2024 1:20 PM EST Office Visit [address] [place] [address] Mitali Nguyen MD [address] [place] [address] Health Maintenance Due Date Last Done Comments CKD PHOS USE SMARTSET 83284 1963 Hepatitis C Screening 1963 Zoster Vaccines [...] 024, 04/07/2023, 12/18/2004 CKD HGB USE SMARTSET 76493 02/22/202502/22, 04/07/2023, 06/17/2021, Additional history exists Pneumococcal [...] as of this encounter Visit Diagnoses Diagnosis HTN, goal below 140/90 Unspecified essential hypertension Atherosclerosis of [place] coronary artery of [place] heart without angina pectoris documented in this encounter Advance Directives * [...] and were consensually agreed upon. Care Teams Senior Principal Architect Relationship Specialty Start Date End Date Mitali Nguyen MD [address] [place] [address] PCP - General Family Medicine 02/22/18 documented as of this encounter
--- OUTSIDE RECORDS SUMMARY | 2024-06-02 18:37 | External Medical Summary | Summary of Care ---
Author Name Unknown Organization [facility] Address [address] [place] [address] Phone [phone] Care Team Providers Care Ticket Counter Name Role Phone Mika Baxter MD Primary Care Provider +1- [phone] Encounter Details Date Type Department Care Team (Late st Contact Info) Description 05/26/2024 Telephone [facility] [address] [place] [address] Ashleigh Pink MD [address] [place] [address] Allergies No known active allergiesdocumented as of this encounter (statuses as of 05/26/2024) Medications Medication Sig Dispensed Refills Start Date End Date Status ASPIRIN 81 MG PO TABS 1 TABLET DAILY 0 03/03/2007 Active VITAMIN B-12 1000 MCG SL SUBL 1 tab daily Active VITAMIN C 500 MG PO TABS 1 daily- unsure of mg dose 0 02/11/2010 Active [place]-3 Fatty Acids (FISH OIL) 1000 MG Capsule [...] (Prinivil)Indicat ions:HTN, goal below 140/90,Atheroscle rosis of [place] coronary artery of [place] heart without angina pectoris Take 1 Tablet by mouth in the morning. 90 Tablet 1 05/13/2024 Active documented as of this encounter (statuses as of 05/26/2024) Active Problems Problem Noted Date Diagnosed Date [...] GI bleed 04/29/2023 Anemia 04/29/2023 History of [place] (myocardial infarction) 02/23/2023 Arteriosclerosis of both carotid [...] Knee joint replacement status 05/31/2006 SCOTT RESEARCH OTHER*[id number] 05/31/2006 HTN (hypertension) 03/11/2004 GENERAL OSTEOARTHROSIS 01/14/2004 documented as of this encounter (statuses as of 05/26/2024) Resolved Problems Problem Noted Date Diagnosed Date [...] as of this encounter (statuses as of 05/26/2024) Immunizations Name Administration Dates Next Due COVID-19 mRNA, LNP-s, No Pre serve, 2-Dose Series ([employer]) 09/22/2021,01/29/2021,01/08/2021 COVID-19, LNP-s, No Preserve , Geronimo-sucrose, Ages 12+ (Pfizer) 05/04/2022 Covid-19, Mrna, Lnp-s, Pf, B ivalent, 30 Mcg, IM, 12 yrs and above ([employer]) 09/04/2022 H1N1 2009 Influenza, IM 11/02/2009 Pneumococcal [...] encounter Miscellaneous Notes * Telephone Encounter - Ashleigh Pink MD [...] Office Visit Gastroenterology, [facility] [address] [place] [address] Lisbeth Castro CRNP [address] [place] [address] 10/10/2024 1:20 PM EST Office Visit [facility] [address] [facility] [id number] Mika Baxter MD [address] [place], [place] [id number] Health Maintenance Due Date Last Done Comments CKD PHOS USE SMARTSET 35874 1963 Hepatitis C Screening 1963 Zoster Vaccines [...] 024, 04/07/2023, 12/18/2004 CKD HGB USE SMARTSET 17113 05/25/202505/25, 05/25/2024, 02/23/2024, Additional history exists Pneumococcal [...] and were consensually agreed upon. Care Teams Ticket Counter Relationship Specialty Start Date End Date Mika Baxter MD [address] [facility] [place] [id number] PCP - General Family Medicine 02/22/18 documented as of this encounter
--- OUTSIDE RECORDS SUMMARY | 2024-06-02 18:37 | External Medical Summary | Summary of Care ---
Author Name Unknown Organization [facility] Address [address] [place] [address] Phone [phone] Care Team Providers Care Fur Sorter Name Role Phone Mika Baxter MD Primary Care Provider +1- [phone] Reason for Visit * Reason Comments Outpatient Testing Encounter Details Date Type Department Care Team (Late st Contact Info) Description 05/25/2024 3:00 PM EDT Laboratory Laboratory, [facility] [address] [place] [address] [facility] [address] [place] [address] Type 2 diabetes mellitus with hemoglobin A1c goal of less than 7.0% ([facility]); Iron deficiency anemia, unspecified iron deficiency anemia type; Rectal bleeding Allergies No known active allergiesdocumented as of this encounter (statuses as of 05/25/2024) Medications Medication Sig Dispensed Refills Start Date End Date Status ASPIRIN 81 MG PO TABS 1 TABLET DAILY 0 03/03/2007 Active VITAMIN B-12 1000 MCG SL SUBL 1 tab daily Active VITAMIN C 500 MG PO TABS 1 daily- unsure of mg dose 0 02/11/2010 Active [place]-3 Fatty Acids (FISH OIL) 1000 MG Capsule [...] (Prinivil)Indicat ions:HTN, goal below 140/90,Atheroscle rosis of [place] coronary artery of [place] heart without angina pectoris Take 1 Tablet [...] GI bleed 04/29/2023 Anemia 04/29/2023 History of [place] (myocardial infarction) 02/23/2023 Arteriosclerosis of both carotid [...] Knee joint replacement status 05/31/2006 SCOTT RESEARCH OTHER*[id number] 05/31/2006 HTN (hypertension) 03/11/2004 GENERAL OSTEOARTHROSIS 01/14/2004 [...] mRNA, LNP-s, No Pre serve, 2-Dose Series ([employer]) 09/22/2021,01/29/2021,01/08/2021 COVID-19, LNP-s, No Preserve , Geronimo-sucrose, Ages 12+ (Pfizer) 05/04/2022 Covid-19, Mrna, Lnp-s, Pf, B ivalent, 30 Mcg, IM, 12 yrs and above ([employer]) 09/04/2022 H1N1 2009 Influenza, IM 11/02/2009 Pneumococcal [...] No 08/19/2017 documented as of this encounter Plan of Treatment Upcoming Encounters Date Type Department Care Team (Late st Contact Info) Description 07/10/2024 1:00 PM EDT Office Visit Gastroenterology, [facility] [address] [place] [address] Lisbeth Castro CRNP [address] [place] [address] 10/10/2024 1:20 PM EST Office Visit [facility] [address] [facility] [address] Mika Baxter MD [address] [place] [address] Pending Results Name Type Priority Associated Diagnoses Date /Time HEMOGLOBIN A1C Lab Routine Type 2 diabetes mellitus with hemoglobin A1c goal of less than 7.0% ([facility]) 05/25/2024 4:23 PM EDT BASIC METABOLIC PANEL Lab Routine Type 2 diabetes mellitus with hemoglobin A1c goal of less than 7.0% ([facility]) 05/25/2024 4:23 PM EDT FERRITIN Lab Routine Iron deficiency anemia, unspecified iron deficiency anemia type 05/25/2024 4:23 PM EDT CBC WITH WBC DIFFERENTIAL AND ANEMIA REFLEX WORKUP Lab Routine Rectal bleeding 05/25/2024 4:23 PM EDT ANEMIA CBC Lab Routine Rectal bleeding 05/25/2024 4:23 PM EDT DIFFERENTIAL, AUTOMATED Lab Routine Rectal bleeding 05/25/2024 4:23 PM EDT ANEMIA REFLEX CHEMISTRY HOLD Lab Routine Rectal bleeding 05/25/2024 4:23 PM EDT Health Maintenance Due Date Last Done Comments CKD PHOS USE SMARTSET 14427 1963 Hepatitis C Screening 1963 Zoster Vaccines [...] 024, 04/07/2023, 12/18/2004 CKD HGB USE SMARTSET 44842 02/22/202502/22, 04/07/2023, 06/17/2021, Additional history exists Pneumococcal [...] as of this encounter Visit Diagnoses Diagnosis Type 2 diabetes mellitus with hemoglobin A1c goal of less than 7.0% (HCC) Iron deficiency anemia, unspecified iron deficiency anemia type Rectal bleeding Hemorrhage of rectum and anus documented in this encounter Advance Directives * [...] and were consensually agreed upon. Care Teams Fur Sorter Relationship Specialty Start Date End Date Mika Baxter MD [address] [place] [address] PCP - General Family Medicine 02/22/18 documented as of this encounter
--- OUTSIDE RECORDS SUMMARY | 2024-06-02 18:37 | External Medical Summary | Summary of Care ---
Author Name Unknown Organization [facility] Address [address] [place] [address] Phone [phone] Care Team Providers Care Damage Inside Adjuster Name Role Phone Mika Baxter MD Primary Care Provider +1- [phone] Reason for Referral * Ancillary Services (Within 10 days (routine)) - Authorized Specialty Diagnoses / Procedures Referred By Contac t Referred To Contact Gastroenterology Diagnoses Blood clots in stool Iron deficiency anemia, unspecified iron deficiency anemia type Ashleigh Pink MD [address] [place] [address] Referral ID Status Reason Start Date Expiration Date Visits Requested Visits Authorized [id number] Authorized Ancillary Services Required 05/29/[phone] Question Answer Referral Priority Within 10 days (routine) Where should this appointment be scheduled? [facility] Comments ALERT: Do not order for pediatric patients (18 years or younger). Cancel off screen and order PEDS GASTROENTEROLOGY CONSULT (Type: 1 visit only-Evaluate and Treat) The following Pt. Instructions are available: - Gastro Colonoscopy Prep Instructions [[id number]] - Gastro Colonoscopy Prep Instructions (Salvadorean Version) [[id number]] Go to the Pt. Instructions section within [...] anemia type Ashleigh Pink MD [address] [place] [address] Referral ID Status Reason Start Date Expiration Date Visits Requested Visits Authorized [id number] Authorized Ancillary Services Required 05/29/[phone] Question Answer Referral Priority Within 10 days (routine) Where should this appointment be scheduled? [facility] Comments Upper Endoscopy ASGE Guidelines Melena ADDITIONAL INFORMATION 1. Is the patient on Coumadin? No 2. Is the patient on Pradaxa? No Encounter Details Date Type Department Care Team (Late st Contact Info) Description 05/26/2024 Telephone [facility] [address] [place] [address] Ashleigh Pink MD [address] [place] [address] Allergies No known active allergiesdocumented as of this encounter (statuses as of 05/29/2024) Medications Medication Sig Dispensed Refills Start Date End Date Status ASPIRIN 81 MG PO TABS 1 TABLET DAILY 0 03/03/2007 Active VITAMIN B-12 1000 MCG SL SUBL 1 tab daily Active VITAMIN C 500 MG PO TABS 1 daily- unsure of mg dose 0 02/11/2010 Active [place]-3 Fatty Acids (FISH OIL) 1000 MG Capsule [...] (Prinivil)Indicat ions:HTN, goal below 140/90,Atheroscle rosis of [place] coronary artery of [place] heart without angina pectoris Take 1 Tablet [...] GI bleed 04/29/2023 Anemia 04/29/2023 History of [place] (myocardial infarction) 02/23/2023 Arteriosclerosis of both carotid [...] Knee joint replacement status 05/31/2006 SCOTT RESEARCH OTHER*[id number] 05/31/2006 HTN (hypertension) 03/11/2004 GENERAL OSTEOARTHROSIS 01/14/2004 [...] mRNA, LNP-s, No Pre serve, 2-Dose Series ([employer]) 09/22/2021,01/29/2021,01/08/2021 COVID-19, LNP-s, No Preserve , Geronimo-sucrose, Ages 12+ (Pfizer) 05/04/2022 Covid-19, Mrna, Lnp-s, Pf, B ivalent, 30 Mcg, IM, 12 yrs and above ([employer]) 09/04/2022 H1N1 2009 Influenza, IM 11/02/2009 Pneumococcal [...] 07/10/2024 1:00 PM EDT Office Visit Gastroenterology, [facility] [address] [facility] [place] [address] Lisbeth Castro CRNP [address] [facility] [place] [address] 10/10/2024 1:20 PM EST Office Visit [facility] [address] [place] [address] Mika Baxter MD [address] [place] [address] Scheduled Orders Name Type Priority Associated Diagnoses [...] Last Done Comments CKD PHOS USE SMARTSET 61892 1963 Hepatitis C Screening 1963 Zoster Vaccines [...] 024, 04/07/2023, 12/18/2004 CKD HGB USE SMARTSET 54485 05/25/202505/25, 05/25/2024, 02/23/2024, Additional history exists Pneumococcal [...] and were consensually agreed upon. Care Teams Damage Inside Adjuster Relationship Specialty Start Date End Date Mika Baxter MD [address] [facility] [place] [address] PCP - General Family Medicine 02/22/18 documented as of this encounter
--- OUTSIDE RECORDS SUMMARY | 2024-06-02 18:37 | External Medical Summary | Summary of Care ---
Author Name Unknown Organization [facility] Address [address] [place] [address] Phone [phone] Care Team Providers Care Health Care Coordinator Name Role Phone Mika Baxter MD Primary Care Provider +1- [phone] Reason for Visit * Reason Onset Date Comments Med Request 03/29/2024 Encounter Details Date Type Department Care Team (Late st Contact Info) Description 03/29/2024 Telephone [facility] [address] [facility] [place] [address] Mika Baxter MD [address] [place] [address] Med Request Allergies No known active allergiesdocumented as of this encounter (statuses as of 03/29/2024) Medications Medication Sig Dispensed Refills Start Date End Date Status ASPIRIN 81 MG PO TABS 1 TABLET DAILY 0 03/03/2007 Active VITAMIN B-12 1000 MCG SL SUBL 1 tab daily Active VITAMIN C 500 MG PO TABS 1 daily- unsure of mg dose 0 02/11/2010 Active [place]-3 Fatty Acids (FISH OIL) 1000 MG Capsule [...] BEFORE BEDTIME 180 Tablet 2 09/20/2023 Active Lisinopril 5 MG Oral Tablet (Prinivil)Indicat ions:HTN, goal below 140/90,Atheroscle rosis of [place] coronary artery of [place] heart without angina pectoris Take 1 Tablet by mouth in the morning. 90 Tablet 1 11/21/2023 Active Diclofenac Sodium 1 % External Gel [...] per day. 180 Tablet 3 03/13/2024 Active documented as of this encounter (statuses as of 03/29/2024) Active Problems Problem Noted Date Diagnosed Date [...] 04/29/2023 Anemia 04/29/2023 Obesity 02/23/2023 History of [place] (myocardial infarction) 02/23/2023 Arteriosclerosis of both carotid [...] Knee joint replacement status 05/31/2006 SCOTT RESEARCH OTHER*[id number] 05/31/2006 HTN (hypertension) 03/11/2004 GENERAL OSTEOARTHROSIS 01/14/2004 documented as of this encounter (statuses as of 03/29/2024) Resolved Problems Problem Noted Date Diagnosed Date [...] as of this encounter (statuses as of 03/29/2024) Immunizations Name Administration Dates Next Due COVID-19 mRNA, LNP-s, No Pre serve, 2-Dose Series ([employer]) 09/22/2021,01/29/2021,01/08/2021 COVID-19, LNP-s, No Preserve , Geronimo-sucrose, Ages 12+ (Pfizer) 05/04/2022 Covid-19, Mrna, Lnp-s, Pf, B ivalent, 30 Mcg, IM, 12 yrs and above ([employer]) 09/04/2022 H1N1 2009 Influenza, IM 11/02/2009 Pneumococcal [...] in the Last Year Never true 07/07/2019 Sex and Gender Information Value Date Recorded [...] encounter Miscellaneous Notes * Telephone Encounter - Karen Shannon PHARM Tech - 03/29/2024 10:24 AM EDT Pt calling to request Ferrous Sulfate 325 (65 Fe) MG Oral Tablet . Informed pt that RX is availableat their pharmacy. Pt verbalized understanding and stated they will check with their pharmacy regarding this medication. [facility] you, [facility] Department II [facility] documented in this encounter Plan of Treatment Upcoming Encounters Date Type Department Care Team (Late st Contact Info) Description 10/10/2024 1:20 PM EST Office Visit [facility] [address] [place] [address] Mika Baxter MD [address] [place] [address] Health Maintenance Due Date Last Done Comments CKD PHOS USE SMARTSET 46945 1963 Hepatitis C Screening 1963 Zoster Vaccines (2 of 3) 02/28/2016 01/03/2016 DTaP,Tdap,and Td Vaccines (2 - Td or Tdap) 02/01/2017 02/01/2007 Depression Screening 07/07/2020 07/07/2019 COVID-19 Vaccine ( season) 2024 09/18/2023, 09/04/2022, 05/04/2022, Additional history exists GFR 08/25/2024 02/23/2024, 04/25, 05/13/2023, Additional history exists Albumin/Creatinine Ratio 02/22/2025 024, 04/07/2023, 12/18/2004 CKD HGB USE SMARTSET 93860 02/22/202502/22, 04/07/2023, 06/17/2021, Additional history exists Pneumococcal Vaccine: 65+ Years Completed 05/15/2019, 01/06/2017, 08/06/2016, Additional history exists Influenza Vaccine (FLU shot) Completed , 09/04/2022, 07/07/2019, Additional history exists GARDASIL-HPV IMMUNIZATION SERIES Aged Out No longer eligible based on patient's age to complete this topic Hepatitis B Aged Out No longer eligi ble based on patient's age to complete this [...] and were consensually agreed upon. Care Teams Health Care Coordinator Relationship Specialty Start Date End Date Mika Baxter MD [address] [place] [address] PCP - General Family Medicine 02/22/18 documented as of this encounter
--- OUTSIDE RECORDS SUMMARY | 2024-06-02 18:37 | External Medical Summary ---
Author Name Unknown Address Unknown Organization [id number]:LABORATORY [facility] [place] - [address] [place] [address] Laboratory Report Ordering Provider Test Date Status WENDY JASMINE 05/25/2024 16:23:33 Final Observation Date Value Abnormality Reference (Units ) Status Ferritin 05/25/2024 16:23:33 378 30-400 (ng /mL) Final Performing Location LABORATORY [facility] - [address] [place] [address]
--- OUTSIDE RECORDS SUMMARY | 2024-06-02 18:37 | External Medical Summary ---
Author Name Unknown Address Unknown Organization K01[place] [place] [address] [place] [address] Laboratory Report Ordering Provider Test Date Status WESTON CARRILLO 05/25/2024 16:23:33 Final Observation Date Value Abnormality Reference (Units ) Status Iron 05/25/2024 16:23:33 22 Below low normal 45-176 (ug/dL) Final Iron-binding capacity 05/25/2024 16:23:33 247 Below low normal 250-425 (ug/dL) Final Transferrin Sat % 05/25/2024 16:23:33 9 Below low normal 15-55 (%) Final Performing Location [facility] [place] [address] [place] [address]
--- OUTSIDE RECORDS SUMMARY | 2024-06-02 18:37 | External Medical Summary | Summary of Care ---
Author Name Unknown Organization [facility] Address [address] [place] [place] [address] Phone [phone] Care Team Providers Care Gmat Tutor Name Role Phone Mika Baxter MD Primary Care Provider +1- [phone] Encounter Details Date Type Department Care Team (Late st Contact Info) Description 03/15/2024 Orders Only PATIENT PORTAL DO NOT DELETE THIS DEPT USED BY YE RAINES [id number] Allergies No known active allergiesdocumented as of this encounter (statuses as of 03/15/2024) Medications Medication Sig Dispensed Refills Start Date End Date Status ASPIRIN 81 MG PO TABS 1 TABLET DAILY 0 03/03/2007 Active VITAMIN B-12 1000 MCG SL SUBL 1 tab daily Active VITAMIN C 500 MG PO TABS 1 daily- unsure of mg dose 0 02/11/2010 Active [place]-3 Fatty Acids (FISH OIL) 1000 MG Capsule [...] (Prinivil)Indicat ions:HTN, goal below 140/90,Atheroscle rosis of [place] coronary artery of [place] heart without angina pectoris Take 1 Tablet [...] as of this encounter (statuses as of 03/15/2024) Active Problems Problem Noted Date Diagnosed Date [...] 04/29/2023 Anemia 04/29/2023 Obesity 02/23/2023 History of [place] (myocardial infarction) 02/23/2023 Arteriosclerosis of both carotid [...] Knee joint replacement status 05/31/2006 SCOTT RESEARCH OTHER*[id number] 05/31/2006 HTN (hypertension) 03/11/2004 GENERAL OSTEOARTHROSIS 01/14/2004 documented as of this encounter (statuses as of 03/15/2024) Resolved Problems Problem Noted Date Diagnosed Date [...] as of this encounter (statuses as of 03/15/2024) Immunizations Name Administration Dates Next Due COVID-19 mRNA, LNP-s, No Pre serve, 2-Dose Series ([employer]) 09/22/2021,01/29/2021,01/08/2021 COVID-19, LNP-s, No Preserve , Geronimo-sucrose, Ages 12+ ([employer]) 05/04/2022 Covid-19, Mrna, Lnp-s, Pf, B ivalent, 30 Mcg, IM, 12 yrs and above ([employer]) 09/04/2022 H1N1 2009 Influenza, IM 11/02/2009 Pneumococcal [...] t, High Dose, No Preserve, IM 09/04/2022 TDAP (age 11 and older)(Adacel) 02/01/2007 Varicella Zoster Vaccine (Adult) 01/03/2016 documented [...] Description 10/10/2024 1:20 PM EST Office Visit [place] [address] [place] [facility] [place] [address] Mika Baxter MD [address] [facility] [place] [address] Health Maintenance Due Date Last Done Comments CKD PHOS USE SMARTSET 98927 1963 Hepatitis C Screening 1963 Zoster Vaccines (2 of 3) 02/28/2016 01/03/2016 DTaP,Tdap,and Td Vaccines (2 - Td or Tdap) 02/01/2017 02/01/2007 Depression Screening 07/07/2020 07/07/2019 COVID-19 Vaccine ( season) 2024 09/18/2023, 09/04/2022, 05/04/2022, Additional history exists GFR 08/25/2024 02/23/2024, 04/25, 05/13/2023, Additional history exists Albumin/Creatinine Ratio 02/22/2025 024, 04/07/2023, 12/18/2004 CKD HGB USE SMARTSET 56488 02/22/202502/22, 04/07/2023, 06/17/2021, Additional history exists Pneumococcal [...] and were consensually agreed upon. Care Teams Gmat Tutor Relationship Specialty Start Date End Date Mika Baxter MD [address] [facility] [place] [address] PCP - General Family Medicine 02/22/18 documented as of this encounter
--- OUTSIDE RECORDS SUMMARY | 2024-06-02 18:37 | External Medical Summary ---
Author Name Unknown Address Unknown Organization K01:[facility] [place] [address] [facility] [place] [address] Laboratory Report Ordering Provider Test Date Status WESTON CARRILLO 05/25/2024 16:23:33 Final Observation Date Value Abnormality Reference (Units ) Status SYNC LEUKOCYTES IN BLOOD BY AUTOMATED COUNT 05/25/2024 16:23:33 12.47 Above high normal 4.00-10.80 (K/uL) Final Segs 05/25/2024 16:23:33 72.5 40.0-75.0 (%) Final Lymphs % 05/25/2024 16:23:33 11.9 Below low normal 18.0-42.0 (%) Final Monos 05/25/2024 16:23:33 12.2 Above high normal 1.0-11.0 (%) Final Eosinophils 05/25/2024 16:23:33 2.8 0.0-6.0 (%) Final Basos 05/25/2024 16:23:33 0.2 0.0-2.0 (%) Final Immature Granulocyte, Percent 05/25/2024 16:23:33 0.4 0.0-2.0 (%) Final Absolute Segs 05/25/2024 16:23:33 9.04 Above high normal 1.80-7.70 (K/uL) Final Lymphs, absolute 05/25/2024 16:23:33 1.49 1.00-4.80 (K/ul) Final Monos, Abs 05/25/2024 16:23:33 1.52 Above high normal 0.00-1.10 (K/uL) Final Eos, Abs 05/25/2024 16:23:33 0.35 0.00-0.70 (K/uL) Final Basos, Abs 05/25/2024 16:23:33 0.02 0.00-0.20 (K/uL) Final Immature Granulocytes, Number 05/25/2024 16:23:33 0.05 0.00-0.20 (K/uL) Final Performing Location [facility] [address]. [facility] [address]
--- OUTSIDE RECORDS SUMMARY | 2024-06-02 18:37 | External Medical Summary | Summary of Care ---
Author Name Unknown Organization [facility] Address [address] [place] [address] Phone [phone] Care Team Providers Care Junior Assistant Manager Name Role Phone Mika Baxter MD Primary Care Provider +1- [phone] Encounter Details Date Type Department Care Team (Late st Contact Info) Description 05/26/2024 Telephone [facility] [address] [place] [address] Ashleigh Pink MD [address] [place] [address] Allergies No known active allergiesdocumented as of this encounter (statuses as of 05/29/2024) Medications Medication Sig Dispensed Refills Start Date End Date Status ASPIRIN 81 MG PO TABS 1 TABLET DAILY 0 03/03/2007 Active VITAMIN B-12 1000 MCG SL SUBL 1 tab daily Active VITAMIN C 500 MG PO TABS 1 daily- unsure of mg dose 0 02/11/2010 Active [place]-3 Fatty Acids (FISH OIL) 1000 MG Capsule [...] (Prinivil)Indicat ions:HTN, goal below 140/90,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 Take 1 Tablet [...] GI bleed 04/29/2023 Anemia 04/29/2023 History of [place] (myocardial infarction) 02/23/2023 Arteriosclerosis of both carotid [...] Knee joint replacement status 05/31/2006 SCOTT RESEARCH OTHER*[id number] 05/31/2006 HTN (hypertension) 03/11/2004 GENERAL OSTEOARTHROSIS 01/14/2004 [...] mRNA, LNP-s, No Pre serve, 2-Dose Series ([employer]) 09/22/2021,01/29/2021,01/08/2021 COVID-19, LNP-s, No Preserve , Geronimo-sucrose, Ages 12+ ([employer]izer) 05/04/2022 Covid-19, Mrna, Lnp-s, Pf, B ivalent, 30 Mcg, IM, 12 yrs and above ([employer]) 09/04/2022 H1N1 2009 Influenza, IM 11/02/2009 Pneumococcal [...] encounter Miscellaneous Notes * Telephone Encounter - Olivia Lebron LPN - 05/29/2024 9:08 AM EDT Patient's EC Ikm aware and verbalized understanding. Reports that the [...] 07/10/2024 1:00 PM EDT Office Visit Gastroenterology, [facility] [address] [place] [address] Lisbeth Castro CRNP [address] [place] [address] 10/10/2024 1:20 PM EST Office Visit [facility] [address] [facility] [address] Mika Baxter MD [address] [place] [address] Health Maintenance Due Date Last Done Comments CKD PHOS USE SMARTSET 42842 1963 Hepatitis C Screening 1963 Zoster Vaccines [...] 024, 04/07/2023, 12/18/2004 CKD HGB USE SMARTSET 29177 05/25/202505/25, 05/25/2024, 02/23/2024, Additional history exists Pneumococcal [...] and were consensually agreed upon. Care Teams Junior Assistant Manager Relationship Specialty Start Date End Date Mika Baxter MD [address] [place] [address] PCP - General Family Medicine 02/22/18 documented as of this encounter
--- OUTSIDE RECORDS SUMMARY | 2024-06-02 18:37 | External Medical Summary | Summary of Care ---
Author Name Unknown Organization [facility] Address [address] [place] [address] Phone [phone] Care Team Providers Care Predator Control Trapper Name Role Phone Mika Baxter MD Primary Care Provider +1- [phone] Encounter Details Date Type Department Care Team (Late st Contact Info) Description 05/26/2024 Telephone [facility] [address] [place] [address] Ashleigh Pink MD [address] [place] [address] Allergies No known active allergiesdocumented as of this encounter (statuses as of 05/29/2024) Medications Medication Sig Dispensed Refills Start Date End Date Status ASPIRIN 81 MG PO TABS 1 TABLET DAILY 0 03/03/2007 Active VITAMIN B-12 1000 MCG SL SUBL 1 tab daily Active VITAMIN C 500 MG PO TABS 1 daily- unsure of mg dose 0 02/11/2010 Active [place]-3 Fatty Acids (FISH OIL) 1000 MG Capsule [...] (Prinivil)Indicat ions:HTN, goal below 140/90,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 Take 1 Tablet [...] GI bleed 04/29/2023 Anemia 04/29/2023 History of [place] (myocardial infarction) 02/23/2023 Arteriosclerosis of both carotid [...] Knee joint replacement status 05/31/2006 SCOTT RESEARCH OTHER*[id number] 05/31/2006 HTN (hypertension) 03/11/2004 GENERAL OSTEOARTHROSIS 01/14/2004 [...] mRNA, LNP-s, No Pre serve, 2-Dose Series ([employer]) 09/22/2021,01/29/2021,01/08/2021 COVID-19, LNP-s, No Preserve , Geronimo-sucrose, Ages 12+ (Pfizer) 05/04/2022 Covid-19, Mrna, Lnp-s, Pf, B ivalent, 30 Mcg, IM, 12 yrs and above ([employer]) 09/04/2022 H1N1 2009 Influenza, IM 11/02/2009 Pneumococcal [...] 07/10/2024 1:00 PM EDT Office Visit Gastroenterology, [facility] [address] [place] [address] Lisbeth Castro CRNP [address] [place] [address] 10/10/2024 1:20 PM EST Office Visit [facility] [address] [place] [address] Mika Baxter MD [address] [place], [place] [address] Health Maintenance Due Date Last Done Comments CKD PHOS USE SMARTSET 34945 1963 Hepatitis C Screening 1963 Zoster Vaccines [...] 024, 04/07/2023, 12/18/2004 CKD HGB USE SMARTSET 51719 05/25/202505/25, 05/25/2024, 02/23/2024, Additional history exists Pneumococcal [...] and were consensually agreed upon. Care Teams Predator Control Trapper Relationship Specialty Start Date End Date Mika Baxter MD [address] [place] [facility] [place] [address] PCP - General Family Medicine 02/22/18 documented as of this encounter
--- OUTSIDE RECORDS SUMMARY | 2024-06-02 18:37 | External Medical Summary | Summary of Care ---
Author Name Unknown Organization [facility] Address [address] [place] [address] Phone [phone] Care Team Providers Care Car Racer Name Role Phone Mika Baxter MD Primary Care Provider +1- [phone] Encounter Details Date Type Department Care Team (Late st Contact Info) Description 05/26/2024 Telephone [facility] [address] [place] [address] Ashleigh Pink MD [address] [place] [address] Allergies No known active allergiesdocumented as of this encounter (statuses as of 05/26/2024) Medications Medication Sig Dispensed Refills Start Date End Date Status ASPIRIN 81 MG PO TABS 1 TABLET DAILY 0 03/03/2007 Active VITAMIN B-12 1000 MCG SL SUBL 1 tab daily Active VITAMIN C 500 MG PO TABS 1 daily- unsure of mg dose 0 02/11/2010 Active [place]-3 Fatty Acids (FISH OIL) 1000 MG Capsule [...] (Prinivil)Indicat ions:HTN, goal below 140/90,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 Take 1 Tablet [...] Knee joint replacement status 05/31/2006 SCOTT RESEARCH OTHER*[id number] 05/31/2006 HTN (hypertension) 03/11/2004 GENERAL OSTEOARTHROSIS 01/14/2004 [...] mRNA, LNP-s, No Pre serve, 2-Dose Series ([employer]) 09/22/2021,01/29/2021,01/08/2021 COVID-19, LNP-s, No Preserve , Geronimo-sucrose, Ages 12+ (Pfizer) 05/04/2022 Covid-19, Mrna, Lnp-s, Pf, B ivalent, 30 Mcg, IM, 12 yrs and above ([employer]) 09/04/2022 H1N1 2009 Influenza, IM 11/02/2009 Pneumococcal [...] encounter Miscellaneous Notes * Telephone Encounter - Brandie Miller LPN [...] 07/10/2024 1:00 PM EDT Office Visit Gastroenterology, [facility] [address] [place] [address] Lisbeth Castro CRNP [address] [place] [address] 10/10/2024 1:20 PM EST Office Visit [facility] [address] [place] [address] Mika Baxter MD [address] [place], [place] [address] Health Maintenance Due Date Last Done Comments CKD PHOS USE SMARTSET 50254 1963 Hepatitis C Screening 1963 Zoster Vaccines (2 of 3) 02/28/2016 01/03/2016 DTaP,Tdap,and Td Vaccines (2 - Td or Tdap) 02/01/2017 02/01/2007 Depression Screening 07/07/2020 07/07/2019 COVID-19 Vaccine ( season) 2024 09/18/2023, 09/04/2022, 05/04/2022, Additional history exists Influenza Vaccine (FLU shot) (#1) 2024 07/15/2023, 09/04/2022, 07/07/2019, Additional history exists GFR 11/25/2024 05/25/2024, 05/10/2023, 05/21/2023, Additional history exists Albumin/Creatinine Ratio 02/22/2025 024, 04/07/2023, 12/18/2004 CKD HGB USE SMARTSET 62623 05/25/202505/25, 05/25/2024, 02/23/2024, Additional history exists Pneumococcal [...] and were consensually agreed upon. Care Teams Car Racer Relationship Specialty Start Date End Date Mika Baxter MD [address] [place] [address] PCP - General Family Medicine 02/22/18 documented as of this encounter
--- OUTSIDE RECORDS SUMMARY | 2024-06-02 18:37 | External Medical Summary ---
Author Name Unknown Address Unknown Organization K01:[facility] [place] [address] [facility] [facility] [address] Laboratory Report Ordering Provider Test Date Status WENDY JASMINE 05/25/2024 16:23:33 Final Observation Date Value Abnormality Reference (Units ) Status HbA1C 05/25/2024 16:23:33 6.2 Above high normal 4. 0-5.6 (%) Final The use of HbA1c to monitor glycemic status is based on normal hemoglobin and HbA composition. This test should not be used in patients with abnormal hemoglobin that affects the half life of the red blood cell or the in vivo glycation rates. Glucose, estimated average 05/25/2024 16:23:33 131 Above high normal <126 (mg/dL) Marcelo miller Performing Location [facility] [place] [address] [facility] [address]
--- OUTSIDE RECORDS SUMMARY | 2024-06-02 18:38 | External Medical Summary | Summary of Care ---
Author Name Unknown Organization [facility] Address [address] [place] [address] Phone [phone] Care Team Providers Care Shift Foreman Name Role Phone Mitali Nguyen MD Primary Care Provider +1- [phone] Reason for Visit * Reason Comments Medication Refill Encounter Details Date Type Department Care Team (Late st Contact Info) Description 02/27/2024 Refill [facility] [address] [place] [facility] [place] [facility] [place] [address] Lissett Saha PA-C [address] [place] [address] Dyslipidemia, goal LDL below 70 Allergies No known active allergiesdocumented as of this encounter (statuses as of 02/28/2024) Medications Medication Sig Dispensed Refills Start Date End Date Status ASPIRIN 81 MG PO TABS 1 TABLET DAILY 0 03/03/2007 Active VITAMIN B-12 1000 MCG SL SUBL 1 tab daily 0 Active VITAMIN C 500 MG PO TABS 1 daily- unsure of mg dose 0 02/11/2010 Active [place]-3 Fatty Acids (FISH OIL) 1000 MG Capsule Take 1 Capsule by mouth in the morning. 0 Active Empagliflozin 10 MG Oral Tablet Take 1 Tablet by mouth in the morning. 0 Active Vitamin D 25 MCG (1000 UT) Oral Tablet Take by mouth. 0 Active oxygen IN GAS Use 2 L/min(Oxygen) as directed at bedtime. 0 Active Ferrous Sulfate 325 (65 Fe) MG Oral Tablet (Feosol) TAKE ONE TABLET BY MOUTH EVERY MORNING AND TAKE ONE TABLET BEFORE BEDTIME 180 Tablet 3 02/23/2023 4 Active Metoprolol Succinate ER 50 MG Oral [...] 09/20/2023 Active Lisinopril 5 MG Oral Tablet (Prinivil)Indica tions:HTN, goal below 140/90,Atheroscl erosis of [place] coronary artery of big [...] Tablet (Aricept) TAKE ONE TABLET BY MOUTH WITH LARGEST MEAL OF THE DAY 100 Tablet 3 02/28/2024 5 Active Atorvastatin Calcium 80 MG Oral Tablet (Lipitor)Indicat ions:Dyslipidemi a, goal LDL below 70 TAKE ONE TABLET BY MOUTH EVERY DAY 90 Tablet 3 02/23/2023 4 Discontinue d(Refill) Donepezil HCl 10 MG Oral Tablet (Aricept) TAKE ONE TABLET BY MOUTH WITH LARGEST MEAL OF THE DAY 90 Tablet 3 02/23/2023 4 Discontinue d(Refill) documented as of this encounter (statuses as of 02/28/2024) Active Problems Problem Noted Date Diagnosed Date Body mass index (BMI) of 40.0 to 44.9 in adult 0 05/03/2023 Overview: Per Obesity protocol Mixed Alzheimer's and vascular dementia 07/06/20 23 History of colonoscopy 04/29/2023 S/P cholecystectomy [...] 04/29/2023 Anemia 04/29/2023 Obesity 02/23/2023 History of [place] (myocardial infarction) 02/23/2023 Arteriosclerosis of both carotid [...] Knee joint replacement status 05/31/2006 [employer] OTHER*[id number] 05/31/2006 HTN (hypertension) 03/11/2004 GENERAL OSTEOARTHROSIS 01/14/2004 documented as of this encounter (statuses as of 02/28/2024) Resolved Problems Problem Noted Date Diagnosed Date [...] as of this encounter (statuses as of 02/28/2024) Immunizations Name Administration Dates Next Due COVID-19 mRNA, LNP-s, No Pre serve, 2-Dose Series ([employer]) 09/22/2021,01/29/2021,01/08/2021 COVID-19, LNP-s, No Preserve , [place]imo-sucrose, Ages 12+ (Pfizer) 05/04/2022 Covid-19, Mrna, Lnp-s, Pf, B ivalent, 30 Mcg, IM, 12 yrs and above ([employer]) 09/04/2022 H1N1 2009 Influenza, IM 11/02/2009 [...] encounter Miscellaneous Notes * Telephone Encounter - Mitali Nguyen MD - 02/28/2024 3:59 PM EDTSigned Prescriptions: Disp Refills Atorvastatin Calcium 80 MG Oral Tablet (Li*100 Ta*1 Sig: TAKE ONE TABLET BY MOUTH EVERY DAY Authorizing Provider: MITALI NGUYEN Ordering User: MANDEEP LEWIS Donepezil HCl 10 MG Oral Tablet (Aricept) 100 Ta*3 Sig: TAKE ONE TABLET BY MOUTH WITH LARGEST MEAL OF THE DAY Authorizing Provider: MITALI NGUYEN * Telephone Encounter - Mandeep Lewis [facility] - 02/28/2024 12:32 PM EDTPending Prescriptions: Disp Refills Donepezil HCl 10 MG Oral Tablet (Aricept) 100 Ta*3 Sig: TAKE ONE TABLET BY MOUTH WITH LARGEST MEAL OF THE DAY Signed Prescriptions: Disp Refills Atorvastatin Calcium 80 MG Oral Tablet (Li*100 Ta*1 Sig: TAKE ONE TABLET BY MOUTH EVERY DAY Authorizing Provider: MITALI NGUYNE Ordering User: MANDEEP LEWIS< BR> * Telephone Encounter - Mandeep Lewis RPh - 02/28/2024 12:32 PM EDT [facility] is currently not authorized to approve refills for the pended medication(s) per refill protocol. Please approve if appropriate. Thank you, Mandeep Lewis, PharmD Clinical Pharmacist Centralized Clinical Pharmacy Services ([facility]) (formerly [facility]) [phone] 02/28/2024, 12:32 PM * Telephone Encounter - 02/27/2024 12:14 AM EDTPending Prescriptions: Disp Refills Atorvastatin Calcium 80 MG Oral Tablet (Li*90 Tab*3 Sig: TAKE ONE TABLET BY MOUTH EVERY DAY Donepezil HCl 10 MG Oral Tablet (Aricept) 90 Tab*3 Sig: TAKE ONE TABLETBY MOUTH WITH LARGEST MEAL OF THE DAY documented in this encounter Plan of Treatment Upcoming Encounters Date Type Department Care Team (Late st Contact Info) Description 03/13/2024 1:00 PM EDT Office Visit [facility] [address] [place] [facility] [place] [address] Mitali Nguyen MD [address] [facility] [place] [id number] Health Maintenance Due Date Last Done Comments Hepatitis C Screening 1963 Zoster Vaccines (2 of 3) 02/28/2016 01/03/2016 DTaP,Tdap,and Td Vaccines (2 - Td or Tdap) 02/01/2017 02/01/2007 Depression Screening 07/07/2020 07/07/2019 GFR 02/22/2025 02/23/2024, 04/25, 05/13/2023, Additional history exists Albumin/Creatinine Ratio 02/22/2027 024, 04/07/2023, 12/18/2004 Pneumococcal Vaccine: 65+ Years Completed 05/15/2019, 01/06/2017, 08/06/2016, Additional history exists Influenza Vaccine (FLU shot) Completed , 09/04/2022, 07/07/2019, Additional history exists COVID-19 Vaccine Completed 09/18/2023, 08/2022, 05/04/2022, Additional history exists GARDASIL-HPV IMMUNIZATION SERIES Aged [...] as of this encounter Visit Diagnoses Diagnosis Dyslipidemia, goal LDL below 70 Other and unspecified hyperlipidemia documented in this encounter Advance Directives Latest Code Status on File Code Status Date Activated Date Inactivated Comments Full Code 08/19/2017 1:20 PM 08/25/2017 7:37 PM Question Answer Comments Discussion of Advance Direct edita occurred with: Not Discussed Does the patient have a Living Will? No Does the patient have Health Care Power of Internet Developer? No Code Status History Code Status Date Activated Date Inactivated Comments Full Code 04/03/2009 1:06 PM 04/04/2009 3:40 PM This order reflects the patients wishes and were consensually agreed upon. Care Teams Shift Foreman Relationship Specialty Start Date End Date Mitali Nguyen MD [address] [place] [facility] [place] [address] PCP - General Family Medicine 02/22/18 documented as of this encounter
--- OUTSIDE RECORDS SUMMARY | 2024-06-02 18:38 | External Medical Summary | Summary of Care ---
Author Name Unknown Organization [facility] Address [address] [place] [address] Phone [phone] Care Team Providers Care Settlement Processor Name Role Phone Mika Baxtre MD Primary Care Provider [phone]- [phone] Reason for Visit * Reason Comments Outpatient Testing Encounter Details Date Type Department Care Team (Late st Contact Info) Description 02/23/2024 12:50 PM EDT Laboratory Laboratory, [facility] [address] [place] [address] [facility] [address] [place] [address] Elevated glucose; Anemia, unspecified type; Encounter for long-term (current) use of medications; Decreased GFR Allergies No known active allergiesdocumented as of this encounter (statuses as of 02/23/2024) Medications Medication Sig Dispensed Refills Start Date End Date Status ASPIRIN 81 MG PO TABS 1 TABLET DAILY 0 03/03/2007 Active VITAMIN B-12 1000 MCG SL SUBL 1 tab daily 0 Active VITAMIN C 500 MG PO TABS 1 daily- unsure of mg dose 0 02/11/2010 Active [place]-3 Fatty Acids (FISH OIL) 1000 MG Capsule [...] TABLET BEFORE BEDTIME 180 Tablet 3 02/23/2023 04/10/2024 Active Atorvastatin Calcium 80 MG Oral Tablet (Lipitor)Indicati ons:Dyslipidemia, goal LDL below 70 TAKE ONE TABLET BY MOUTH EVERY DAY 90 Tablet 3 02/23/2023 03/06/2024 Active Donepezil HCl 10 MG Oral Tablet (Aricept) TAKE ONE TABLET BY MOUTH WITH LARGEST MEAL OF THE DAY 90 Tablet 3 02/23/2023 03/06/2024 Active Diclofenac Sodium 1 % External Gel (Voltaren) APPLY TOPICALLY TO LEFT SHOULDER FOUR TIMES A DAY NEEDED FOR PAIN 350 g 1 02/23/2023 Active Metoprolol Succinate ER 50 MG Oral [...] (Prinivil)Indicat ions:HTN, goal below 140/90,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 90 Tablet 1 11/21/2023 Active documented as of this encounter (statuses as of 02/23/2024) Active Problems Problem Noted Date Diagnosed Date [...] 04/29/2023 Anemia 04/29/2023 Obesity 02/23/2023 History of [place] (myocardial infarction) 02/23/2023 Arteriosclerosis [...] Knee joint replacement status 05/31/2006 SCOTT RESEARCH OTHER*[id number] 05/31/2006 HTN (hypertension) 03/11/2004 GENERAL OSTEOARTHROSIS 01/14/2004 documented as of this encounter (statuses as of 02/23/2024) Resolved Problems Problem Noted Date Diagnosed Date [...] as of this encounter (statuses as of 02/23/2024) Immunizations Name Administration Dates Next Due COVID-19 mRNA, LNP-s, No Pre serve, 2-Dose Series ([place]) 09/22/2021,01/29/2021,01/08/2021 COVID-19, LNP-s, No Preserve , [place]-sucrose, Ages 12+ (Pfizer) 05/04/2022 Covid-19, Mrna, Lnp-s, Pf, B ivalent, 30 Mcg, IM, 12 yrs and above (Pfizer) 09/04/2022 H1N1 2009 Influenza, IM 11/02/2009 Pneumococcal [...] Description 03/13/2024 1:00 PM EDT Office Visit [facility] [address] [place] [address] Mika Baxter MD [address] [place], [place] [id number] Pending Results Name Type Priority Associated Diagnoses Date /Time HEMOGLOBIN A1C Lab Routine Elevated glucose 02/23/2024 12:41 PM EDT BASIC METABOLIC PANEL Lab Routine Elevated glucose 02/23/2024 12:41 PM EDT HGB Lab Routine Anemia, unspecified type 02/23/2024 12:41 PM EDT VITAMIN B12 Lab Routine Encounter for long-term (current) use of medications 02/23/2024 12:41 PM EDT ALBUMIN / CREATININE RATIO, URINE Lab Routine Decreased GFR 02/23/2024 12:51 PM EDT URINALYSIS, REFLEX TO MICROSCOPIC Lab Routine Decreased GFR 02/23/2024 12:52 PM EDT Health Maintenance Due Date Last Done Comments Hepatitis C Screening 1963 Zoster Vaccines (2 of 3) 02/28/2016 01/03/2016 DTaP,Tdap,and Td Vaccines (2 - Td or Tdap) 02/01/2017 02/01/2007 Depression Screening 07/07/2020 07/07/2019 GFR 05/21/2024 05/21/2023, 04/25, 04/07/2023, Additional history exists Albumin/Creatinine Ratio 04/07/2026 04/07/2023, 11/26 Pneumococcal Vaccine: 65+ Years Completed 05/15/2019, 01/06/2017, [...] as of this encounter Visit Diagnoses Diagnosis Elevated glucose Other abnormal glucose Anemia, unspecified type Encounter for long-term (current) use of medications Encounter for long-term (current) use of other medications Decreased GFR Nonspecific abnormal results of kidney function study documented in this encounter Advance Directives Latest Code Status on File Code Status Date Activated Date Inactivated Comments Full Code 08/19/2017 1:20 PM 08/25/2017 7:37 PM Question Answer Comments Discussion of Advance Direct edita occurred with: Not Discussed Does the patient have a Living Will? No Does the patient have Health Care Power of Aoc Plans Intelligence Officer Chief? No Code Status History Code Status Date Activated Date Inactivated Comments Full Code 04/03/2009 1:06 PM 04/04/2009 3:40 PM This order reflects the patients wishes and were consensually agreed upon. Care Teams Settlement Processor Relationship Specialty Start Date End Date Mika Baxter MD [address] [place] [address] PCP - General Family Medicine 02/22/18 documented as of this encounter
--- OUTSIDE RECORDS SUMMARY | 2024-06-02 18:38 | External Medical Summary | Summary of Care ---
Author Name Unknown Organization [facility] Address [address] [place] [address] Phone [phone] Care Team Providers Care Vocational Psychologist Name Role Phone Mitali Nguyen MD Primary Care Provider [phone]- [phone] Reason for Visit * Reason Comments Medication Refill Encounter Details Date Type Department Care Team (Late st Contact Info) Description 02/24/2024 Refill [facility] [address] [place] [facility] [place] [address] Lissett Saha PA-C [address] [place] [address] Allergies No known active allergiesdocumented as of this encounter (statuses as of 02/25/2024) Medications Medication Sig Dispensed Refills Start Date End Date Status ASPIRIN 81 MG PO TABS 1 TABLET DAILY 0 03/03/2007 Active VITAMIN B-12 1000 MCG SL SUBL 1 tab daily 0 Active VITAMIN C 500 MG PO TABS 1 daily- unsure of mg dose 0 02/11/2010 Active [place]-3 Fatty Acids (FISH OIL) 1000 MG Capsule [...] BEDTIME 180 Tablet 3 02/23/2023 4 Active Atorvastatin Calcium 80 MG Oral Tablet (Lipitor)Indicat ions:Dyslipidemi a, goal LDL below 70 TAKE ONE TABLET BY MOUTH EVERY DAY 90 Tablet 3 02/23/2023 4 Active Donepezil HCl 10 MG Oral Tablet (Aricept) TAKE ONE TABLET BY MOUTH WITH LARGEST MEAL OF THE DAY 90 Tablet 3 02/23/2023 4 Active Metoprolol Succinate [...] (Prinivil)Indica tions:HTN, goal below 140/90,Atheroscl erosis of [place] coronary artery of [place] heart without angina pectoris Take 1 Tablet by mouth in the morning. 90 Tablet 1 11/21/2023 Active Diclofenac Sodium 1 % External Gel (Voltaren) APPLY TOPICALLY TO LEFT SHOULDER FOUR TIMES A DAY NEEDED FOR PAIN 350 g 1 02/25/2024 5 Active Diclofenac Sodium 1 % External Gel (Voltaren) APPLY TOPICALLY TO LEFT SHOULDER FOUR TIMES A DAY NEEDED FOR PAIN 350 g 1 02/23/2023 4 Discontinue d(Refill) documented as of this encounter (statuses as of 02/25/2024) Active Problems Problem Noted Date Diagnosed Date [...] 04/29/2023 Anemia 04/29/2023 Obesity 02/23/2023 History of [place] (myocardial infarction) 02/23/2023 Arteriosclerosis of both carotid [...] Knee joint replacement status 05/31/2006 SCOTT RESEARCH OTHER*[id number] 05/31/2006 HTN (hypertension) 03/11/2004 GENERAL OSTEOARTHROSIS 01/14/2004 documented as of this encounter (statuses as of 02/25/2024) Resolved Problems Problem Noted Date Diagnosed Date [...] as of this encounter (statuses as of 02/25/2024) Immunizations Name Administration Dates Next Due COVID-19 mRNA, LNP-s, No Pre serve, 2-Dose Series ([place]) 09/22/2021,01/29/2021,01/08/2021 COVID-19, LNP-s, No Preserve , [place]eronimo-sucrose, Ages 12+ (Pfizer) 05/04/2022 Covid-19, Mrna, Lnp-s, Pf, B ivalent, 30 Mcg, IM, 12 yrs and above ([place]) 09/04/2022 H1N1 2009 Influenza, IM 11/02/2009 Pneumococcal [...] Influenza, Split, I IV3, With Preserve, Inj 08/30/2014,08/03/2013,07/19/2012,06/26,11/11/2010,07/10/2009,10/04/20,10/27/2007,08/31/2006 08/31/2007 Seasonal Influenza, [place] t, High Dose, [...] Telephone Encounter - Mitali Nguyen MD - 02/25/2024 7:21 AM EDTSigned Prescriptions: Disp Refills Diclofenac Sodium 1 % External Gel (Voltar*350 g 1 Sig: APPLY TOPICALLY TO LEFT SHOULDER FOUR TIMES A DAY NEEDED FOR PAIN Authorizing Provider: MITALI NGUYEN * Telephone Encounter - Mitali Nguyen MD - 02/25/2024 7:21 AM EDTSigned Prescriptions: Disp Refills Diclofenac Sodium 1 % External Gel (Voltar*350 g 1 Sig: APPLY TOPICALLY TO LEFT SHOULDER FOUR TIMES A DAY NEEDED FOR PAIN Authorizing Provider: MITALI NGUYEN * [facility] 6:20 AM EDTPending Prescriptions: Disp Refills Diclofenac Sodium 1 % External Gel (Voltar*350 g 1 Sig: APPLY TOPICALLY TO LEFT SHOULDER FOUR TIMES A DAY NEEDED FOR PAIN * Telephone Encounter - Felton Henao - 02/24/2024 9:19 PM EDTPending Prescriptions: Disp Refills Diclofenac Sodium 1 % External Gel (Voltar*350 g 1 Sig: APPLY TOPICALLY TO LEFT SHOULDER FOUR TIMES A DAY NEEDED FOR PAIN * Telephone Encounter - Mackenzie Stoddard, roll bucker - 02/24/2024 2:33 PM EDT Did you pend patient's preferred pharmacy and medication before forwarding?yes Pharmacy: [facility] Pending Prescriptions: Disp Refills Diclofenac Sodium 1 % External Gel (Black*350 g 1 Sig: APPLY TOPICALLY TO LEFT SHOULDER FOUR TIMES A DAY NEEDED FOR PAIN Last Visit: 09/02/2023 (in office), Visit date not found (telemedicine) Next Visit: 03/13/2024 If no future appointments scheduled, and last appointment is greater than a year ago, please schedule patient for a follow-up appointment Last date the medication was ordered: 02/23 Is this request for a controlled substance?No Urine Drug Screen:No results found. However, due to the size of the patient record, not all encounters were searched. Please check Results Review for a complete set of results. Patient Phone Numbers Labs: Lab Results Component Value Date/Time CREAT 1.7 (H) 02/23/2024 12:41 PM CREAT 0.9 05/24/2020 12:02 PM POTASSIUM 5.1 02/23/2024 12:41 PM POTASSIUM 5.0 05/24/2020 12:02 PM TSH 2.88 04/07/2023 09:47 AM TSH 1.75 07/01/2018 12:48 PM LDLCALC 53 04/07/2023 09:47 AM LDLCALC 50 05/24/2020 12:02 PM LDLDIRECT NOT APPLICABLE 05/24/2020 12:02 PM LDLDIRECT 55 02/15/2019 12:20 PM ALT 10 04/07/2023 09:47 AM ALT 15 05/24/2020 12:02 PM HGBA1C 6.7 (H) 02/23/2024 12:41 PM HGBA1C 6.0 07/18/2008 04:40 PM documented in this encounter Plan of Treatment Upcoming Encounters Date Type Department Care Team (Late st Contact Info) Description 03/13/2024 1:00 PM EDT Office Visit [facility] [address] [place] [address] Mitali Nguyen MD [address] [place] [address] Health Maintenance Due Date Last [...] filedocumented as of this encounter Advance Directives Latest Code Status on File Code Status Date Activated Date Inactivated Comments Full Code 08/19/2017 1:20 PM 08/25/2017 7:37 PM Question Answer Comments Discussion of Advance Direct edita occurred with: Not Discussed Does the patient have a Living Will? No Does the patient have Health Care Power of Trade Mark Attorney? No Code Status History Code Status Date Activated Date Inactivated Comments Full Code 04/03/2009 1:06 PM 04/04/2009 3:40 PM This order reflects the patients wishes and were consensually agreed upon. Care Teams Vocational Psychologist Relationship Specialty Start Date End Date Mitali Nguyen MD [address] [facility] [place] [address] PCP - General Family Medicine 02/22/18 documented as of this encounter
--- OUTSIDE RECORDS SUMMARY | 2024-06-02 18:38 | External Medical Summary ---
Author Name Unknown Address Unknown Organization K01:[facility] [place] - [address] [place] [address] Laboratory Report Ordering Provider Test Date Status WENDY JASMINE 02/23/2024 12:41:57 Final Observation Date Value Abnormality Reference (Units ) Status Hemoglobin 02/23/2024 12:41:57 11.2 Below low normal 14 .0-16.8 (g/dL) Final Performing Location LAB[facility]ATORY [facility] - [address] [place] [address]
--- OUTSIDE RECORDS SUMMARY | 2024-06-02 18:38 | External Medical Summary | Summary of Care ---
Author Name Unknown Organization [facility] Address [address] [place] [address] Phone [phone] Care Team Providers Care Gift Wrapper Name Role Phone Mika Baxter MD Primary Care Provider [phone] Reason for Visit * Reason Comments Follow Up Pt states that he is here for a 6 month return Encounter Details Date Type Department Care Team (Latest Contact Info) Description 03/13/2024 1:00 PM EDT Office Visit [facility] [address] [place] [facility] [place] [address] Mika Baxter MD [address] [place] [address] Mixed Alzheimer's and vascular dementia (HCC)*; Type 2 diabetes mellitus with hemoglobin A1c goal of less than 7.0% (HCC); Iron deficiency anemia, unspecified iron deficiency anemia type; Chronic diastolic heart failure (HCC); SVT (supraventricular tachycardia) ([facility]); HTN, goal below 140/90; ASCVD (arteriosclerotic cardiovascular disease); Intestinal postoperative nonabsorption; Dyslipidemia, goal LDL below 70; Chronic kidney disease, stage 3a (HCC) Allergies No known active allergiesdocumented as of this encounter (statuses as of 03/13/2024) Medications Medication Sig Dispensed Refills Start Date End Date Status ASPIRIN 81 MG PO TABS 1 TABLET DAILY 0 03/03/2007 Active VITAMIN B-12 1000 MCG SL SUBL 1 tab daily Active VITAMIN C 500 MG PO TABS 1 daily- unsure of mg dose 0 02/11/2010 Active [place]-3 Fatty Acids (FISH OIL) 1000 MG Capsule [...] (Prinivil)Indica tions:HTN, goal below 140/90,Atheroscl erosis of [place] coronary artery of [place] heart without angina pectoris Take 1 Tablet [...] per day. 180 Tablet 3 03/13/2024 Active Ferrous Sulfate 325 (65 Fe) MG Oral Tablet (Feosol) TAKE ONE TABLET BY MOUTH EVERY MORNING AND TAKE ONE TABLET BEFORE BEDTIME 180 Tablet 3 02/23/2023 4 Discontinue d(Refill) documented as of this encounter (statuses as of 03/13/2024) Active Problems Problem Noted Date Diagnosed Date SVT (supraventricular tachycardia) 03/13/2024 Chronic kidney disease, stage 3a 03/06/2024 Overview: Per CKD protocol Body mass index (BMI) of 40.0 to 44.9 in adult 0 05/03/2023 Overview: Per Obesity protocol Mixed Alzheimer's and vascular dementia 04/29/20 History of colonoscopy 04/29/2023 S/P cholecystectomy 04/29/2023 [...] Knee joint replacement status 05/31/2006 SCOTT RESEARCH OTHER*[id number] 05/31/2006 HTN (hypertension) 03/11/2004 GENERAL OSTEOARTHROSIS 01/14/2004 documented as of this encounter (statuses as of 03/13/2024) Resolved Problems Problem Noted Date Diagnosed Date [...] as of this encounter (statuses as of 03/13/2024) Immunizations Name Administration Dates Next Due COVID-19 mRNA, LNP-s, No Pre serve, 2-Dose Series ([employer]) 09/22/2021,01/29/2021,01/08/2021 COVID-19, LNP-s, No Preserve , [...] Cigarettes 0.5 10 Smokeless Tobacco: Former Chew Tobacco Cessation:Counseling Given: Not Answered Comments:quit smoking 1977 Alcohol Use Standard Drinks/Week [...] Sign Reading Time Taken Comments Blood Pressure 116/62 03/13/2024 1:15 PM EDT Pulse 66 03/13/2024 1:15 PM EDT Temperature 36 C (96.8 F) 03/13/2024 1:15 PM EDT Respiratory Rate 18 03/13/2024 1:15 PM EDT Oxygen Saturation 92% 03/13/2024 1:15 PM EDT Inhaled Oxygen Concentration - - Weight 126.9 kg (279 lb 12.8 oz) 03/13/2024 1:15 PM EDT Height 172.7 cm (5' 8") 03/13/2024 1:15 PM EDT Body Mass Index 42.54 03/13/2024 1:15 PM EDT documented in this encounter Functional [...] as of this encounter Progress Notes * Mika Baxter MD - 03/13/2024 1:44 PM EDT Subjective: Santo Maravilla is a 78 year old male here today for Chief Complaint Patient presents with Follow Up Pt states that he is here for a 6 month return Patient presents for routine six-month return. He did have labs earlier this month. Hemoglobin A1c is elevated at 6.7. Creatinine has continued to worsen in his 1.7. Patient does drink a lot of sweetened ice tea. It is his main fluid intake. Patient had been diagnosed with diabetes in 2006 before his gastric bypass surgery. After significant weight loss, his numbers were out of the diabetic range until now. In 2006, he weighed over 400 pounds. He is continuing to worsen in regards to his dementia. He asked his current weight it least 8 timesduring the office visit. He lives with his and grandson lives in the same house but is usuallynot home. His is managing everything in the house. She states she has been able to get by to this point. He has not had any falls. He has not been wandering or getting lost. She states he prettymuch stays inside and is inactive. She states his hearing is poor but he lost his hearing aids. Sheis working on some assist devices for ambulation so he can get out more. He does have a history of anemia. They are requesting a refill be sent to [facility] for that because he does better with the engineer fishing vessel of iron that they can get there. They state that his breathing has been the same over the last months - but that he is very inactive. Past Medical History: Diagnosis Date Aortocoronary bypass status 03/11/2004 Bariatric surgery status 01/27/2007 Chronic diastolic heart failure (HCC) 08/22/2009 Per Heart Failure Taxonomy Protocol. CORONARY ATHEROSCLEROSIS VESSEL NOS 07/02/2005 Dyslipidemia, goal LDL below 70 03/06/2010 Generalized osteoarthritis [place] (hard of hearing) HTN, goal below 140/90 [...] performed by Dev Powell MD at OR [facility] ARTHROPLASTY KNEE TOTAL 11/25 Right TKR (Total Knee Replacement) ARTHROPLASTY KNEE TOTAL 1998 Left TKR BYPASS GRAFT ANGIOGRAPHY W/LEFT HEART CATH 12/24/2015 BYPASS GRAFT ANGIOGRAPHY W/LEFT HEART CATH performed by Robby Wagner MD at CARDIAC LABS [facility] COLONOSCOPY, DIAGNOSTIC (RECTUM) 01/06/2017 COLONOSCOPY, DIAGNOSTIC (RECTUM) 01/06/2017 TA polyp/[facility] COLONOSCOPY, DIAGNOSTIC (RECTUM) 03/18/2017 clot in acsending colon/inpt [facility] CORONARY ARTERIES BYPASS, FOUR CYSTOSCOPY/TREATMENT OF STRICTURE N/A 04/07/2017 CYSTOURETHROSCOPY WITH CALIBRATION OR DILATION STRICTURE performed by Sharad Merchant MD at OR [facility] EGD, FLEXIBLE, DIAGNOSTIC 12/31/06 UPPER GI ENDOSCOPY DIAGNOSTIC performed by SHEREE BORRERO at [facility] EGD, FLEXIBLE, DIAGNOSTIC 06/10/07 UPPER GI ENDOSCOPY DIAGNOSTIC performed by SHEREE BORRERO at [facility] EGD, FLEXIBLE, DIAGNOSTIC 01/05/2017 bleeding @ [facility]/inpt [facility] EGD, FLEXIBLE, DIAGNOSTIC 03/17/2017 reflux esophagitis/inpt [facility] EX OF EXCES SKIN,ABDOM 04/03/09 EXCISION,EXCESSIVE SKIN AND SUBCUTANEOUS TISSUE INCLUDING LIPECTOMY ABDOMEN ABDOMINOPLASTY performed by TANA RAYMOND at OR [facility] EXCISION EXCES SKIN,PANNICULECTOMY,INFRAUMB 04/03/09 EXCISION EXCESSIVE SKIN AND SUBCUTANEOUS TISSUE INCLUDIING LIPECTOMY ABDOMEN INFRAUMBILICAL PANNICULECTOMY performed by TANA RAYMOND at OR [facility] INFORMATION Bilateral 08/05/16 bilateral panniculectomy, phimosis LAPAROSCOPIC GASTRIC BYPASS/KILO-EN-Y 12/31/06 LAPAROSCOPIC GASTRIC RESTRICTIVE BYPASS KILO EN Y performed by SHEREE BORRERO at OR [facility] LAPAROSCOPY; CHOLECYSTECTOMY 12/31/06 LAPAROSCOPIC CHOLECYSTECTOMY performed by SHEREE BORRERO at OR [facility] REMOVE EXCESSIVE SKIN/TISSUE, HIP 04/03/09 EXCISION EXCESSIVE SKIN AND SUBCUTANEOUS TISSUE HIP performed by TANA RAYMOND at OR [facility] REVISE PENIS FOR CHORDEE/HYPOSPADIA N/A 04/07/2017 PLASTIC OPERATION FOR CORRECTION CHORDEE performed by Sharad Merchant MD at OR [facility] RMV LESN,SCALP/NCK/EXT <=.5CM N/A 09/30/2018 EXCISION EXCEPT SKIN TAG SCALP NECK HANDS FEET GENITALIA LESS THAN 0.5 performed by Vic Vargas OR [facility] SKIN SPLIT GRAFT, FACE/NECK/EARS N/A 08/19/2017 SPLIT GRAFT FACE SCALP ETC LESS THAN 100SQ CM performed by Dev Powell MD at OR [facility] SLITTING OF PREPUCE N/A 04/07/2017 SLITTING PREPUCE DORSAL OR LATERAL PENIS EXCEPT performed by Sharad Merchant MD at OR [facility] TISSUE TRANS,=/<10SQCM FACE/HANDS/FEET N/A 08/19/2017 ADJACENT TISSUE TRANSFER FOREHEAD CHEEK CHIN HANDS/FEET LESS THAN 10CM performed by Sharad Merchant, [facility] OR [facility] TISSUE TRANSFER, LARGE/COMPLICATED 04/03/09 ADJACENT TISSUE TRANSFER 30 PLUS SQ CM UNUSUAL performed by TANA RAYMOND at OR [facility] WEDGE BIOPSY OF LIVER 12/31/06 BIOPSY OF LIVER WEDGE performed by SHEREE BORRERO at OR [facility] Review of patient's allergies indicates: No Known Allergies Current Outpatient Medications Medication Sig Dispense Refill ASPIRIN 81 MG PO TABS 1 TABLET DAILY 0 VITAMIN B-12 1000 MCG SL SUBL 1 tab daily VITAMIN C 500 MG PO TABS 1 daily- unsure of mg dose 0 [place]-3 Fatty Acids (FISH OIL) 1000 MG Capsule [...] ONE TABLET BEFORE BEDTIME 180 Tablet 2 Lisinopril 5 MG Oral Tablet (Prinivil) Take 1 Tablet by mouth in the morning. 90 Tablet 1 Diclofenac Sodium 1 % External Gel (Voltaren) [...] by mouth per day. 180 Tablet 3 Empagliflozin 10 MG Oral Tablet Take 1 Tablet by mouth in the morning. (Patient not taking: Reported on 04/28/2023) No current facility-administered medications for this visit. Objective: BP 116/62 | Pulse 66 | Temp 36 C (96.8 F) (Temporal Artery) | Resp 18 | Ht 1.727 m (5' 8") | Wt 126.9 kg (279 lb 12.8 oz) | SpO2 92% | BMI 42.54 kg/m | BSA 2.47 m GEN: NAD HEENT: Benign NECK: Supple with no LAD, TM, JVD CHEST: CTA B CV: RRR ABD: Soft, NT/ND, No HSM, NABS EXT: No c,c,e Assessment and Plan: Mixed Alzheimer's and vascular dementia (HCC) (Primary) Type 2 diabetes mellitus with hemoglobin A1c goal of less than 7.0% (HCC) - HEMOGLOBIN A1C; Future; Expected date: 03/13/2024 - BASIC METABOLIC PANEL; Future; Expected date: 03/13/2024 Iron deficiency anemia, unspecified iron deficiency anemia type - HGB; Future; Expected date: 03/13/2024 - FERRITIN; Future; Expected date: 03/13/2024 Chronic diastolic heart failure (HCC) SVT (supraventricular tachycardia) ([facility]) HTN, goal below 140/90 ASCVD (arteriosclerotic cardiovascular disease) Intestinal postoperative nonabsorption Dyslipidemia, goal LDL below 70 Chronic kidney disease, stage 3a (HCC) Other orders - Ferrous Sulfate 325 (65 Fe) MG Oral Tablet (Feosol); Take 1 tab by mouth per day. Reviewed lab findings. Will get repeat labs prior to next visit in 6 months. Continue current medications. Dietary changes suggested in regards to the blood sugars. They can significantly reduce the amount of sugar he is getting through his sweetened iced tea. Continue follow up with specialists. Call for new or worsening problems. Anticipate dementia will be worsening and he will have greater needs over time. Follow Up: Return in about 6 months (around 09/13/2024) for recheck. | For: recheck 40 min with pt, chart review, documentation Mika Baxter MD documented in this encounter Nursing Notes * Shannon Groves LPN - 03/13/2024 1:14 PM EDT Santo Maravilla is a 78 year old male who presents today for Chief Complaint Patient presents with Follow Up Pt states that he is here for a 6 month return Pt states that pt needs a refill on iron and she wants it to be sent to [facility]. documented in this encounter Plan of Treatment Upcoming Encounters Date Type Department Care Team (Late st Contact Info) Description 10/10/2024 1:20 PM EST Office Visit [facility] [address] [place] [address] Mika Baxter MD [address] [place] [address] Scheduled Orders Name Type Priority Associated Diagnoses Orde r Schedule HEMOGLOBIN A1C Lab Routine Type 2 diabetes mellitus with hemoglobin A1c goal of less than 7.0% (HCC) Expected: 03/13/2024 (Approximate), Expires: 03/13/2025 BASIC METABOLIC PANEL Lab Routine Type 2 diabetes mellitus with hemoglobin A1c goal of less than 7.0% (HCC) Expected: 03/13/2024 (Approximate), Expires: 03/13/2025 HGB Lab Routine Iron deficiency anemia, unspecified iron deficiency anemia type Expected: 03/13/2024 (Approximate), Expires: 03/13/2025 FERRITIN Lab Routine Iron deficiency anemia, unspecified iron deficiency anemia type Expected: 03/13/2024 (Approximate), Expires: 03/13/2025 Health Maintenance Due Date Last Done Comments CKD PHOS USE SMARTSET 76702 1963 Hepatitis C Screening 1963 Zoster Vaccines (2 of 3) 02/28/2016 01/03/2016 DTaP,Tdap,and Td Vaccines (2 - Td or Tdap) 02/01/2017 02/01/2007 Depression Screening 07/07/2020 07/07/2019 COVID-19 Vaccine ( season) 2024 09/18/2023, 09/04/2022, 05/04/2022, Additional history exists GFR 08/25/2024 02/23/2024, 04/25, 05/13/2023, Additional history exists Albumin/Creatinine Ratio 02/22/2025 024, 04/07/2023, 12/18/2004 CKD HGB USE SMARTSET 76900 02/22/202502/22, 04/07/2023, 06/17/2021, Additional history exists Pneumococcal [...] as of this encounter Visit Diagnoses Diagnosis Mixed Alzheimer's and vascular dementia (HCC)- Primary Alzheimer's disease Type 2 diabetes mellitus with hemoglobin A1c goal of less than 7.0% (HCC) Iron deficiency anemia, unspecified iron deficiency anemia type Chronic diastolic heart failure (HCC) Chronic diastolic heart failure SVT (supraventricular tachycardia) (HCC) Other specified cardiac dysrhythmias HTN, goal below 140/90 Unspecified essential hypertension ASCVD (arteriosclerotic cardiovascular disease) Unspecified cardiovascular disease Intestinal postoperative nonabsorption Other and unspecified postsurgical nonabsorption Dyslipidemia, goal LDL below 70 Other and unspecified hyperlipidemia Chronic kidney disease, stage 3a (HCC) documented in this encounter Advance Directives * [...] and were consensually agreed upon. Care Teams Gift Wrapper Relationship Specialty Start Date End Date Mika Baxter MD [address] [place] [address] PCP - General Family Medicine 02/22/18 documented as of this encounter
--- OUTSIDE RECORDS SUMMARY | 2024-06-02 18:38 | External Medical Summary ---
Author Name Unknown Address Unknown Organization [id number]:[facility]ORY [facility] - [address] [facility] [address] Laboratory Report Ordering Provider Test Date Status WENDY JASMINE 02/23/2024 12:41:57 Final Observation Date Value Abnormality Reference (Units ) Status HbA1C 02/23/2024 12:41:57 6.7 Above high normal 4. 0-5.6 (%) Final The use of HbA1c to monitor glycemic status is based on normal hemoglobin and HbA composition. This test should not be used in patients with abnormal hemoglobin that affects the half life of the red blood cell or the in vivo glycation rates. Glucose, estimated average 02/23/2024 12:41:57 146 Above high normal <126 (mg/dL) Marcelo miller Performing Location [facility] - [address] [facility] [address]
--- OUTSIDE RECORDS SUMMARY | 2024-06-02 18:38 | External Medical Summary ---
Author Name Unknown Address Unknown Organization [id number][place] [place] [address] [place] [address] Laboratory Report Ordering Provider Test Date Status WENDY JASMINE 02/23/2024 12:41:57 Final Observation Date Value Abnormality Reference (Units ) Status Vitamin B12 02/23/2024 12:41:57 >2000 Above high normal 232-1245 (pg/mL) Final Performing Location [facility] [place] [address] [place] [address]
--- OUTSIDE RECORDS SUMMARY | 2024-06-02 18:38 | External Medical Summary ---
Author Name Unknown Address Unknown Organization [id number]:[facility] [place] [address] [place] [address] Laboratory Report Ordering Provider Test Date Status PANCHITO SOSA 02/23/2024 12:52:37 Final Observation Date Value Abnormality Reference (Units ) Status Color of Urine by Auto 02/23/2024 12:52:37 Light Yellow Colorless, Light Yellow, Yellow, Dark Yellow Final Clarity, Urine 02/23/2024 12:52:37 Clear Clear Final Glucose [Mass/volume] in Urine by Automated test strip 02/23/2024 12:52:37 Negative Negative (mg/dL) Final Bilirubin.total [Presence] in Urine by Automated test strip 02/23/2024 12:52:37 Negative Negative Final Ketones [Mass/volume] in Urine by Automated test strip 02/23/2024 12:52:37 Negative Negative (mg/dL) Final Specific gravity, Urine 02/23/2024 12:52:37 1.011 1.003-1.030 Final Hemoglobin [Presence] in Urine by Automated test strip 02/23/2024 12:52:37 Negative Negative Final pH, Urine 02/23/2024 12:52:37 5.5 5.0-7.5 (Units) Final Protein [Mass/volume] in Urine by Automated test strip 02/23/2024 12:52:37 Negative Negative (mg/dL) Final Urobilinogen [Mass/volume] in Urine by Automated test strip 02/23/2024 12:52:37 Normal Normal (mg/dL) Final Nitrite [Presence] in Urine by Automated test strip 02/23/2024 12:52:37 Negative Negative Final Leukocyte esterase [Presence] in Urine by Automated test strip 02/23/2024 12:52:37 Negative Negative Final Annotation Comment 02/23/2024 12:52:37 Final Screen negative - Microscopi c not performed. Performing Location [facility] - [address] [place] [address]
[2024-06-03 02:26] LABS: Hematocrit (blood only) 32.4 % (42.0-52.0); Hemoglobin 10.5 g/dl (14.0-18.0)
[2024-06-03] MEDS: DONEPEZIL HCL 10 MG TAB PO SCH (08:57)
[2024-06-03] MEDS: PANTOprazole 40 MG in SYRINGE 0 ML IV SCH (08:57)
[2024-06-03] MEDS: FUROSEMIDE 20 MG TAB PO SCH (08:58)
[2024-06-03] MEDS: METOPROLOL SUCC 25MG EXT REL TAB PO SCH (08:58)
[2024-06-03] MEDS: ATORVASTATIN 40 MG TAB PO SCH (08:58)
[2024-06-03] MEDS: lisinopril 5 MG TAB PO SCH (08:58)
--- NOTE | 2024-06-03 10:23 | Gastrointestinal Consultation ---
Date of Consultation June 03, 2024 Assessment & Plan (1) Rectal bleeding: Hemodynamically stable no active bleeding at the present time. In light of rectal exam and CT scan imaging need to consider distal rectal pathology either luminal such as a rectal mass versus an enlarged prostate eroding into the rectum. Once cardiology workup is completed and patient cleared we could consider further investigation with colonoscopy. Continue to monitor hemoglobin and hematocrit and any evidence of overt bleeding. Recent cardiac events puts him at increased risk for anesthesia and intervention. Plan Plan as described above await further cardiology workup and clearance. History of Present Illness Reason for Consultation: Rectal bleeding Attending Physician: Yoandy Cabrera DO History of Present Illness Patient presents with a several week history of rectal bleeding reportedly bright red blood per rectum. Patient is a poor historian due to dementia history has been obtained from family and prior notes. Hemoglobin admission was 9.3 baseline hemoglobin is approximately 10.5. He denies any abdominal pain nausea vomiting shortness of breath or chest pain. Past history of a GI bleed in 2017 underwent a colonoscopy which showed some old blood and possibly clot in the right colon suboptimal prep endoscopy revealed some bleeding around the GE junction that was treated endoscopically. No further history of bleeding since that time. He is now mated for further evaluation. On admission found to have elevated troponin level being evaluated by cardiology for possible stress- induced non-ST HI. History of bariatric surgery in the past. Allergies Allergy/AdvReac Type Severity Reaction Status Date / Time No Known Allergies Allergy Verified 06/02/24 16:23 Home Medications Medication Instructions Recorded Confirmed Type aspirin 81 mg tablet,delayed 81 mg PO DAILY 06/02/24 06/02/24 History release atorvastatin 80 mg tablet 80 mg PO DAILY 06/02/24 06/02/24 History cholecalciferol (vitamin D3) 25 25 mcg PO DAILY 06/02/24 06/02/24 History mcg (1,000 unit) tablet (Vitamin D3) cyanocobalamin (vitamin B-12) 1,000 mcg PO DAILY 06/02/24 06/02/24 History 1,000 mcg tablet (Vitamin B-12) diclofenac sodium 1 % topical gel 0 g topical QID PRN .. 06/02/24 06/02/24 History (Voltaren Arthritis Pain) donepezil 10 mg tablet 10 mg PO DAILY 06/02/24 06/02/24 History famotidine 20 mg tablet 20 mg PO QAM 06/02/24 06/02/24 History ferrous sulfate 325 mg (65 mg 650 mg PO DAILY 06/02/24 06/02/24 History iron) tablet furosemide 20 mg tablet 20 mg PO DAILY 06/02/24 06/02/24 History lisinopril 5 mg tablet 5 mg PO DAILY 06/02/24 06/02/24 History metoprolol succinate 50 mg 75 mg PO QAM 06/02/24 06/02/24 History tablet,extended release 24 hr omega-3 fatty acids 1,000 mg 1,000 mg PO DAILY 06/02/24 06/02/24 History capsule Patient History Medical History CKD (chronic kidney disease), stage III SVT (supraventricular tachycardia) with possible short runs of PAF Chronic heart failure with preserved ejection fraction (HFpEF) Hearing loss Obesity Surgical History S/P panniculectomy S/P colonoscopy with polypectomy History of liver biopsy History of esophagogastroduodenoscopy (EGD) Bariatric surgery status Family History Mother Hypertension Stroke Father Hypertension Cancer Social History Smoking Status: Never smoker Second Hand Exposure: No; Do You Dip or Chew Tobacco: No; Tobacco Cessation Education Requested by Patient: No Hx Alcohol Use: No Hx Substance Use: No Preferred Language: Macedonian Communication Ability: Effective [employer]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 Beliefs That Will Affect Care: None Current Living Situation: Spouse Other Information That Helps Us Care for You: No Feels Safe at Home: Yes Safety Concerns: Feels Safe At This Time Assistive Devices: Cane, Glasses and Oxygen - at Night Review of Systems Review of Systems: No fever No chills No SOB No CP No Abd pain Physical Exam Physical Exam: Eyes; anicteric HENT No masses Chest clear to A Cor S1, S2 physiologic Abd: softer nontender no masses prior surgical scar midline Ext no edema Rectal exam showed greenish-brown stool a large anterior mass suspicious for enlarged prostate less likely luminal rectal mass. Results & Data Vital Signs (Past 12 Hours) Vital Signs Temp Pulse Pulse Resp BP BP Pulse Ox 06/03/24 08:30 06/03/24 08:16 36.8 C 99 H 17 141/94 H 98 06/03/24 08:00 126 H 06/03/24 03:56 36.4 C L 81 20 133/82 92 06/03/24 00:12 36.1 C L 100 H 18 140/80 97 06/02/24 23:12 36.3 C L 96 H 18 128/86 97 06/02/24 23:00 36.4 C 96 H 24 126/88 97 06/02/24 22:46 06/02/24 22:45 36.1 C L 91 H 22 135/94 96 06/02/24 22:30 36.5 C 89 19 133/95 97 O2 Del Method O2 Flow Rate 06/03/24 08:30 Room Air 06/03/24 08:16 Room Air 06/03/24 08:00 06/03/24 03:56 Nasal Cannula 2 06/03/24 00:12 06/02/24 23:12 2 06/02/24 23:00 2 06/02/24 22:46 Nasal Cannula 2 06/02/24 22:45 2 06/02/24 22:30 2 Laboratory Results Hemoglobin 10.5 hematocrit 32.4 INR 1.1 BUN 56 creatinine 2.51 troponin 1141 stool positive for occult blood Diagnostic Findings CT scan results IMPRESSION: 1. Thickening of the rectal wall may represent proctitis in this patient with rectal bleeding. Underlying mass cannot entirely excluded. 2. Bilateral hydronephrosis likely due to chronic outlet obstruction. 3. 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 4. Cholelithiasis without cholecystitis. PG Care Time/CCT Total # of Minutes Spent Total Time Spent with Patient: Total time spent is greater than 50% in coordination of care (as documented) at patient's floor/unit and/or counseling patient: Coding Level of Care Code 45666 IN/OBS CONSULT LVL 4,60M Diagnoses Rectal bleeding K62.5
--- NOTE | 2024-06-03 11:34 | Hospitalist Progress Note ---
Date of Service June 03, 2024 Assessment & Plan (1) Acute blood loss anemia: (2) Atrial fibrillation with RVR: (3) Myocardial infarction due to demand ischemia: (4) Lower gastrointestinal bleed: (5) Acute kidney injury superimposed on CKD: (6) Mixed Alzheimer's and vascular dementia: (7) Delirium superimposed on dementia: (8) BPH loc w urin obs/LUTS: Plan Patient 78-year-old gentleman with known dementia presents with GI bleeding most likely due to a lower GI source, descending colon/rectal source as identified on CAT scan. Patient remains critically ill with potential for ongoing blood loss, decompensated heart condition. Needs continuous monitoring, specialty consultation and procedure care Monitor hemoglobin. Patient status post 2 units packed red blood cells Reviewed GI consultation, will consider colonoscopy when stabilized from a cardiac standpoint No anticoagulation in the setting of atrial fibrillation due to GI bleeding and anemia. Reviewed home medications, appears that he was on 75 mg of metoprolol. This was given this morning. Will see how he responds to this as far as heart rate is concerned. Reviewed cardiology notes, can consider transitioning to short acting metoprolol for rate control Start clear liquid diet since no procedure planned for today Aldrich catheter placed due to overflow incontinence in the setting of presumed BPH As needed Ativan for agitation and restlessness in the setting of delirium and dementia Ongoing medical management for demand ischemia updated by phone Admission and Anticipated Discharge Date Admission Date: June 02, 2024 Subjective Patient somewhat confused and restless this morning. Pulling at medical devices. Denies chest pain or shortness of breath. Nursing reports no active GI bleeding noted overnight Physical Exam Physical Exam: Constitutional: Alert, restless HEENT: Mucous membranes moist. Lungs: Clear to auscultation, decreased, no wheezes rales or rhonchi CV: S1-S2, irregular, systolic murmur Abdomen: Soft, nontender, nondistended Extremities: No significant edema Neuro: Generalized weakness Psych: Confused restless Results & Data Results & Data Vital Signs (Past 12 Hours) Vital Signs Temp Pulse Pulse Resp BP BP BP 06/03/24 11:07 36.8 C 103 H 18 140/94 06/03/24 08:30 06/03/24 08:16 36.8 C 99 H 17 141/94 H 06/03/24 08:00 126 H 06/03/24 03:56 36.4 C L 81 20 133/82 06/03/24 00:12 36.1 C L 100 H 18 140/80 Pulse Ox O2 Del Method O2 Flow Rate 06/03/24 11:07 96 Room Air 06/03/24 08:30 Room Air 06/03/24 08:16 98 Room Air 06/03/24 08:00 06/03/24 03:56 92 Nasal Cannula 2 06/03/24 00:12 97 Diagnostic Findings Reviewed imaging, laboratory and diagnostic studies. Pertinent findings as below. Hemoglobin 10.5, improved Creatinine 2.[address] abdomen pelvis report reviewed
--- NOTE | 2024-06-03 19:39 | Cardiology Progress Note ---
Date of Service June 03, 2024 Assessment & Plan (1) Acute GI bleeding: Plan: Hb stable today; GI recommending a colonoscopy; given his EF is preserved without any wall motions he is at an acceptable moderate cardiovascular risk for a colonoscopy as an inpatient-i would not do it as an out patient. (2) Atrial fibrillation with RVR: Plan: ventricular rates better today continue toprol daily i would allow slightly higher HR given the anemia no AC given the GI bleeding (3) Non-ST elevation CO (NSTEMI): Plan: demand ischemia given the tachycardia and GI bleeding and underlying CAD EF is preserved with no wall motion abnormalities (4) Acute kidney injury superimposed on CKD: Plan: repeat BMP in the am Subjective pt is confused and asking about a watch of his he was seen early afternoon today HR remain relatively controlled in the 90s to low 100s but can jump up to the 140s he offers no complaints but that could be due to his underlying dementia BP has been stable Review of Systems Review of Systems: Unobtainable due to cognitive status Physical Exam Physical Exam: aaox3, NAD NC/AT, EOMI Supple No JVD irregular irregular slightly tachycardiac S1/S2, No murmur CTA b/l no w/r/r soft nt/nd no LE edema b/l skin intact no focal deficits Results & Data Vital Signs (Past 12 Hours) Vital Signs Temp Pulse Pulse Resp BP BP Pulse Ox 06/03/24 18:55 36.7 C 95 H 18 130/93 94 06/03/24 18:29 100 H 30 H 114/84 93 06/03/24 18:11 06/03/24 15:16 37.0 C 96 H 18 116/83 95 06/03/24 13:01 109 H 06/03/24 11:07 36.8 C 103 H 18 140/94 96 06/03/24 08:30 06/03/24 08:16 36.8 C 99 H 17 141/94 H 98 06/03/24 08:00 126 H O2 Del Method 06/03/24 18:55 Room Air 06/03/24 18:29 Room Air 06/03/24 18:11 Room Air 06/03/24 15:16 Room Air 06/03/24 13:01 06/03/24 11:07 Room Air 06/03/24 08:30 Room Air 06/03/24 08:16 Room Air 06/03/24 08:00 Laboratory Results Laboratory Results - last 24 hr 06/02/24 06/03/24 15:16 02:06 Hgb 10.5 L Hct 32.4 L Blood Type A Positive Antibody Screen NEGATIVE Crossmatch See Detail Diagnostic Findings Echo 06/03/2024: EF 55% LVH MAC and AV sclerosis Medications Administered Current Inpatient Medications Acetaminophen (Acetaminophen 325 Mg Tab) 650 mg PO Q4H PRN PRN Reason: Pain or Fever Stop: 07/02/24 18:58 Albuterol (Albut/Ipratrop 3mg/0.5mg Neb 3 Ml Vial) 3 ml NEB Q6R PRN; Protocol PRN Reason: Wheezing Stop: 07/03/24 18:37 Atorvastatin Calcium (Atorvastatin 40 Mg Tab) 80 mg PO DAILY [facility] Stop: 07/03/24 08:59 Last Admin: 06/03/24 08:58 Dose: 80 mg Donepezil HCl (Donepezil Hcl 10 Mg Tab) 10 mg PO DAILY EVELYN Stop: 07/03/24 08:59 Last Admin: 06/03/24 08:57 Dose: 10 mg Furosemide (Furosemide 20 Mg Tab) 20 mg PO DAILY EVELYN Stop: 07/03/24 08:59 Last Admin: 06/03/24 08:58 Dose: 20 mg Lisinopril (Lisinopril 5 Mg Tab) 5 mg PO DAILY EVELYN Stop: 07/03/24 08:59 Last Admin: 06/03/24 08:58 Dose: 5 mg Lorazepam (Lorazepam 0.5 Mg Tab) 0.5 mg PO Q6H PRN PRN Reason: Anxiety, agitation, irritabili Stop: 07/03/24 11:22 Metoprolol Succinate (Metoprolol Succ 25mg Ext Rel Tab) 75 mg PO QAM [facility] Stop: 07/03/24 08:59 Last Admin: 06/03/24 08:58 Dose: 75 mg Pantoprazole Sodium (Pantoprazole 40 Mg Tab) 40 mg PO QAM [facility] Stop: 07/04/24 08:59
[2024-06-03] MEDS: LORazepam 0.5 MG TAB PO PRN (20:17)
[2024-06-03] MEDS: ALBUT/IPRATROP 3MG/0.5MG NEB 3 ML VIAL NEB PRN (20:22)
[2024-06-03] MEDS: LORazepam 0.25 MG in SYRINGE 0.125 ML IV STA (22:10)
[2024-06-04 05:24] LABS: Adenovirus PCR Not Detected (NotDetected); Bordetella parapertussis PCR Not Detected (NotDetected); Bordetella pertussis PCR Not Detected (NotDetected); Chlamydia pneumoniae PCR Not Detected (NotDetected); Coronavirus 229E PCR Not Detected (NotDetected); Coronavirus CoV-2 (COVID19)PCR DETECTED (NotDetected); Coronavirus HKU1 PCR Not Detected (NotDetected); Coronavirus NL63 PCR Not Detected (NotDetected); Coronavirus OC43PCR Not Detected (NotDetected); Human Metapneumovirus PCR Not Detected (NotDetected); Influenza A PCR Not Detected (NotDetected); Influenza B PCR Not Detected (NotDetected); Mycoplasma pneumoniae PCR Not Detected (NotDetected); Parainfluenza Virus 1 PCR Not Detected (NotDetected); Parainfluenza Virus 2 PCR Not Detected (NotDetected); Parainfluenza Virus 3 PCR Not Detected (NotDetected); Parainfluenza Virus 4 PCR Not Detected (NotDetected); Respiratory Syncytial VirusPCR Not Detected (NotDetected); Rhinovirus/Enterovirus PCR Not Detected (NotDetected)
[2024-06-04] MEDS: FUROSEMIDE INJ 20 MG/2 ML VIAL IV ONE (05:40)
[2024-06-04 06:44] LABS: Hemoglobin 11.2 g/dl (14.0-18.0); Mean Corpuscular Hemoglobin 26.8 pg (25.0-34.0); Mean Corpuscular Volume 83.7 fL (80.0-100.0); Mean Platelet Volume 9.8 fL (9.4-12.4); Platelet Count 240 K/uL (130-400); RDW Coefficient of Variation 15.3 % (11.5-14.5); RDW Standard Deviation 46.4 fL (36.4-46.3); Red Blood Count 4.18 M/uL (4.70-6.10); White Blood Count 7.81 K/ul (4.8-10.8)
[2024-06-04 07:10] LABS: BUN Creatinine Ratio 23.8 (10-20); Calcium 8.1 mg/dl (8.6-10.3); Creatinine Clr Calc Pharmacy 46.4 ml/min; Est GFR (African American) 44.4 ml/min; Est GFR (Non-African American) 38.3 ml/min; Magnesium 1.5 mg/dl (1.7-2.4)
--- NOTE | 2024-06-04 07:17 | XRay Report ---
XR chest 1V portable CLINICAL HISTORY: Shortness of breath. COMPARISON STUDY: Chest CT May 26, 2017. Chest radiograph April 21, 2023. FINDINGS: Low lung lungs are unchanged. Interstitial thickening is also unchanged. Pleural calcificat ion along the right hemidiaphragm is again noted. There are median sternotomy wires. Moderate cardiom egaly is stable. There is no pneumothorax or pleural effusion. IMPRESSION: 1. No acute cardiopulmonary findings. 2. Stable chronic interstitial thickening. ACT 112: Negative or not required by law. Electronically signed by: Tio Emmanuel M.D. 06/04/2024 7:16 AM
[2024-06-04] MEDS: PANTOprazole 40 MG TAB PO SCH (08:02)
[2024-06-04] MEDS: METOPROLOL SUCC 50MG EXT REL TAB PO SCH (08:08)
--- NOTE | 2024-06-04 08:28 | Electrocardiogram Report ---
Test Reason : Blood Pressure : */* mmHG Vent. Rate : 106 BPM Atrial Rate : 111 BPM P-R Int : * ms QRS Dur : 100 ms QT Int : 334 ms P-R-T Axes : * -33 45 degrees QTcB Int : 443 ms Atrial fibrillation with rapid ventricular response Left axis deviation Abnormal ECG When compared with ECG of 02-Jun-2024 15:11, No significant change Confirmed by Kingston Lozano ([id number]) on 06/04/2024 8:28:35 AM Referred By: REFERRED SELF Confirmed By: Kingston Lozano
--- NOTE | 2024-06-04 09:13 | Gastroenterology Progress Note ---
Date of Service June 04, 2024 Assessment & Plan (1) Lower gastrointestinal bleed: Plan: No overt bleeding hemoglobin stable suspect rectal bleeding from possible rectal or prostatic mass. Plan Ultimate colonoscopy delayed due to COVID positivity. Awaiting final echo report but appears to be cleared by cardiology at this time. Will continue clear liquid diet in light of ultimate plans for colonoscopy when cleared. Admission and Anticipated Discharge Date Admission Date: June 02, 2024 Subjective Resting comfortably no shortness of breath no acute distress no overt bleeding Review of Systems Review of Systems: No fever No chills No SOB No CP No Abd pain Physical Exam Physical Exam: No acute distress afebrile Abdomen soft nontender no masses Results & Data Results & Data Vital Signs (Past 12 Hours) Vital Signs Temp Pulse Pulse Resp BP Pulse Ox O2 Del Method 06/04/24 07:35 105 H 06/04/24 04:16 116 H 18 96 Room Air 06/04/24 03:06 36.8 C 96 H 22 144/95 H 99 Room Air 06/04/24 01:12 Nasal Cannula 06/04/24 01:05 107 H 06/03/24 22:37 36.5 C 105 H 18 130/93 95 Nasal Cannula O2 Flow Rate 06/04/24 07:35 06/04/24 04:16 06/04/24 03:06 06/04/24 01:12 2 06/04/24 01:05 06/03/24 22:37 2 Laboratory Results Hemoglobin 11.2 hematocrit 35 PG Care Time/CCT Total # of Minutes Spent Total Time Spent with Patient: Total time spent is greater than 50% in coordination of care (as documented) at patient's floor/unit and/or counseling patient: Coding Level of Care Code 71590 SUB INP/OBS CARE 2/35MIN Diagnoses Lower gastrointestinal bleed K92.2
--- NOTE | 2024-06-04 10:17 | Hospitalist Progress Note ---
Date of Service June 04, 2024 Assessment & Plan (1) Acute blood loss anemia: (2) Atrial fibrillation with RVR: (3) Myocardial infarction due to demand ischemia: (4) Lower gastrointestinal bleed: (5) Acute kidney injury superimposed on CKD: (6) Upper respiratory tract infection due to COVID-19 virus: (7) Hypomagnesemia: (8) Mixed Alzheimer's and vascular dementia: (9) Delirium superimposed on dementia: (10) BPH loc w urin obs/LUTS: (11) Acute on chronic heart failure with preserved ejection fraction: Plan Patient remains critically ill and requiring hospital level care for IV medications, specialty evaluation and procedures. Continue telemetry monitoring Hemoglobin has remained stable continue to monitor daily Increase Toprol XL for better rate control Continue to hold anticoagulation due to GI bleeding Reviewed cardiology consultation, patient had acceptable risk to undergo GI procedure Communication with GI team, anticipate colonoscopy on Wednesday, will proceed with a 2-day colon prep, clear liquid diet Patient is at high risk for decompensation from COVID-19. Will start empiric remdesivir. Patient is not hypoxic does not meet criteria for Decadron at this time Replace magnesium Kidney function is significantly improved, continue to monitor daily and as needed Anticipate patient will need rehab/long-term facility placement upon discharge, case management to be involved Phone conversation with patient's , updated her to the plan of care 56 minutes spent coordinating care, communication with medical team, review of EMR Admission and Anticipated Discharge Date Admission Date: June 02, 2024 Subjective Events of last evening noted. This morning patient denies any shortness of breath, no chest pain. More alert and interactive this morning. Nursing reports that his behaviors have improved Physical Exam Physical Exam: Constitutional: Alert, nontoxic HEENT: Mucous membranes moist. Lungs: Decreased breath sounds, few coarse rhonchi, no wheezes CV: S1-S2, irregular Abdomen: Soft, nontender, nondistended Extremities: No significant edema Neuro: No focal deficits, generalized weakness Psych: Dementia, intermittently cooperative, short-term memory impairment Results & Data Results & Data Vital Signs (Past 12 Hours) Vital Signs Temp Pulse Pulse Resp BP Pulse Ox O2 Del Method 06/04/24 09:08 Room Air 06/04/24 08:10 36.7 C 89 20 137/78 97 Room Air 06/04/24 07:35 105 H 06/04/24 04:16 116 H 18 96 Room Air 06/04/24 03:06 36.8 C 96 H 22 144/95 H 99 Room Air 06/04/24 01:12 Nasal Cannula 06/04/24 01:05 107 H 06/03/24 22:37 36.5 C 105 H 18 130/93 95 Nasal Cannula O2 Flow Rate 06/04/24 09:08 06/04/24 08:10 06/04/24 07:35 06/04/24 04:16 06/04/24 03:06 06/04/24 01:12 2 06/04/24 01:05 06/03/24 22:37 2 Diagnostic Findings Reviewed imaging, laboratory and diagnostic studies. Pertinent findings as below. Hemoglobin 11.2 Creatinine 1.68, significantly improved Magnesium 1.5 Respiratory panel reviewed, positive for COVID-19 Personally reviewed chest x-ray, bilateral chronic interstitial markings Personally reviewed EKG, continued atrial fibrillation, rate 106
[2024-06-04 11:06] LABS: Alanine Aminotransferase 9 U/L (7-52); Aspartate Aminotransferase 17 U/L (13-39)
[2024-06-04] MEDS: REMDESIVIR 200 MG in SODIUM CHLORIDE 0.9% 210 ML IV STA (11:32)
[2024-06-04] MEDS: LAVAGE SOLUTION 4000ML PO SCH (12:23)
[2024-06-04] MEDS: MAGNESIUM SULFATE / D5W 1 GM/100 ML BAG IV SCH (13:32)
[2024-06-05 07:17] LABS: Hemoglobin 12.1 g/dl (14.0-18.0); Mean Corpuscular Hemoglobin 26.5 pg (25.0-34.0); Mean Corpuscular Hgb Conc 31.8 g/dL (32.0-36.0); Mean Corpuscular Volume 83.2 fL (80.0-100.0); Mean Platelet Volume 9.9 fL (9.4-12.4); Platelet Count 253 K/uL (130-400); RDW Coefficient of Variation 15.1 % (11.5-14.5); RDW Standard Deviation 46.1 fL (36.4-46.3); Red Blood Count 4.57 M/uL (4.70-6.10); White Blood Count 7.69 K/ul (4.8-10.8)
[2024-06-05 07:46] LABS: BUN Creatinine Ratio 22.5 (10-20); Calcium 8.3 mg/dl (8.6-10.3); Creatinine Clr Calc Pharmacy 50.1 ml/min; Est GFR (African American) 50.5 ml/min; Est GFR (Non-African American) 43.6 ml/min; Magnesium 1.8 mg/dl (1.7-2.4); Phosphorus 3.9 mg/dl (2.5-4.9); Potassium 3.7 mmol/L (3.5-5.1)
--- NOTE | 2024-06-05 09:39 | Gastroenterology Progress Note ---
Date of Service June 05, 2024 Assessment & Plan (1) Lower gastrointestinal bleed: Plan: 78 year old male with history of dyslipidemia, chronic HFpEF, HTN, CAD s/p CABG x 4 in 1996, carotid artery disease, dementia, SVT, paroxysmal atrial fibrillation, GERD, CKDIII, RYGB admitted with COVID-19, SEGUNDO on CKD, rectal bleeding, afib w/ RVR and NSTEMI. We are happy to provide a colonoscopy once he is medically optimized. May have clear liquids today Trend HGB Monitor and document GI output Transfuse PRN as needed We appreciate assistance in the management of any serological abnormality and corrections to include: hemoglobin >7, INR <2, platelets >50,000, potassium levels >3.5 but <5.3, and sodium levels within 5 points of the reference range prior to endoscopic evaluation. I spent a total of 40 minutes on the date of service in review of patient's rec ord, and previously obtained information in person and appropriate medical visit, discussion and education of plan, with patient and/or caregiver, placing orders for tests/referral/procedures as medically necessary and documentation of pertinent clinical information in patient's medical records for their visit today. Admission and Anticipated Discharge Date Admission Date: June 02, 2024 Supervising Physician Co-Signing Physician Notes I saw and examined this patient with our nurse practitioner and agree with her assessment and plan. No further GI bleeding at the present time. Abdominal exam was soft and nontender. Will plan to proceed with colonoscopy once bowel prep completed. Subjective Pt was seen and evaluated, chart reviewed. He is not very interactive on examination this AM. Awakes to name, answers yes/no but falls back to sleep. Discussed with nursing. Denies any report of black/bloody stools. She notes that he attempted some bowel prep but required a lot of prompting with this. Review of Systems Review of Systems: All other findings negative except as noted in HPI. Physical Exam Constitutional: WD/WN, vitals as above Respiratory: normal respiratory effort Cardiovascular: Rate/Rhythm: regular rate Gastrointestinal (Abdomen): Percussion/Palpation: abdomen soft; abdomen nontender Skin: no rashes, warm and dry Results & Data Results & Data Vital Signs (Past 12 Hours) Vital Signs Temp Pulse Pulse Resp BP BP Pulse Ox 06/05/24 08:20 36.5 C 87 16 134/79 97 06/05/24 04:54 36.7 C 92 H 22 131/87 96 06/04/24 22:53 93 H 06/04/24 22:19 36.6 C 111 H 18 136/78 97 O2 Del Method O2 Flow Rate 06/05/24 08:20 Nasal Cannula 1.5 06/05/24 04:54 Nasal Cannula 2 06/04/24 22:53 06/04/24 22:19 Room Air Laboratory Results 06/05/24 06/04/24 Range/Units 06:55 10:34 WBC 7.69 (4.8-10.8) K/ul RBC 4.57 L (4.70-6.10) M/uL Hgb 12.1 L (14.0-18.0) g/dl Hct 38.0 L (42.0-52.0) % MCV 83.2 (80.0-100.0) fL MCH 26.5 (25.0-34.0) pg MCHC 31.8 L (32.0-36.0) g/dL RDW Std Deviation 46.1 (36.4-46.3) fL RDW Coeff of Jean Claude 15.1 H (11.5-14.5) % Plt Count 253 (130-400) K/uL MPV 9.9 (9.4-12.4) fL Sodium 141 (136-145) mmol/L Potassium 3.7 (3.5-5.1) mmol/L Chloride 106 (98-107) mmol/L Carbon Dioxide 27 (21-32) mmol/L Anion Gap 8 (3-11) BUN 34 H (6-23) mg/dl Creatinine 1.51 H (0.6-1.4) mg/dl Est Cr Clr Drug Dosing 50.1 ml/min Est GFR ( Amer) 50.5 ml/min Est GFR (Non-Af Amer) 43.6 ml/min BUN/Creatinine Ratio 22.5 H (10-20) Glucose 83 (70-99(Fasting)) mg/dl Calcium 8.3 L (8.6-10.3) mg/dl Phosphorus 3.9 (2.5-4.9) mg/dl Magnesium 1.8 (1.7-2.4) mg/dl AST 17 (13-39) U/L ALT 9 (7-52) U/L PG Care Time/CCT Total # of Minutes Spent Total Time Spent with Patient: Total time spent is greater than 50% in coordination of care (as documented) at patient's floor/unit and/or counseling patient: Coding Level of Care Code 05091 SUB INP/OBS CARE 2/35MIN Diagnoses Lower gastrointestinal bleed K92.2
--- NOTE | 2024-06-05 10:14 | Hospitalist Progress Note ---
Date of Service June 05, 2024 Assessment & Plan (1) Acute blood loss anemia: (2) Acute respiratory failure due to COVID-19: (3) Atrial fibrillation with RVR: (4) Upper respiratory tract infection due to COVID-19 virus: (5) Acute on chronic heart failure with preserved ejection fraction: (6) Lower gastrointestinal bleed: (7) Myocardial infarction due to demand ischemia: (8) Acute kidney injury superimposed on CKD: (9) Mixed Alzheimer's and vascular dementia: (10) Delirium superimposed on dementia: (11) BPH loc w urin obs/LUTS: Plan Patient remains critically ill requiring hospital level care. High risk for recurrent bleeding. Patient also now meets criteria for additional treatments for COVID, has oxygen requirement. Start IV Decadron Continue oxygen support, titrate as able Scheduled DuoNeb treatments along with as needed nebulizers Continue remdesivir Continue to monitor hemoglobin daily, has steadily improved Continue to monitor renal function daily, has steadily improved Patient has been had difficulties taking the initial prep for anticipated co lonoscopy. Defer further prep orders to gastroenterology Anticipate colonoscopy tomorrow Continue current dose of Toprol XL, rate overall controlled Continue to hold anticoagulation in the setting of blood loss anemia due to most likely rectal lesion Admission and Anticipated Discharge Date Admission Date: June 02, 2024 Subjective Patient more drowsy this morning. Events of overnight noted, required oxygen. No other acute issues reported by nursing Physical Exam Physical Exam: Constitutional: Sleeping but able to be awakened briefly with vigorous stimulation HEENT: Mucous membranes moist. Lungs: Decreased breath sounds, coarse rhonchi, diffuse wheezing CV: S1-S2, irregular Abdomen: Soft, nontender, nondistended Extremities: No significant edema Neuro: No focal deficits, generalized weakness, drowsy Psych: Dementia Results & Data Results & Data Vital Signs (Past 12 Hours) Vital Signs Temp Pulse Pulse Resp BP BP Pulse Ox 06/05/24 08:20 36.5 C 87 16 134/79 97 06/05/24 08:00 99 H 06/05/24 04:54 36.7 C 92 H 22 131/87 96 06/04/24 22:53 93 H 06/04/24 22:19 36.6 C 111 H 18 136/78 97 O2 Del Method O2 Flow Rate 06/05/24 08:20 Nasal Cannula 1.5 06/05/24 08:00 06/05/24 04:54 Nasal Cannula 2 06/04/24 22:53 06/04/24 22:19 Room Air Diagnostic Findings Reviewed imaging, laboratory and diagnostic studies. Pertinent findings as below. Hemoglobin 12.1, improved Creatinine 1.5, improved LFTs stable
[2024-06-05] MEDS: REMDESIVIR 100 MG in SODIUM CHLORIDE 0.9% 230 ML IV SCH (11:52)
[2024-06-05] MEDS: dexAMETHasone 6 MG in SYRINGE 0 ML IV SCH (11:52)
[2024-06-05] MEDS ORDERED: LAVAGE SOLUTION 4000ML PO SCH (16:00)
[2024-06-05] MEDS: LAVAGE SOLUTION 4000ML PO SCH (17:04)
[2024-06-06 07:12] LABS: Hematocrit (blood only) 34.3 % (42.0-52.0); Mean Corpuscular Hgb Conc 32.1 g/dL (32.0-36.0); Mean Corpuscular Volume 81.1 fL (80.0-100.0); Mean Platelet Volume 9.9 fL (9.4-12.4); Platelet Count 276 K/uL (130-400); RDW Coefficient of Variation 14.9 % (11.5-14.5); RDW Standard Deviation 43.8 fL (36.4-46.3); Red Blood Count 4.23 M/uL (4.70-6.10); White Blood Count 6.76 K/ul (4.8-10.8)
[2024-06-06 07:26] LABS: BUN Creatinine Ratio 23.4 (10-20); Calcium 8.3 mg/dl (8.6-10.3); Est GFR (African American) 64.1 ml/min; Est GFR (Non-African American) 55.3 ml/min
--- NOTE | 2024-06-06 08:55 | Gastroenterology Progress Note ---
Date of Service June 06, 2024 Assessment & Plan (1) Lower gastrointestinal bleed: Plan: 78 year old male with history of dyslipidemia, chronic HFpEF, HTN, CAD s/p CABG x 4 in 1996, carotid artery disease, dementia, SVT, paroxysmal atrial fibrillation, GERD, CKDIII, RYGB admitted with COVID-19, SEGUNDO on CKD, rectal bleeding, afib w/ RVR and NSTEMI. Unfortunately, he did not complete his prep nor have adequate BM to complete a colonoscopy today. May resume clear liquid diet Re-educated on importance of bowel preparation NPO aftermidnight Re-attempt colonoscopy 06/07/24 Trend HGB Monitor and document GI output Transfuse PRN as needed We appreciate assistance in the management of any serological abnormality and corrections to include: hemoglobin >7, INR <2, platelets >50,000, potassium levels >3.5 but <5.3, and sodium levels within 5 points of the reference range prior to endoscopic evaluation. I spent a total of 40 minutes on the date of service in review of patient's record, and previously obtained information in person and appropriate medical visit, discussion and education of plan, with patient and/or caregiver, placing orders for tests/referral/procedures as medically necessary and documentation of pertinent clinical information in patient's medical records for their visit today. Admission and Anticipated Discharge Date Admission Date: June 02, 2024 Supervising Physician Co-Signing Physician Notes I saw and examined this patient with our nurse practitioner and agree with her assessment and plan. Abdomen soft nontender. No further rectal bleeding. Awaiting completion of bowel prep to proceed with colonoscopy. Hopefully can be done within the next 24 hours. Subjective Pt was seen and evaluated, chart reviewed. Was NPO for anticipated colonoscopy today. Unfortunately, did not complete prep. He denies moving any stools at all. Last BM documented in EHR is from 06/04/24. Denies abd pain. No nausea, vomiting. Review of Systems Review of Systems: All other findings negative except as noted in HPI. Physical Exam Constitutional: WD/WN, vitals as above Respiratory: normal respiratory effort Cardiovascular: Rate/Rhythm: regular rate Gastrointestinal (Abdomen): normal bowel sounds, soft, nontender, no hepatosplenomegaly Skin: no rashes, warm and dry Results & Data Results & Data Vital Signs (Past 12 Hours) Vital Signs Temp Pulse Pulse Resp BP Pulse Ox O2 Del Method 06/06/24 07:34 36.1 C L 105 H 19 142/94 H 94 Room Air 06/06/24 02:36 36.5 C 102 H 18 126/75 91 Room Air 06/06/24 00:00 104 H 06/05/24 22:20 36.3 C L 97 H 18 122/80 93 Room Air Laboratory Results 06/06/24 Range/Units 06:44 WBC 6.76 (4.8-10.8) K/ul RBC 4.23 L (4.70-6.10) M/uL Hgb 11.0 L (14.0-18.0) g/dl Hct 34.3 L (42.0-52.0) % MCV 81.1 (80.0-100.0) fL MCH 26.0 (25.0-34.0) pg MCHC 32.1 (32.0-36.0) g/dL RDW Std Deviation 43.8 (36.4-46.3) fL RDW Coeff of Jean Claude 14.9 H (11.5-14.5) % Plt Count 276 (130-400) K/uL MPV 9.9 (9.4-12.4) fL Sodium 140 (136-145) mmol/L Potassium 4.0 (3.5-5.1) mmol/L Chloride 105 (98-107) mmol/L Carbon Dioxide 28 (21-32) mmol/L Anion Gap 7 (3-11) BUN 29 H (6-23) mg/dl Creatinine 1.24 (0.6-1.4) mg/dl Est Cr Clr Drug Dosing 61.0 ml/min Est GFR ( Amer) 64.1 ml/min Est GFR (Non-Af Amer) 55.3 ml/min BUN/Creatinine Ratio 23.4 H (10-20) Glucose 122 H (70-99(Fasting)) mg/dl Calcium 8.3 L (8.6-10.3) mg/dl AST 13 (13-39) U/L ALT 8 (7-52) U/L PG Care Time/CCT Total # of Minutes Spent Total Time Spent with Patient: Total time spent is greater than 50% in coordination of care (as documented) at patient's floor/unit and/or counseling patient: Coding Level of Care Code 77993 SUB INP/OBS CARE 235MIN Diagnoses Lower gastrointestinal bleed K92.2
--- NOTE | 2024-06-06 11:22 | Hospitalist Progress Note ---
Date of Service June 06, 2024 Assessment & Plan (1) Acute blood loss anemia: (2) Acute respiratory failure due to COVID-19: (3) Atrial fibrillation with RVR: (4) Upper respiratory tract infection due to COVID-19 virus: (5) Acute on chronic heart failure with preserved ejection fraction: (6) Lower gastrointestinal bleed: (7) Myocardial infarction due to demand ischemia: (8) Acute kidney injury superimposed on CKD: (9) Mixed Alzheimer's and vascular dementia: (10) Delirium superimposed on dementia: (11) BPH loc w urin obs/LUTS: Plan Patient presented with acute blood loss anemia with suspicious findings in rectum on CAT scan. Hemoglobin has remained stable. Patient with A-fib with RVR, rates controlled, holding anticoagulation due to blood loss Subsequently diagnosed with COVID-19, treating with remdesivir, currently on room air Continue with bowel prep Colonoscopy as determined by GI Anticipate patient will need discharge to dementia unit/long term facility, unable to return home with Monitor blood counts and electrolytes daily Admission and Anticipated Discharge Date Admission Date: June 02, 2024 Subjective Patient pleasantly confused, continues to intermittently pull at medical devices, pulled out for IVs over the last 24 hours. Breathing seems to have improved. Nursing reports titrated off oxygen. Patient denies any complaints. Unfortunately, patient slow with taking his colonoscopy prep. Not effectively prepped for anticipated colonoscopy today Physical Exam Physical Exam: Constitutional: Alert, nontoxic HEENT: Mucous membranes moist. Lungs: Decreased breath sounds, no wheezes, rhonchi improved CV: S1-S2, regular Abdomen: Soft, nontender, nondistended Extremities: No significant edema Neuro: No focal deficits Psych: Confused, poor memory Results & Data Results & Data Vital Signs (Past 12 Hours) Vital Signs Temp Pulse Pulse Resp BP Pulse Ox O2 Del Method 06/06/24 07:34 36.1 C L 105 H 19 142/94 H 94 Room Air 06/06/24 02:36 36.5 C 102 H 18 126/75 91 Room Air 06/06/24 00:00 104 H Diagnostic Findings Reviewed imaging, laboratory and diagnostic studies. Pertinent findings as below. Hemoglobin 11.0, stable BMP stable
[2024-06-06] MEDS: ALBUT/IPRATROP 3MG/0.5MG NEB 3 ML VIAL NEB PRN (17:03)
[2024-06-07 06:31] LABS: Hematocrit (blood only) 37.5 % (42.0-52.0); Hemoglobin 11.9 g/dl (14.0-18.0); Mean Corpuscular Hemoglobin 26.4 pg (25.0-34.0); Mean Corpuscular Hgb Conc 31.7 g/dL (32.0-36.0); Mean Corpuscular Volume 83.3 fL (80.0-100.0); Mean Platelet Volume 9.9 fL (9.4-12.4); Platelet Count 343 K/uL (130-400); RDW Coefficient of Variation 15.3 % (11.5-14.5); RDW Standard Deviation 46.4 fL (36.4-46.3); White Blood Count 11.11 K/ul (4.8-10.8)
[2024-06-07 06:51] LABS: BUN Creatinine Ratio 22.2 (10-20); Calcium 8.4 mg/dl (8.6-10.3); Creatinine Clr Calc Pharmacy 60.9 ml/min; Est GFR (African American) 62.9 ml/min; Est GFR (Non-African American) 54.3 ml/min; Magnesium 1.5 mg/dl (1.7-2.4); Potassium 3.5 mmol/L (3.5-5.1)
[2024-06-07] MEDS: dexAMETHasone 1 MG TAB PO SCH (07:34)
--- NOTE | 2024-06-07 09:09 | Gastroenterology Progress Note ---
Date of Service June 07, 2024 Assessment & Plan (1) Lower gastrointestinal bleed: Plan: 78 year old male with history of dyslipidemia, chronic HFpEF, HTN, CAD s/p CABG x 4 in 1996, carotid artery disease, dementia, SVT, paroxysmal atrial fibrillation, GERD, CKDIII, RYGB admitted with COVID-19, SEGUNDO on CKD, rectal bleeding, afib w/ RVR and NSTEMI. Stools are liquid, but not clear. Maintain NPO status Tap water enema now. Repeat before colonscopy Attempt colonoscopy 06/07/24 Trend HGB Monitor and document GI output Transfuse PRN as needed We appreciate assistance in the management of any serological abnormality and corrections to include: hemoglobin >7, INR <2, platelets >50,000, potassium levels >3.5 but <5.3, and sodium levels within 5 points of the reference range prior to endoscopic evaluation. Admission and Anticipated Discharge Date Admission Date: June 02, 2024 Supervising Physician Co-Signing Physician Notes I saw and examined this patient with our nurse practitioner and agree with her assessment and plan. Will plan for flex sig/colonoscopy in OR today to assess rectal mass. Subjective Pt was seen and evaluated, chart review. Brown stools but liquid. Discussed with nursing. Review of Systems Review of Systems: All other findings negative except as noted in HPI. Physical Exam Constitutional: WD/WN, vitals as above Respiratory: normal respiratory effort, lungs clear to auscultation Cardiovascular: Rate/Rhythm: regular rate and regular rhythm Gastrointestinal (Abdomen): normal bowel sounds, soft, nontender, no hepatosplenomegaly Skin: no rashes, warm and dry Results & Data Results & Data Vital Signs (Past 12 Hours) Vital Signs Temp Pulse Pulse Resp BP Pulse Ox O2 Del Method 06/07/24 08:02 36.1 C L 97 H 18 136/75 94 Room Air 06/07/24 05:49 36.6 C 97 H 20 161/76 H 98 Nasal Cannula 06/07/24 00:25 36.3 C L 100 H 20 137/89 93 Room Air 06/06/24 23:51 106 H O2 Flow Rate 06/07/24 08:02 06/07/24 05:49 3 06/07/24 00:25 06/06/24 23:51 Laboratory Results 06/07/24 Range/Units 05:47 WBC 11.11 H (4.8-10.8) K/ul RBC 4.50 L (4.70-6.10) M/uL Hgb 11.9 L (14.0-18.0) g/dl Hct 37.5 L (42.0-52.0) % MCV 83.3 (80.0-100.0) fL MCH 26.4 (25.0-34.0) pg MCHC 31.7 L (32.0-36.0) g/dL RDW Std Deviation 46.4 H (36.4-46.3) fL RDW Coeff of Jean Claude 15.3 H (11.5-14.5) % Plt Count 343 (130-400) K/uL MPV 9.9 (9.4-12.4) fL Sodium 141 (136-145) mmol/L Potassium 3.5 (3.5-5.1) mmol/L Chloride 105 (98-107) mmol/L Carbon Dioxide 29 (21-32) mmol/L Anion Gap 7 (3-11) BUN 28 H (6-23) mg/dl Creatinine 1.26 (0.6-1.4) mg/dl Est Cr Clr Drug Dosing 60.9 ml/min Est GFR ( Amer) 62.9 ml/min Est GFR (Non-Af Amer) 54.3 ml/min BUN/Creatinine Ratio 22.2 H (10-20) Glucose 85 (70-99(Fasting)) mg/dl Calcium 8.4 L (8.6-10.3) mg/dl Magnesium 1.5 L (1.7-2.4) mg/dl AST 15 (13-39) U/L ALT 9 (7-52) U/L PG Care Time/CCT Total # of Minutes Spent Total Time Spent with Patient: Total time spent is greater than 50% in coordination of care (as documented) at patient's floor/unit and/or counseling patient: Coding Level of Care Code None Diagnoses Lower gastrointestinal bleed K92.2
[2024-06-07] MEDS: LACTATED RINGER'S 1,000 ML IV SCH (12:25)
--- NOTE | 2024-06-07 12:46 | Anesthesiology Consultation ---
Date of Service June 07, 2024 Assessment & Plan (1) Encounter for pre-operative examination: Chart Review Chart Review: Acceptable Risk for Surgery History Surgery Operation Date: 06/06/24 16:30 Proposed Procedures p Colonoscopy Dr. Teddy Espinal MD Operation Date: 06/07/24 13:00 Proposed Procedures p Colonoscopy Oscar Espinal MD Height/Weight Height: 5 ft 8 in Weight: 120 kg Allergies Allergy/AdvReac Type Severity Reaction Status Date / Time No Known Allergies Allergy Verified 06/02/24 16:23 Medications Home Medications Medication Instructions Recorded Confirmed Last Taken aspirin 81 mg tablet,delayed 81 mg PO DAILY 06/02/24 06/02/24 Unknown release atorvastatin 80 mg tablet 80 mg PO DAILY 06/02/24 06/02/24 Unknown cholecalciferol (vitamin D3) 25 25 mcg PO DAILY 06/02/24 06/02/24 Unknown mcg (1,000 unit) tablet (Vitamin D3) cyanocobalamin (vitamin B-12) 1,000 mcg PO DAILY 06/02/24 06/02/24 Unknown 1,000 mcg tablet (Vitamin B-12) diclofenac sodium 1 % topical gel 0 g topical QID PRN .. 06/02/24 06/02/24 Unknown (Voltaren Arthritis Pain) donepezil 10 mg tablet 10 mg PO DAILY 06/02/24 06/02/24 Unknown famotidine 20 mg tablet 20 mg PO QAM 06/02/24 06/02/24 Unknown ferrous sulfate 325 mg (65 mg 650 mg PO DAILY 06/02/24 06/02/24 Unknown iron) tablet furosemide 20 mg tablet 20 mg PO DAILY 06/02/24 06/02/24 Unknown lisinopril 5 mg tablet 5 mg PO DAILY 06/02/24 06/02/24 Unknown metoprolol succinate 50 mg 75 mg PO QAM 06/02/24 06/02/24 Unknown tablet,extended release 24 hr omega-3 fatty acids 1,000 mg 1,000 mg PO DAILY 06/02/24 06/02/24 Unknown capsule Active Medications Generic Name Dose Route Start Last Admin Trade Name Freq PRN Reason Stop Dose Admin Albuterol 3 ml 06/05/24 10:05 06/06/24 17:03 Albut/Ipratrop 3mg/0.5mg Neb 3 Ml Vial NEB 07/05/24 10:14 3 ml Q4H PRN Administration Wheezing Protocol Atorvastatin Calcium 80 mg 06/03/24 09:00 06/07/24 07:33 Atorvastatin 40 Mg Tab PO 07/03/24 08:59 80 mg DAILY EVELYN Administration Donepezil HCl 10 mg 06/03/24 09:00 06/07/24 07:34 Donepezil Hcl 10 Mg Tab PO 07/03/24 08:59 10 mg DAILY EVELYN Administration Remdesivir 100 mg/ Sodium 250 mls @ 250 mls/hr 06/05/24 12:00 06/07/24 11:58 Chloride IV 06/08/24 12:59 250 mls/hr Q24H EVELYN Administration Lactated Ringer's 1,000 mls @ 75 mls/hr 06/07/24 06:00 06/07/24 12:25 Lr IV 07/07/24 05:59 Not Given .[id number] EVELYN Lisinopril 5 mg 06/03/24 09:00 06/07/24 07:34 Lisinopril 5 Mg Tab PO 07/03/24 08:59 5 mg DAILY EVELYN Administration Lorazepam 0.5 mg 06/03/24 11:23 06/03/24 20:17 Lorazepam 0.5 Mg Tab PO 07/03/24 11:22 0.5 mg Q6H PRN Administration Anxiety, agitation, irritabili Metoprolol Succinate 100 mg 06/04/24 09:00 06/07/24 07:34 Metoprolol Succ 50mg Ext Rel Tab PO 07/04/24 08:59 100 mg QAM EVELYN Administration Pantoprazole Sodium 40 mg 06/04/24 09:00 06/07/24 07:34 Pantoprazole 40 Mg Tab PO 07/04/24 08:59 40 mg QAM EVELYN Administration Past Medical History Medical History (Updated 06/07/24 @ 12:46 by Junior Rodriguez MD) Acute respiratory failure due to COVID-19 Myocardial infarction due to demand ischemia Lower gastrointestinal bleed Acute blood loss anemia Acute kidney injury superimposed on CKD Atrial fibrillation with RVR CKD (chronic kidney disease), stage III SVT (supraventricular tachycardia) with possible short runs of PAF Chronic heart failure with preserved ejection fraction (HFpEF) Hearing loss Obesity Past Family History Family History Mother Hypertension Stroke Father Hypertension Cancer Past Surgical History Surgical History S/P panniculectomy S/P colonoscopy with polypectomy History of liver biopsy History of esophagogastroduodenoscopy (EGD) Bariatric surgery status Social History Smoking Status: Never smoker Do You Dip or Chew Tobacco: No Hx Alcohol Use: No Hx Substance Use: No substance use type: does not use Physical Exam Vital Signs Last Vital Signs Temp 36.5 C 06/07/24 10:58 Pulse 89 06/07/24 10:58 Resp 20 06/07/24 10:58 BP 132/78 06/07/24 10:58 Pulse Ox 95 06/07/24 10:58 O2 Del Method Room Air 06/07/24 10:58 O2 Flow Rate 3 06/07/24 05:49 Testing Laboratory Results 06/07/24 05:47 06/07/24 05:47 PT 11.4 Seconds (9.0-12.0) 06/02/24 15:16 INR 1.1 (0.9-1.1) 06/02/24 15:16 APTT 30 Seconds (21-31) 06/02/24 15:16 Blood Type A Positive 06/02/24 15:16 Antibody Screen NEGATIVE 06/02/24 15:16 Electrocardiogram Date: 06/04/24 Findings: + AFIB @ (106) Echocardiogram Date: 06/03/24 EF: 55-60% LV Function: normal Other Findings: + LVH Valvular Disease: + no significant valvular disease and + MR (mild)
[2024-06-07] MEDS ORDERED: LIDOCAINE 2% 2 ML VIAL/AMP(20MG/ML) INFIL ONE (14:00)
[2024-06-07] MEDS ORDERED: PROPOFOL IV EMULSION 10 MG/ML 20 ML VIAL IV ONE (14:00)
--- NOTE | 2024-06-07 14:01 | Hospitalist Progress Note ---
Date of Service June 07, 2024 Assessment & Plan (1) Lower gastrointestinal bleed: (2) Acute blood loss anemia: Plan: Patient presents from home with reports of dizziness. He was reported to have bright red blood per rectum for 3 weeks. Hemoglobin of 9.[address] abdomen pelvis showed thickening of rectal wall which may represent proctitis; underlying mass cannot be excluded History of GI bleed in 2017: - Colonoscopy 2017-dark stool throughout the colon and a clot in the ascending colon - EGD 2017-bleeding at the GE junction,Clipped with hemostasis Hemoglobin currently stable around 10-11 Plan for colonoscopy today by GI (3) Atrial fibrillation with RVR: (4) Acute on chronic heart failure with preserved ejection fraction: (5) Myocardial infarction due to demand ischemia: Plan: On presentation, patient was found to have atrial fibrillation with RVR. Evaluated by cardiology; started on metoprolol succinate 100 mg once a day Not on anticoagulation due to GI bleed Echocardiogram shows EF of 55 to 60% with moderate concentric LVH. (6) Upper respiratory tract infection due to COVID-19 virus: Plan: Found to have COVID-19 infection Saturating well on room air presently Chest x-ray personally reviewed; no acute findings Due to his age and comorbidities symptoms started on remdesivir (7) Acute kidney injury superimposed on CKD: (8) BPH loc w urin obs/LUTS: Plan: Presented with creatinine of 2.5; down trended to baseline of 1.2-1.3 with IV hydration and Aldrich catheterization. CT abdomen pelvis shows bilateral hydronephrosis likely due to bladder outlet obstruction Started on tamsulosin Remove Aldrich ; trial of void Hold Lasix and lisinopril for the time being (9) Mixed Alzheimer's and vascular dementia: (10) Delirium superimposed on dementia: Plan: At baseline, patient is oriented to self. Continue on donepezil Monitor for delirium Plan Time spent evaluating patient, direct bedside care, chart review, placing orders, interpretation of diagnostic studies, discussion with consultants, patient, and family members, as well as other required patient management activities is 50 minutes Please note the above document was generated using voice recognition software. It may contain grammatical, syntax or spelling errors. Any formal questions or concerns about the content, text or information contained within the body of this dictation should be directly addressed to the provider for clarification Admission and Anticipated Discharge Date Admission Date: June 02, 2024 Subjective Patient seen and examined at bedside. He is oriented to self only. He is not sure where he is, doesn't know date and time. He denies any pain or discomfort. No significant events overnight. Review of Systems Review of Systems: All systems reviewed & are unremarkable except as noted in Subjective Physical Exam Physical Exam: Constitutional: Alert, oriented with self, not in any distress HEENT: Mucous membranes moist. Lungs: Decreased breath sounds, no wheezes, rhonchi improved CV: S1-S2, regular Abdomen: Soft, nontender, nondistended Extremities: No significant edema Neuro: No focal deficits Psych: Confused, poor memory Results & Data Results & Data Vital Signs (Past 12 Hours) Vital Signs Temp Pulse Resp BP BP Pulse Ox O2 Del Method 06/07/24 12:52 36.4 C L 101 H 20 141/92 H 91 Room Air 06/07/24 10:58 36.5 C 89 20 132/78 95 Room Air 06/07/24 08:02 36.1 C L 97 H 18 136/75 94 Room Air 06/07/24 05:49 36.6 C 97 H 20 161/76 H 98 Nasal Cannula O2 Flow Rate 06/07/24 12:52 06/07/24 10:58 06/07/24 08:02 06/07/24 05:49 3
--- NOTE | 2024-06-07 14:16 | GI REPORT ---
[facility] Patient: TAY VIEYRA : 1945 Sex at : Male Age: 78 Years Procedure: Colonoscopy Date: 06/07/2024 Attending Physician: Felipe Espinal MD Referring MD: Referred Self Indications: - Evaluation of unexplained GI bleeding presenting with Hematochezia Medications: - See the Anesthesia note for documentation of the administered medications Complications: - No immediate complications. Estimated Blood Loss: - Estimated blood loss: None. Procedure: - Prior to the procedure, a History and Physical was performed, and patient medications and allergies were reviewed. The patient's tolerance of previous anesthesia was also reviewed. The risks and benefits of the procedure and the sedation options and risks were discussed with the patient. All questions were answered, and informed consent was obtained. Prior Anticoagulants: The patient has taken no anticoagulant or antiplatelet agents. ASA Grade Assessment: III - A patient with severe systemic disease. After reviewing the risks and benefits, the patient was deemed in satisfactory condition to undergo the procedure. - The adult colonoscope was introduced through the anus and advanced to the terminal ileum, with identification of the appendiceal orifice and ileocecal valve. - The colonoscopy was performed without difficulty. - The quality of the bowel preparation was adequate. - Anatomical landmarks were photographed. Findings: - The digital rectal exam revealed a rectal mass. - The terminal ileum appeared normal. - A polypoid, infiltrative and submucosal non-obstructing large mass was found in the distal rectum. The mass was partially circumferential (involving one-half of the lumen circumference). No bleeding was present. Biopsies were taken with a cold forceps for histology. - A small (4-6 mm) polyp was found in the descending colon. The polyp was sessile. The polyp was removed with a piecemeal technique using a cold biopsy forceps. Resection was complete, and retrieval was complete. Impression: - Rectal mass. - The examined portion of the ileum was normal. 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 Biopsied. - One small (4-6 mm) polyp in the descending colon, removed piecemeal using a cold biopsy forceps. Resected and retrieved. Recommendation: - Await pathology results. Procedure Code(s): - 81030, Colonoscopy, flexible; with biopsy, single or multiple Diagnosis Code(s): - K92.1, Melena (includes Hematochezia) - K62.89, Other specified diseases of anus and rectum - D49.0, Neoplasm of unspecified behavior of digestive system - D12.4, Benign neoplasm of descending colon CPT(R) - 202 copyright [employer] [place] [employer]. All Rights Reserved. The CPT codes, CCI edits and ICD codes generated are intended as suggestions and were generated based on input data. These codes are preliminary and upon strategic business development review may be revised to meet current compliance and payer requirements. The provider is responsible for the final determination of appropriate codes, and modifiers. Felipe Espinal MD This document has been electronically signed. Note Initiated:06/07/2024 Note Completed:06/07/2024 2:16 PM \\[id number]
--- NOTE | 2024-06-07 14:38 | Anesthesiology Progress Note ---
Date of Service June 07, 2024 Anesthesia Post Procedure Vital Signs Vital Signs: Temp Pulse Pulse Resp BP BP Pulse Ox 06/07/24 14:30 105 H 20 125/83 96 06/07/24 14:15 100 H 20 119/70 96 06/07/24 12:52 36.4 C L 101 H 20 141/92 H 91 06/07/24 10:58 36.5 C 89 20 132/78 95 06/07/24 08:02 36.1 C L 97 H 18 136/75 94 06/07/24 05:49 36.6 C 97 H 20 161/76 H 98 06/07/24 00:25 36.3 C L 100 H 20 137/89 93 06/06/24 23:51 106 H 06/06/24 19:47 36.6 C 91 H 20 164/97 H 92 06/06/24 17:03 97 H 18 94 06/06/24 15:40 36.4 C L 107 H 18 130/78 94 O2 Del Method O2 Flow Rate 06/07/24 14:30 Oxymask 6 06/07/24 14:15 Oxymask 6 06/07/24 12:52 Room Air 06/07/24 10:58 Room Air 06/07/24 08:02 Room Air 06/07/24 05:49 Nasal Cannula 3 06/07/24 00:25 Room Air 06/06/24 23:51 06/06/24 19:47 Room Air 06/06/24 17:03 Room Air 06/06/24 15:40 Room Air Transfer of Care Handoff Completed per policy Notes Mental Status: alert / awake / arousable and participated in evaluation Patient Amnestic to Procedure: Yes Nausea / Vomiting: adequately controlled Pain: adequately controlled Airway Patency, RR, SpO2: stable & adequate BP & HR: stable & adequate Hydration State: stable & adequate Anesthetic Complications: no major complications apparent
[2024-06-07] MEDS: SODIUM CHLORIDE 0.9% 500 ML IV SCH (15:27)
[2024-06-07] MEDS: TAMSULOSIN HCL 0.4 MG CAP PO SCH (19:37)
[2024-06-08 07:40] LABS: Alanine Aminotransferase 10 U/L (7-52); Aspartate Aminotransferase 15 U/L (13-39)
--- NOTE | 2024-06-08 09:06 | Gastroenterology Progress Note ---
Date of Service June 08, 2024 Assessment & Plan (1) Lower gastrointestinal bleed: Plan: 78 year old male with history of dyslipidemia, chronic HFpEF, HTN, CAD s/p CABG x 4 in 1996, carotid artery disease, dementia, SVT, paroxysmal atrial fibrillation, GERD, CKDIII, RYGB admitted with COVID-19, SEGUNDO on CKD, rectal bleeding, afib w/ RVR and NSTEMI. Colonoscopy yesterday revealed a rectal mass, biopsies pending Follow biopsies. Please arrange an outpatient oncology evaluation. Recall GI as needed. I spent a total of 25 minutes on the date of service in review of patient's record, and previously obtained information in person and appropriate medical visit, discussion and education of plan, with patient and/or caregiver, placing orders for tests/referral/procedures as medically necessary and documentation of pertinent clinical information in patient's medical records for their visit today. Thank you for allowing us to participate in the care of this patient. Please call with any acute changes, questions or concerns. Please see addendum below with additional recommendation from my supervising physician. Admission and Anticipated Discharge Date Admission Date: June 02, 2024 Supervising Physician Co-Signing Physician Notes I saw and examined this patient with our nurse practitioner and agree with her assessment and plan. No signs of significant rectal bleeding abdomen soft nontender. Awaiting pathology from biopsies of rectal mass. Subjective Pt was seen and evaluated, chart reviewed. Asleep. Abdomen soft. Colonoscopy 2023: Rectal mass. - The examined portion of the ileum was normal. 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 Biopsied. - One small (4-6 mm) polyp in the descending colon, removed piecemeal using a cold biopsy forceps. Resected and retrieved. Review of Systems Review of Systems: Pt sleeping, sitter at bedside Physical Exam Constitutional: WD/WN, vitals as above Gastrointestinal (Abdomen): normal bowel sounds, soft, nontender, no hepatosplenomegaly Skin: no rashes, warm and dry Results & Data Results & Data Vital Signs (Past 12 Hours) Vital Signs Temp Pulse Pulse Pulse Resp BP Pulse Ox 06/08/24 07:03 36.6 C 81 18 149/80 H 97 06/08/24 05:42 96 H 06/08/24 03:00 36.4 C L 79 17 134/90 96 06/07/24 22:48 36.8 C 101 H 18 130/82 93 06/07/24 22:48 104 H O2 Del Method O2 Flow Rate 06/08/24 07:03 Nasal Cannula 2 06/08/24 05:42 06/08/24 03:00 Nasal Cannula 2 06/07/24 22:48 Room Air 06/07/24 22:48 Laboratory Results 06/08/24 Range/Units 06:36 AST 15 (13-39) U/L ALT 10 (7-52) U/L PG Care Time/CCT Total # of Minutes Spent Total Time Spent with Patient: Total time spent is greater than 50% in coordination of care (as documented) at patient's floor/unit and/or counseling patient: Coding Level of Care Code 02824 SUB INP/OBS CARE 11/18MIN Diagnoses Lower gastrointestinal bleed K92.2
--- NOTE | 2024-06-08 09:26 | Hospitalist Progress Note ---
Date of Service June 08, 2024 Assessment & Plan (1) Lower gastrointestinal bleed: (2) Rectal mass: (3) Acute blood loss anemia: Plan: Patient presents from home with reports of dizziness. He was reported to have bright red blood per rectum for 3 weeks. Hemoglobin of 9.[address] abdomen pelvis showed thickening of rectal wall which may represent proctitis; underlying mass cannot be excluded History of GI bleed in 2017: - Colonoscopy 2017-dark stool throughout the colon and a clot in the ascending colon - EGD 2017-bleeding at the GE junction,Clipped with hemostasis Colonoscopy done on 06/17; found to have rectal mass. Also small 4 to 6 mm polyps found in descending colon which was sessile. Will follow-up on biopsy result Surgery consulted for evaluation; recommend oncology evaluation. Continue to monitor CBC and recurrence of rectal bleed (4) Atrial fibrillation with RVR: (5) Acute on chronic heart failure with preserved ejection fraction: (6) Myocardial infarction due to demand ischemia: Plan: On presentation, patient was found to have atrial fibrillation with RVR. Evaluated by cardiology; started on metoprolol succinate 100 mg once a day Not on anticoagulation due to GI bleed Echocardiogram shows EF of 55 to 60% with moderate concentric LVH. Monitor on telemetry (7) Upper respiratory tract infection due to COVID-19 virus: Plan: Found to have COVID-19 infection oxygen saturation wean off to RA Chest x-ray personally reviewed; no acute findings Due to his age and comorbidities; patient was given remdesivir on duonebs due to b/l wheeze, also started on azithromycin (8) Acute kidney injury superimposed on CKD: (9) BPH loc w urin obs/LUTS: Plan: Presented with creatinine of 2.5; down trended to baseline of 1.2-1.3 with IV hydration and Aldrich catheterization. 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 Continue on donepezil Monitor for delirium Plan DVT prophylaxis- SCDs given rectal bleed full code Updated patient's and stepdaughter at bedside on 8/14. Awaiting placement to rehab. Time spent evaluating patient, direct bedside care, chart review, placing orders, interpretation of diagnostic studies, discussion with consultants, patient, and family members, as well as other required patient management activities is 50 minutes Please note the above document was generated using voice recognition software. It may contain grammatical, syntax or spelling errors. Any formal questions or concerns about the content, text or information contained within the body of this dictation should be directly addressed to the provider for clarification Admission and Anticipated Discharge Date Admission Date: June 02, 2024 Subjective Patient seen and examined at bedside. Comfortable; not in distress. No significant overnight events Review of Systems Review of Systems: All systems reviewed & are unremarkable except as noted in Subjective Physical Exam Physical Exam: Constitutional: Alert, oriented with self, not in any distress HEENT: Mucous membranes moist. Lungs: b/l vesicular breath sound CV: S1-S2, regular Abdomen: Soft, nontender, nondistended Extremities: No significant edema Neuro: No focal deficits Psych: Confused, poor memory Results & Data Results & Data Vital Signs (Past 12 Hours) Vital Signs Temp Pulse Pulse Pulse Resp BP Pulse Ox 06/08/24 07:03 36.6 C 81 18 149/80 H 97 06/08/24 05:42 96 H 06/08/24 03:00 36.4 C L 79 17 134/90 96 06/07/24 22:48 36.8 C 101 H 18 130/82 93 06/07/24 22:48 104 H O2 Del Method O2 Flow Rate 06/08/24 07:03 Nasal Cannula 2 06/08/24 05:42 06/08/24 03:00 Nasal Cannula 2 06/07/24 22:48 Room Air 06/07/24 22:48
--- NOTE | 2024-06-08 09:47 | Surgery Consultation ---
Date of Consultation June 08, 2024 Assessment & Plan (1) Rectal mass: recommend oncology consult will need staging evaluation assess candidacy for neoadjuvant treatment will need colorectal surgery outpatient evaluation if resection desired or indicated will sign off, nothing from general surgery required Present on Admission?: Yes History of Present Illness Attending Physician: Devyn Neal MD History of Present Illness This is a 78-year-old male with colonscopy showing large rectal mass who also had new onset atrial fibrillation and elevated troponins. His history obtained from review of his record as the patient's ability to provide history is limited due to dementia. He had been having rectal bleeding over the last few days which has been worsening described as bright red blood and passing clots. Patient has reportedly had a 50 pound weight loss in the last 2 months. The patient had an unwitnessed fall several days ago. Allergies Allergy/AdvReac Type Severity Reaction Status Date / Time No Known Allergies Allergy Verified 06/02/24 16:23 Home Medications Medication Instructions Recorded Confirmed Type aspirin 81 mg tablet,delayed 81 mg PO DAILY 06/02/24 06/02/24 History release atorvastatin 80 mg tablet 80 mg PO DAILY 06/02/24 06/02/24 History cholecalciferol (vitamin D3) 25 25 mcg PO DAILY 06/02/24 06/02/24 History mcg (1,000 unit) tablet (Vitamin D3) cyanocobalamin (vitamin B-12) 1,000 mcg PO DAILY 06/02/24 06/02/24 History 1,000 mcg tablet (Vitamin B-12) diclofenac sodium 1 % topical gel 0 g topical QID PRN .. 06/02/24 06/02/24 History (Voltaren Arthritis Pain) donepezil 10 mg tablet 10 mg PO DAILY 06/02/24 06/02/24 History famotidine 20 mg tablet 20 mg PO QAM 06/02/24 06/02/24 History ferrous sulfate 325 mg (65 mg 650 mg PO DAILY 06/02/24 06/02/24 History iron) tablet furosemide 20 mg tablet 20 mg PO DAILY 06/02/24 06/02/24 History lisinopril 5 mg tablet 5 mg PO DAILY 06/02/24 06/02/24 History metoprolol succinate 50 mg 75 mg PO QAM 06/02/24 06/02/24 History tablet,extended release 24 hr omega-3 fatty acids 1,000 mg 1,000 mg PO DAILY 06/02/24 06/02/24 History capsule Patient History Medical History (Updated 06/08/24 @ 09:21 by Devyn Neal MD) Acute respiratory failure due to COVID-19 Myocardial infarction due to demand ischemia Lower gastrointestinal bleed Acute blood loss anemia Acute kidney injury superimposed on CKD Atrial fibrillation with RVR CKD (chronic kidney disease), stage III SVT (supraventricular tachycardia) with possible short runs of PAF Chronic heart failure with preserved ejection fraction (HFpEF) Hearing loss Obesity Surgical History S/P panniculectomy S/P colonoscopy with polypectomy History of liver biopsy History of esophagogastroduodenoscopy (EGD) Bariatric surgery status Family History Mother Hypertension Stroke Father Hypertension Cancer Social History Smoking Status: Never smoker Second Hand Exposure: No; Do You Dip or Chew Tobacco: No; Tobacco Cessation Education Requested by Patient: No Hx Alcohol Use: No Hx Substance Use: No Preferred Language: Yoruba Communication Ability: Effective Death Claim Examiner Required: No Beliefs That Will Affect Care: None Current Living Situation: Spouse Other Information That Helps Us Care for You: No Feels Safe at Home: Yes Safety Concerns: Feels Safe At This Time Assistive Devices: Cane Review of Systems Constitutional: no fever and no chills Respiratory: no cough and no dyspnea Cardiovascular: no chest pain Gastrointestinal: no abdominal pain, no nausea and no vomiting Genitourinary: no dysuria Integumentary: no problem reported Neurologic: no localized weakness and no generalized weakness Psychiatric: + confusion; no behavioral changes Physical Exam Constitutional: WD/WN, vitals as above + obese Eyes: PERRL, conjunctivae normal, anicteric sclerae ENMT: external ear and nose normal, oropharynx normal Neck: trachea midline Respiratory: normal respiratory effort, lungs clear to auscultation Cardiovascular: RRR, no murmur, no edema Gastrointestinal (Abdomen): Inspection/Auscultation: abdomen normal to inspection and normal bowel sounds; abdomen not distended Percussion/Palpation: abdomen soft; abdomen nontender, no guarding and abdomen not rigid Musculoskeletal: Head/Neck/Chest: normocephalic and head atraumatic Skin: no rashes, warm and dry Results & Data Vital Signs (Past 12 Hours) Vital Signs Temp Pulse Pulse Pulse Resp BP Pulse Ox 06/08/24 09:34 100 06/08/24 09:29 06/08/24 07:03 36.6 C 81 18 149/80 H 97 06/08/24 05:42 96 H 06/08/24 03:00 36.4 C L 79 17 134/90 96 06/07/24 22:48 36.8 C 101 H 18 130/82 93 06/07/24 22:48 104 H O2 Del Method O2 Flow Rate 06/08/24 09:34 Room Air, Nasal Cannula 2 06/08/24 09:29 Nasal Cannula 2 06/08/24 07:03 Nasal Cannula 2 06/08/24 05:42 06/08/24 03:00 Nasal Cannula 2 06/07/24 22:48 Room Air 06/07/24 22:48
[2024-06-08 10:26] LABS: Basophils # (auto) 0.01 K/uL (0.00-0.20); Basophils % (auto) 0.1 %; Eosinophils # (auto) 0.11 K/uL (0.00-0.50); Hemoglobin 11.3 g/dl (14.0-18.0); Immature Granulocytes # (auto) 0.06 K/uL (0.01-0.20); Immature Granulocytes % (auto) 0.6 %; Lymphocytes # (auto) 1.22 K/uL (1.20-3.40); Lymphocytes % (auto) 11.6 %; Mean Corpuscular Hemoglobin 26.5 pg (25.0-34.0); Mean Corpuscular Hgb Conc 31.4 g/dL (32.0-36.0); Mean Corpuscular Volume 84.3 fL (80.0-100.0); Mean Platelet Volume 9.9 fL (9.4-12.4); Monocytes # (auto) 1.05 K/uL (0.11-0.59); Neutrophils # (auto) 8.09 K/uL (1.40-6.50); Neutrophils % (auto) 76.7 %; Platelet Count 335 K/uL (130-400); RDW Coefficient of Variation 15.3 % (11.5-14.5); RDW Standard Deviation 47.1 fL (36.4-46.3); Red Blood Count 4.27 M/uL (4.70-6.10); White Blood Count 10.54 K/ul (4.8-10.8)
[2024-06-08 11:04] LABS: BUN Creatinine Ratio 22.2 (10-20); Calcium 8.1 mg/dl (8.6-10.3); Creatinine Clr Calc Pharmacy 56.8 ml/min; Est GFR (African American) 57.9 ml/min; Est GFR (Non-African American) 49.9 ml/min; Potassium 3.9 mmol/L (3.5-5.1)
[2024-06-08] MEDS ORDERED: ALBUT/IPRATROP 3MG/0.5MG NEB 3 ML VIAL NEB SCH (12:00)
[2024-06-08] MEDS: ALBUT/IPRATROP 3MG/0.5MG NEB 3 ML VIAL NEB SCH (12:13)
[2024-06-08] MEDS: AZITHROMYCIN 250 MG TAB PO SCH (14:41)
[2024-06-08] MEDS: ARTIFICIAL TEARS OPB PRN (21:15)
--- NOTE | 2024-06-08 23:55 | Communication Note ---
Date of Service: June 08, 2024
[2024-06-09] MEDS: LACTATED RINGER'S 1,000 ML IV ONE (00:08)
[2024-06-09] MEDS: NITROGLYCERIN SL 0.4 MG/TAB TAB SL STA (04:50)
[2024-06-09 04:54] LABS: Partial Thromboplastin Ratio 1.1; Partial Thromboplastin Time 30 Seconds (21-31)
[2024-06-09 04:55] LABS: Hematocrit (blood only) 34.7 % (42.0-52.0); Hemoglobin 11.8 g/dl (14.0-18.0); Mean Corpuscular Hemoglobin 31.7 pg (25.0-34.0); Mean Corpuscular Volume 93.3 fL (80.0-100.0); Mean Platelet Volume 8.7 fL (9.4-12.4); Platelet Count 250 K/uL (130-400); RDW Coefficient of Variation 12.8 % (11.5-14.5); Red Blood Count 3.72 M/uL (4.70-6.10); White Blood Count 12.72 K/ul (4.8-10.8)
[2024-06-09] MEDS: METOPROLOL TARTRATE 1 MG/ML VIAL IV STA (04:59)
[2024-06-09] MEDS: MAGNESIUM SULFATE / D5W 1 GM/100 ML BAG IV ONE (05:07)
[2024-06-09] MEDS: POTASSIUM CHLORIDE CRTAB 20 MEQ TABCR PO STA (05:07)
[2024-06-09 05:09] LABS: Acanthocytes 1+; Basophils # (auto) 0.01 K/uL (0.00-0.20); Basophils % (auto) 0.1 %; Dohle Bodies 1+; Eosinophils # (auto) 0.01 K/uL (0.00-0.50); Eosinophils % (auto) 0.1 %; Immature Granulocytes # (auto) 0.12 K/uL (0.01-0.20); Immature Granulocytes % (auto) 0.9 %; Lymphocytes # (auto) 0.22 K/uL (1.20-3.40); Lymphocytes % (auto) 1.7 %; Monocytes # (auto) 0.21 K/uL (0.11-0.59); Monocytes % (auto) 1.7 %; Neutrophils # (auto) 12.15 K/uL (1.40-6.50); Neutrophils % (auto) 95.5 %; Toxic Granulation 1+
[2024-06-09 05:10] LABS: Albumin Globulin Ratio 1.1 (0.9-2); Albumin Level 3.2 gm/dl (3.4-5.0); BUN Creatinine Ratio 18.1 (10-20); Bilirubin,Total 0.4 mg/dl (0.2-1.0); Calcium 8.7 mg/dl (8.6-10.3); Creatinine Clr Calc Pharmacy 60.4 ml/min; Est GFR (African American) 62.3 ml/min; Est GFR (Non-African American) 53.8 ml/min; Globulin 2.9 gm/dl (2.5-4.0); Magnesium 2.1 mg/dl (1.7-2.4); Total Protein 6.1 gm/dl (6.0-8.3)
[2024-06-09 05:17] LABS: Troponin I High Sensitivity 6.8 pg/ml (0-20)
--- NOTE | 2024-06-09 09:02 | Hospitalist Progress Note ---
Date of Service June 09, 2024 Assessment & Plan (1) Lower gastrointestinal bleed: (2) Rectal mass: (3) Acute blood loss anemia: Plan: Patient presents from home with reports of dizziness. He was reported to have bright red blood per rectum for 3 weeks. Hemoglobin of 9.[address] abdomen pelvis showed thickening of rectal wall which may represent proctitis; underlying mass cannot be excluded History of GI bleed in 2017: - Colonoscopy 2017-dark stool throughout the colon and a clot in the ascending colon - EGD 2017-bleeding at the GE junction,Clipped with hemostasis Colonoscopy done on 06/17; found to have rectal mass. Also small 4 to 6 mm polyps found in descending colon which was sessile. Will follow-up on biopsy result Surgery consulted for evaluation; recommend oncology evaluation after biopsy results are available Continue to monitor CBC and recurrence of rectal bleed. Hemoglobin currently stable. Started on dvt prophylaxis (4) Atrial fibrillation with RVR: (5) Acute on chronic heart failure with preserved ejection fraction: (6) Myocardial infarction due to demand ischemia: Plan: On presentation, patient was found to have atrial fibrillation with RVR. Evaluated by cardiology; started on metoprolol succinate 100 mg once a day Not on anticoagulation due to GI bleed Echocardiogram shows EF of 55 to 60% with moderate concentric LVH. Monitor on telemetry (7) Upper respiratory tract infection due to COVID-19 virus: Plan: Found to have COVID-19 infection oxygen saturation wean off to RA Chest x-ray personally reviewed; no acute findings Due to his age and comorbidities; patient was given remdesivir on duonebs due to b/l wheeze, on azithromycin (8) Acute kidney injury superimposed on CKD: (9) BPH loc w urin obs/LUTS: Plan: Presented with creatinine of 2.5; down trended to baseline of 1.2-1.3 with IV hydration and Aldrich catheterization. 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 Continue on donepezil Monitor for delirium 1:1 as needed Plan DVT prophylaxis- heparin full code Updated patient's 06/08. Awaiting biopsy result for the rectal mass. Case management on board for placement Time spent evaluating patient, direct bedside care, chart review, placing orders, interpretation of diagnostic studies, discussion with consultants, patient, and family members, as well as other required patient management activities is 50 minutes Please note the above document was generated using voice recognition software. It may contain grammatical, syntax or spelling errors. Any formal questions or concerns about the content, text or information contained within the body of thi s dictation should be directly addressed to the provider for clarification Admission and Anticipated Discharge Date Admission Date: June 02, 2024 Subjective Patient seen and examined at bedside. Comfortable; not in distress. Denies fever, chills, chest pain, shortness of breath, abdominal pain or urinary symptoms. Overnight, EKG was done; atrial fibrillation with RVR. Review of Systems Review of Systems: All systems reviewed & are unremarkable except as noted in Subjective Physical Exam Physical Exam: Constitutional: Alert, oriented with self, not in any distress HEENT: Mucous membranes moist. Lungs: b/l vesicular breath sound CV: S1-S2, regular Abdomen: Soft, nontender, nondistended Extremities: No significant edema Neuro: No focal deficits Psych: Confused, poor memory Results & Data Results & Data Vital Signs (Past 12 Hours) Vital Signs Temp Pulse Pulse Pulse Resp BP BP 06/09/24 08:07 06/09/24 07:12 16 06/09/24 07:05 36.4 C L 108 H 18 122/52 L 06/09/24 06:02 06/09/24 05:55 06/09/24 05:14 36.4 C L 98 H 18 120/75 06/09/24 05:14 98 H 120/75 06/09/24 04:59 98 H 127/77 06/09/24 04:09 98 H 127/77 06/09/24 03:31 93 H 06/09/24 00:23 62 14 06/08/24 23:44 36.5 C 91 H 20 91/54 L 06/08/24 21:55 113 H Pulse Ox O2 Del Method O2 Flow Rate 06/09/24 08:07 Room Air 06/09/24 07:12 93 Room Air 06/09/24 07:05 93 Room Air 06/09/24 06:02 95 Room Air 06/09/24 05:55 99 Nasal Cannula 1 06/09/24 05:14 98 Nasal Cannula 2 06/09/24 05:14 06/09/24 04:59 06/09/24 04:09 99 Nasal Cannula 2 06/09/24 03:31 91 Room Air 06/09/24 00:23 91 Room Air 06/08/24 23:44 95 Room Air 06/08/24 21:55
[2024-06-09] MEDS: ACETAMINOPHEN 325 MG TAB PO PRN (10:01)
[2024-06-09] MEDS: HEPARIN SOD 5,000 UNIT/0.5 ML VIAL SQ SCH (10:02)
--- NOTE | 2024-06-09 15:28 | Electrocardiogram Report ---
Test Reason : Blood Pressure : */* mmHG Vent. Rate : 108 BPM Atrial Rate : 131 BPM P-R Int : * ms QRS Dur : 102 ms QT Int : 384 ms P-R-T Axes : * -29 77 degrees QTcB Int : 514 ms Atrial fibrillation with rapid ventricular response with premature ventricular or aberrantly conducte d complexes Abnormal ECG When compared with ECG of 04-Jun-2024 05:49, QT has lengthened Confirmed by Aiden Mayfield ([id number]) on 06/09/2024 3:28:08 PM Referred By: REFERRED SELF Confirmed By: Aiden Mayfield
[2024-06-10] MEDS: METOPROLOL TARTRATE 1 MG/ML VIAL IV STA (03:18)
[2024-06-10 07:29] LABS: Basophils # (auto) 0.02 K/uL (0.00-0.20); Basophils % (auto) 0.2 %; Eosinophils # (auto) 0.38 K/uL (0.00-0.50); Eosinophils % (auto) 3.4 %; Hematocrit (blood only) 35.1 % (42.0-52.0); Hemoglobin 11.2 g/dl (14.0-18.0); Immature Granulocytes # (auto) 0.07 K/uL (0.01-0.20); Immature Granulocytes % (auto) 0.6 %; Lymphocytes # (auto) 1.16 K/uL (1.20-3.40); Lymphocytes % (auto) 10.3 %; Mean Corpuscular Hemoglobin 26.2 pg (25.0-34.0); Mean Corpuscular Hgb Conc 31.9 g/dL (32.0-36.0); Monocytes # (auto) 1.28 K/uL (0.11-0.59); Monocytes % (auto) 11.4 %; Neutrophils # (auto) 8.32 K/uL (1.40-6.50); Neutrophils % (auto) 74.1 %; Platelet Count 312 K/uL (130-400); RDW Coefficient of Variation 15.1 % (11.5-14.5); RDW Standard Deviation 44.9 fL (36.4-46.3); Red Blood Count 4.28 M/uL (4.70-6.10); White Blood Count 11.23 K/ul (4.8-10.8)
[2024-06-10 07:38] LABS: BUN Creatinine Ratio 23.6 (10-20); Calcium 8.2 mg/dl (8.6-10.3); Creatinine Clr Calc Pharmacy 60.2 ml/min; Est GFR (African American) 62.3 ml/min; Est GFR (Non-African American) 53.8 ml/min; Potassium 3.9 mmol/L (3.5-5.1)
[2024-06-10] MEDS: LEVALBUTEROL 1.25 MG/3 ML NEB NEB SCH (07:38)
[2024-06-10] MEDS: IPRATROPIUM BROMIDE NEB SOLN 0.02% 0.5MG/2.5ML VIAL INH SCH (07:38)
--- NOTE | 2024-06-10 07:55 | Hospitalist Progress Note ---
Date of Service June 10, 2024 Assessment & Plan (1) Lower gastrointestinal bleed: (2) Rectal mass: (3) Acute blood loss anemia: Plan: Patient presents from home with reports of dizziness. He was reported to have bright red blood per rectum for 3 weeks. Hemoglobin of 9.[address] abdomen pelvis showed thickening of rectal wall which may represent proctitis; underlying mass cannot be excluded History of GI bleed in 2017: - Colonoscopy 2017-dark stool throughout the colon and a clot in the ascending colon - EGD 2017-bleeding at the GE junction,Clipped with hemostasis Colonoscopy done on 06/17; found to have rectal mass. Also small 4 to 6 mm polyps found in descending colon which was sessile. Will follow-up on biopsy result Surgery consulted for evaluation; recommend oncology evaluation after biopsy results are available Continue to monitor CBC and recurrence of rectal bleed. Hemoglobin currently stable. Started on dvt prophylaxis on 06/09 (4) Atrial fibrillation with RVR: (5) Acute on chronic heart failure with preserved ejection fraction: (6) Myocardial infarction due to demand ischemia: Plan: On presentation, patient was found to have atrial fibrillation with RVR. Evaluated by cardiology; started on metoprolol succinate 100 mg once a day Not on anticoagulation due to GI bleed Echocardiogram shows EF of 55 to 60% with moderate concentric LVH. Monitor on telemetry Metoprolol succinate changed to metoprolol tartrate 75 mg twice a day for better heart rate control. I discussed with patient's that patient has recurrent atrial fibrillation that puts him at risk for stroke. He has rectal mass resulting in lower GI bleed recently; so he is not placed on anticoagulation. His acknowledged and understands the risks. (7) Upper respiratory tract infection due to COVID-19 virus: Plan: Found to have COVID-19 infection oxygen saturation wean off to RA Chest x-ray personally reviewed; no acute findings Due to his age and comorbidities; completed remdesivir course on duonebs due to b/l wheeze, (8) Acute kidney injury superimposed on CKD: (9) BPH loc w urin obs/LUTS: Plan: Presented with creatinine of 2.5; down trended to baseline of 1.2-1.3 with IV hydration and Aldrich catheterization. 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 Continue on donepezil Monitor for delirium 1:1 as needed Plan DVT prophylaxis- heparin DNR/DNI I discussed with patient's regarding goals of care on 06/10. She reported that she would not want him to undergo chest compressions and mechanical ventilation in the event of cardiac arrest. CODE STATUS changed to DNR/DNI. Diposition- Awaiting biopsy result for the rectal mass. Case management on board for placement. Awaiting biopsy result before oncology evaluation Time spent evaluating patient, direct bedside care, chart review, placing orders, interpretation of diagnostic studies, discussion with consultants, patient, and family members, as well as other required patient management activities is 50 minutes Please note the above document was generated using voice recognition software. It may contain grammatical, syntax or spelling errors. Any formal questions or concerns about the content, text or information contained within the body of this dictation should be directly addressed to the provider for clarification Admission and Anticipated Discharge Date Admission Date: June 02, 2024 Subjective Patient seen and examined at bedside. Patient continues to be confused due to his baseline dementia. Need a one-to-one. Telemetry shows atrial fibrillation with RVR Review of Systems Review of Systems: All systems reviewed & are unremarkable except as noted in Subjective Physical Exam Physical Exam: Constitutional: Alert, oriented with self, not in any distress HEENT: Mucous membranes moist. Lungs: b/l vesicular breath sound CV: S1-S2, irregular Abdomen: Soft, nontender, nondistended Extremities: No significant edema Neuro: No focal deficits Psych: Confused, poor memory Results & Data Results & Data Vital Signs (Past 12 Hours) Vital Signs Temp Pulse Pulse Resp BP BP BP 06/10/24 07:41 120 H 06/10/24 07:41 83 20 06/10/24 07:16 35.9 C L 83 24 123/78 06/10/24 04:01 107 H 127/89 06/10/24 02:35 36.4 C L 105 H 18 129/68 06/10/24 02:35 135 H 129/68 06/10/24 01:12 106 H 16 06/09/24 22:05 36.4 C L 101 H 20 123/80 06/09/24 21:00 Pulse Ox O2 Del Method 06/10/24 07:41 06/10/24 07:41 93 Room Air 06/10/24 07:16 93 Room Air 06/10/24 04:01 06/10/24 02:35 94 Room Air 06/10/24 02:35 06/10/24 01:12 91 Room Air 06/09/24 22:05 92 Room Air 06/09/24 21:00 Room Air
--- NOTE | 2024-06-10 08:33 | Electrocardiogram Report ---
Test Reason : Blood Pressure : */* mmHG Vent. Rate : 106 BPM Atrial Rate : 111 BPM P-R Int : * ms QRS Dur : 98 ms QT Int : 328 ms P-R-T Axes : * -32 95 degrees QTcB Int : 435 ms Atrial fibrillation with rapid ventricular response Left axis deviation Abnormal ECG When compared with ECG of 09-Jun-2024 03:38, No significant change Confirmed by Kingston Lozano ([id number]) on 06/10/2024 8:33:38 AM Referred By: REFERRED SELF Confirmed By: Kingston Lozano
[2024-06-10] MEDS: METOPROLOL TARTRATE 25 MG TAB PO SCH (08:59)
[2024-06-10] MEDS: BUDESONIDE 0.5 MG/2 ML VIAL (PULMICORT) NEB SCH (13:49)
[2024-06-10] MEDS: FORMOTEROL 20 MCG/2 ML VIAL NEB SCH (13:49)
[2024-06-11] MEDS: METOPROLOL TARTRATE 1 MG/ML VIAL IV STA (03:34)
[2024-06-11 06:38] LABS: Basophils # (auto) 0.01 K/uL (0.00-0.20); Basophils % (auto) 0.1 %; Eosinophils # (auto) 0.38 K/uL (0.00-0.50); Eosinophils % (auto) 3.6 %; Hematocrit (blood only) 34.2 % (42.0-52.0); Hemoglobin 10.8 g/dl (14.0-18.0); Immature Granulocytes # (auto) 0.06 K/uL (0.01-0.20); Immature Granulocytes % (auto) 0.6 %; Lymphocytes # (auto) 1.17 K/uL (1.20-3.40); Lymphocytes % (auto) 11.2 %; Mean Corpuscular Hemoglobin 26.3 pg (25.0-34.0); Mean Corpuscular Hgb Conc 31.6 g/dL (32.0-36.0); Mean Corpuscular Volume 83.4 fL (80.0-100.0); Mean Platelet Volume 9.7 fL (9.4-12.4); Monocytes # (auto) 1.23 K/uL (0.11-0.59); Monocytes % (auto) 11.8 %; Neutrophils # (auto) 7.58 K/uL (1.40-6.50); Neutrophils % (auto) 72.7 %; Platelet Count 284 K/uL (130-400); RDW Coefficient of Variation 15.2 % (11.5-14.5); White Blood Count 10.43 K/ul (4.8-10.8)
[2024-06-11 06:52] LABS: BUN Creatinine Ratio 21.1 (10-20); Calcium 8.3 mg/dl (8.6-10.3); Creatinine Clr Calc Pharmacy 53.8 ml/min; Est GFR (African American) 54.4 ml/min
--- NOTE | 2024-06-11 07:50 | Hospitalist Progress Note ---
Date of Service June 11, 2024 Assessment & Plan (1) Lower gastrointestinal bleed: (2) Rectal mass: (3) Acute blood loss anemia: Plan: Patient presents from home with reports of dizziness. He was reported to have bright red blood per rectum for 3 weeks. Hemoglobin of 9.[address] abdomen pelvis showed thickening of rectal wall which may represent proctitis; underlying mass cannot be excluded History of GI bleed in 2017: - Colonoscopy 2017-dark stool throughout the colon and a clot in the ascending colon - EGD 2017-bleeding at the GE junction,Clipped with hemostasis Colonoscopy done on 06/17; found to have rectal mass. Also small 4 to 6 mm polyps found in descending colon which was sessile. Will follow-up on biopsy result;pending Surgery consulted for evaluation; recommend oncology evaluation after biopsy results are available Continue to monitor CBC and recurrence of rectal bleed. Hemoglobin currently stable. Started on dvt prophylaxis on 06/09 (4) Atrial fibrillation with RVR: (5) Acute on chronic heart failure with preserved ejection fraction: (6) Myocardial infarction due to demand ischemia: Plan: On presentation, patient was found to have atrial fibrillation with RVR. Evaluated by cardiology; started on metoprolol succinate 100 mg once a day Not on anticoagulation due to GI bleed Echocardiogram shows EF of 55 to 60% with moderate concentric LVH. Monitor on telemetry Metoprolol succinate changed to metoprolol tartrate 100 mg twice a day for better heart rate control. I discussed with patient's that patient has recurrent atrial fibrillation that puts him at risk for stroke on 06/11. He has rectal mass resulting in lower GI bleed recently; so he is not placed on anticoagulation. His acknowledged and understands the risks of stroke as he is not a candidate for anticoagulation at this time. (7) Upper respiratory tract infection due to COVID-19 virus: Plan: Found to have COVID-19 infection oxygen saturation wean off to RA Chest x-ray personally reviewed; no acute findings Due to his age and comorbidities; completed remdesivir course on duonebs, budesonide and formoterol due to b/l wheeze, (8) Acute kidney injury superimposed on CKD: (9) BPH loc w urin obs/LUTS: Plan: Presented with creatinine of 2.5; down trended to baseline of 1.2-1.3 with IV hydration and Aldrich catheterization. 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 Continue on donepezil Monitor for delirium 1:1 as needed Plan DVT prophylaxis- heparin DNR/DNI I discussed with patient's regarding goals of care on 06/10. She reported that she would not want him to undergo chest compressions and mechanical ventilation in the event of cardiac arrest. CODE STATUS changed to DNR/DNI. Diposition- Awaiting biopsy result for the rectal mass. Case management on board for placement. Awaiting biopsy result before oncology evaluation Please note the above document was generated using voice recognition software. It may contain grammatical, syntax or spelling errors. Any formal questions or concerns about the content, text or information contained within the body of this dictation should be directly addressed to the provider for clarification Admission and Anticipated Discharge Date Admission Date: June 02, 2024 Subjective Overnight, patient required IV Lopressor for elevated heart rate. His vital signs are stable and he is saturating well on room air. Review of Systems Review of Systems: All systems reviewed & are unremarkable except as noted in Subjective Physical Exam Physical Exam: Constitutional: Alert, oriented with self, not in any distress HEENT: Mucous membranes moist. Lungs: b/l vesicular breath sound CV: S1-S2, irregular Abdomen: Soft, nontender, nondistended Extremities: No significant edema Neuro: No focal deficits Psych: Confused, poor memory Results & Data Results & Data Vital Signs (Past 12 Hours) Vital Signs Temp Pulse Pulse Resp BP BP BP 06/11/24 07:33 114 H 20 06/11/24 07:19 105 H 06/11/24 07:19 06/11/24 03:46 86 128/81 06/11/24 03:34 122 H 112/75 06/11/24 03:29 122 H 20 112/75 06/11/24 00:57 113 H 20 06/10/24 23:03 36.5 C 102 H 20 124/73 06/10/24 21:54 115 H 06/10/24 21:00 Pulse Ox O2 Del Method 06/11/24 07:33 92 Room Air 06/11/24 07:19 06/11/24 07:19 Room Air 06/11/24 03:46 06/11/24 03:34 06/11/24 03:29 92 Room Air 06/11/24 00:57 93 Room Air 06/10/24 23:03 94 Room Air 06/10/24 21:54 06/10/24 21:00 Room Air
[2024-06-11] MEDS: METOPROLOL TARTRATE 100 MG TAB PO SCH (08:12)
[2024-06-11] MEDS: ZOLPIDEM TARTRATE 5 MG TAB PO STA (22:48)
[2024-06-12 07:17] LABS: Basophils # (auto) 0.01 K/uL (0.00-0.20); Basophils % (auto) 0.1 %; Eosinophils # (auto) 0.39 K/uL (0.00-0.50); Eosinophils % (auto) 3.7 %; Hematocrit (blood only) 33.9 % (42.0-52.0); Hemoglobin 10.4 g/dl (14.0-18.0); Immature Granulocytes # (auto) 0.09 K/uL (0.01-0.20); Immature Granulocytes % (auto) 0.9 %; Lymphocytes # (auto) 1.02 K/uL (1.20-3.40); Lymphocytes % (auto) 9.6 %; Mean Corpuscular Hgb Conc 30.7 g/dL (32.0-36.0); Mean Corpuscular Volume 84.8 fL (80.0-100.0); Mean Platelet Volume 10.3 fL (9.4-12.4); Monocytes # (auto) 1.58 K/uL (0.11-0.59); Monocytes % (auto) 14.9 %; Neutrophils # (auto) 7.48 K/uL (1.40-6.50); Neutrophils % (auto) 70.8 %; Platelet Count 295 K/uL (130-400); RDW Coefficient of Variation 15.3 % (11.5-14.5); RDW Standard Deviation 47.4 fL (36.4-46.3); White Blood Count 10.57 K/ul (4.8-10.8)
[2024-06-12 07:23] LABS: BUN Creatinine Ratio 19.9 (10-20); Calcium 8.2 mg/dl (8.6-10.3); Creatinine Clr Calc Pharmacy 46.2 ml/min; Est GFR (African American) 45.1 ml/min; Est GFR (Non-African American) 38.9 ml/min; Potassium 4.1 mmol/L (3.5-5.1)
--- NOTE | 2024-06-12 09:06 | Hospitalist Progress Note ---
Date of Service June 12, 2024 Assessment & Plan (1) Lower gastrointestinal bleed: (2) Rectal mass: (3) Acute blood loss anemia: Plan: Patient presents from home with reports of dizziness. He was reported to have bright red blood per rectum for 3 weeks. Hemoglobin of 9.[address] abdomen pelvis showed thickening of rectal wall which may represent proctitis; underlying mass cannot be excluded History of GI bleed in 2017: - Colonoscopy 2017-dark stool throughout the colon and a clot in the ascending colon - EGD 2017-bleeding at the GE junction,Clipped with hemostasis Colonoscopy done on 06/17; found to have rectal mass. Also small 4 to 6 mm polyps found in descending colon which was sessile. Will follow-up on biopsy result;pending Surgery consulted for evaluation; recommend oncology evaluation after biopsy results are available Continue to monitor CBC and recurrence of rectal bleed. Hemoglobin currently stable. Started on dvt prophylaxis on 06/09 (4) Atrial fibrillation with RVR: (5) Acute on chronic heart failure with preserved ejection fraction: (6) Myocardial infarction due to demand ischemia: Plan: On presentation, patient was found to have atrial fibrillation with RVR. Evaluated by cardiology; started on metoprolol succinate 100 mg once a day Not on anticoagulation due to GI bleed Echocardiogram shows EF of 55 to 60% with moderate concentric LVH. Monitor on telemetry Metoprolol succinate changed to metoprolol tartrate 100 mg twice a day for better heart rate control. I discussed with patient's that patient has recurrent atrial fibrillation that puts him at risk for stroke on 06/11. He has rectal mass resulting in lower GI bleed recently; so he is not placed on anticoagulation. His acknowledged and understands the risks of stroke as he is not a candidate for anticoagulation at this time. Chest x-ray done on 06/12 showed pulmonary vascular congestion 1 dose of IV Lasix 40 mg ordered Will restart his home dose of Lasix from 06/13 (7) Upper respiratory tract infection due to COVID-19 virus: Plan: Found to have COVID-19 infection oxygen saturation wean off to RA Chest x-ray personally reviewed; no acute findings Due to his age and comorbidities; completed remdesivir course on duonebs due to b/l wheeze, (8) Acute kidney injury superimposed on CKD: (9) BPH loc w urin obs/LUTS: Plan: Presented with creatinine of 2.5; down trended to baseline of 1.2-1.3 with IV hydration and Aldrich catheterization. CT abdomen pelvis shows bilateral hydronephrosis likely due to bladder outlet obstruction Started on tamsulosin Remove Aldrich ; trial of void done on 06/08 lasix resumed on 06/13; hold lisinopril (10) Mixed Alzheimer's and vascular dementia: (11) Delirium superimposed on dementia: Plan: At baseline, patient is oriented to self. Continue on donepezil Monitor for delirium 1:1 as needed Plan DVT prophylaxis- heparin DNR/DNI I discussed with patient's regarding goals of care on 06/10. She reported that she would not want him to undergo chest compressions and mechanical ventilation in the event of cardiac arrest. CODE STATUS changed to DNR/DNI. Time spent evaluating patient, direct bedside care, chart review, placing orders, interpretation of diagnostic studies, discussion with consultants, patient, and family members, as well as other required patient management activities is 50 minutes Diposition- Awaiting biopsy result for the rectal mass. Case management on board for placement. Awaiting biopsy result before oncology evaluation Please note the above document was generated using voice recognition software. It may contain grammatical, syntax or spelling errors. Any formal questions or concerns about the content, text or information contained within the body of this dictation should be directly addressed to the provider for clarification Admission and Anticipated Discharge Date Admission Date: June 02, 2024 Subjective Patient seen and examined at bedside He reports slightly increased shortness of breath. Chest x-ray shows likely increased pulmonary vascular congestion EKG shows atrial fibrillation Other vital signs are stable and he is afebrile Review of Systems Review of Systems: All systems reviewed & are unremarkable except as noted in Subjective Physical Exam Physical Exam: Constitutional: Alert, oriented with self, not in any distress HEENT: Mucous membranes moist. Lungs: Bilateral basilar crackles present CV: S1-S2, irregular Abdomen: Soft, nontender, nondistended Extremities: No significant edema Neuro: No focal deficits Psych: Confused, poor memory Results & Data Results & Data Vital Signs (Past 12 Hours) Vital Signs Temp Pulse Pulse Resp BP BP Pulse Ox 06/12/24 08:57 06/12/24 08:12 81 06/12/24 07:39 36.5 C 96 H 16 117/73 93 06/12/24 06:57 76 22 100 06/12/24 03:18 36.6 C 92 H 20 146/64 H 92 06/11/24 22:31 36.5 C 101 H 20 101/62 91 06/11/24 22:21 111 H 06/11/24 21:50 O2 Del Method O2 Flow Rate 06/12/24 08:57 Room Air 06/12/24 08:12 06/12/24 07:39 Room Air 06/12/24 06:57 Nasal Cannula 2 06/12/24 03:18 Room Air 06/11/24 22:31 Room Air 06/11/24 22:21 06/11/24 21:50 Room Air
--- NOTE | 2024-06-12 11:11 | XRay Report ---
XR chest 1V portable HISTORY: chest pain; high resp rate COMPARISON: Chest 06/04/2024. FINDINGS: Low lung volumes. The heart remains mildly enlarged. There are poststernotomy changes. Calc ifications within the aortic knob. Degenerative changes within the shoulders. No acute fractures. Rig ht basilar calcified pleural plaques are again noted. Chronic interstitial thickening has progressed. This may represent mild congestive change on the background of chronic interstitial lung disease. Bi basilar linear densities favor subsegmental atelectasis. Otherwise, no new focal lung consolidations. IMPRESSION: 1. Cardiomegaly with mild pulmonary vascular congestion. This has slightly progressed. 2. Low lung volumes and chronic interstitial thickening again noted. ACT 112: Negative or not required by law. Electronically signed by: Tom Gonzalez M.D. 06/12/2024 11:10 AM
[2024-06-12] MEDS: FUROSEMIDE 40 MG/4 ML VIAL IV ONE (12:30)
--- NOTE | 2024-06-12 13:20 | Electrocardiogram Report ---
Test Reason : Blood Pressure : */* mmHG Vent. Rate : 100 BPM Atrial Rate : 144 BPM P-R Int : * ms QRS Dur : 106 ms QT Int : 392 ms P-R-T Axes : * -30 68 degrees QTcB Int : 505 ms Atrial fibrillation Left axis deviation Prolonged QT Abnormal ECG When compared with ECG of 10-Jun-2024 03:07, QT has lengthened Confirmed by Kingston Lozano ([id number]) on 06/12/2024 1:19:41 PM Referred By: REFERRED SELF Confirmed By: Kingston Lozano
[2024-06-12] MEDS: cefTRIAXone SODIUM 2,000 MG/50 ML BAG IV SCH (15:30)
[2024-06-12] MEDS: LACTATED RINGER'S 500 ML IV ONE (15:30)
[2024-06-12] MEDS ORDERED: VANCOMYCIN CONSULT ACTIVE PRN (15:43)
[2024-06-12 16:18] LABS: Appearance Urine Turbid (Clear); Bacteria Urine Automated None Seen (None Seen); Bilirubin Urine Negative (Negative); Blood Urine 3+ (Negative); Cast Urine Automated 0-2 /lpf (0-2); Color Urine Yellow; Glucose Urine UA Negative (Negative); Ketones Urine Negative (Negative); Leukocyte Esterase Urine Trace (Negative); Nitrite Urine Negative (Negative); Protein Urine 1+ (Negative); RBC Urine Automated >20 /hpf (0-2); Specific Gravity Urine 1.012 (1.000-1.030); Urobilinogen Urine Negative (Negative); WBC Urine Automated 0-5 /hpf (0-5)
[2024-06-12] MEDS: VANCOMYCIN HCL 2,500 MG in SODIUM CHLORIDE 0.9% 500 ML IV ONE (17:35)
[2024-06-12] MEDS ORDERED: Nursing to Pharmacy Communication SCH (19:30)
[2024-06-12] MEDS: PIPERACILLIN/TAZOBACTAM 4.5 GM/100 ML BAG IV ONE ×2 (19:35→20:37)
[2024-06-12] MEDS: LORazepam 0.5 MG TAB PO STA (20:37)
[2024-06-12] MEDS: PIPERACILLIN/TAZOBACTAM 4.5 GM/100 ML BAG IV SCH (23:38)
[2024-06-13 07:38] LABS: Basophils # (auto) 0.01 K/uL (0.00-0.20); Basophils % (auto) 0.1 %; Eosinophils # (auto) 0.25 K/uL (0.00-0.50); Eosinophils % (auto) 2.4 %; Hematocrit (blood only) 31.7 % (42.0-52.0); Immature Granulocytes # (auto) 0.06 K/uL (0.01-0.20); Immature Granulocytes % (auto) 0.6 %; Lymphocytes # (auto) 1.07 K/uL (1.20-3.40); Lymphocytes % (auto) 10.1 %; Mean Corpuscular Hemoglobin 26.4 pg (25.0-34.0); Mean Corpuscular Hgb Conc 31.5 g/dL (32.0-36.0); Mean Corpuscular Volume 83.6 fL (80.0-100.0); Mean Platelet Volume 9.9 fL (9.4-12.4); Monocytes # (auto) 1.59 K/uL (0.11-0.59); Monocytes % (auto) 15.1 %; Neutrophils # (auto) 7.57 K/uL (1.40-6.50); Neutrophils % (auto) 71.7 %; Platelet Count 264 K/uL (130-400); RDW Coefficient of Variation 15.4 % (11.5-14.5); RDW Standard Deviation 46.7 fL (36.4-46.3); Red Blood Count 3.79 M/uL (4.70-6.10); White Blood Count 10.55 K/ul (4.8-10.8)
[2024-06-13 07:56] LABS: BUN Creatinine Ratio 18.9 (10-20); Calcium 8.1 mg/dl (8.6-10.3); Creatinine Clr Calc Pharmacy 38.1 ml/min; Est GFR (African American) 35.8 ml/min; Est GFR (Non-African American) 30.9 ml/min
[2024-06-13] MEDS: FUROSEMIDE 20 MG TAB PO SCH (08:53)
--- NOTE | 2024-06-13 09:11 | Hospitalist Progress Note ---
Date of Service June 13, 2024 Assessment & Plan (1) Lower gastrointestinal bleed: (2) Rectal mass: (3) Acute blood loss anemia: (4) Atrial fibrillation with RVR: (5) Acute on chronic heart failure with preserved ejection fraction: (6) Myocardial infarction due to demand ischemia: (7) Upper respiratory tract infection due to COVID-19 virus: (8) Acute kidney injury superimposed on CKD: (9) BPH loc w urin obs/LUTS: (10) Mixed Alzheimer's and vascular dementia: (11) Delirium superimposed on dementia: Plan Rectal Mass, metastatic adenocarcinoma of prostatic origin Lower GI Bleed Patient presents from home with reports of dizziness. He was reported to have bright red blood per rectum for 3 weeks. Hemoglobin of 9.3 on admission, CT abdomen pelvis showed thickening of rectal wall which may represent proctitis; underlying mass cannot be excluded Colonoscopy done on 06/17; found to have rectal mass. Also small 4 to 6 mm polyps found in descending colon which was sessile. Biopsy result of the rectal mass shows metastatic adenocarcinoma prostatic origin. PSA ordered, oncology consulted Continue to monitor CBC and recurrence of rectal bleed. Hemoglobin currently stable. Started on dvt prophylaxis on 06/09 Possible Pneumonia Possible Sepsis On 06/12; patient reported increasing shortness of breath. He was also hypotensive. Chest x-raycardiomegaly with vascular congestion procal neg Patient is started on empiric antibiotic with Zosyn and vancomycin. MRSA nares are negative. Will DC vancomycin if blood culture is negative in 24 hours. Continue on ipratropium and lev albuterol nebs SEGUNDO on CKD Presented with creatinine of 2.5; down trended to baseline of 1.2-1.3 with IV hydration and Aldrich catheterization. However, trended up to 2.0 again(on 06/12). Suspect prerenal cause due to hypotension. CT abdomen pelvis shows bilateral hydronephrosis likely due to bladder outlet obstruction Aldrich catheter placed again on 06/12 Will support hemodynamics with IV boluses as needed Avoid nephrotoxic agent Atrial fibrillation with RVR Demand ischemia On presentation, patient was found to have atrial fibrillation with RVR. Evaluated by cardiology; started on metoprolol succinate 100 mg once a day Not on anticoagulation due to GI bleed Echocardiogram shows EF of 55 to 60% with moderate concentric LVH. Monitor on telemetry Metoprolol succinate changed to metoprolol tartrate 100 mg twice a day for better heart rate control. I discussed with patient's that patient has recurrent atrial fibrillation that puts him at risk for stroke on 06/11. He has rectal mass resulting in lower GI bleed recently; so he is not placed on anticoagulation. His acknowledged and understands the risks of stroke as he is not a candidate for anticoagulation at this time. Covid 19 infection- Diagnosed on admission. completed remdesivir. Dementia At baseline, patient is oriented to self. Continue on donepezil Monitor for delirium 1:1 as needed I discussed with patient's regarding goals of care on 06/10. She reported that she would not want him to undergo chest compressions and mechanical v entilation in the event of cardiac arrest. CODE STATUS changed to DNR/DNI. Diposition- Patient has possible pneumonia, segundo on ckd which will require him to be hospitalized. Time spent evaluating patient, direct bedside care, chart review, placing orders, interpretation of diagnostic studies, discussion with consultants, patient, and family members, as well as other required patient management activities is 50 minutes Please note the above document was generated using voice recognition software. It may contain grammatical, syntax or spelling errors. Any formal questions or concerns about the content, text or information contained within the body of this dictation should be directly addressed to the provider for clarification Admission and Anticipated Discharge Date Admission Date: June 02, 2024 Subjective Patient's blood pressure is on the lower side today; he is requiring 2 L of oxygen by nasal cannula. He reports that he is feeling dizzy Other vital signs are stable and he is saturating well on at 2 L of oxygen by nasal cannula Review of Systems Review of Systems: All systems reviewed & are unremarkable except as noted in Subjective Physical Exam Physical Exam: Constitutional: Alert, oriented with self, not in any distress HEENT: Mucous membranes moist. Lungs: Bilateral basilar crackles present, Occasional wheeze CV: S1-S2, irregular Abdomen: Soft, nontender, nondistended Extremities: No significant edema Neuro: No focal deficits Psych: Confused, poor memory Results & Data Results & Data Vital Signs (Past 12 Hours) Vital Signs Temp Pulse Pulse Resp BP Pulse Ox O2 Del Method 06/13/24 08:45 93/56 L 06/13/24 08:00 Nasal Cannula 06/13/24 07:07 86 18 92 Nasal Cannula 06/13/24 07:02 36.2 C L 99 H 18 93/55 L 92 Nasal Cannula 06/13/24 03:16 36.4 C L 98 H 20 114/72 99 Nasal Cannula 06/13/24 00:33 105 H 20 96 Nasal Cannula 06/13/24 00:09 36.3 C L 112 H 18 124/83 97 Nasal Cannula 06/12/24 23:27 99 H O2 Flow Rate 06/13/24 08:45 06/13/24 08:00 2 06/13/24 07:07 2 06/13/24 07:02 2 06/13/24 03:16 2 06/13/24 00:33 2 06/13/24 00:09 2 06/12/24 23:27
[2024-06-13] MEDS: LACTATED RINGER'S 500 ML IV ONE (09:25)
--- NOTE | 2024-06-13 09:27 | Pharmacy Report ---
Pharmacy PK ABX Note - Date of Service June 13, 2024 - Assessment and Plan Assessment 78 year old M started on Vancomycin empirically yesterday for treatment of possible Pneumonia. MRSA nasal swab is negative. Blood culture pending. Patient noted to be obese and with stage 3 chronic kidney disease. Vancomycin dosed conservatively to prevent accumulation. Also on Zosyn empirically. Plan Vancomycin * Loading dose: 2500 mg IV x 1 given yesterday evening. * Maintenance dose: 1250 mg IV every 24 hours will start today at 16:00. * Regimen is predicted to achieve target AUC/BHAVYA of 400-600 mg/L.hr * Random Vancomycin level ordered for tomorrow morning at 11:00. Zosyn 4.5 gm IV q8h Pharmacy will continue to follow and will adjust dose/frequency as necessary. Thank you. Pharmacy has transitioned to AUC monitoring for vancomycin. AUC/BHAVYA is the preferred PK/PD target and is associated with decreased risk of nephrotoxicity compared to traditional trough targets.
[2024-06-13] MEDS: VANCOMYCIN HCL 1,250 MG in SODIUM CHLORIDE 0.9% 250 ML IV SCH (15:37)
[2024-06-13] MEDS: LORazepam 0.25 MG in SYRINGE 0.125 ML IV ONE (23:31)
[2024-06-14] MEDS: OLANZapine 10 MG/2.1 ML SDV IM STA (05:53)
[2024-06-14 06:50] LABS: Basophils # (auto) 0.01 K/uL (0.00-0.20); Basophils % (auto) 0.1 %; Eosinophils # (auto) 0.31 K/uL (0.00-0.50); Hematocrit (blood only) 30.5 % (42.0-52.0); Hemoglobin 9.8 g/dl (14.0-18.0); Immature Granulocytes # (auto) 0.06 K/uL (0.01-0.20); Immature Granulocytes % (auto) 0.6 %; Lymphocytes % (auto) 9.6 %; Mean Corpuscular Hemoglobin 26.9 pg (25.0-34.0); Mean Corpuscular Hgb Conc 32.1 g/dL (32.0-36.0); Mean Corpuscular Volume 83.8 fL (80.0-100.0); Mean Platelet Volume 10.3 fL (9.4-12.4); Monocytes # (auto) 1.61 K/uL (0.11-0.59); Monocytes % (auto) 15.4 %; Neutrophils # (auto) 7.46 K/uL (1.40-6.50); Neutrophils % (auto) 71.3 %; Platelet Count 260 K/uL (130-400); RDW Coefficient of Variation 15.3 % (11.5-14.5); RDW Standard Deviation 46.5 fL (36.4-46.3); Red Blood Count 3.64 M/uL (4.70-6.10); White Blood Count 10.45 K/ul (4.8-10.8)
--- NOTE | 2024-06-14 07:19 | Electrocardiogram Report ---
Test Reason : Blood Pressure : */* mmHG Vent. Rate : 110 BPM Atrial Rate : 75 BPM P-R Int : * ms QRS Dur : 100 ms QT Int : 362 ms P-R-T Axes : * -36 98 degrees QTcB Int : 489 ms Atrial fibrillation with rapid ventricular response Left anterior fascicular block Incomplete right bundle branch block Nonspecific ST and T wave abnormality Abnormal ECG When compared with ECG of 12-Jun-2024 10:27, Incomplete right bundle branch block is now Present Confirmed by Kingston Lozano ([id number]) on 06/14/2024 7:18:47 AM Referred By: REFERRED SELF Confirmed By: Kingston Lozano
[2024-06-14 07:36] LABS: Albumin Level 2.7 gm/dl (3.4-5.0); BUN Creatinine Ratio 18.7 (10-20); Bilirubin,Total 0.8 mg/dl (0.2-1.0); Calcium 7.9 mg/dl (8.6-10.3); Creatinine Clr Calc Pharmacy 36.2 ml/min; Est GFR (African American) 33.2 ml/min; Est GFR (Non-African American) 28.6 ml/min; Globulin 2.8 gm/dl (2.5-4.0); Potassium 4.1 mmol/L (3.5-5.1); Total Protein 5.5 gm/dl (6.0-8.3)
[2024-06-14] MEDS: ADVANCED PROBIOTIC 625 MG CAPSULE PO SCH (09:57)
--- NOTE | 2024-06-14 10:05 | Hospitalist Progress Note ---
Date of Service June 14, 2024 Assessment & Plan (1) Lower gastrointestinal bleed: (2) Rectal mass: (3) Acute blood loss anemia: (4) Atrial fibrillation with RVR: (5) Acute on chronic heart failure with preserved ejection fraction: (6) Myocardial infarction due to demand ischemia: (7) Upper respiratory tract infection due to COVID-19 virus: (8) Acute kidney injury superimposed on CKD: (9) BPH loc w urin obs/LUTS: (10) Mixed Alzheimer's and vascular dementia: (11) Delirium superimposed on dementia: Plan per previous hospitalist notes with addendum: Rectal Mass, metastatic adenocarcinoma of prostatic origin Lower GI Bleed Patient presents from home with reports of dizziness. He was reported to have bright red blood per rectum for 3 weeks. Hemoglobin of 9.3 on admission, CT abdomen pelvis showed thickening of rectal wall which may represent proctitis; underlying mass cannot be excluded Colonoscopy done on 06/17; found to have rectal mass. Also small 4 to 6 mm polyps found in descending colon which was sessile. Biopsy result of the rectal mass shows metastatic adenocarcinoma prostatic origin. PSA ordered, oncology consulted Continue to monitor CBC and recurrence of rectal bleed. Hemoglobin currently stable. Started on dvt prophylaxis on 06/09 Hg 9.8 check Iron, Vit B12, Folate Possible Pneumonia Possible Sepsis On 06/12; patient reported increasing shortness of breath. He was also hypotensive. Chest x-raycardiomegaly with vascular congestion procal neg Patient is started on empiric antibiotic with Zosyn and vancomycin. MRSA nares are negative. Will DC vancomycin if blood culture is negative in 24 hours. Continue on ipratropium and lev albuterol nebs 06/14 afebrile, no leukocytosis on 2 L Bld Cx negative d/c Vanco continue IV Zosyn check CT chest SEGUNDO on CKD Presented with creatinine of 2.5; down trended to baseline of 1.2-1.3 with IV hydration and Aldrich catheterization. However, trended up to 2.0 again(on 06/12). Suspect prerenal cause due to hypotension. CT abdomen pelvis shows bilateral hydronephrosis likely due to bladder outlet obstruction Aldrich catheter placed again on 06/12 Will support hemodynamics with IV boluses as needed Avoid nephrotoxic agent 06/14 crea increased to 2.1 may need gentle IV NSS will check for urinary retention Atrial fibrillation with RVR Demand ischemia On presentation, patient was found to have atrial fibrillation with RVR. Evaluated by cardiology; started on metoprolol succinate 100 mg once a day Not on anticoagulation due to GI bleed Echocardiogram shows EF of 55 to 60% with moderate concentric LVH. Monitor on telemetry Metoprolol succinate changed to metoprolol tartrate 100 mg twice a day for better heart rate control. I discussed with patient's that patient has recurrent atrial fibrillation that puts him at risk for stroke on 06/11. He has rectal mass resulting in lower GI bleed recently; so he is not placed on anticoagulation. His acknowledged and understands the risks of stroke as he is not a candidate for anticoagulation at this time. Covid 19 infection- Diagnosed on admission. completed remdesivir. Dementia At baseline, patient is oriented to self. Continue on donepezil Monitor for delirium 1:1 as needed I discussed with patient's regarding goals of care on 06/10. She reported that she would not want him to undergo chest compressions and mechanical ventilation in the event of cardiac arrest. CODE STATUS changed to DNR/DNI. Diposition- Patient has possible pneumonia, segundo on ckd which will require him to be hospitalized. will likely need SNF upon discharge Admission and Anticipated Discharge Date Admission Date: June 02, 2024 Subjective ff up for adenoCA, pneumonia, SEGUNDO, etc seen resting in bed, on 2 L NC, not in distress, comfortable states he feels ok overall breathing ok, has dry cough no chills has low back pain no chest pain, palpitations, dizziness no abdominal pain, nausea/vomiting no leg pain Review of Systems Review of Systems: all noted and negative except for above Physical Exam Physical Exam: General- oriented x 2, not in distress, speaks in sentences with no effort or accessory muscle use Eyes- anicteric Neck- no JVD Lungs- mild rhonchi at the bases Heart- normal rate, regular rhythm; no murmurs Abdomen- normal bowel sounds, nondistended, soft, nontender Extremities- no pretibial edema, no calf tenderness Neuro- alert, oriented x 2; no gross focal neurologic deficits Skin- warm & dry Results & Data Results & Data Vital Signs (Past 12 Hours) Vital Signs Temp Pulse Pulse Resp BP Pulse Ox O2 Del Method 06/14/24 08:46 36.7 C 98 H 30 H 102/57 L 94 Nasal Cannula 06/14/24 07:14 108 H 20 96 Nasal Cannula 06/14/24 03:23 36.7 C 113 H 24 115/74 97 Nasal Cannula 06/14/24 01:47 108 H 06/14/24 00:55 100 H 18 94 Nasal Cannula 06/13/24 23:47 Nasal Cannula 06/13/24 23:00 36.6 C 109 H 18 109/65 93 Nasal Cannula O2 Flow Rate 06/14/24 08:46 2 06/14/24 07:14 2 06/14/24 03:23 2 06/14/24 01:47 06/14/24 00:55 2 06/13/24 23:47 2 06/13/24 23:00 2 all noted and reviewed including below
[2024-06-14] MEDS: DICLOFENAC SOD 1% GEL 100 GM TUBE EXT SCH (10:37)
--- NOTE | 2024-06-14 10:52 | CT Scan Report ---
CT chest diagnostic wo con CT DOSE: 1056.48 mGy.cm HISTORY: pneumonia, r/o effusion TECHNIQUE: Multiaxial CT images of the chest were performed without contrast. A dose lowering techni que was utilized adhering to the principles of ALARA. COMPARISON: Chest CTA 05/26/2017. FINDINGS: Suboptimal evaluation of the chest due to the respiratory motion artifact. No pneumothorax. Trace bilateral pleural effusions. Mild interstitial thickening seen at the lung bases. A few bibasi lar linear densities favor subsegmental atelectasis. Right basilar calcified pleural plaque is noted. Partial opacification of bilateral lower lobe bronchi. A few patchy densities at the lower lobes pos teriorly favor dependent change. A low-grade pneumonitis also remains in the differential diagnosis. There is mild pulmonary vascular congestion without overt edema. No acute fractures. Poststernotomy c hanges. Degenerative changes within the shoulders. There are new scattered patchy areas of sclerosis seen within the posterior ribs, T10 vertebral body, and bilateral scapula. This is suspicious for met astatic disease. Normal thyroid gland. Limited views the upper abdomen demonstrate normal liver, sple en, and adrenal glands. Evidence for prior gastric bypass. Small hiatus hernia is noted. The heart is enlarged. The main pulmonary artery is dilated up to 4.7 cm consistent with pulmonary arterial hyper tension. No pericardial effusion. A few prominent right paratracheal lymph nodes and a prominent subc arinal lymph node are similar to the prior study. No hilar lymphadenopathy. IMPRESSION: 1. Scattered areas of patchy sclerotic lesions which is highly suspicious for metastatic disease. Fol low-up nuclear medicine bone scan recommended for further evaluation. 2. Cardiomegaly with trace bilateral pleural effusions and mild congestive change. 3. A few patchy densities at the lower lobes posteriorly favor dependent change. A low-grade pneumoni tis also remains in the differential diagnosis. 4. Prominent right paratracheal lymph nodes again noted. This could be reactive. Attention at follow- up recommended. ACT 112: Negative or not required by law. Electronically signed by: Tom Gonzalez M.D. 06/14/2024 10:50 AM
[2024-06-14] MEDS: guaiFENesin 600 MG TABCR PO SCH (18:08)
[2024-06-14] MEDS: SODIUM CHLORIDE 0.9% 1,000 ML IV SCH (18:08)
[2024-06-14] MEDS: LORazepam 0.25 MG in SYRINGE 0.125 ML IV STA (18:39)
--- NOTE | 2024-06-15 06:45 | Oncology Consultation ---
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 Had an extensive discussion with patient's today. Discussed options of treatment with her including supportive care/hospice or combination of androgen deprivation therapy with antiandrogen. -Given patient's advanced dementia, would be very reasonable to consider support ileana care/hospice. Discussed potential side effects of treatment with androgen deprivation therapy with or without antiandrogen. Following extensive discussion, patient's indicated that she would like him to start systemic therapy. -Would recommend obtaining bone scan for baseline. Plan to start bicalutamide 50 mg p.o. daily while inpatient. After discharge, we will start him on androgen deprivation therapy with Lupron 22.5 mg SC every 3 months. -Agree with checking B12 and folate levels. Also check iron studies. Thank you for this consult. Oncology will plan to see patient upon discharge. Please feel free to call if any further questions. History of Present Illness Reason for Consultation: Metastatic prostate cancer Attending Physician: Miguel Palomino MD History of Present Illness 78-year-old gentleman with advanced dementia recently diagnosed with metastatic prostate cancer. He presented to the ER with dizziness and hematochezia. Labs obtained in the ED revealed anemia with hemoglobin of 9.3. CT abdomen pelvis revealed thickening of the rectal wall, bilateral hydronephrosis due to chronic outlet obstruction, prominent sclerosis of the sacroiliac joints and vertebral bodies most prominently T11. Colonoscopy performed on 06/07/2024 revealed polypoid infiltrative and submucosal nonobstructing large mass in the distal rectum which was biopsied with pathology revealing metastatic adenocarcinoma of prostatic origin. PSA was 342. Patient has baseline dementia so most of my discussion with his over the phone. Allergies Allergy/AdvReac Type Severity Reaction Status Date / Time No Known Allergies Allergy Verified 06/02/24 16:23 Home Medications Medication Instructions Recorded Confirmed Type aspirin 81 mg tablet,delayed 81 mg PO DAILY 06/02/24 06/02/24 History release atorvastatin 80 mg tablet 80 mg PO DAILY 06/02/24 06/02/24 History cholecalciferol (vitamin D3) 25 25 mcg PO DAILY 06/02/24 06/02/24 History mcg (1,000 unit) tablet (Vitamin D3) cyanocobalamin (vitamin B-12) 1,000 mcg PO DAILY 06/02/24 06/02/24 History 1,000 mcg tablet (Vitamin B-12) diclofenac sodium 1 % topical gel 0 g topical QID PRN .. 06/02/24 06/02/24 History (Voltaren Arthritis Pain) donepezil 10 mg tablet 10 mg PO DAILY 06/02/24 06/02/24 History famotidine 20 mg tablet 20 mg PO QAM 06/02/24 06/02/24 History ferrous sulfate 325 mg (65 mg 650 mg PO DAILY 06/02/24 06/02/24 History iron) tablet furosemide 20 mg tablet 20 mg PO DAILY 06/02/24 06/02/24 History lisinopril 5 mg tablet 5 mg PO DAILY 06/02/24 06/02/24 History metoprolol succinate 50 mg 75 mg PO QAM 06/02/24 06/02/24 History tablet,extended release 24 hr omega-3 fatty acids 1,000 mg 1,000 mg PO DAILY 06/02/24 06/02/24 History capsule Patient History Medical History (Updated 06/15/24 @ 13:11 by Shannon May MD) Acute respiratory failure due to COVID-19 Myocardial infarction due to demand ischemia Lower gastrointestinal bleed Acute blood loss anemia Acute kidney injury superimposed on CKD Atrial fibrillation with RVR CKD (chronic kidney disease), stage III SVT (supraventricular tachycardia) with possible short runs of PAF Chronic heart failure with preserved ejection fraction (HFpEF) Hearing loss Obesity Surgical History S/P panniculectomy S/P colonoscopy with polypectomy History of liver biopsy History of esophagogastroduodenoscopy (EGD) Bariatric surgery status Family History Mother Hypertension Stroke Father Hypertension Cancer Social History Smoking Status: Never smoker Second Hand Exposure: No; Do You Dip or Chew Tobacco: No; Hx Alcohol Use: No Hx Substance Use: No Preferred Language: [place]an Communication Ability: Effective Industrial Education Teacher Required: No Beliefs That Will Affect Care: None Current Living Situation: Spouse Feels Safe at Home: Yes Assistive Devices: Cane Results & Data Vital Signs (Past 12 Hours) Vital Signs Temp Pulse Pulse Resp BP BP Pulse Ox 06/15/24 03:02 36.7 C 88 18 91/59 L 98 06/15/24 01:15 86 18 99 06/14/24 22:01 113 H 06/14/24 22:00 06/14/24 21:47 36.4 C L 89 17 96/61 L 93 06/14/24 20:11 06/14/24 19:38 118 H 20 98 06/14/24 19:09 36.6 C 87 18 86/51 L 94 O2 Del Method O2 Flow Rate 06/15/24 03:02 Nasal Cannula 2 06/15/24 01:15 Nasal Cannula 2 06/14/24 22:01 06/14/24 22:00 Nasal Cannula 1 06/14/24 21:47 Nasal Cannula 1 06/14/24 20:11 Nasal Cannula 1 06/14/24 19:38 Nasal Cannula 1.5 06/14/24 19:09 Nasal Cannula 1
[2024-06-15 07:28] LABS: Basophils # (auto) 0.02 K/uL (0.00-0.20); Basophils % (auto) 0.2 %; Eosinophils # (auto) 0.35 K/uL (0.00-0.50); Eosinophils % (auto) 3.5 %; Hematocrit (blood only) 31.7 % (42.0-52.0); Hemoglobin 9.8 g/dl (14.0-18.0); Immature Granulocytes # (auto) 0.06 K/uL (0.01-0.20); Immature Granulocytes % (auto) 0.6 %; Lymphocytes # (auto) 1.14 K/uL (1.20-3.40); Lymphocytes % (auto) 11.3 %; Mean Corpuscular Hemoglobin 26.4 pg (25.0-34.0); Mean Corpuscular Hgb Conc 30.9 g/dL (32.0-36.0); Mean Corpuscular Volume 85.4 fL (80.0-100.0); Mean Platelet Volume 10.3 fL (9.4-12.4); Monocytes # (auto) 1.55 K/uL (0.11-0.59); Monocytes % (auto) 15.4 %; Neutrophils # (auto) 6.96 K/uL (1.40-6.50); Platelet Count 239 K/uL (130-400); RDW Coefficient of Variation 15.4 % (11.5-14.5); RDW Standard Deviation 48.4 fL (36.4-46.3); Red Blood Count 3.71 M/uL (4.70-6.10); White Blood Count 10.08 K/ul (4.8-10.8)
[2024-06-15 07:39] LABS: Albumin Globulin Ratio 0.9 (0.9-2); Albumin Level 2.5 gm/dl (3.4-5.0); BUN Creatinine Ratio 16.5 (10-20); Bilirubin,Total 0.7 mg/dl (0.2-1.0); Calcium 7.8 mg/dl (8.6-10.3); Creatinine Clr Calc Pharmacy 26.6 ml/min; Est GFR (African American) 22.9 ml/min; Est GFR (Non-African American) 19.7 ml/min; Globulin 2.9 gm/dl (2.5-4.0); Potassium 4.3 mmol/L (3.5-5.1); Total Protein 5.4 gm/dl (6.0-8.3)
[2024-06-15 08:02] LABS: Folate (Folic Acid),Ser orPlas 9.89 ng/ml (>5.38)
[2024-06-15] MEDS: SODIUM CHLORIDE 0.9% 1,000 ML IV SCH (10:35)
--- NOTE | 2024-06-15 10:58 | Hospitalist Progress Note ---
Date of Service June 15, 2024 Assessment & Plan (1) Lower gastrointestinal bleed: (2) Rectal mass: (3) Acute blood loss anemia: (4) Atrial fibrillation with RVR: (5) Acute on chronic heart failure with preserved ejection fraction: (6) Myocardial infarction due to demand ischemia: (7) Upper respiratory tract infection due to COVID-19 virus: (8) Acute kidney injury superimposed on CKD: (9) BPH loc w urin obs/LUTS: (10) Mixed Alzheimer's and vascular dementia: (11) Delirium superimposed on dementia: Plan per previous hospitalist notes with addendum: Rectal Mass, metastatic adenocarcinoma of prostatic origin Lower GI Bleed Patient presents from home with reports of dizziness. He was reported to have bright red blood per rectum for 3 weeks. Hemoglobin of 9.3 on admission, CT abdomen pelvis showed thickening of rectal wall which may represent proctitis; underlying mass cannot be excluded Colonoscopy done on 06/17; found to have rectal mass. Also small 4 to 6 mm polyps found in descending colon which was sessile. Biopsy result of the rectal mass shows metastatic adenocarcinoma prostatic origin. PSA ordered, oncology consulted Continue to monitor CBC and recurrence of rectal bleed. Hemoglobin currently stable. Started on dvt prophylaxis on 06/09 Hg 9.8 check Iron, Vit B12, Folate Iron 26, start ferrous sulfate BID Possible Pneumonia Possible Sepsis On 06/12; patient reported increasing shortness of breath. He was also hypotensive. Chest x-raycardiomegaly with vascular congestion procal neg Patient is started on empiric antibiotic with Zosyn and vancomycin. MRSA nares are negative. Will DC vancomycin if blood culture is negative in 24 hours. Continue on ipratropium and lev albuterol nebs 06/14 afebrile, no leukocytosis on 2 L Bld Cx negative d/c Vanco continue IV Zosyn check CT chest: noted 06/15 clinically improving transition to Cefepime IV 1g q12h SEGUNDO on CKD Presented with creatinine of 2.5; down trended to baseline of 1.2-1.3 with IV hydration and Aldrich catheterization. However, trended up to 2.0 again(on 06/12). Suspect prerenal cause due to hypotension. CT abdomen pelvis shows bilateral hydronephrosis likely due to bladder outlet obstruction Aldrich catheter placed again on 06/12 Will support hemodynamics with IV boluses as needed Avoid nephrotoxic agent 06/14 crea increased to 2.1 may need gentle IV NSS will check for urinary retention 06/15 crea further increased to 2.9 continue IV fluids Nephro consulted Atrial fibrillation with RVR Demand ischemia On presentation, patient was found to have atrial fibrillation with RVR. Evaluated by cardiology; started on metoprolol succinate 100 mg once a day Not on anticoagulation due to GI bleed Echocardiogram shows EF of 55 to 60% with moderate concentric LVH. Monitor on telemetry Metoprolol succinate changed to metoprolol tartrate 100 mg twice a day for better heart rate control. I discussed with patient's that patient has recurrent atrial fibrillation that puts him at risk for stroke on 06/11. He has rectal mass resulting in lower GI bleed recently; so he is not placed on anticoagulation. His acknowledged and understands the risks of stroke as he is not a candidate for anticoagulation at this time. Covid 19 infection- Diagnosed on admission. completed remdesivir. Dementia At baseline, patient is oriented to self. Continue on donepezil Monitor for delirium 1:[address] Neal: I discussed with patient's regarding goals of care on 06/10. She reported that she would not want him to undergo chest compressions and mechanical ventilation in the event of cardiac arrest. CODE STATUS changed to DNR/DNI. Diposition- Patient has possible pneumonia, segundo on ckd which will require him to be hospitalized. will likely need SNF upon discharge Admission and Anticipated Discharge Date Admission Date: June 02, 2024 Subjective ff up for AdenoCa with Mets, Pneumonia, SEGUNDO, etc seen resting in bed, on 2 L o2 watching TV, calm, cooperative feels fine overall breathing feels ok , less cough, denies shortness of breath no fever/chills no abdominal pain, nausea/vomiting no back pain today no other symptoms Review of Systems Review of Systems: all noted and negative except for above Physical Exam Physical Exam: General- oriented x 2, not in distress, speaks in sentences with no effort or accessory muscle use Eyes- anicteric Neck- no JVD Lungs- clear breath sounds bilaterally, no rales/wheezes Heart- normal rate, regular rhythm; no murmurs Abdomen- normal bowel sounds, nondistended, soft, nontender Extremities- no pretibial edema, no calf tenderness Neuro- alert, oriented x2; no gross focal neurologic deficits Skin- warm & dry Results & Data Results & Data Vital Signs (Past 12 Hours) Vital Signs Temp Pulse Resp BP Pulse Ox O2 Del Method O2 Flow Rate 06/15/24 07:54 36.3 C L 120 H 18 102/69 93 Nasal Cannula 2.0 06/15/24 07:20 Nasal Cannula 2 06/15/24 07:04 110 H 19 95 Nasal Cannula 2 06/15/24 03:02 36.7 C 88 18 91/59 L 98 Nasal Cannula 2 06/15/24 01:15 86 18 99 Nasal Cannula 2 all noted and reviewed including below
[2024-06-15 14:18] LABS: Ferritin 287.3 ng/ml (8-388)
--- NOTE | 2024-06-15 14:59 | Nephrology Consultation ---
Date of Consultation June 15, 2024 Assessment & Plan (1) SEGUNDO (acute kidney injury): rapidly progressive stage 3 SEGUNDO on CKD3B best known baseline 1.7. stage 3 based on UOP past 24 hrs (0.14 ml/kg/hr). high risk for obstructive uropathy; also coincides with protracted hypotension and therapy for PNA w/ vanco/zosyn. his bp does not seem to be responding so far to IVF, though he's had some increased insensible losses in stool. no nsaids; no IV contrast. -random vanco level stat > came back at 13 just over 48 hrs after last dose -repeat UA ordered -needs renal u/s to exclude obstruction -continue strict I/O -exceptionally poor dialysis candidate should the need arise given his dementia/cancer dx but will have ongoing goals of care discussion w/ /family -reasonable for now to continue NS at 80 mL hourly Care coordinated w/ Dr Palomino (2) CKD (chronic kidney disease), stage III: rapidly progressive. no CKD as recently as 03/2023; then CKD 3A 04/2023 until 02/2024 when it moved to 3B w/ creatinine 1.7. may move quickly to CKD 4 (3) Prostate cancer: plan for now is treatment of this in setting of advanced dementia, DNR/DNI status. casodex does not need to be dosed for renal function History of Present Illness Reason for Consultation: SEGUNDO Requesting Physician: Dr Palomino Attending Physician: Miguel Palomino MD History of Present Illness 78 y/o M whom I'm asked to see for SEGUNDO was admitted here 06/02 for work up of anemia after presenting with orthostatic symptoms and anemia; he was ultimately diagnosed w/ stage 4 prostate CA for which treatment is planned after careful discussion of risks/benefits/alternatives. He has an invasive rectal mass and bone metastases from the cancer. PMH includes advanced dementia, HFpEF, HTN. Also w/ rapidly progressive CKD > no CKD as recently as 03/2023, then CKD 3A abruptly following month until February 2024 when moving more to 3B w/ creatinine 1.7. Few OP renal data points available. His creatinine was 2.5 on presentation but with supportive care got down to 1.3 by 06/06; however by 06/11 gradual upward trend began again up to 2.1 yesterday; then today up to 2.9. He did have essentially a full day of lower systolic blood pressures yesterday (generally 80-90s systolic) and some more intermittent hypotension since 06/12 when he also became more dyspneic and CXR noted to have vascular congestion >> started on zoysn/vanco; then transitioned to cefepime today. He is currently receiving NS at 80 mL hourly as of this AM; also had about a L of NS yesterday. Also on cefepime and casodex. ROS is limited by pt mental status (at his baseline per ) and also by his hearing which is poor and no current hearing aides ( states were lost). Denies sob, cough, orthopnea. + back pain which is significant and makes him restless. he has had about 100 mL UOP from [id number] today > or 0.1 ml/kg/hr. Most recent SBP is 91; RN reports 4-5 large volume loose BM so far today. Allergies Allergy/AdvReac Type Severity Reaction Status Date / Time No Known Allergies Allergy Verified 06/02/24 16:23 Home Medications Medication Instructions Recorded Confirmed Type aspirin 81 mg tablet,delayed 81 mg PO DAILY 06/02/24 06/02/24 History release atorvastatin 80 mg tablet 80 mg PO DAILY 06/02/24 06/02/24 History cholecalciferol (vitamin D3) 25 25 mcg PO DAILY 06/02/24 06/02/24 History mcg (1,000 unit) tablet (Vitamin D3) cyanocobalamin (vitamin B-12) 1,000 mcg PO DAILY 06/02/24 06/02/24 History 1,000 mcg tablet (Vitamin B-12) diclofenac sodium 1 % topical gel 0 g topical QID PRN .. 06/02/24 06/02/24 History (Voltaren Arthritis Pain) donepezil 10 mg tablet 10 mg PO DAILY 06/02/24 06/02/24 History famotidine 20 mg tablet 20 mg PO QAM 06/02/24 06/02/24 History ferrous sulfate 325 mg (65 mg 650 mg PO DAILY 06/02/24 06/02/24 History iron) tablet furosemide 20 mg tablet 20 mg PO DAILY 06/02/24 06/02/24 History lisinopril 5 mg tablet 5 mg PO DAILY 06/02/24 06/02/24 History metoprolol succinate 50 mg 75 mg PO QAM 06/02/24 06/02/24 History tablet,extended release 24 hr omega-3 fatty acids 1,000 mg 1,000 mg PO DAILY 06/02/24 06/02/24 History capsule Patient History Medical History Acute respiratory failure due to COVID-19 Myocardial infarction due to demand ischemia Lower gastrointestinal bleed Acute blood loss anemia Acute kidney injury superimposed on CKD Atrial fibrillation with RVR CKD (chronic kidney disease), stage III SVT (supraventricular tachycardia) with possible short runs of PAF Chronic heart failure with preserved ejection fraction (HFpEF) Hearing loss Obesity Surgical History S/P panniculectomy S/P colonoscopy with polypectomy History of liver biopsy History of esophagogastroduodenoscopy (EGD) Bariatric surgery status Family History Mother Hypertension Stroke Father Hypertension Cancer Social History Smoking Status: Never smoker Second Hand Exposure: No; Do You Dip or Chew Tobacco: No; Hx Alcohol Use: No Hx Substance Use: No Preferred Language: Citizen Of [place] Communication Ability: Effective Test Deck Supervisor Required: No Beliefs That Will Affect Care: None Current Living Situation: Spouse Feels Safe at Home: Yes Assistive Devices: Cane Review of Systems 2 Review of Systems: All systems reviewed & are unremarkable except as noted in HPI & below Physical Exam 2 Constitutional: well developed, well nourished, + acute distress (restless w/ back pain) and cooperative Eyes: EOM intact bilaterally ENMT: Ears: no external ear abnormality Nose: no external nose abnormality Mouth: + dry oral mucous membranes Neck: no nuchal rigidity Respiratory: normal respiratory effort (on 2L NC) Auscultation: + diminished lung sounds and + wheezes (occasional exp R sided) Cardiovascular: Rate/Rhythm: + tachycardic (100s) and + irregularly irregular Extremities: + edema (trace BLE) Gastrointestinal (Abdomen): Inspection/Auscultation: normal bowel sounds P ercussion/Palpation: abdomen soft; abdomen nontender Musculoskeletal: Extremities: strength 5/5 throughout Skin: no rashes, warm and dry Neurologic: rojo, fluent speech, no tremor Psychiatric: Orientation: alert, oriented to person and oriented to place I nsight: + poor insight repeats self often; very restless Results & Data Vital Signs (Past 12 Hours) Vital Signs Temp Pulse Resp BP Pulse Ox O2 Del Method O2 Flow Rate 06/15/24 11:14 36.7 C 94 H 16 106/65 95 Room Air 06/15/24 07:54 36.3 C L 120 H 18 102/69 93 Nasal Cannula 2.0 06/15/24 07:20 Nasal Cannula 2 06/15/24 07:04 110 H 19 95 Nasal Cannula 2 06/15/24 03:02 36.7 C 88 18 91/59 L 98 Nasal Cannula 2 Laboratory Results 06/15/24 06:46 06/15/24 06:46 06/12 UA w/ blood, protein, no bacteria, 1012; turbid Diagnostic Findings CT abdomen pelvis > rectal thickening, bilateral hydronephrosis due to chronic outlet obstruction, prominent SI joint and vertebral body sclerosis Colonoscopy 06/07/2024 with polypoid infiltrative and submucosal nonobstructing large distal rectal mass with biopsied revealing metastatic prostatic adenocarcinoma CT chest 06/14 mild plm vasc congestion; scattered sclerotic likely metastatic lesions TTE EF 55-60%; moderate CLVH; no ; mild MR
[2024-06-15] MEDS: CEFEPIME 1,000 MG in SYRINGE 0 ML IV SCH (15:42)
[2024-06-15] MEDS: FERROUS SULFATE 325 MG TAB PO SCH (16:26)
[2024-06-15] MEDS: LEVALBUTEROL 1.25 MG/3 ML NEB NEB PRN (21:25)
[2024-06-15] MEDS: IPRATROPIUM BROMIDE NEB SOLN 0.02% 0.5MG/2.5ML VIAL INH PRN (21:25)
[2024-06-16] MEDS: ACETAMINOPHEN 325 MG TAB PO STA (06:46)
--- NOTE | 2024-06-16 06:59 | Communication Note ---
Date of Service: June 16, 2024 Patient with small urine output and blood-tinged urine via Aldrich as per RN. Hold heparin subcu for now
--- NOTE | 2024-06-16 07:44 | Ultrasound Report ---
RENAL ULTRASOUND HISTORY: r/o obstruction COMPARISON: Abdomen and pelvis CT 06/02/2024. FINDINGS: Right kidney: 11.3 cm. Moderate hydronephrosis, unchanged. The visualized right ureter is also dilate d. There are 2 cysts with the largest measuring 2.5 cm. Mild cortical thinning/scarring. Left kidney: 13.9 cm. Moderate hydronephrosis, unchanged. Multiple cysts again noted with the largest measuring 7.2 cm. This contains peripheral calcification and a thin septation. Mild cortical thinnin g/atrophy. Bladder: Decompressed by Aldrich catheter not well visualized. There is debris surrounding Aldrich cathet er within the bladder which could represent blood products. IMPRESSION: 1. Moderate bilateral hydronephrosis, unchanged. 2. Multiple bilateral renal cysts again noted. 3. The bladder is decompressed by Aldrich catheter not well visualized. There is echogenic debris surro unding the Aldrich catheter which could represent a small amount of blood products/clot within the blad bobby. ACT 112: Negative or not required by law. Electronically signed by: Tom Gonzalez M.D. 06/16/2024 7:42 AM
[2024-06-16] MEDS: BICALUTAMIDE 50 MG TAB PO SCH (08:32)
[2024-06-16 08:33] LABS: Albumin Level 2.7 gm/dl (3.4-5.0); Bilirubin,Total 0.5 mg/dl (0.2-1.0); Potassium 4.3 mmol/L (3.5-5.1)
[2024-06-16 08:39] LABS: Albumin Globulin Ratio 0.9 (0.9-2); BUN Creatinine Ratio 16.3 (10-20); Creatinine Clr Calc Pharmacy 22.6 ml/min; Est GFR (African American) 18.7 ml/min; Est GFR (Non-African American) 16.2 ml/min; Globulin 3.1 gm/dl (2.5-4.0); Total Protein 5.8 gm/dl (6.0-8.3)
[2024-06-16 09:11] LABS: Appearance Urine Turbid (Clear); Bilirubin Urine Negative (Negative); Blood Urine 3+ (Negative); Glucose Urine UA Negative (Negative); Ketones Urine Trace (Negative); Leukocyte Esterase Urine Trace (Negative); Nitrite Urine Negative (Negative); Protein Urine 2+ (Negative); Specific Gravity Urine 1.025 (1.000-1.030); Urobilinogen Urine Negative (Negative)
[2024-06-16 09:14] LABS: Color Urine Brown
[2024-06-16 09:16] LABS: RBC Urine >20 /hpf (0-2)
[2024-06-16 09:17] LABS: Bacteria Urine 1+ (None Seen)
--- NOTE | 2024-06-16 10:13 | Nephrology Progress Note ---
Date of Service June 16, 2024 Assessment & Plan (1) SEGUNDO (acute kidney injury): Plan: rapidly progressive stage 3 SEGUNDO on CKD3B best known baseline 1.7. stage 3 based on UOP past 24 hrs (0.0.08 ml/kg/hr). imaging shows ongoing hydronephrosis which over time will compromise renal parenchyma; hydroureteronephrosis on admission from rectal mass; also with protracted hypotension and therapy for PNA w/ vanco/zosyn. his bp does not seem to be responding so far to IVF, though he's had some increased insensible losses in stool. no nsaids; no IV contrast. renal u/s w/ ongoing moderate hydronephrosis and mild R cortical scar, mild L cortical thinning, BL renal cysts taet L. admission CT (w/ baseline hydronephrosis) also w/ significant ureteral nephrosis. inflamed urine high concentrated despite resuscitation and w/ some bacteria from darling specimen. vanco level 48 hr after last dose at 13. -continue strict I/O -exceptionally poor dialysis candidate should the need arise given his dementia//cancer w/ bone and rectal mets//hypotension but will have ongoing goals of care discussion w/ /family >> he does not need PROJECT MANAGEMENT now but he will be in range to need it likely next 2-3 days; I believe at this time that in this clinical context dialysis would be futile care with the potential to cause more harm than good but would like to discuss more with family -will lower NS rate to 50 ml daily -primary service also to have more goals of care discussion w/ family as well Care coordinated w/ Dr Palomino (2) CKD (chronic kidney disease), stage III: Plan: rapidly progressive. no CKD as recently as 03/2023; then CKD 3A 04/2023 until 02/2024 when it moved to 3B w/ creatinine 1.7. may move quickly to CKD 4 (3) Prostate cancer: Plan: plan for now is treatment of this in setting of large rectal mass w/ skeletal mets and BL hydroureteronephrosis, advanced dementia, DNR/DNI status. currently on casodex which does not need to be dosed for renal function. Admission and Anticipated Discharge Date Admission Date: June 02, 2024 Subjective heparin on hold this am d/t blood in darling; 150 mL UOP past 24 hr; had bone scan this am. no family at bedside on eval; pt denies uncontrolled pain or sob Review of Systems 2 Review of Systems: All systems reviewed & are unremarkable except as noted in Subjective Physical Exam 2 Constitutional: well developed, well nourished and cooperative; no acute distress Eyes: EOM intact bilaterally ENMT: Ears: no external ear abnormality Nose: no external nose abnormality Mouth: + dry oral mucous membranes Neck: no nuchal rigidity Respiratory: normal respiratory effort (on 2L NC) Auscultation: + diminished lung sounds and + wheezes (occasional exp R sided) Cardiovascular: Rate/Rhythm: + tachycardic (90s) and + irregularly irregular Extremities: + edema (trace BLE) Gastrointestinal (Abdomen): Inspection/Auscultation: normal bowel sounds P ercussion/Palpation: abdomen soft; abdomen nontender Musculoskeletal: Extremities: strength 5/5 throughout Skin: no rashes, warm and dry Psychiatric: Orientation: alert, oriented to person and oriented to place I nsight: + poor insight Results & Data Vital Signs (Past 12 Hours) Vital Signs Temp Pulse Pulse Resp BP BP Pulse Ox 06/16/24 07:40 36.3 C L 96 H 18 99/64 L 99 06/16/24 07:33 112 H 06/16/24 03:32 36.4 C L 98 H 20 123/72 99 06/15/24 22:55 36.3 C L 92 H 18 96/63 L 98 O2 Del Method O2 Flow Rate 06/16/24 07:40 Nasal Cannula 2 06/16/24 07:33 06/16/24 03:32 Nasal Cannula 2 06/15/24 22:55 Nasal Cannula 2 Laboratory Results 06/15/24 06:46 06/16/24 07:05 UA brown, turbid, 1025; 2+ protein, 3+ blood, trace ketones, 3-5 epi, 1+ bacter Diagnostic Findings renal u/s moderate BL hydronephrosis unchanged; BL renal cysts tate L; mild R cortical scar; mild L cortical thinning
--- NOTE | 2024-06-16 13:41 | Nuclear Medicine Report ---
WHOLE-BODY NUCLEAR BONE SCAN CLINICAL HISTORY: Prostate cancer. COMPARISON STUDY: Chest CT dated 06/14/2024. Abdominal CT dated 06/02/2024. TECHNIQUE: Three hours following the IV administration of 26.0 mCi of technetium 99m MDP, whole body nuclear bone scan was performed in the anterior and posterior projections. FINDINGS: There is multifocal abnormal tracer uptake consistent with extensive bony metastatic disease. A large lesion is seen within the mid to distal shaft of the right femur. Large lesions are seen within the right bony pelvis, numerous bilateral ribs the spine (greatest in the region of T11), and possibly at the left skull base. A focus of uptake in the distal right humerus is also suspicious for metastatic disease (the patient was reportedly injected in the left arm and pelvis. Typically degenerative uptake is identified in the shoulders, right ankle, and right foot. Foot pinning defects are consistent with bilateral hip arthroplasties. There is expected excreted activity within the renal collecting systems. IMPRESSION: 1. There is evidence of multifocal bony metastatic disease as detailed above. 2. Note that a large lesion within the mid to distal right femoral shaft may place the patient at ris k for insufficiency fracture. ACT 112: Negative or not required by law. Electronically signed by: Rodolfo Sosa M.D. 06/16/2024 1:40 PM
--- NOTE | 2024-06-16 15:06 | Hospitalist Progress Note ---
Date of Service June 16, 2024 Assessment & Plan (1) Lower gastrointestinal bleed: (2) Rectal mass: (3) Acute blood loss anemia: (4) Atrial fibrillation with RVR: (5) Acute on chronic heart failure with preserved ejection fraction: (6) Myocardial infarction due to demand ischemia: (7) Upper respiratory tract infection due to COVID-19 virus: (8) Acute kidney injury superimposed on CKD: (9) BPH loc w urin obs/LUTS: (10) Mixed Alzheimer's and vascular dementia: (11) Delirium superimposed on dementia: Plan per previous hospitalist notes with addendum: Rectal Mass, metastatic adenocarcinoma of prostatic origin Lower GI Bleed Patient presents from home with reports of dizziness. He was reported to have bright red blood per rectum for 3 weeks. Hemoglobin of 9.3 on admission, CT abdomen pelvis showed thickening of rectal wall which may represent proctitis; underlying mass cannot be excluded Colonoscopy done on 06/17; found to have rectal mass. Also small 4 to 6 mm polyps found in descending colon which was sessile. Biopsy result of the rectal mass shows metastatic adenocarcinoma prostatic origin. PSA ordered, oncology consulted Continue to monitor CBC and recurrence of rectal bleed. Hemoglobin currently stable. Started on dvt prophylaxis on 06/09 Hg 9.8 check Iron, Vit B12, Folate Iron 26, start ferrous sulfate BID Possible Pneumonia Possible Sepsis On 06/12; patient reported increasing shortness of breath. He was also hypotensive. Chest x-raycardiomegaly with vascular congestion procal neg Patient is started on empiric antibiotic with Zosyn and vancomycin. MRSA nares are negative. Will DC vancomycin if blood culture is negative in 24 hours. Continue on ipratropium and lev albuterol nebs 06/14 afebrile, no leukocytosis on 2 L Bld Cx negative d/c Vanco continue IV Zosyn check CT chest: noted 06/15 clinically improving transition to Cefepime IV 1g q12h 06/16 Pneumonia continues to improve Continue cefepime IV SEGUNDO on CKD Presented with creatinine of 2.5; down trended to baseline of 1.2-1.3 with IV hydration and Aldrich catheterization. However, trended up to 2.0 again(on 06/12). Suspect prerenal cause due to hypotension. CT abdomen pelvis shows bilateral hydronephrosis likely due to bladder outlet obstruction Aldrich catheter placed again on 06/12 Will support hemodynamics with IV boluses as needed Avoid nephrotoxic agent 06/14 crea increased to 2.1 may need gentle IV NSS will check for urinary retention 06/15 crea further increased to 2.9 continue IV fluids Nephro consulted 06/16 Creatinine continues to trend up Creatinine 3.4 Discussed with nephrology service, patient may be requiring hemodialysis in [address] Neumann will be discussing with patient's Atrial fibrillation with RVR Demand ischemia On presentation, patient was found to have atrial fibrillation with RVR. Evaluated by cardiology; started on metoprolol succinate 100 mg once a day Not on anticoagulation due to GI bleed Echocardiogram shows EF of 55 to 60% with moderate concentric LVH. Monitor on telemetry Metoprolol succinate changed to metoprolol tartrate 100 mg twice a day for better heart rate control. I discussed with patient's that patient has recurrent atrial fibrillation that puts him at risk for stroke on 06/11. He has rectal mass resulting in lower GI bleed recently; so he is not placed on anticoagulation. His acknowledged and understands the risks of stroke as he is not a candidate for anticoagulation at this time. Covid 19 infection- Diagnosed on admission. completed remdesivir. Dementia At baseline, patient is oriented to self. Continue on donepezil Monitor for delirium 1:[address] Neal: I discussed with patient's regarding goals of care on 06/10. She reported that she would not want him to undergo chest compressions and mechanical ventilation in the event of cardiac arrest. CODE STATUS changed to DNR/DNI. Diposition- Patient has possible pneumonia, segundo on ckd which will require him to be hospitalized. will likely need SNF upon discharge Admission and Anticipated Discharge Date Admission Date: June 02, 2024 Subjective ff up for prostate CA, pneumonia, SEGUNDO, etc seen resting in bed, comfortable watching TV States he feels fine overall Breathing is improving, less cough No other new symptoms Review of Systems Review of Systems: all noted and negative except for above Physical Exam Physical Exam: General- oriented x2, not in distress, speaks in sentences with no effort or accessory muscle use Eyes- anicteric Neck- no JVD Lungs- clear breath sounds bilaterally no crackles no wheezing Heart- normal rate, regular rhythm; no murmurs Abdomen- normal bowel sounds, nondistended, soft, no tenderness Extremities- no pretibial edema, no calf tenderness Neuro- alert, oriented x 2; no new gross focal neurologic deficits Skin- warm & dry Results & Data Results & Data Vital Signs (Past 12 Hours) Vital Signs Temp Pulse Pulse Resp BP BP Pulse Ox 06/16/24 10:26 36.3 C L 75 19 113/73 99 06/16/24 07:40 36.3 C L 96 H 18 99/64 L 99 06/16/24 07:33 112 H 06/16/24 03:32 36.4 C L 98 H 20 123/72 99 O2 Del Method O2 Flow Rate 06/16/24 10:26 Nasal Cannula 2 06/16/24 07:40 Nasal Cannula 2 06/16/24 07:33 06/16/24 03:32 Nasal Cannula 2 all noted and reviewed including below
[2024-06-16] MEDS: SODIUM CHLORIDE 0.9% 250 ML IV ONE ×2 (16:09→17:47)
[2024-06-16] MEDS: SODIUM CHLORIDE 0.9% 500 ML IV ONE ×2 (16:30→18:12)
[2024-06-16] MEDS ORDERED: STAT IV Infusion **Titration per Protocol STA (18:07)
[2024-06-16 18:40] LABS: Basophils # (auto) 0.01 K/uL (0.00-0.20); Basophils % (auto) 0.1 %; Eosinophils # (auto) 0.28 K/uL (0.00-0.50); Eosinophils % (auto) 3.3 %; Hemoglobin 8.8 g/dl (14.0-18.0); Immature Granulocytes # (auto) 0.05 K/uL (0.01-0.20); Immature Granulocytes % (auto) 0.6 %; Lymphocytes # (auto) 0.93 K/uL (1.20-3.40); Lymphocytes % (auto) 10.8 %; Mean Corpuscular Hemoglobin 26.3 pg (25.0-34.0); Mean Corpuscular Hgb Conc 30.3 g/dL (32.0-36.0); Mean Corpuscular Volume 86.8 fL (80.0-100.0); Mean Platelet Volume 9.9 fL (9.4-12.4); Monocytes # (auto) 1.21 K/uL (0.11-0.59); Monocytes % (auto) 14.1 %; Neutrophils # (auto) 6.13 K/uL (1.40-6.50); Neutrophils % (auto) 71.1 %; Platelet Count 202 K/uL (130-400); RDW Coefficient of Variation 15.6 % (11.5-14.5); RDW Standard Deviation 49.7 fL (36.4-46.3); Red Blood Count 3.34 M/uL (4.70-6.10); White Blood Count 8.61 K/ul (4.8-10.8)
--- NOTE | 2024-06-16 19:04 | XRay Report ---
XR chest 1V portable CLINICAL HISTORY: anuric, low BP > eval plm vasc congestion TECHNIQUE: Single frontal radiograph of the chest was obtained. Comparison: Comparison is made to chest radiograph 06/12/2024 FINDINGS: Median sternotomy wires are unchanged. Cardiomegaly is noted. The lungs are clear. No evidence of ple ural effusion or pneumothorax. IMPRESSION: Cardiomegaly is seen without significant pulmonary vascular congestion. ACT 112: Negative or not required by law. Electronically signed by: Francisco Javier Stoner M.D. 06/16/2024 7:02 PM
[2024-06-16 19:05] LABS: BUN Creatinine Ratio 15.6 (10-20); Calcium 7.4 mg/dl (8.6-10.3); Creatinine Clr Calc Pharmacy 21.1 ml/min; Est GFR (Non-African American) 14.7 ml/min
[2024-06-16] MEDS: NOREPINEPHRINE/D5W 4 MG/250 ML IV ONE (19:50)
[2024-06-16] MEDS: HYDROCORTISONE SOD 200 MG in SYRINGE 0 ML IV STA (20:41)
--- NOTE | 2024-06-16 23:03 | Critical Care Consultation ---
Date of Consultation June 16, 2024 Assessment & Plan (1) Hypotension: Impression: 78-year-old male With extensive past medical history presents to the ICU following episode of hypotension which seems to have improved with fluids and Glucocorticoids. Patient with worsening SEGUNDO, metastatic prostate cancer with rectal mass. Neuro - Dementia: Patient appears to have delirium superimposed on dementia. Stable at this time. Continue Aricept. Monitor Cardiac - Hypotensionimproved following fluid resuscitation and hydrocortisone. Possibly septic in etiology. No indication for vasopressor support at this time. Will monitor in ICU overnight, and if remains stable can downgrade in the morning. - Continue gentle fluid resuscitation - Hold antihypertensives - Random cortisol 9. Continue hydrocortisone -TT: EF 55 to 60% with moderate concentric left ventricular hypertrophy and mildly dilated left atrium - Maintain MAP greater than 65 Atrial fibrillationcurrently rate controlled. Metoprolol on hold due to hypotension. No anticoagulation due to rectal bleeding. Continuous monitoring on telemetry Respiratory - No history of pulmonary disease. Currently maintaining oxygen saturations on room air without difficulty. Continuous monitoring pulse ox for now GI - Rectal masspatient followed by gastroenterology underwent colonoscopy. Biopsy pending SETH RENAL/LYTES - SEGUNDO on CKD stage IIIpatient currently being followed by nephrology. Possible hydronephrosis due to rectal mass likely contributing. Patient determined to be poor candidate for dialysis - Creatinine 3.7 from 1.7 baseline. - Continue gentle fluid resuscitation -Avoid nephrotoxins renally adjust medications -Monitor strict I's and O's - Currently no electrolyte abnormalities or significant acidosis. Follow-up routine BMP in a.m. - Foleystrict I's and O's ENDO - No history of diabetes or thyroid disease. ICU hyperglycemic protocol HEME - H&H stable, monitor routine CBC. Transfuse as indicated Anemiacontinue ferrous sulfate ID - Sepsis Blood cultures currently negative to date. Procalcitonin's unremarkable. Continue empiric cefepime COVID-19finished course of remdesivir on this admission LINES/IV ACCESS - Peripheral IVs DVT PROPHYLAXIS - SCDs CODE STATUS: DNR/DNI. Prognosis poor due to worsening renal function complicated by metastatic cancer along with other comorbidities and dementia. Will consult palliative Disposition: Will monitor in ICU overnight. If patient remains hemodynamically stable off vasopressors can downgrade in the morning Thank you for allowing us to participate in the care of this patient. Please refer to my attending physician's documentation for any further recommendations. (2) Prostate cancer: (3) Rectal mass: (4) Non-ST elevation [place] (NSTEMI): (5) Acute on chronic heart failure with preserved ejection fraction: (6) Upper respiratory tract infection due to COVID-19 virus: (7) Delirium superimposed on dementia: (8) Rectal bleeding: (9) SEGUNDO (acute kidney injury): (10) GERD without esophagitis: History of Present Illness Attending Physician: Miguel Palomino MD History of Present Illness Patient is a 78-year-old male with past medical history significant for CKD stage III, previous TX, CABG times 02/10/1997, diastolic heart failure, BPH, dementia, atrial fibrillation, SVT, GERD, and active metastatic adenocarcinoma of prostate with rectal mass who was admitted to the hospital on 06/02 with reports of dizziness and rectal bleeding, and was undergoing treatment for pneumonia, SEGUNDO, Rectal bleeding, A-fib with RVR, NSTEMI, and sepsis. On 06/08 he underwent colonoscopy for rectal bleeding which revealed rectal mass with likely malignant tumor in the distal rectum which was biopsied. He is currently being followed by nephrology as well for worsening renal function, and felt patient would likely be poor candidate for dialysis due to underlying comorbidities and dementia. Of note, patient is DNR/DNI. This afternoon patient was transferred to the ICU after he was found to be hypotensive. He has worsening SEGUNDO with creatinine of 3.7 with previous baseline of 1.7. He was given 1.5 L crystalloid bolus, and started on hydrocortisone as he had a random cortisol of 9. On arrival to the ICU, patient was normotensive and did not wind up requiring vasopressor support. Per EMR documentation, family was okay with peripheral vasopressors overnight with possible transition to palliative. On evaluation, patient is confused but able to answer subjective questions. He currently denies any headache, dizziness, shortness of breath, chest pain, palpitations, abdominal pain, nausea. He is not in any acute distress and was sleeping comfortably on arrival to the room. Allergies Allergy/AdvReac Type Severity Reaction Status Date / Time No Known Allergies Allergy Verified 06/02/24 16:23 Home Medications Medication Instructions Recorded Confirmed Type aspirin 81 mg tablet,delayed 81 mg PO DAILY 06/02/24 06/02/24 History release atorvastatin 80 mg tablet 80 mg PO DAILY 06/02/24 06/02/24 History cholecalciferol (vitamin D3) 25 25 mcg PO DAILY 06/02/24 06/02/24 History mcg (1,000 unit) tablet (Vitamin D3) cyanocobalamin (vitamin B-12) 1,000 mcg PO DAILY 06/02/24 06/02/24 History 1,000 mcg tablet (Vitamin B-12) diclofenac sodium 1 % topical gel 0 g topical QID PRN .. 06/02/24 06/02/24 History (Voltaren Arthritis Pain) donepezil 10 mg tablet 10 mg PO DAILY 06/02/24 06/02/24 History famotidine 20 mg tablet 20 mg PO QAM 06/02/24 06/02/24 History ferrous sulfate 325 mg (65 mg 650 mg PO DAILY 06/02/24 06/02/24 History iron) tablet furosemide 20 mg tablet 20 mg PO DAILY 06/02/24 06/02/24 History lisinopril 5 mg tablet 5 mg PO DAILY 06/02/24 06/02/24 History metoprolol succinate 50 mg 75 mg PO QAM 06/02/24 06/02/24 History tablet,extended release 24 hr omega-3 fatty acids 1,000 mg 1,000 mg PO DAILY 06/02/24 06/02/24 History capsule Patient History Medical History Acute respiratory failure due to COVID-19 Myocardial infarction due to demand ischemia Lower gastrointestinal bleed Acute blood loss anemia Acute kidney injury superimposed on CKD Atrial fibrillation with RVR CKD (chronic kidney disease), stage III SVT (supraventricular tachycardia) with possible short runs of PAF Chronic heart failure with preserved ejection fraction (HFpEF) Hearing loss Obesity Surgical History S/P panniculectomy S/P colonoscopy with polypectomy History of liver biopsy History of esophagogastroduodenoscopy (EGD) Bariatric surgery status Family History Mother Hypertension Stroke Father Hypertension Cancer Social History Smoking Status: Never smoker Second Hand Exposure: No; Do You Dip or Chew Tobacco: No; Hx Alcohol Use: No Hx Substance Use: No Preferred Language: Mongolian Communication Ability: Effective Calibration Checker Required: No Beliefs That Will Affect Care: None Current Living Situation: Spouse Feels Safe at Home: Yes Assistive Devices: Cane Review of Systems Review of Systems: All systems reviewed & are unremarkable except as noted in HPI & below Physical Exam Constitutional: WD/WN, vitals as above Eyes: PERRL, conjunctivae normal, anicteric sclerae ENMT: external ear and nose normal, oropharynx normal Neck: trachea midline, no thyromegaly Respiratory: Bilateral crackles auscultated. Symmetrical chest wall movement. No labored breathing or use of accessory muscles. Cardiovascular: Rate/Rhythm: + irregularly irregular; not tachycardic Heart Sounds: no murmur Extremities: + edema Gastrointestinal (Abdomen): normal bowel sounds, soft, nontender, no hepatosplenomegaly Musculoskeletal: no cyanosis or clubbing, extremities motor strength 5/5 Skin: no rashes, warm and dry Neurologic: PERRL, EOMI, accommodation nl, no face palsy, no dysarthria Psychiatric: Confused, calm, cooperative Results & Data Results & Data Vital Signs (Past 12 Hours) Vital Signs Temp Pulse Resp BP BP Pulse Ox O2 Del Method 06/16/24 18:32 109 H 24 96/66 L 100 Nasal Cannula 06/16/24 17:04 109 H 20 77/45 L 06/16/24 16:16 100 H 20 76/49 L 94 Room Air 06/16/24 15:45 36.3 C L 107 H 20 79/50 L 96 Room Air O2 Flow Rate 06/16/24 18:32 2 06/16/24 17:04 06/16/24 16:16 06/16/24 15:45 Coding Level of Care Code 25364 IN/OBS CONSULT LVL 3,45M Diagnoses Hypotension I95.9 Prostate cancer C61 Rectal mass K62.89 Non-ST elevation [place] (NSTEMI) I21.4 Acute on chronic heart failure with preserved ejection fraction I50.33 Upper respiratory tract infection due to COVID-19 virus U07.1; J06.9 Delirium superimposed on dementia F05 Rectal bleeding K62.5 SEGUNDO (acute kidney injury) N17.9 GERD without esophagitis K21.9 Time Spent (min) 48
[2024-06-16] MEDS: NOREPINEPHRINE/D5W 4 MG/250 ML PLCT IV SCH (23:21)
[2024-06-17 05:18] LABS: Albumin Globulin Ratio 0.8 (0.9-2); Albumin Level 2.8 gm/dl (3.4-5.0); BUN Creatinine Ratio 15.2 (10-20); Bilirubin,Total 0.4 mg/dl (0.2-1.0); Calcium 8.1 mg/dl (8.6-10.3); Creatinine Clr Calc Pharmacy 21.8 ml/min; Est GFR (African American) 17.6 ml/min; Est GFR (Non-African American) 15.2 ml/min; Globulin 3.3 gm/dl (2.5-4.0); Magnesium 1.9 mg/dl (1.7-2.4); Potassium 4.5 mmol/L (3.5-5.1); Total Protein 6.1 gm/dl (6.0-8.3)
--- NOTE | 2024-06-17 08:46 | Nephrology Progress Note ---
Date of Service June 17, 2024 Assessment & Plan (1) SEGUNDO (acute kidney injury): Plan: rapidly progressive stage 3 SEGUNDO though for the moment slightly improved on CKD3B best known baseline 1.7, though rate of creatinine worsening slowed. stage 3 based on UOP 24 hrs (0.0.08 ml/kg/hr) on 06/16. imaging shows ongoing hydronephrosis which over time will compromise renal parenchymal function; hydroureteronephrosis on admission presumably from rectal mass; also with protracted hypotension and therapy for PNA w/ vanco/zosyn. protracted hypotension 06/16 > multiple fluid boluses and pressor support now SBP for the moment stabilized and UOP improving. he's had some increased insensible losses in stool. no nsaids; no IV contrast. renal u/s 06/16 w/ ongoing moderate BL hydronephrosis and mild R cortical scar, mild L cortical thinning, BL renal cysts tate L. admission CT (w/ baseline hydronephrosis) also w/ significant ureteral nephrosis. inflamed urine highly concentrated despite resuscitation and w/ some bacteria from darling specimen. vanco level 48 hr after last dose at 13. -continue strict I/O -exceptionally poor dialysis candidate should the need arise given his dementia//cancer w/ bone and rectal mets//hypotension and will continue ongoing goals of care discussion w/ /family >> he does not need [employer] now but he will be in range to need it likely next 2-3 days; I continue believe at this time that in this clinical context dialysis would be futile care with the potential to cause more harm than goo; after further discussion today w/ , she is in agreement >> NOT a dialysis candidate -continue pressor and NS at 80 mL hourly for now >> may need to change soon to less chloride rich fluid -primary service, critical care also to have more goals of care discussion w/ family as well >>if we are not moving toward hospice, recommend urology c/s for consideration of BL ureteral stenting Care coordinated w/ Georgette Devries. (2) CKD (chronic kidney disease), stage III: Plan: rapidly progressive. no CKD as recently as 03/2023; then CKD 3A 04/2023 until 02/2024 when it moved to 3B w/ creatinine 1.7. may move quickly to CKD 4 (3) Prostate cancer: Plan: plan for now is treatment of this in setting of large rectal mass w/ skeletal mets and BL hydroureteronephrosis, advanced dementia, DNR/DNI status. currently on casodex which does not need to be dosed for renal function. Admission and Anticipated Discharge Date Admission Date: June 02, 2024 Subjective had 1.5L NS boluses last evening, remains on 80 mL hourly; ultimately moved to ICU and NE initatiated w/ good response in UOP > 475 mL so far today after only 150 yesterday total. extended goals of care discussion last evening w/ . palliative c/s ordered. pt had steroids and pain much better controlled. SBP was 110s when I saw him but to90s now. remains [place]. anddaugther bedside Review of Systems 2 Review of Systems: All systems reviewed & are unremarkable except as noted in Subjective Physical Exam 2 Constitutional: well developed, well nourished and cooperative; no acute distress Eyes: EOM intact bilaterally ENMT: Ears: no external ear abnormality Nose: no external nose abnormality Mouth: + dry oral mucous membranes Neck: no nuchal rigidity Respiratory: normal respiratory effort (on RA) Auscultation: + diminished lung sounds; no wheezes Cardiovascular: Rate/Rhythm: regular rate and + irregularly irregular E xtremities: + edema (trace BLE) Gastrointestinal (Abdomen): Inspection/Auscultation: normal bowel sounds P ercussion/Palpation: abdomen soft; abdomen nontender Musculoskeletal: Extremities: strength 5/5 throughout Skin: no rashes, warm and dry Psychiatric: Orientation: alert, oriented to person and oriented to place I nsight: + poor insight Results & Data Vital Signs (Past 12 Hours) Vital Signs Temp Pulse Resp BP Pulse Ox O2 Del Method O2 Flow Rate 06/17/24 06:03 119 H 12 105/70 90 06/17/24 05:48 101 H 18 90 06/17/24 05:06 112 H 10 L 94 06/17/24 05:00 98 H 23 118/60 95 Room Air 06/17/24 04:00 36.6 C 94 H 22 132/80 92 Room Air 06/17/24 03:00 108 H 20 109/76 95 Room Air 06/17/24 03:00 109/76 06/17/24 03:00 109/76 06/17/24 03:00 113 H 18 95 06/17/24 02:03 95 H 20 98 06/17/24 01:06 108 H 17 94 06/17/24 01:00 113/78 06/17/24 00:30 106/67 06/17/24 00:30 106/67 06/17/24 00:00 36.5 C 99 H 19 101/60 97 Room Air 06/16/24 23:00 98 H 24 102/58 L 100 Room Air 06/16/24 22:30 95/64 L 06/16/24 22:00 102 H 20 105/59 L 99 Room Air 06/16/24 21:30 107/61 06/16/24 21:00 Nasal Cannula 2 06/16/24 21:00 103 H 26 H 103/76 98 Nasal Cannula 2 06/16/24 21:00 86/59 L Laboratory Results 06/17/24 04:31 Diagnostic Findings cxr not severely overloaded
[2024-06-17 08:59] LABS: Hematocrit (blood only) 32.3 % (42.0-52.0); Hemoglobin 9.8 g/dl (14.0-18.0); Mean Corpuscular Hemoglobin 26.4 pg (25.0-34.0); Mean Corpuscular Hgb Conc 30.3 g/dL (32.0-36.0); Mean Corpuscular Volume 87.1 fL (80.0-100.0); Mean Platelet Volume 10.6 fL (9.4-12.4); Platelet Count 245 K/uL (130-400); RDW Coefficient of Variation 15.5 % (11.5-14.5); RDW Standard Deviation 49.5 fL (36.4-46.3); Red Blood Count 3.71 M/uL (4.70-6.10); White Blood Count 9.42 K/ul (4.8-10.8)
[2024-06-17 09:28] LABS: Acanthocytes 1+; Basophils # (auto) 0.01 K/uL (0.00-0.20); Basophils % (auto) 0.1 %; Echinocytes 1+; Immature Granulocytes # (auto) 0.06 K/uL (0.01-0.20); Immature Granulocytes % (auto) 0.6 %; Lymphocytes # (auto) 0.57 K/uL (1.20-3.40); Lymphocytes % (auto) 6.1 %; Monocytes # (auto) 0.22 K/uL (0.11-0.59); Monocytes % (auto) 2.3 %; Neutrophils # (auto) 8.56 K/uL (1.40-6.50); Neutrophils % (auto) 90.9 %; Ovalocytes 1+
--- NOTE | 2024-06-17 10:47 | Critical Care Progress Note ---
Date of Service June 17, 2024 Assessment & Plan (1) Hypotension: Plan: Impression: 78-year-old male With extensive past medical history presents to the ICU following episode of hypotension which seems to have improved with fluids and Glucocorticoids. Patient with worsening SEGUNDO, metastatic prostate cancer with rectal mass. Neuro - Dementia: Patient appears to have delirium superimposed on dementia. Stable at this time. Hold Aricept due to renal dysfunction. Monitor Cardiac - Hypotensionimproved following fluid resuscitation and hydrocortisone. Possibly septic in etiology. No indication for vasopressor support at this time. - Continue gentle fluid resuscitation - Hold antihypertensives -TT: EF 55 to 60% with moderate concentric left ventricular hypertrophy and mildly dilated left atrium - Maintain MAP greater than 65 Atrial fibrillationcurrently rate controlled. Metoprolol on hold due to hypotension. No anticoagulation due to rectal bleeding. Continuous monitoring on telemetry Respiratory - No history of pulmonary disease. Currently maintaining oxygen saturations on room air without difficulty. Continuous monitoring pulse ox for now GI - Rectal masspatient followed by gastroenterology underwent colonoscopy. Biopsy indicates metastatic adenocarcinoma prostate origin. GERDPPI RENAL/LYTES - SEGUNDO on CKD stage IIIpatient currently being followed by nephrology. Possible hydronephrosis due to rectal mass likely contributing. Patient determined to be poor candidate for dialysis - Creatinine 3.7 from 1.7 baseline. - Continue gentle fluid resuscitation -Avoid nephrotoxins renally adjust medications -Monitor strict I's and O's - Currently no electrolyte abnormalities or significant acidosis. -Appreciate nephrology input. - Foleystrict I's and O's ENDO - No history of diabetes or thyroid disease. ICU hyperglycemic protocol HEME - H&H stable, monitor routine CBC. Transfuse as indicated Anemiacontinue ferrous sulfate ID - Sepsis Blood cultures currently negative to date. Procalcitonin's unremarkable. Continue empiric cefepime COVID-19finished course of remdesivir on this admission LINES/IV ACCESS - Peripheral IVs DVT PROPHYLAXIS - SCDs CODE STATUS: DNR/DNI. Prognosis poor due to worsening renal function complicated by metastatic cancer along with other comorbidities and dementia. Will consult palliative. Discussed with overnight ICU YESSENIA. Discussed the multidisciplinary rounds. Patient stable for downgrade to [facility] at this time. Family is considering comfort measures only. Hospital service aware. (2) Prostate cancer: (3) Rectal mass: (4) Non-ST elevation DE (NSTEMI): (5) Acute on chronic heart failure with preserved ejection fraction: (6) Upper respiratory tract infection due to COVID-19 virus: (7) Delirium superimposed on dementia: (8) Rectal bleeding: (9) SEGUNDO (acute kidney injury): (10) GERD without esophagitis: Admission and Anticipated Discharge Date Admission Date: June 02, 2024 Subjective Patient not requiring any vasopressors or significant oxygen overnight. Remains hemodynamically stable. No major complaints at present. Review of Systems Review of Systems: Unobtainable due to cognitive status Physical Exam Constitutional: WD/WN, vitals as above Eyes: PERRL, conjunctivae normal, anicteric sclerae ENMT: external ear and nose normal, oropharynx normal Neck: trachea midline, no thyromegaly Respiratory: Bilateral crackles auscultated. Symmetrical chest wall movement. No labored breathing or use of accessory muscles. Cardiovascular: Rate/Rhythm: + irregularly irregular; not tachycardic Heart Sounds: no murmur Extremities: + edema Gastrointestinal (Abdomen): normal bowel sounds, soft, nontender, no hepatosplenomegaly Musculoskeletal: no cyanosis or clubbing, extremities motor strength 5/5 Skin: no rashes, warm and dry Neurologic: PERRL, EOMI, accommodation nl, no face palsy, no dysarthria Psychiatric: Confused, calm, cooperative Results & Data Results & Data Vital Signs (Past 12 Hours) Vital Signs Temp Pulse Resp BP Pulse Ox O2 Del Method 06/17/24 09:11 116 H 06/17/24 08:58 36.4 C L 06/17/24 08:09 113 H 26 H 92 06/17/24 08:00 103/60 06/17/24 07:03 107 H 10 L 97 Room Air 06/17/24 07:01 118/71 06/17/24 06:03 119 H 12 105/70 90 06/17/24 05:48 101 H 18 90 06/17/24 05:06 112 H 10 L 94 06/17/24 05:00 98 H 23 118/60 95 Room Air 06/17/24 04:00 36.6 C 94 H 22 132/80 92 Room Air 06/17/24 03:00 108 H 20 109/76 95 Room Air 06/17/24 03:00 109/76 06/17/24 03:00 109/76 06/17/24 03:00 113 H 18 95 06/17/24 02:03 95 H 20 98 06/17/24 01:06 108 H 17 94 06/17/24 01:00 113/78 06/17/24 00:30 106/67 06/17/24 00:30 106/67 06/17/24 00:00 36.5 C 99 H 19 101/60 97 Room Air 06/16/24 23:00 98 H 24 102/58 L 100 Room Air Coding Level of Care Code 78470 SUB INP/OBS CARE 2/35MIN Diagnoses Hypotension I95.9 Prostate cancer C61 Rectal mass K62.89 Non-ST elevation DE (NSTEMI) I21.4 Acute on chronic heart failure with preserved ejection fraction I50.33 Upper respiratory tract infection due to COVID-19 virus U07.1; J06.9 Delirium superimposed on dementia F05 Rectal bleeding K62.5 SEGUNDO (acute kidney injury) N17.9 GERD without esophagitis K21.9
--- NOTE | 2024-06-17 16:05 | Hospitalist Progress Note ---
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 He was reported to have bright red blood per rectum for 3 weeks. Hemoglobin of 9.3 on admission, CT abdomen pelvis showed thickening of rectal wall which may represent proctitis; underlying mass cannot be excluded Colonoscopy done on 06/17; found to have rectal mass. Also small 4 to 6 mm polyps found in descending colon which was sessile. Biopsy result of the rectal mass shows metastatic adenocarcinoma prostatic origin. PSA ordered, oncology consulted Continue to monitor CBC and recurrence of rectal bleed. Hemoglobin currently stable. Started on dvt prophylaxis on 06/09 Hg 9.8 check Iron, Vit B12, Folate Iron 26, started ferrous sulfate BID Hg stable overall Possible Pneumonia Possible Sepsis On 06/12; patient reported increasing shortness of breath. He was also hypotensive. Chest x-raycardiomegaly with vascular congestion procal neg Patient is started on empiric antibiotic with Zosyn and vancomycin. MRSA nares are negative. Will DC vancomycin if blood culture is negative in 24 hours. Continue on ipratropium and lev albuterol nebs 06/14 afebrile, no leukocytosis on 2 L Bld Cx negative d/c Vanco continue IV Zosyn check CT chest: noted 06/15 clinically improving transition to Cefepime IV 1g q12h 06/16 Pneumonia continues to improve Continue cefepime IV 06/17 continue Cefepime IV SGEUNDO on CKD Presented with creatinine of 2.5; down trended to baseline of 1.2-1.3 with IV hydration and Aldrich catheterization. However, trended up to 2.0 again(on 06/12). Suspect prerenal cause due to hypotension. CT abdomen pelvis shows bilateral hydronephrosis likely due to bladder outlet obstruction Aldrich catheter placed again on 06/12 Will support hemodynamics with IV boluses as needed Avoid nephrotoxic agent 06/14 crea increased to 2.1 may need gentle IV NSS will check for urinary retention 06/15 crea further increased to 2.9 continue IV fluids Nephro consulted 06/16 Creatinine continues to trend up Creatinine 3.4 Discussed with nephrology service, patient may be requiring hemodialysis in [address] Neumann will be discussing with patient's 06/17 crea remains 3.6 output 400cc yesterday prognosis still poor per discussion with Dr. Neumann very poor HD candidate Palliative Care service consulted Hypotension multifactorial: hypovolemic, adrenal insufficiency, betablocker in the setting of acute renal failure Fortunately responded to IV fluid challenge yesterday Did not require vasopressor support overnight Continue IV fluids Cortisol level 9 Received hydrocortisone 200 mcg IV last night Start hydrocortisone 50 mg every 8 hours Hold metoprolol Monitor closely Atrial fibrillation with RVR Demand ischemia On presentation, patient was found to have atrial fibrillation with RVR. Evaluated by cardiology; started on metoprolol succinate 100 mg once a day Not on anticoagulation due to GI bleed Echocardiogram shows EF of 55 to 60% with moderate concentric LVH. Monitor on telemetry Metoprolol succinate changed to metoprolol tartrate 100 mg twice a day for better heart rate control. I discussed with patient's that patient has recurrent atrial fibrillation that puts him at risk for stroke on 06/11. He has rectal mass resulting in lower GI bleed recently; so he is not placed on anticoagulation. His acknowledged and understands the risks of stroke as he is not a candidate for anticoagulation at this time. Heart rate controlled overall Metoprolol held in light of hypotension Covid 19 infection- Diagnosed on admission. completed remdesivir. Dementia At baseline, patient is oriented to self. Continue on donepezil Monitor for delirium 1:[address] Neal: I discussed with patient's regarding goals of care on 06/10. She reported that she would not want him to undergo chest compressions and mechanical ventilation in the event of cardiac arrest. CODE STATUS changed to DNR/DNI. Disposition- pending Admission and Anticipated Discharge Date Admission Date: June 02, 2024 Subjective Follow-up for metastatic adenocarcinoma, pneumonia, acute renal failure, hypotension, etc. Events overnight noted Patient did not require vasopressor support Discussed with RN, patient was restless overnight, one-to-one sitter provided Seen resting in bed, awake and alert but confused, follows simple commands Denies shortness of breath, chest pain, cough, abdominal pain, nausea vomiting Review of Systems Review of Systems: all noted and negative except for above Physical Exam Physical Exam: General- oriented x 1, not in distress, breathing with no effort or accessory muscle use Eyes- anicteric Neck- no JVD Lungs- clear breath sounds bilaterally, no rales/wheezes Heart- mild tachycardia, regular rhythm; no murmurs Abdomen- normal bowel sounds, nondistended, soft, no tenderness Extremities- no pretibial edema, no calf tenderness Neuro- alert, oriented x 1; no new gross focal neurologic deficits Skin- warm & dry Results & Data Results & Data Vital Signs (Past 12 Hours) Vital Signs Temp Pulse Pulse Resp BP BP Pulse Ox 06/17/24 14:34 36.7 C 60 16 98/61 L 92 06/17/24 12:12 06/17/24 09:11 116 H 06/17/24 08:58 36.4 C L 06/17/24 08:09 113 H 26 H 92 06/17/24 08:00 06/17/24 08:00 103/60 06/17/24 07:03 107 H 10 L 97 06/17/24 07:01 118/71 06/17/24 06:03 119 H 12 105/70 90 06/17/24 05:48 101 H 18 90 06/17/24 05:06 112 H 10 L 94 06/17/24 05:00 98 H 23 118/60 95 06/17/24 04:00 36.6 C 94 H 22 132/80 92 O2 Del Method 06/17/24 14:34 Room Air 06/17/24 12:12 Room Air 06/17/24 09:11 06/17/24 08:58 06/17/24 08:09 06/17/24 08:00 Room Air 06/17/24 08:00 06/17/24 07:03 Room Air 06/17/24 07:01 06/17/24 06:03 06/17/24 05:48 06/17/24 05:06 06/17/24 05:00 Room Air 06/17/24 04:00 Room Air all noted and reviewed including below
[2024-06-17] MEDS: HYDROCORTISONE SOD 50 MG in SYRINGE 0 ML IV SCH (16:38)
[2024-06-17] MEDS ORDERED: ondansetron HCL 6 MG in DEXTROSE 5% 50 ML IV PRN (18:20)
[2024-06-17] MEDS: LORATADINE 10 MG TAB PO ONE (21:48)
[2024-06-18] MEDS: diphenhydrAMINE 2%/ZINC 0.1% CREAM 28.4GM TUBE EXT PRN (01:06)
[2024-06-18] MEDS: OLANZapine 10 MG/2.1 ML SDV IM STA (03:59)
[2024-06-18] MEDS: OLANZapine ZYDIS 5 MG ORALLY DIS. TAB PO STA (04:00)
[2024-06-18 06:33] LABS: Albumin Globulin Ratio 0.9 (0.9-2); Albumin Level 2.7 gm/dl (3.4-5.0); BUN Creatinine Ratio 17.5 (10-20); Bilirubin,Total 0.3 mg/dl (0.2-1.0); Calcium 7.9 mg/dl (8.6-10.3); Est GFR (Non-African American) 17.3 ml/min; Magnesium 1.9 mg/dl (1.7-2.4); Phosphorus 5.2 mg/dl (2.5-4.9); Total Protein 5.7 gm/dl (6.0-8.3)
--- NOTE | 2024-06-18 11:36 | Nephrology Progress Note ---
Date of Service June 18, 2024 Assessment & Plan (1) SEGUNDO (acute kidney injury): Plan: improving stage 3 SEGUNDO on rapidly progressive CKD3B best known baseline 1.7. stage 3 based on UOP 24 hrs (0.08 ml/kg/hr) on 06/16. imaging shows ongoing hydronephrosis which over time will compromise renal parenchymal function; hydroureteronephrosis on admission presumably from rectal mass; also with protracted hypotension and therapy for PNA w/ vanco/zosyn. protracted hypotension 06/16 > multiple fluid boluses and pressor support now SBP for the moment stabilized and UOP improving. he's had some increased insensible losses in stool (4BM yesterday). no nsaids; no IV contrast. renal u/s 06/16 w/ ongoing moderate BL hydronephrosis and mild R cortical scar, mild L cortical thinning, BL renal cysts tate L. admission CT (w/ baseline hydronephrosis) also w/ significant ureteral nephrosis. inflamed urine highly concentrated despite resuscitation and w/ some bacteria from darling specimen. vanco level 48 hr after last dose at 13. -continue strict I/O -not a dialysis candidate should the need arise given his dementia//cancer w/ bone and rectal mets//hypotension; extensive discussions w/ , she is in agreement >> NOT a dialysis candidate -no longer needing pressors after brief ICU stay for supportive care 06/16 >>continue NS but lowered rate from 80 >>40 mL hourly for now >> may need to change soon to less chloride rich fluid -primary service to goals of care discussion w/ family as well; I did remind pt's that despite improvement past 2 days her 's challenges of hypotension, widely metastasized cancer, and hypotension persist >>if we are not moving toward hospice, consider urology c/s for whether BL ureteral stenting would improve urine flow/uop/decompress renal parenchyma Care coordinated w/ Dr Palomino. (2) CKD (chronic kidney disease), stage III: Plan: rapidly progressive. no CKD as recently as 03/2023; then CKD 3A 04/2023 until 02/2024 when it moved to 3B w/ creatinine 1.7. may move quickly to CKD 4 (3) Prostate cancer: Plan: plan for now is treatment of this in setting of large rectal mass w/ skeletal mets and BL hydroureteronephrosis, advanced dementia, DNR/DNI status. currently on casodex which does not need to be dosed for renal function. Admission and Anticipated Discharge Date Admission Date: June 02, 2024 Subjective no interval events except that pt per was brighter/ more alert this am. denies uncontrolled pain today or sob. does note he's eating really well. some sense of urgency/incomplete void despite darling Review of Systems 2 Review of Systems: All systems reviewed & are unremarkable except as noted in Subjective Physical Exam 2 Constitutional: well developed, well nourished and cooperative; no acute distress Eyes: EOM intact bilaterally ENMT: Ears: + hearing impairment; no external ear abnormality Nose: no external nose abnormality Mouth: + dry oral mucous membranes Neck: no nuchal rigidity Respiratory: normal respiratory effort (on RA) Auscultation: + diminished lung sounds; no wheezes Cardiovascular: Rate/Rhythm: regular rate and + irregularly irregular E xtremities: + edema (trace BLE) Gastrointestinal (Abdomen): Inspection/Auscultation: normal bowel sounds P ercussion/Palpation: abdomen soft; abdomen nontender Musculoskeletal: Extremities: strength 5/5 throughout Skin: no rashes, warm and dry Psychiatric: Orientation: alert, oriented to person and oriented to place I nsight: + poor insight Results & Data Vital Signs (Past 12 Hours) Vital Signs Temp Pulse Resp BP Pulse Ox O2 Del Method 06/18/24 07:18 Room Air 06/18/24 07:02 36.4 C L 100 H 22 104/66 96 Room Air 06/18/24 05:45 76 22 97 Room Air Laboratory Results 06/17/24 08:28 06/18/24 05:28
--- NOTE | 2024-06-18 15:34 | Hospitalist Progress Note ---
Date of Service June 18, 2024 Assessment & Plan (1) Lower gastrointestinal bleed: (2) Rectal mass: (3) Acute blood loss anemia: (4) Atrial fibrillation with RVR: (5) Acute on chronic heart failure with preserved ejection fraction: (6) Myocardial infarction due to demand ischemia: (7) Upper respiratory tract infection due to COVID-19 virus: (8) Acute kidney injury superimposed on CKD: (9) BPH loc w urin obs/LUTS: (10) Mixed Alzheimer's and vascular dementia: (11) Delirium superimposed on dementia: Plan per previous hospitalist notes with addendum: Rectal Mass, metastatic adenocarcinoma of prostatic origin Lower GI Bleed Patient presents from home with reports of dizziness. He was reported to have bright red blood per rectum for 3 weeks. Hemoglobin of 9.3 on admission, CT abdomen pelvis showed thickening of rectal wall which may represent proctitis; underlying mass cannot be excluded Colonoscopy done on 06/17; found to have rectal mass. Also small 4 to 6 mm polyps found in descending colon which was sessile. Biopsy result of the rectal mass shows metastatic adenocarcinoma prostatic origin. PSA ordered, oncology consulted Continue to monitor CBC and recurrence of rectal bleed. Hemoglobin currently stable. Started on dvt prophylaxis on 06/09 Hg 9.8 check Iron, Vit B12, Folate Iron 26, started ferrous sulfate BID Hg stable overall Possible Pneumonia Possible Sepsis On 06/12; patient reported increasing shortness of breath. He was also hypotensive. Chest x-raycardiomegaly with vascular congestion procal neg Patient is started on empiric antibiotic with Zosyn and vancomycin. MRSA nares are negative. Will DC vancomycin if blood culture is negative in 24 hours. Continue on ipratropium and lev albuterol nebs 06/14 afebrile, no leukocytosis on 2 L Bld Cx negative d/c Vanco continue IV Zosyn check CT chest: noted 06/15 clinically improving transition to Cefepime IV 1g q12h 06/16 Pneumonia continues to improve Continue cefepime IV 06/18 continue Cefepime IV SEGUNDO on CKD Presented with creatinine of 2.5; down trended to baseline of 1.2-1.3 with IV hydration and Aldrich catheterization. However, trended up to 2.0 again(on 06/12). Suspect prerenal cause due to hypotension. CT abdomen pelvis shows bilateral hydronephrosis likely due to bladder outlet obstruction Aldrich catheter placed again on 06/12 Will support hemodynamics with IV boluses as needed Avoid nephrotoxic agent 06/14 crea increased to 2.1 may need gentle IV NSS will check for urinary retention 06/15 crea further increased to 2.9 continue IV fluids Nephro consulted 06/16 Creatinine continues to trend up Creatinine 3.4 Discussed with nephrology service, patient may be requiring hemodialysis in [address] Neumann will be discussing with patient's 06/17 crea remains 3.6 output 400cc yesterday prognosis still poor per discussion with Dr. Neumann very poor HD candidate Palliative Care service consulted 06/18 crea slightly improved to3.2 output 350cc Hypotension multifactorial: hypovolemic, adrenal insufficiency, betablocker in the setting of acute renal failure Fortunately responded to IV fluid challenge yesterday Did not require vasopressor support overnight Continue IV fluids Cortisol level 9 Received hydrocortisone 200 mcg IV last night Start hydrocortisone 50 mg every 8 hours Hold metoprolol Monitor closely 06/18 still marginal but improved continue Hydrocortisone Atrial fibrillation with RVR Demand ischemia On presentation, patient was found to have atrial fibrillation with RVR. Evaluated by cardiology; started on metoprolol succinate 100 mg once a day Not on anticoagulation due to GI bleed Echocardiogram shows EF of 55 to 60% with moderate concentric LVH. Monitor on telemetry Metoprolol succinate changed to metoprolol tartrate 100 mg twice a day for better heart rate control. I discussed with patient's that patient has recurrent atrial fibrillation that puts him at risk for stroke on 06/11. He has rectal mass resulting in lower GI bleed recently; so he is not placed on anticoagulation. His acknowledged and understands the risks of stroke as he is not a candidate for anticoagulation at this time. Heart rate controlled overall Metoprolol held in light of hypotension Covid 19 infection- Diagnosed on admission. completed remdesivir. Dementia At baseline, patient is oriented to self. Continue on donepezil Monitor for delirium 1:[address] Neal: I discussed with patient's regarding goals of care on 06/10. She reported that she would not want him to undergo chest compressions and mechanical ventilation in the event of cardiac arrest. CODE STATUS changed to DNR/DNI. Disposition- pending Palliative care consulted Admission and Anticipated Discharge Date Admission Date: June 02, 2024 Subjective ff up for acute renal failure etc seen resting in bed, comfortable conversant, in good spirits feels fine overall denies cough, shortness of breath, chills decreased hearing as per family Review of Systems Review of Systems: all noted and negative except for above Physical Exam Physical Exam: General- oriented x 1-2, not in distress, speaks in sentences with no effort or accessory muscle use Eyes- anicteric Neck- no JVD Lungs- clear breath sounds bilaterally, no crackles/wheezing Heart- normal rate, regular rhythm; no murmurs Abdomen- normal bowel sounds, nondistended, soft,no tenderness Extremities- no pretibial edema, no calf tenderness Neuro- alert, oriented x 1-2; no gross focal neurologic deficits Skin- warm & dry Results & Data Results & Data Vital Signs (Past 12 Hours) Vital Signs Temp Pulse Resp BP Pulse Ox O2 Del Method 06/18/24 14:10 36.7 C 80 18 96/56 L 96 Room Air 06/18/24 07:18 Room Air 06/18/24 07:02 36.4 C L 100 H 22 104/66 96 Room Air 06/18/24 05:45 76 22 97 Room Air all noted and reviewed including below
[2024-06-19 07:14] LABS: BUN Creatinine Ratio 19.5 (10-20); Calcium 7.8 mg/dl (8.6-10.3); Creatinine Clr Calc Pharmacy 27.1 ml/min; Est GFR (African American) 23.3 ml/min; Est GFR (Non-African American) 20.1 ml/min; Magnesium 1.9 mg/dl (1.7-2.4); Phosphorus 4.8 mg/dl (2.5-4.9); Potassium 4.1 mmol/L (3.5-5.1)
--- NOTE | 2024-06-19 11:05 | Nephrology Progress Note ---
Date of Service June 19, 2024 Assessment & Plan Admission and Anticipated Discharge Date Admission Date: June 02, 2024 Subjective Assessment & Plan (1) SEGUNDO (acute kidney injury): Plan: improving stage 3 SEGUNDO on rapidly progressive CKD3B best known baseline 1.7. stage 3 based on UOP 24 hrs (0.08 ml/kg/hr) on 06/16. imaging shows ongoing hydronephrosis which over time will compromise renal parenchymal function; hydroureteronephrosis on admission presumably from rectal mass; also with protracted hypotension and therapy for PNA w/ vanco/zosyn. protracted hypotension 06/16 > multiple fluid boluses and pressor support now SBP for the moment stabilized and UOP improving. he's had some increased insensible losses in stool (4BM yesterday). no nsaids; no IV contrast. renal u/s 06/16 w/ ongoing moderate BL hydronephrosis and mild R cortical scar, mild L cortical thinning, BL renal cysts tate L. admission CT (w/ baseline hydronephrosis) also w/ significant ureteral nephrosis. inflamed urine highly concentrated despite resuscitation and w/ some bacteria from darling specimen. continue strict I/O not a dialysis candidate should the need arise given his dementia//cancer w/ bone and rectal mets//hypotension; extensive discussions w/ , she is in agreement. NOT a dialysis candidate and he does not need it now anyway. no longer needing pressors after brief ICU stay for supportive care 06/16 Can stop iv fluid now as he does have edema. No diuretics though. Daily labs. Given b/l Hydronephrosis will continue darling. Care coordinated w/ Dr Palomino. (2) CKD (chronic kidney disease), stage III: Plan: rapidly progressive. no CKD as recently as 03/2023; then CKD 3A 04/2023 until 02/2024 when it moved to 3B w/ creatinine 1.7. Likely he is at CKD 4 now. (3) Prostate cancer: Plan: plan for now is treatment of this in setting of large rectal mass w/ skeletal mets and BL hydroureteronephrosis, advanced dementia, DNR/DNI status. currently on casodex which does not need to be dosed for renal function. Subjective no interval events except that more alert this am. had Discomfort with Darling. Denies uncontrolled pain today or sob. does note he's eating really well. urine output picking up and was 650 ml yesterday. On iv fluids still. Review of Systems Review of Systems: All systems reviewed & are unremarkable except as noted in Subjective Physical Exam Constitutional: well developed, well nourished and cooperative; no acute distress Eyes: EOM intact bilaterally ENMT: Ears: + hearing impairment; no external ear abnormality Nose: no external nose abnormality Mouth: + dry oral mucous membranes Neck: no nuchal rigidity Respiratory: normal respiratory effort (on RA) Auscultation: + diminished lung sounds; no wheezes Cardiovascular: Rate/Rhythm: regular rate and + irregularly irregular Extremities: + edema (trace BLE) Gastrointestinal (Abdomen): Inspection/Auscultation: normal bowel sounds Percussion/Palpation: abdomen soft; abdomen nontender Musculoskeletal: Extremities: strength 5/5 throughout Skin: no rashes, warm and dry Psychiatric: Orientation: alert, oriented to person and oriented to place Insight: + poor insight Results & Data Vital Signs (Past 12 Hours) Vital Signs Temp Pulse Resp BP Pulse Ox O2 Del Method 06/19/24 07:00 36.5 C 124 H 22 133/99 98 Room Air
--- NOTE | 2024-06-19 16:11 | Communication Note ---
Date of Service: June 19, 2024 Palliative Medicine Brief Note Notified by nursing that family presented to the floor requesting a family meeting with me and states they were advised I would meet with them today. Advised nursing that I am in oncology clinic on Mondays and not available back in the hospital until Tuesdays. We agreed to a time of 11 AM for a family meeting on 06/20/2024. Thank you for allowing us to participate in the ongoing care of this patient. Please page with any additional concerns. Villa Lima DNP Director, Palliative Medicine
--- NOTE | 2024-06-19 17:52 | Hospitalist Progress Note ---
Date of Service June 19, 2024 delayed entry date of service noted above Assessment & Plan (1) Acute renal failure: (2) Prostate cancer: (3) Acute GI bleeding: (4) Rectal mass: Plan: ((1) Acute renal failure: (2) Prostate cancer: (3) Acute GI bleeding: (4) Rectal mass: Plan: (1) Lower gastrointestinal bleed: (2) Rectal mass: (3) Acute blood loss anemia: (4) Atrial fibrillation with RVR: (5) Acute on chronic heart failure with preserved ejection fraction: (6) Myocardial infarction due to demand ischemia: (7) Upper respiratory tract infection due to COVID-19 virus: (8) Acute kidney injury superimposed on CKD: (9) BPH loc w urin obs/LUTS: (10) Mixed Alzheimer's and vascular dementia: (11) Delirium superimposed on dementia: Plan per previous hospitalist notes with addendum: Rectal Mass, metastatic adenocarcinoma of prostatic origin Lower GI Bleed Patient presents from home with reports of dizziness. He was reported to have bright red blood per rectum for 3 weeks. Hemoglobin of 9.3 on admission, CT abdomen pelvis showed thickening of rectal wall which may represent proctitis; underlying mass cannot be excluded Colonoscopy done on 06/17; found to have rectal mass. Also small 4 to 6 mm polyps found in descending colon which was sessile. Biopsy result of the rectal mass shows metastatic adenocarcinoma prostatic origin. PSA ordered, oncology consulted Continue to monitor CBC and recurrence of rectal bleed. Hemoglobin currently stable. Started on dvt prophylaxis on 06/09 Hg 9.8 Iron 26, started ferrous sulfate BID Hg stable overall Possible Pneumonia Possible Sepsis On 06/12; patient reported increasing shortness of breath. He was also hypotensive. Chest x-raycardiomegaly with vascular congestion procal neg Patient is started on empiric antibiotic with Zosyn and vancomycin. MRSA nares are negative. Will DC vancomycin if blood culture is negative in 24 hours. Continue on ipratropium and lev albuterol nebs Completed course of IV antibiotics Doing well from pneumonia standpoint SEGUNDO on CKD Presented with creatinine of 2.5; down trended to baseline of 1.2-1.3 with IV hydration and Aldrich catheterization. However, trended up to 2.0 again(on 06/12). Suspect prerenal cause due to hypotension. CT abdomen pelvis shows bilateral hydronephrosis likely due to bladder outlet obstruction Creatinine progressively increased up to 3.7 Urine output also decreased significantly Nephrology service consulted Likely secondary to underlying pneumonia, episode of hypotension, antibiotics Nephrology service discussed with family that patient is a very poor hemodialysis candidate, patient's family agrees Fortunately patient's creatinine has been trending down, today 2.5, with improvement of urine output continue to monitor crea Hypotension multifactorial: hypovolemic, adrenal insufficiency, betablocker in the setting of acute renal failure Transferred to intensive care unit last Wednesday for possible vasopressor support Fortunately responded to IV fluid challenge Did not require vasopressor support Cortisol level 9 Received hydrocortisone 200 mcg IV l Start hydrocortisone 50 mg every 8 hours--> Taper gradually to p.o. hydrocortisone Metoprolol dose resumed in light of tachycardia, but dose lowered Atrial fibrillation with RVR Demand ischemia On presentation, patient was found to have atrial fibrillation with RVR. Evaluated by cardiology; started on metoprolol succinate 100 mg once a day--> held due to hypotension -- resumed at a much lower dose monitor HR Not on anticoagulation due to GI bleed Echocardiogram shows EF of 55 to 60% with moderate concentric LVH. Monitor on telemetry Metoprolol succinate changed to metoprolol tartrate 100 mg twice a day for better heart rate control. I discussed with patient's that patient has recurrent atrial fibrillation that puts him at risk for stroke on 06/11. He has rectal mass resulting in lower GI bleed recently; so he is not placed on anticoagulation. His acknowledged and understands the risks of stroke as he is not a candidate for anticoagulation at this time. Covid 19 infection- Diagnosed on admission. completed remdesivir. Dementia At baseline, patient is oriented to self. Continue on donepezil Monitor for delirium 1:1 as needed Disposition- pending Palliative care consulted--> Long discussion with patient today, patient to be transition to comfort measures Admission and Anticipated Discharge Date Admission Date: June 02, 2024 Subjective seen resting in bed, comfortable states he feels fine overall denies shortness of breath, chest pain no new issues Review of Systems Review of Systems: all noted and negative except for above Physical Exam Physical Exam: General- oriented x 2, not in distress, speaks in sentences with no effort or accessory muscle use Eyes- anicteric Neck- no JVD Lungs- clear breath sounds bilaterally, no rales/wheezes Heart- normal rate, regular rhythm; no murmurs Abdomen- normal bowel sounds, nondistended, soft, nontender Extremities- no pretibial edema, no calf tenderness Neuro- alert, oriented x 2; no gross focal neurologic deficits Skin- warm & drym Results & Data Results & Data Vital Signs (Past 12 Hours) Vital Signs Temp Pulse Resp BP Pulse Ox O2 Del Method 06/19/24 15:34 36.7 C 129 H 20 139/72 94 Room Air 06/19/24 07:00 36.5 C 124 H 22 133/99 98 Room Air all noted and reviewed including below
[2024-06-19 20:03] VITALS: O2SAT 95
[2024-06-19] MEDS: HYDROCORTISONE SOD 50 MG in SYRINGE 0 ML IV SCH (20:03)
[2024-06-19] MEDS: METOPROLOL SUCC 25MG EXT REL TAB PO ONE (20:04)
[2024-06-19] MEDS ORDERED: METOPROLOL SUCC 25MG EXT REL TAB PO SCH (21:00)
--- NOTE | 2024-06-20 08:13 | XRay Report ---
XR chest 1V portable HISTORY: shortness of breath COMPARISON: Chest 06/16/2024. FINDINGS: No pneumothorax. The heart remains enlarged. Right basilar calcified pleural plaques are no rosibel. There are poststernotomy changes. Progressive interstitial/vascular thickening consistent with m ild pulmonary edema. Trace right pleural effusion. No acute fractures. There are low lung volumes. IMPRESSION: Cardiomegaly with interval progression of the mild edema. ACT 112: Negative or not required by law. Electronically signed by: Tom Gonzalez M.D. 06/20/2024 8:12 AM
[2024-06-20] MEDS: METOPROLOL SUCC 25MG EXT REL TAB PO SCH (08:34)
[2024-06-20 08:46] LABS: Basophils # (auto) 0.02 K/uL (0.00-0.20); Basophils % (auto) 0.1 %; Eosinophils # (auto) 0.15 K/uL (0.00-0.50); Eosinophils % (auto) 1.1 %; Hematocrit (blood only) 31.1 % (42.0-52.0); Hemoglobin 9.7 g/dl (14.0-18.0); Immature Granulocytes % (auto) 0.7 %; Lymphocytes # (auto) 1.27 K/uL (1.20-3.40); Lymphocytes % (auto) 9.3 %; Mean Corpuscular Hemoglobin 26.4 pg (25.0-34.0); Mean Corpuscular Hgb Conc 31.2 g/dL (32.0-36.0); Mean Corpuscular Volume 84.5 fL (80.0-100.0); Mean Platelet Volume 9.7 fL (9.4-12.4); Monocytes # (auto) 1.53 K/uL (0.11-0.59); Monocytes % (auto) 11.2 %; Neutrophils # (auto) 10.57 K/uL (1.40-6.50); Neutrophils % (auto) 77.6 %; Platelet Count 279 K/uL (130-400); RDW Coefficient of Variation 15.7 % (11.5-14.5); Red Blood Count 3.68 M/uL (4.70-6.10); White Blood Count 13.64 K/ul (4.8-10.8)
[2024-06-20 09:07] LABS: BUN Creatinine Ratio 20.9 (10-20); Creatinine Clr Calc Pharmacy 31.6 ml/min; Est GFR (African American) 26.4 ml/min; Est GFR (Non-African American) 22.8 ml/min; Potassium 3.7 mmol/L (3.5-5.1)
--- NOTE | 2024-06-20 10:25 | Palliative Care Consultation ---
Date of Consultation June 20, 2024 Assessment & Plan (1) Weakness generalized: (2) Dyspnea and respiratory abnormalities: (3) Discussion about advance care planning held with family member: A 60-minute [id number] advance care planning discussion was held with patient's and daughter in the family waiting room. They had many detailed concerns and questions with regards to his overall decline, the findings of this admission, and the changes they had been noticing at home prior to admission. remains distressed that PSA was not being tracked and wonders if they would have been able to catch his cancer sooner to begin some sort of treatment to impact quality life and survival. Daughter and are in agreement however that at this junction, with an advanced stage V metastatic cancer and his progressive dementia, they wish to transition to a focus that is more about his comfort and quality of life. initially was a little ambivalent with regards to what ultimately her goals were other than to say that she wanted him to remain in the hospital until his end of life. We discussed the transition of placement for patients in need of chronic care and I advised that should he remain stable, he would then be dispositioned to a chronic level of care. was very upset by this and feels that she was told he could stay here until the end of his life even if it took months. She also feels that she was told he was imminently dying. Reviewed at this time that I do not see image changes to suggest an active dying process but that certainly he is at high risk for mortality sooner than later given his overall complex medical issues, his very advanced cancer, his worsening dementia, and his pre-existing complex comorbid illnesses. We agreed to transition him to a comfort plan of care and see how he does over the next few days and if he remains stable without decline, then a discussion with regards to disposition planning to a skilled level of care would be initiated through our care management colleagues. states that if he has to go to a skilled facility, she would prefer [facility] as this is closest to her home because she does not drive due to her own joint issues, she would be relying on her children to assist. Comfort care orders have been placed. Dis cussed with nursing and primary team. (4) Palliative care by specialist: Discussed Palliative Medicine provides specialized medical care for patients with a serious illness. We offer a focus on quality of life through reduction of symptom burden/more control over their illness, for patients and their family. Palliative Medicine interventions can be given along with curative treatment. I specifically clarified we are not hospice, which is a visiting nurse service that focuses on care delivered at the very end of life. Plan As above Comfort care orders written. I have updated the primary team, nursing and care management. Thank you for allowing us to participate in the ongoing care of this patient. Please page with any additional concerns. Villa Lima DNP Director, Palliative Medicine History of Present Illness Reason for Consultation: Goals of care, dementia Attending Physician: Miguel Palomino MD History of Present Illness Santo Maravilla is a 78-year-old gentleman admitted 06/02/2020 for with progression of rectal bleeding, fall at home, possible syncope, weight loss. Was brought to the emergency department by his . His medical history is complex and includes hyperlipidemia, heart failure with preserved ejection fraction, hypertension, CAD status post CABG times 02/10/1997, dementia, SVT with PAF, GERD, CKD 3, bariatric surgery. Stool was Hemoccult positive in the ED and he was treated with IV famotidine, Protonix and fluids. He was found to be critically ill and admitted for further treatment. He was felt to be high risk for decompensation from COVID-19 and was started on empiric remdesivir. However, he was not hypoxic and therefore did not meet criteria for Decadron therapy initiation. He was also found to be hypomagnesemic, with worsening delirium superimposed on his dementia. Rectal mass biopsy 06/07/2024 confirmed metastatic adenocarcinoma prostatic origin. Cells were found to be negative for CK7, CK20, CEA, Alcian blue, chromogranin, synaptophysin, CD56, TTF-1 1, p40, p16, and GATA3. Malignant cells were diffusely and strongly positive for NKX3.1 and are diffusely weakly positive for CDX2. Immunohistochemical stains for MSH2, PMS2, MLH1 and MSH6 reveal expression of these proteins on the malignant cells. The malignant cells are diffusely and strongly positive for cytokeratin Lc. The Immunocal histochemical stain for Ki 67 highlights 30% of the malignant cells. Thus it was felt that this is neither a poorly differentiated colonic adenocarcinoma nor basaloid squamous cell carcinoma of the anorectal junction or a neuroendocrine carcinoma. Immunohistochemical stains indicate that this is a metastatic prostatic adenocarcinoma. He is being followed by nephrology this admission who have noted he is not a dialysis candidate should the need arise given his dementia and cancer with bone and rectal mets, hypotension,. Extensive discussions have been held with the who is understanding and in agreement with that recommendation. PSA 06/13/2024 was 342. Allergies Allergy/AdvReac Type Severity Reaction Status Date / Time No Known Allergies Allergy Verified 06/02/24 16:23 Home Medications Medication Instructions Recorded Confirmed Type aspirin 81 mg tablet,delayed 81 mg PO DAILY 06/02/24 06/02/24 History release atorvastatin 80 mg tablet 80 mg PO DAILY 06/02/24 06/02/24 History cholecalciferol (vitamin D3) 25 25 mcg PO DAILY 06/02/24 06/02/24 History mcg (1,000 unit) tablet (Vitamin D3) cyanocobalamin (vitamin B-12) 1,000 mcg PO DAILY 06/02/24 06/02/24 History 1,000 mcg tablet (Vitamin B-12) diclofenac sodium 1 % topical gel 0 g topical QID PRN .. 06/02/24 06/02/24 History (Voltaren Arthritis Pain) donepezil 10 mg tablet 10 mg PO DAILY 06/02/24 06/02/24 History famotidine 20 mg tablet 20 mg PO QAM 06/02/24 06/02/24 History ferrous sulfate 325 mg (65 mg 650 mg PO DAILY 06/02/24 06/02/24 History iron) tablet furosemide 20 mg tablet 20 mg PO DAILY 06/02/24 06/02/24 History lisinopril 5 mg tablet 5 mg PO DAILY 06/02/24 06/02/24 History metoprolol succinate 50 mg 75 mg PO QAM 06/02/24 06/02/24 History tablet,extended release 24 hr omega-3 fatty acids 1,000 mg 1,000 mg PO DAILY 06/02/24 06/02/24 History capsule Patient History Medical History Acute respiratory failure due to COVID-19 Myocardial infarction due to demand ischemia Lower gastrointestinal bleed Acute blood loss anemia Acute kidney injury superimposed on CKD Atrial fibrillation with RVR CKD (chronic kidney disease), stage III SVT (supraventricular tachycardia) with possible short runs of PAF Chronic heart failure with preserved ejection fraction (HFpEF) Hearing loss Obesity Surgical History S/P panniculectomy S/P colonoscopy with polypectomy History of liver biopsy History of esophagogastroduodenoscopy (EGD) Bariatric surgery status Family History Mother Hypertension Stroke Father Hypertension Cancer Social History Smoking Status: Never smoker Second Hand Exposure: No; Do You Dip or Chew Tobacco: No; Hx Alcohol Use: No Hx Substance Use: No Preferred Language: Frisian Communication Ability: Effective Forensic Artist Required: No Beliefs That Will Affect Care: None Current Living Situation: Spouse Feels Safe at Home: Yes Assistive Devices: Cane Review of Systems Review of Systems: Unobtainable due to cognitive status Physical Exam Physical Exam: Elderly male, resting in bed, oriented to self and does not appear to be any distress however does not answer any questions or provide HPI Bitemporal wasting is noted PERRLA Neck supple without stridor Breath sounds diminished bilaterally, no overt wheezing, few scattered crackles. S1-S2, no gross JVD Abdomen softly distended, bowel sounds present, no grimacing with palpation Generalized weakness throughout. No pedal edema noted + Confusion, + unable to follow commands . Skin is pale warm with a few scattered ecchymoses. Results & Data Vital Signs (Past 12 Hours) Vital Signs Temp Pulse Resp BP Pulse Ox O2 Del Method 06/20/24 07:18 Room Air 06/20/24 06:55 36.3 C L 115 H 22 133/83 95 Room Air Laboratory Results 06/20/24 06/19/24 06/18/24 Range/Units 08:13 05:25 Unknown WBC 13.64 H (4.8-10.8) K/ul RBC 3.68 L (4.70-6.10) M/uL Hgb 9.7 L (14.0-18.0) g/dl Hct 31.1 L (42.0-52.0) % MCV 84.5 (80.0-100.0) fL MCH 26.4 (25.0-34.0) pg MCHC 31.2 L (32.0-36.0) g/dL RDW Std Deviation 48.0 H (36.4-46.3) fL RDW Coeff of Jean Claude 15.7 H (11.5-14.5) % Plt Count 279 (130-400) K/uL MPV 9.7 (9.4-12.4) fL Immature Gran % (Auto) 0.7 % Neut % (Auto) 77.6 % Lymph % (Auto) 9.3 % [place] % (Auto) 11.2 % Eos % (Auto) 1.1 % Baso % (Auto) 0.1 % Neut # (Auto) 10.57 H (1.40-6.50) K/uL Lymph # (Auto) 1.27 (1.20-3.40) K/uL [place] # (Auto) 1.53 H (0.11-0.59) K/uL Eos # (Auto) 0.15 (0.00-0.50) K/uL Baso # (Auto) 0.02 (0.00-0.20) K/uL Immature Gran # (Auto) 0.10 (0.01-0.20) K/uL Ovalocytes Echinocytes Acanthocytes (Spur) Sodium 140 139 (136-145) mmol/L Potassium 3.7 4.1 (3.5-5.1) mmol/L Chloride 111 H 111 H (98-107) mmol/L Carbon Dioxide 22 20 L (21-32) mmol/L Anion Gap 7 8 (3-11) BUN 54 H 56 H (6-23) mg/dl Creatinine 2.58 H 2.87 H D (0.6-1.4) mg/dl Est Cr Clr Drug Dosing 31.6 27.1 ml/min Est GFR ( Amer) 26.4 23.3 ml/min Est GFR (Non-Af Amer) 22.8 20.1 ml/min BUN/Creatinine Ratio 20.9 H 19.5 (10-20) Glucose 99 157 H (70-99(Fasting)) mg/dl Calcium 8.0 L 7.8 L (8.6-10.3) mg/dl Phosphorus 4.8 (2.5-4.9) mg/dl Magnesium 1.9 (1.7-2.4) mg/dl Iron (35-175) mcg/dl TIBC (250-450) mcg/dl Unsaturated IBC (155-355) mcg/dl Transferrin % Sat (20-50) % Ferritin (8-388) ng/ml Total Bilirubin (0.2-1.0) mg/dl AST (13-39) U/L ALT (7-52) U/L Alkaline Phosphatase (34-104) U/L Total Protein (6.0-8.3) gm/dl Albumin (3.4-5.0) gm/dl Globulin (2.5-4.0) gm/dl Albumin/Globulin Ratio (0.9-2) Prostate Specific Ag (0-4) ng/ml Vitamin B12 (180-914) pg/ml Folate (>5.38) ng/ml Procalcitonin (0-0.5) ng/ml Random Cortisol mcg/dl Urine Color Urine Appearance (Clear) Urine pH (4.5-7.5) Ur Specific [place] (1.000-1.030) Urine Protein (Negative) Urine Glucose (UA) (Negative) Urine Ketones (Negative) Urine Blood (Negative) Urine Nitrite (Negative) Urine Bilirubin (Negative) Urine Urobilinogen (Negative) Ur Leukocyte Esterase (Negative) Urine RBC (0-2) /hpf Urine WBC (0-5) /hpf Ur Epithelial Cells (0-2) /hpf Urine Bacteria (None Seen) Stl C. diff Tox B Gene Negative Cdiff Gene (Neg) Random Vancomycin (10-20) mcg/ml 06/18/24 06/17/24 06/17/24 Range/Units 05:28 09:47 08:28 WBC 9.42 (4.8-10.8) K/ul RBC 3.71 L (4.70-6.10) M/uL Hgb 9.8 L (14.0-18.0) g/dl Hct 32.3 L (42.0-52.0) % MCV 87.1 (80.0-100.0) fL MCH 26.4 (25.0-34.0) pg MCHC 30.3 L (32.0-36.0) g/dL RDW Std Deviation 49.5 H (36.4-46.3) fL RDW Coeff of Jean Claude 15.5 H (11.5-14.5) % Plt Count 245 (130-400) K/uL MPV 10.6 (9.4-12.4) fL Immature Gran % (Auto) 0.6 % Neut % (Auto) 90.9 % Lymph % (Auto) 6.1 % [place] % (Auto) 2.3 % Eos % (Auto) 0.0 % Baso % (Auto) 0.1 % Neut # (Auto) 8.56 H (1.40-6.50) K/uL Lymph # (Auto) 0.57 L (1.20-3.40) K/uL [place] # (Auto) 0.22 (0.11-0.59) K/uL Eos # (Auto) 0.00 (0.00-0.50) K/uL Baso # (Auto) 0.01 (0.00-0.20) K/uL Immature Gran # (Auto) 0.06 (0.01-0.20) K/uL Ovalocytes 1+ Echinocytes 1+ Acanthocytes (Spur) 1+ Sodium 139 (136-145) mmol/L Potassium 4.0 (3.5-5.1) mmol/L Chloride 109 H (98-107) mmol/L Carbon Dioxide 22 (21-32) mmol/L Anion Gap 8 (3-11) BUN 57 H (6-23) mg/dl Creatinine 3.25 H D (0.6-1.4) mg/dl Est Cr Clr Drug Dosing 24.0 ml/min Est GFR ( Amer) 20.0 ml/min Est GFR (Non-Af Amer) 17.3 ml/min BUN/Creatinine Ratio 17.5 (10-20) Glucose 168 H (70-99(Fasting)) mg/dl Calcium 7.9 L (8.6-10.3) mg/dl Phosphorus 5.2 H (2.5-4.9) mg/dl Magnesium 1.9 (1.7-2.4) mg/dl Iron (35-175) mcg/dl TIBC (250-450) mcg/dl Unsaturated IBC (155-355) mcg/dl Transferrin % Sat (20-50) % Ferritin (8-388) ng/ml Total Bilirubin 0.3 (0.2-1.0) mg/dl AST 15 (13-39) U/L ALT 15 (7-52) U/L Alkaline Phosphatase 181 H (34-104) U/L Total Protein 5.7 L (6.0-8.3) gm/dl Albumin 2.7 L (3.4-5.0) gm/dl Globulin 3.0 (2.5-4.0) gm/dl Albumin/Globulin Ratio 0.9 (0.9-2) Prostate Specific Ag (0-4) ng/ml Vitamin B12 (180-914) pg/ml Folate (>5.38) ng/ml Procalcitonin 0.10 (0-0.5) ng/ml Random Cortisol mcg/dl Urine Color Urine Appearance (Clear) Urine pH (4.5-7.5) Ur Specific [place] (1.000-1.030) Urine Protein (Negative) Urine Glucose (UA) (Negative) Urine Ketones (Negative) Urine Blood (Negative) Urine Nitrite (Negative) Urine Bilirubin (Negative) Urine Urobilinogen (Negative) Ur Leukocyte Esterase (Negative) Urine RBC (0-2) /hpf Urine WBC (0-5) /hpf Ur Epithelial Cells (0-2) /hpf Urine Bacteria (None Seen) Stl C. diff Tox B Gene (Neg) Random Vancomycin (10-20) mcg/ml 06/17/24 06/16/24 06/16/24 Range/Units 04:31 18:22 18:12 WBC 8.61 (4.8-10.8) K/ul RBC 3.34 L (4.70-6.10) M/uL Hgb 8.8 L (14.0-18.0) g/dl Hct 29.0 L (42.0-52.0) % MCV 86.8 (80.0-100.0) fL MCH 26.3 (25.0-34.0) pg MCHC 30.3 L (32.0-36.0) g/dL RDW Std Deviation 49.7 H (36.4-46.3) fL RDW Coeff of Jean Claude 15.6 H (11.5-14.5) % Plt Count 202 (130-400) K/uL MPV 9.9 (9.4-12.4) fL Immature Gran % (Auto) 0.6 % Neut % (Auto) 71.1 % Lymph % (Auto) 10.8 % [place] % (Auto) 14.1 % Eos % (Auto) 3.3 % Baso % (Auto) 0.1 % Neut # (Auto) 6.13 (1.40-6.50) K/uL Lymph # (Auto) 0.93 L (1.20-3.40) K/uL [place] # (Auto) 1.21 H (0.11-0.59) K/uL Eos # (Auto) 0.28 (0.00-0.50) K/uL Baso # (Auto) 0.01 (0.00-0.20) K/uL Immature Gran # (Auto) 0.05 (0.01-0.20) K/uL Ovalocytes Echinocytes Acanthocytes (Spur) Sodium 138 138 (136-145) mmol/L Potassium 4.5 4.0 (3.5-5.1) mmol/L Chloride 108 H 108 H (98-107) mmol/L Carbon Dioxide 20 L 22 (21-32) mmol/L Anion Gap 10 8 (3-11) BUN 55 H 58 H (6-23) mg/dl Creatinine 3.61 H 3.72 H (0.6-1.4) mg/dl Est Cr Clr Drug Dosing 21.8 21.1 ml/min Est GFR ( Amer) 17.6 17.0 ml/min Est GFR (Non-Af Amer) 15.2 14.7 ml/min BUN/Creatinine Ratio 15.2 15.6 (10-20) Glucose 121 H 112 H (70-99(Fasting)) mg/dl Calcium 8.1 L 7.4 L (8.6-10.3) mg/dl Phosphorus 6.0 H (2.5-4.9) mg/dl Magnesium 1.9 (1.7-2.4) mg/dl Iron (35-175) mcg/dl TIBC (250-450) mcg/dl Unsaturated IBC (155-355) mcg/dl Transferrin % Sat (20-50) % Ferritin (8-388) ng/ml Total Bilirubin 0.4 (0.2-1.0) mg/dl AST 15 (13-39) U/L ALT 14 (7-52) U/L Alkaline Phosphatase 179 H (34-104) U/L Total Protein 6.1 (6.0-8.3) gm/dl Albumin 2.8 L (3.4-5.0) gm/dl Globulin 3.3 (2.5-4.0) gm/dl Albumin/Globulin Ratio 0.8 L (0.9-2) Prostate Specific Ag (0-4) ng/ml Vitamin B12 (180-914) pg/ml Folate (>5.38) ng/ml Procalcitonin (0-0.5) ng/ml Random Cortisol 9.19 mcg/dl Urine Color Urine Appearance (Clear) Urine pH (4.5-7.5) Ur Specific [place] (1.000-1.030) Urine Protein (Negative) Urine Glucose (UA) (Negative) Urine Ketones (Negative) Urine Blood (Negative) Urine Nitrite (Negative) Urine Bilirubin (Negative) Urine Urobilinogen (Negative) Ur Leukocyte Esterase (Negative) Urine RBC (0-2) /hpf Urine WBC (0-5) /hpf Ur Epithelial Cells (0-2) /hpf Urine Bacteria (None Seen) Stl C. diff Tox B Gene (Neg) Random Vancomycin (10-20) mcg/ml 06/16/24 06/16/24 06/15/24 Range/Units 08:45 07:05 Unknown WBC (4.8-10.8) K/ul RBC (4.70-6.10) M/uL Hgb (14.0-18.0) g/dl Hct (42.0-52.0) % MCV (80.0-100.0) fL MCH (25.0-34.0) pg MCHC (32.0-36.0) g/dL RDW Std Deviation (36.4-46.3) fL RDW Coeff of Jean Claude (11.5-14.5) % Plt Count (130-400) K/uL MPV (9.4-12.4) fL Immature Gran % (Auto) % Neut % (Auto) % Lymph % (Auto) % [place] % (Auto) % Eos % (Auto) % Baso % (Auto) % Neut # (Auto) (1.40-6.50) K/uL Lymph # (Auto) (1.20-3.40) K/uL [place] # (Auto) (0.11-0.59) K/uL Eos # (Auto) (0.00-0.50) K/uL Baso # (Auto) (0.00-0.20) K/uL Immature Gran # (Auto) (0.01-0.20) K/uL Ovalocytes Echinocytes Acanthocytes (Spur) Sodium 138 (136-145) mmol/L Potassium 4.3 (3.5-5.1) mmol/L Chloride 105 (98-107) mmol/L Carbon Dioxide 25 (21-32) mmol/L Anion Gap 8 (3-11) BUN 56 H (6-23) mg/dl Creatinine 3.43 H D (0.6-1.4) mg/dl Est Cr Clr Drug Dosing 22.6 ml/min Est GFR ( Amer) 18.7 ml/min Est GFR (Non-Af Amer) 16.2 ml/min BUN/Creatinine Ratio 16.3 (10-20) Glucose 82 (70-99(Fasting)) mg/dl Calcium 8.0 L (8.6-10.3) mg/dl Phosphorus (2.5-4.9) mg/dl Magnesium (1.7-2.4) mg/dl Iron (35-175) mcg/dl TIBC (250-450) mcg/dl Unsaturated IBC (155-355) mcg/dl Transferrin % Sat (20-50) % Ferritin (8-388) ng/ml Total Bilirubin 0.5 (0.2-1.0) mg/dl AST 14 (13-39) U/L ALT 11 (7-52) U/L Alkaline Phosphatase 186 H (34-104) U/L Total Protein 5.8 L (6.0-8.3) gm/dl Albumin 2.7 L (3.4-5.0) gm/dl Globulin 3.1 (2.5-4.0) gm/dl Albumin/Globulin Ratio 0.9 (0.9-2) Prostate Specific Ag (0-4) ng/ml Vitamin B12 (180-914) pg/ml Folate (>5.38) ng/ml Procalcitonin (0-0.5) ng/ml Random Cortisol mcg/dl Urine Color Brown Urine Appearance Turbid A (Clear) Urine pH 5.0 (4.5-7.5) Ur Specific [place] 1.025 (1.000-1.030) Urine Protein 2+ H (Negative) Urine Glucose (UA) Negative (Negative) Urine Ketones Trace H (Negative) Urine Blood 3+ H (Negative) Urine Nitrite Negative (Negative) Urine Bilirubin Negative (Negative) Urine Urobilinogen Negative (Negative) Ur Leukocyte Esterase Trace H (Negative) Urine RBC >20 H (0-2) /hpf Urine WBC 11-20 H (0-5) /hpf Ur Epithelial Cells 3-5 H (0-2) /hpf Urine Bacteria 1+ H (None Seen) Stl C. diff Tox B Gene Negative Cdiff Gene (Neg) Random Vancomycin (10-20) mcg/ml 06/15/24 06/15/24 06/14/24 Range/Units 16:07 06:46 06:00 WBC 10.08 10.45 (4.8-10.8) K/ul RBC 3.71 L 3.64 L (4.70-6.10) M/uL Hgb 9.8 L 9.8 L (14.0-18.0) g/dl Hct 31.7 L 30.5 L (42.0-52.0) % MCV 85.4 83.8 (80.0-100.0) fL MCH 26.4 26.9 (25.0-34.0) pg MCHC 30.9 L 32.1 (32.0-36.0) g/dL RDW Std Deviation 48.4 H 46.5 H (36.4-46.3) fL RDW Coeff of Jean Claude 15.4 H 15.3 H (11.5-14.5) % Plt Count 239 260 (130-400) K/uL MPV 10.3 10.3 (9.4-12.4) fL Immature Gran % (Auto) 0.6 0.6 % Neut % (Auto) 69.0 71.3 % Lymph % (Auto) 11.3 9.6 % [place] % (Auto) 15.4 15.4 % Eos % (Auto) 3.5 3.0 % Baso % (Auto) 0.2 0.1 % Neut # (Auto) 6.96 H 7.46 H (1.40-6.50) K/uL Lymph # (Auto) 1.14 L 1.00 L (1.20-3.40) K/uL [place] # (Auto) 1.55 H 1.61 H (0.11-0.59) K/uL Eos # (Auto) 0.35 0.31 (0.00-0.50) K/uL Baso # (Auto) 0.02 0.01 (0.00-0.20) K/uL Immature Gran # (Auto) 0.06 0.06 (0.01-0.20) K/uL Ovalocytes Echinocytes Acanthocytes (Spur) Sodium 140 139 (136-145) mmol/L Potassium 4.3 4.1 (3.5-5.1) mmol/L Chloride 106 105 (98-107) mmol/L Carbon Dioxide 26 26 (21-32) mmol/L Anion Gap 8 8 (3-11) BUN 48 H 40 H (6-23) mg/dl Creatinine 2.91 H D 2.14 H (0.6-1.4) mg/dl Est Cr Clr Drug Dosing 26.6 36.2 ml/min Est GFR ( Amer) 22.9 33.2 ml/min Est GFR (Non-Af Amer) 19.7 28.6 ml/min BUN/Creatinine Ratio 16.5 18.7 (10-20) Glucose 86 91 (70-99(Fasting)) mg/dl Calcium 7.8 L 7.9 L (8.6-10.3) mg/dl Phosphorus (2.5-4.9) mg/dl Magnesium (1.7-2.4) mg/dl Iron 28 L 26 L (35-175) mcg/dl TIBC 141 L (250-450) mcg/dl Unsaturated IBC 113 L (155-355) mcg/dl Transferrin % Sat 20 (20-50) % Ferritin 287.3 (8-388) ng/ml Total Bilirubin 0.7 0.8 (0.2-1.0) mg/dl AST 12 L 11 L (13-39) U/L ALT 10 9 (7-52) U/L Alkaline Phosphatase 209 H 253 H (34-104) U/L Total Protein 5.4 L 5.5 L (6.0-8.3) gm/dl Albumin 2.5 L 2.7 L (3.4-5.0) gm/dl Globulin 2.9 2.8 (2.5-4.0) gm/dl Albumin/Globulin Ratio 0.9 1.0 (0.9-2) Prostate Specific Ag (0-4) ng/ml Vitamin B12 1277 H (180-914) pg/ml Folate 9.89 (>5.38) ng/ml Procalcitonin (0-0.5) ng/ml Random Cortisol mcg/dl Urine Color Urine Appearance (Clear) Urine pH (4.5-7.5) Ur Specific [place] (1.000-1.030) Urine Protein (Negative) Urine Glucose (UA) (Negative) Urine Ketones (Negative) Urine Blood (Negative) Urine Nitrite (Negative) Urine Bilirubin (Negative) Urine Urobilinogen (Negative) Ur Leukocyte Esterase (Negative) Urine RBC (0-2) /hpf Urine WBC (0-5) /hpf Ur Epithelial Cells (0-2) /hpf Urine Bacteria (None Seen) Stl C. diff Tox B Gene (Neg) Random Vancomycin 13.4 (10-20) mcg/ml 06/13/24 Range/Units 09:08 WBC (4.8-10.8) K/ul RBC (4.70-6.10) M/uL Hgb (14.0-18.0) g/dl Hct (42.0-52.0) % MCV (80.0-100.0) fL MCH (25.0-34.0) pg MCHC (32.0-36.0) g/dL RDW Std Deviation (36.4-46.3) fL RDW Coeff of Jean Claude (11.5-14.5) % Plt Count (130-400) K/uL MPV (9.4-12.4) fL Immature Gran % (Auto) % Neut % (Auto) % Lymph % (Auto) % [place] % (Auto) % Eos % (Auto) % Baso % (Auto) % Neut # (Auto) (1.40-6.50) K/uL Lymph # (Auto) (1.20-3.40) K/uL [place] # (Auto) (0.11-0.59) K/uL Eos # (Auto) (0.00-0.50) K/uL Baso # (Auto) (0.00-0.20) K/uL Immature Gran # (Auto) (0.01-0.20) K/uL Ovalocytes Echinocytes Acanthocytes (Spur) Sodium (136-145) mmol/L Potassium (3.5-5.1) mmol/L Chloride (98-107) mmol/L Carbon Dioxide (21-32) mmol/L Anion Gap (3-11) BUN (6-23) mg/dl Creatinine (0.6-1.4) mg/dl Est Cr Clr Drug Dosing ml/min Est GFR ( Amer) ml/min Est GFR (Non-Af Amer) ml/min BUN/Creatinine Ratio (10-20) Glucose (70-99(Fasting)) mg/dl Calcium (8.6-10.3) mg/dl Phosphorus (2.5-4.9) mg/dl Magnesium (1.7-2.4) mg/dl Iron (35-175) mcg/dl TIBC (250-450) mcg/dl Unsaturated IBC (155-355) mcg/dl Transferrin % Sat (20-50) % Ferritin (8-388) ng/ml Total Bilirubin (0.2-1.0) mg/dl AST (13-39) U/L ALT (7-52) U/L Alkaline Phosphatase (34-104) U/L Total Protein (6.0-8.3) gm/dl Albumin (3.4-5.0) gm/dl Globulin (2.5-4.0) gm/dl Albumin/Globulin Ratio (0.9-2) Prostate Specific Ag 342.000 H (0-4) ng/ml Vitamin B12 (180-914) pg/ml Folate (>5.38) ng/ml Procalcitonin (0-0.5) ng/ml Random Cortisol mcg/dl Urine Color Urine Appearance (Clear) Urine pH (4.5-7.5) Ur Specific [place] (1.000-1.030) Urine Protein (Negative) Urine Glucose (UA) (Negative) Urine Ketones (Negative) Urine Blood (Negative) Urine Nitrite (Negative) Urine Bilirubin (Negative) Urine Urobilinogen (Negative) Ur Leukocyte Esterase (Negative) Urine RBC (0-2) /hpf Urine WBC (0-5) /hpf Ur Epithelial Cells (0-2) /hpf Urine Bacteria (None Seen) Stl C. diff Tox B Gene (Neg) Random Vancomycin (10-20) mcg/ml Diagnostic Findings Abdomen/Pelvis CT 06/02/24 16:39 CT abd pelvis wo con CLINICAL HISTORY: rectal bleeding, weight loss, anemia TECHNIQUE: Helical axial images of the abdomen and pelvis were obtained. Automated dose lowering techniques and/or adjustment according to patient size were utilized for this exam. This exam was performed without intravenous contrast. CT DOSE: 1535.53 mGy.cm COMPARISON: Comparison is made to CT abdomen pelvis 06/23/2017 FINDINGS: Lower chest: Bronchial wall thickening is seen. Atelectasis is noted. Cardiomegaly is seen. Microcalcifications are seen. Pleural-based calcifications are seen in the right diaphragmatic pleura. Liver: Unremarkable. No focal lesions are seen. Gallbladder and biliary tree: Cholelithiasis is seen without evidence of cholecystitis. No intra- or extrahepatic biliary ductal dilation. Pancreas: Unremarkable, no focal lesions. Spleen: Calcifications are noted in the spleen compatible with prior granulomatous disease. Adrenals: Unremarkable. Kidneys and ureters: Renal cysts are seen. There is a thin calcified wall in a left-sided cyst. Hydronephrosis is seen bilaterally without obstructive stone. Bladder: Diffuse homogeneous wall thickening is seen. Reproductive organs: Prostatomegaly is seen. Bowel: Thickening of the rectal wall is seen. The appendix is unremarkable. Gastric bypass is seen. There is a small hiatal hernia. Lymph nodes Retroperitoneal: Unremarkable. Pelvic: Unremarkable. Mesenteric: Unremarkable. Peritoneum: Normal. Vessels: Atherosclerotic calcifications are seen. Abdominal wall: Unremarkable. Bones: Degenerative changes in the visualized spine. Subacute appearing right rib fracture. Prominent sclerosis is seen about the sacroiliac joints and vertebral bodies most prominently T11. IMPRESSION: 1. Thickening of the rectal wall may represent proctitis in this patient with rectal bleeding. Underlying mass cannot entirely excluded. 2. Bilateral hydronephrosis likely due to chronic outlet obstruction. 3. 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 4. Cholelithiasis without cholecystitis. 5. Additional findings as above. ACT 112: Negative or not required by law. Electronically signed by: Francisco Javier Stoner M.D. 06/02/2024 5:50 PM Chest X-Ray 06/04/24 04:17 XR chest 1V portable CLINICAL HISTORY: Shortness of breath. COMPARISON STUDY: Chest CT May 26, 2017. Chest radiograph April 21, 2023. FINDINGS: Low lung lungs are unchanged. Interstitial thickening is also unchanged. Pleural calcification along the right hemidiaphragm is again noted. There are median sternotomy wires. Moderate cardiomegaly is stable. There is no pneumothorax or pleural effusion. IMPRESSION: 1. No acute cardiopulmonary findings. 2. Stable chronic interstitial thickening. ACT 112: Negative or not required by law. Electronically signed by: Tio Emmanuel M.D. 06/04/2024 7:16 AM Chest X-Ray 06/12/24 10:19 XR chest 1V portable HISTORY: chest pain; high resp rate COMPARISON: Chest 06/04/2024. FINDINGS: Low lung volumes. The heart remains mildly enlarged. There are posts ternotomy changes. Calcifications within the aortic knob. Degenerative changes within the shoulders. No acute fractures. Right basilar calcified pleural plaques are again noted. Chronic interstitial thickening has progressed. This may represent mild congestive change on the background of chronic interstitial lung disease. Bibasilar linear densities favor subsegmental atelectasis. Otherwise, no new focal lung consolidations. IMPRESSION: 1. Cardiomegaly with mild pulmonary vascular congestion. This has slightly progressed. 2. Low lung volumes and chronic interstitial thickening again noted. ACT 112: Negative or not required by law. Electronically signed by: Tom Gonzalez M.D. 06/12/2024 11:[address] 06/14/24 09:11 CT chest diagnostic wo con CT DOSE: 1056.48 mGy.cm HISTORY: pneumonia, r/o effusion TECHNIQUE: Multiaxial CT images of the chest were performed without contrast. A dose lowering technique was utilized adhering to the principles of ALARA. COMPARISON: Chest CTA 05/26/2017. FINDINGS: Suboptimal evaluation of the chest due to the respiratory motion artifact. No pneumothorax. Trace bilateral pleural effusions. Mild interstitial thickening seen at the lung bases. A few bibasilar linear densities favor subsegmental atelectasis. Right basilar calcified pleural plaque is noted. Partial opacification of bilateral lower lobe bronchi. A few patchy densities at the lower lobes posteriorly favor dependent change. A low-grade pneumonitis also remains in the differential diagnosis. There is mild pulmonary vascular conge stion without overt edema. No acute fractures. Poststernotomy changes. Degenerative changes within the shoulders. There are new scattered patchy areas of sclerosis seen within the posterior ribs, T10 vertebral body, and bilateral scapula. This is suspicious for metastatic disease. Normal thyroid gland. Limited views the upper abdomen demonstrate normal liver, spleen, and adrenal glands. Evidence for prior gastric bypass. Small hiatus hernia is noted. The heart is enlarged. The main pulmonary artery is dilated up to 4.7 cm consistent with pulmonary arterial hypertension. No pericardial effusion. A few prominent right paratracheal lymph nodes and a prominent subcarinal lymph node are similar to the prior study. No hilar lymphadenopathy. IMPRESSION: 1. Scattered areas of patchy sclerotic lesions which is highly suspicious for metastatic disease. Follow-up nuclear medicine bone scan recommended for further evaluation. 2. Cardiomegaly with trace bilateral pleural effusions and mild congestive change. 3. A few patchy densities at the lower lobes posteriorly favor dependent change. A low-grade pneumonitis also remains in the differential diagnosis. 4. Prominent right paratracheal lymph nodes again noted. This could be reactive. Attention at follow-up recommended. ACT 112: Negative or not required by law. Electronically signed by: Tom Gonzalez M.D. 06/14/2024 10:50 AM Renal Ultrasound 06/15/24 17:50 RENAL ULTRASOUND HISTORY: r/o obstruction COMPARISON: Abdomen and pelvis CT 06/02/2024. FINDINGS: Right kidney: 11.3 cm. Moderate hydronephrosis, unchanged. The visualized right ureter is also dilated. There are 2 cysts with the largest measuring 2.5 cm. Mild cortical thinning/scarring. Left kidney: 13.9 cm. Moderate hydronephrosis, unchanged. Multiple cysts again noted with the largest measuring 7.2 cm. This contains peripheral calcification and a thin septation. Mild cortical thinning/atrophy. Bladder: Decompressed by Aldrich catheter not well visualized. There is debris surrounding Aldrich catheter within the bladder which could represent blood products. IMPRESSION: 1. Moderate bilateral hydronephrosis, unchanged. 2. Multiple bilateral renal cysts again noted. 3. The bladder is decompressed by Aldrich catheter not well visualized. There is echogenic debris surrounding the Aldrich catheter which could represent a small amount of blood products/clot within the bladder. ACT 112: Negative or not required by law. Electronically signed by: Tom Gonzalez M.D. 06/16/2024 7:42 AM Bone Scan Nuclear Medicine 06/16/24 13:16 WHOLE-BODY NUCLEAR BONE SCAN CLINICAL HISTORY: Prostate cancer. COMPARISON STUDY: Chest CT dated 06/14/2024. Abdominal CT dated 06/02/2024. TECHNIQUE: Three hours following the IV administration of 26.0 mCi of technetium 99m MDP, whole body nuclear bone scan was performed in the anterior and posterior projections. FINDINGS: There is multifocal abnormal tracer uptake consistent with extensive bony metastatic disease. A large lesion is seen within the mid to distal shaft of the right femur. Large lesions are seen within the right bony pelvis, numerous bilateral ribs the spine (greatest in the region of T11), and possibly at the left skull base. A focus of uptake in the distal right humerus is also suspicious for metastatic disease (the patient was reportedly injected in the left arm and pelvis. Typically degenerative uptake is identified in the shoulders, right ankle, and right foot. Foot pinning defects are consistent with bilateral hip arthroplasties. There is expected excreted activity within the renal collecting systems. IMPRESSION: 1. There is evidence of multifocal bony metastatic disease as detailed above. 2. Note that a large lesion within the mid to distal right femoral shaft may place the patient at risk for insufficiency fracture. ACT 112: Negative or not required by law. Electronically signed by: Rodolfo Sosa M.D. 06/16/2024 1:40 PM Chest X-Ray 06/16/24 17:55 XR chest 1V portable CLINICAL HISTORY: anuric, low BP > eval plm vasc congestion TECHNIQUE: Single frontal radiograph of the chest was obtained. Comparison: Comparison is made to chest radiograph 06/12/2024 FINDINGS: Median sternotomy wires are unchanged. Cardiomegaly is noted. The lungs are clear. No evidence of pleural effusion or pneumothorax. IMPRESSION: Cardiomegaly is seen without significant pulmonary vascular congestion. ACT 112: Negative or not required by law. Electronically signed by: Francisco Javier Stoner M.D. 06/16/2024 7:02 PM Chest X-Ray 06/20/24 07:44 XR chest 1V portable HISTORY: shortness of breath COMPARISON: Chest 06/16/2024. FINDINGS: No pneumothorax. The heart remains enlarged. Right basilar calcified pleural plaques are noted. There are poststernotomy changes. Progressive interstitial/vascular thickening consistent with mild pulmonary edema. Trace right pleural effusion. No acute fractures. There are low lung volumes. IMPRESSION: Cardiomegaly with interval progression of the mild edema. ACT 112: Negative or not required by law. Electronically signed by: Tom Gonzalez M.D. 06/20/2024 8:12 AM PG Care Time/CCT Total # of Minutes Spent Total Time Spent with Patient: Total time spent is greater than 50% in coordination of care (as documented) at patient's floor/unit and/or counseling patient: I spent 140 minutes overall addressing this case: 20 min in medical data review/discussion with referring provider(s) and/or preparation for the visit 20 min in direct interaction with the patient/exam 60 min in Advance Care Planning/Goals of Care discussions as detailed above in note (must be >16min) 20 min in subsequent review and synthesis of assessment and plan 20 min communicating with other providers regarding the rl sniderobi's case: Primary team, nursing, care management Advanced Care Planning 54818 Advanced Care Planning 30 Min 97611 Advanced Care Planning Additional 30 [place] [address] IN/OBS CONSULT LVL 5,80M (25 - SIGNIFICANT, SEPARATELY IDENTIFIABLE ) Patient Type New Medical Decision Making High Complexity Diagnoses Weakness generalized R53.1 Dyspnea and respiratory abnormalities R06.00; R06.89 Discussion about advance care planning held with family member Z71.0 Palliative care by specialist Z51.5 Additional Codes Advanced Care Planning - 54238 Advanced Care Planning 30 Min: 24042 Advanced Care Planning 30 Min ([id number]) Advanced Care Planning - 43465 Advanced Care Planning Additional 30 Min: 18351 Advanced Care Planning Additional 30 Min ([id number])
--- NOTE | 2024-06-20 10:30 | Nephrology Progress Note ---
Date of Service June 20, 2024 Assessment & Plan Admission and Anticipated Discharge Date Admission Date: June 02, 2024 Subjective Assessment & Plan (1) SEGUNDO (acute kidney injury): Plan: improving stage 3 SEGUNDO on rapidly progressive CKD3B best known baseline 1.7. stage 3 based on UOP 24 hrs (0.08 ml/kg/hr) on 06/16. imaging shows ongoing hydronephrosis which over time will compromise renal parenchymal function; hydroureteronephrosis on admission presumably from rectal mass; also with protracted hypotension and therapy for PNA w/ vanco/zosyn. protracted hypotension 06/16 > multiple fluid boluses and pressor support now SBP for the moment stabilized and UOP improving. he's had some increased insensible losses in stool (4BM yesterday). no nsaids; no IV contrast. renal u/s 06/16 w/ ongoing moderate BL hydronephrosis and mild R cortical scar, mild L cortical thinning, BL renal cysts tate L. admission CT (w/ baseline hydronephrosis) also w/ significant ureteral nephrosis. inflamed urine highly concentrated despite resuscitation and w/ some bacteria from darling specimen. continue strict I/O not a dialysis candidate should the need arise given his dementia//cancer w/ bone and rectal mets//hypotension; extensive discussions w/ , she is in agreement. NOT a dialysis candidate and he does not need it now anyway given improving renal function. Urine is more and creat started to get better now. he does have edema. then developed SOB and CXR shows Pulm edema. Given this will give lasix 80 mg iv x 1. Daily labs. Given b/l Hydronephrosis will continue darling. Care coordinated w/ Dr Palomino. Update given to and Daughter. Patient is extremely hard ofhearing and Dementia also. Reviewed in detail Palliative med note about level of care. (2) CKD (chronic kidney disease), stage III: Plan: rapidly progressive. no CKD as recently as 03/2023; then CKD 3A 04/2023 until 02/2024 when it moved to 3B w/ creatinine 1.7. Likely he is at CKD 4 now. (3) Prostate cancer: Plan: plan for now is treatment of this in setting of large rectal mass w/ skeletal mets and BL hydroureteronephrosis, advanced dementia, DNR/DNI status. currently on casodex which does not need to be dosed for renal function. Subjective had SOB and CXR was done. He had Discomfort with Darling. c/o Pain in leg. He is eating really well. urine output picking up and was 1150 ml yesterday. labs getting better Review of Systems Review of Systems: All systems reviewed & are unremarkable except as noted in Subjective Physical Exam Constitutional: well developed, well nourished and cooperative; no acute distress Eyes: EOM intact bilaterally ENMT: Ears: + hearing impairment; no external ear abnormality Nose: no external nose abnormality Mouth: + dry oral mucous membranes Neck: no nuchal rigidity Respiratory: normal respiratory effort (on RA) Auscultation: + diminished lung sounds; no wheezes Cardiovascular: Rate/Rhythm: regular rate and + irregularly irregular Extremities: + edema (trace BLE) Gastrointestinal (Abdomen): Inspection/Auscultation: normal bowel sounds Percussion/Palpation: abdomen soft; abdomen nontender Musculoskeletal: Extremities: strength 5/5 throughout Skin: no rashes, warm and dry Psychiatric: Orientation: alert, oriented to person and oriented to place Insight: + poor insight Results & Data Vital Signs (Past 12 Hours) Vital Signs Temp Pulse Resp BP Pulse Ox O2 Del Method 06/20/24 07:18 Room Air 06/20/24 06:55 36.3 C L 115 H 22 133/83 95 Room Air
[2024-06-20] MEDS: FUROSEMIDE 40 MG/4 ML VIAL IV ONE (10:59)
[2024-06-20 11:26] VITALS: RESP 21; TEMP 97.9
[2024-06-20] MEDS ORDERED: GLYCOPYRROLATE 0.2 MG/ML VIAL IV PRN (12:22)
[2024-06-20] MEDS ORDERED: LORazepam 1 MG in SYRINGE 0.25 ML IV PRN (12:22)
--- NOTE | 2024-06-20 17:19 | Hospitalist Progress Note ---
Date of Service June 20, 2024 Assessment & Plan (1) Acute renal failure: (2) Prostate cancer: (3) Acute GI bleeding: (4) Rectal mass: Plan: (1) Lower gastrointestinal bleed: (2) Rectal mass: (3) Acute blood loss anemia: (4) Atrial fibrillation with RVR: (5) Acute on chronic heart failure with preserved ejection fraction: (6) Myocardial infarction due to demand ischemia: (7) Upper respiratory tract infection due to COVID-19 virus: (8) Acute kidney injury superimposed on CKD: (9) BPH loc w urin obs/LUTS: (10) Mixed Alzheimer's and vascular dementia: (11) Delirium superimposed on dementia: Plan per previous hospitalist notes with addendum: Rectal Mass, metastatic adenocarcinoma of prostatic origin Lower GI Bleed Patient presents from home with reports of dizziness. He was reported to have bright red blood per rectum for 3 weeks. Hemoglobin of 9.3 on admission, CT abdomen pelvis showed thickening of rectal wall which may represent proctitis; underlying mass cannot be excluded Colonoscopy done on 06/17; found to have rectal mass. Also small 4 to 6 mm polyps found in descending colon which was sessile. Biopsy result of the rectal mass shows metastatic adenocarcinoma prostatic o rigin. PSA ordered, oncology consulted Continue to monitor CBC and recurrence of rectal bleed. Hemoglobin currently stable. Started on dvt prophylaxis on 06/09 Hg 9.8 Iron 26, started ferrous sulfate BID Hg stable overall Possible Pneumonia Possible Sepsis On 06/12; patient reported increasing shortness of breath. He was also hypotensive. Chest x-raycardiomegaly with vascular congestion procal neg Patient is started on empiric antibiotic with Zosyn and vancomycin. MRSA nares are negative. Will DC vancomycin if blood culture is negative in 24 hours. Continue on ipratropium and lev albuterol nebs Completed course of IV antibiotics Doing well from pneumonia standpoint SEGUNDO on CKD Presented with creatinine of 2.5; down trended to baseline of 1.2-1.3 with IV hydration and Aldrich catheterization. However, trended up to 2.0 again(on 06/12). Suspect prerenal cause due to hypotension. CT abdomen pelvis shows bilateral hydronephrosis likely due to bladder outlet obstruction Creatinine progressively increased up to 3.7 Urine output also decreased significantly Nephrology service consulted Likely secondary to underlying pneumonia, episode of hypotension, antibiotics Nephrology service discussed with family that patient is a very poor hemodialysis candidate, patient's family agrees Fortunately patient's creatinine has been trending down, today 2.5, with improvement of urine output Today, patient developed some shortness of breath, chest x-ray showing volume overload Lasix 80 mg IV ordered Monitor volume status closely, [facility] tomorrow Palliative Care service consulted Plan to transition to patient to comfort measures status Hypotension multifactorial: hypovolemic, adrenal insufficiency, betablocker in the setting of acute renal failure Transferred to intensive care unit last Wednesday for possible vasopressor support Fortunately responded to IV fluid challenge Did not require vasopressor support Cortisol level 9 Received hydrocortisone 200 mcg IV l Start hydrocortisone 50 mg every 8 hours--> Taper gradually to p.o. hydrocortisone Metoprolol dose resumed in light of tachycardia, but dose lowered Atrial fibrillation with RVR Demand ischemia On presentation, patient was found to have atrial fibrillation with RVR. Evaluated by cardiology; started on metoprolol succinate 100 mg once a day--> held due to hypotension -- resumed at a much lower dose monitor HR Not on anticoagulation due to GI bleed Echocardiogram shows EF of 55 to 60% with moderate concentric LVH. Monitor on telemetry Metoprolol succinate changed to metoprolol tartrate 100 mg twice a day for better heart rate control. I discussed with patient's that patient has recurrent atrial fibrillation that puts him at risk for stroke on 06/11. He has rectal mass resulting in lower GI bleed recently; so he is not placed on anticoagulation. His acknowledged and understands the risks of stroke as he is not a candidate for anticoagulation at this time. Covid 19 infection- Diagnosed on admission. completed remdesivir. Dementia At baseline, patient is oriented to self. Continue on donepezil Monitor for delirium 1:1 as needed Disposition- pending Palliative care consulted--> Long discussion with patient today, patient to be transition to comfort measures Admission and Anticipated Discharge Date Admission Date: June 02, 2024 Subjective Follow-up for adenocarcinoma, acute renal failure, etc. Seen sitting up in bed, having lunch Family at the bedside Noted to have some tachypnea and shortness of breath this morning Patient states he feels fine, appetite is very good Denies active shortness of breath, chest pain No other new symptom Review of Systems Review of Systems: all noted and negative except for above Physical Exam Physical Exam: all noted and negative except for above Results & Data Results & Data Vital Signs (Past 12 Hours) Vital Signs Temp Pulse Pulse Resp BP Pulse Ox O2 Del Method 06/20/24 11:25 36.6 C 98 H 21 146/78 H 95 Room Air 06/20/24 07:18 Room Air 06/20/24 06:55 36.3 C L 115 H 22 133/83 95 Room Air all noted and reviewed including below
[2024-06-20] MEDS: HYDROmorphone INJ 0.5 MG/0.5 ML SYR IV PRN (18:19)
[2024-06-20] MEDS: LORazepam 2 MG/1 ML VIAL IV PRN (19:55)
--- NOTE | 2024-06-21 15:07 | Palliative Care Progress Note ---
Date of Service June 21, 2024 Assessment & Plan (1) Dyspnea and respiratory abnormalities: (2) Weakness generalized: (3) Need for comfort care: (4) Palliative care by specialist: Plan About the same as yesterday, no signif acute decline Suspect he will need SNF placement for EOL care should chronic state persist Not a candidate for GIP Thank you for allowing us to participate in the ongoing care of this patient. Please page with any additional concerns. Villa Lima DNP Director, Palliative Medicine Admission and Anticipated Discharge Date Admission Date: June 02, 2024 Subjective on [employer] about the same not very verbal with me this morning unable to provide HPI Review of Systems Review of Systems: Unobtainable due to cognitive status Physical Exam Physical Exam: Elderly male, resting in bed, oriented to self and does not appear to be any distress however does not answer any questions or provide HPI Bitemporal wasting is noted PERRLA Neck supple without stridor Breath sounds diminished bilaterally, no overt wheezing, few scattered crackles. S1-S2, no gross JVD Abdomen softly distended, bowel sounds present, no grimacing with palpation Generalized weakness throughout. No pedal edema noted + Confusion, + unable to follow commands . Skin is pale warm with a few scattered ecchymoses. Results & Data Vital Signs (Past 12 Hours) Vital Signs Pulse BP O2 Del Method 06/21/24 09:01 Room Air 06/21/24 08:46 132 H 112/81 PG Care Time/CCT Total # of Minutes Spent Total Time Spent with Patient: Total time spent is greater than 50% in coordination of care (as documented) at patient's floor/unit and/or counseling patient: I spent 30 minutes overall addressing this case: 5 min in medical data review/discussion with referring provider(s) and/or preparation for the visit 15 min in direct interaction with the patient/exam 00min in Advance Care Planning/Goals of Care discussions as detailed above in note (must be >16min) 5 min in subsequent review and synthesis of assessment and plan 5 min communicating with other providers regarding the patient's case: Coding [place] [address] SUB INP/OBS CARE 2/35MIN Patient Type Established History Comprehensive Exam Comprehensive Medical Decision Making Moderate Complexity Diagnoses Dyspnea and respiratory abnormalities R06.00; R06.89 Weakness generalized R53.1 Need for comfort care Palliative care by specialist Z51.5
--- NOTE | 2024-06-21 16:34 | Hospitalist Progress Note ---
Date of Service June 21, 2024 Assessment & Plan (1) Acute renal failure: (2) Prostate cancer: (3) Acute GI bleeding: (4) Rectal mass: Plan: (1) Lower gastrointestinal bleed: (2) Rectal mass: (3) Acute blood loss anemia: (4) Atrial fibrillation with RVR: (5) Acute on chronic heart failure with preserved ejection fraction: (6) Myocardial infarction due to demand ischemia: (7) Upper respiratory tract infection due to COVID-19 virus: (8) Acute kidney injury superimposed on CKD: (9) BPH loc w urin obs/LUTS: (10) Mixed Alzheimer's and vascular dementia: (11) Delirium superimposed on dementia: Rectal Mass, metastatic adenocarcinoma of prostatic origin Lower GI Bleed Patient presents from home with reports of dizziness. He was reported to have bright red blood per rectum for 3 weeks. Hemoglobin of 9.3 on admission, CT abdomen pelvis showed thickening of rectal wall which may represent proctitis; underlying mass cannot be excluded Colonoscopy done on 06/17; found to have rectal mass. Also small 4 to 6 mm polyps found in descending colon which was sessile. Biopsy result of the rectal mass shows metastatic adenocarcinoma prostatic origin. PSA markedly elevated; Oncology evaluated the patient on 06/15; started on bicalutamide 50mg daily. Possible to be started on androgen deprivation therapy with lupron 22.5mg sc every 3 months. Continue to monitor CBC and recurrence of rectal bleed. Hemoglobin currently stable. Started on dvt prophylaxis on 06/09 Patient is started on comfort care measures on June 21, 2024 Possible Pneumonia Possible Sepsis On 06/12; patient reported increasing shortness of breath. He was also hypotensive. Chest x-raycardiomegaly with vascular congestion procal neg Completed course of IV antibiotics Doing well from pneumonia standpoint SEGUNDO on CKD Presented with creatinine of 2.5; down trended to baseline of 1.2-1.3 with IV hydration and Aldrich catheterization. However, trended up to 2.0 again(on 06/12). Suspect prerenal cause due to hypotension. CT abdomen pelvis shows bilateral hydronephrosis likely due to bladder outlet obstruction Creatinine progressively increased up to 3.7 Urine output also decreased significantly Nephrology service consulted Likely secondary to underlying pneumonia, episode of hypotension, antibiotics Nephrology service discussed with family that patient is a very poor hemodialysis candidate, patient's family agrees Patient transition to comfort care measures. Hypotension multifactorial: hypovolemic, adrenal insufficiency, beta-nadeem in the setting of acute renal failure Transferred to intensive care unit last Wednesday for possible vasopressor support Fortunately responded to IV fluid challenge Did not require vasopressor support Cortisol level 9 Received hydrocortisone 200 mcg IV l Start hydrocortisone 50 mg every 8 hours--> Taper gradually to p.o. hydrocortisone Metoprolol dose resumed in light of tachycardia, but dose lowered Atrial fibrillation with RVR Demand ischemia On presentation, patient was found to have atrial fibrillation with RVR. Evaluated by cardiology; started on metoprolol succinate 100 mg once a day--> held due to hypotension -- resumed at a much lower dose monitor HR Not on anticoagulation due to GI bleed Echocardiogram shows EF of 55 to 60% with moderate concentric LVH. Monitor on telemetry Metoprolol succinate changed to metoprolol tartrate 100 mg twice a day for better heart rate control. I discussed with patient's that patient has recurrent atrial fibrillation that puts him at risk for stroke on 06/11. He has rectal mass resulting in lower GI bleed recently; so he is not placed on anticoagulation. His acknowledged and understands the risks of stroke as he is not a candidate for anticoagulation at this time. Covid 19 infection- Diagnosed on admission. completed remdesivir. Dementia At baseline, patient is oriented to self. Continue on donepezil Monitor for delirium 1:1 as needed DNR/DNI. Comfort care measures Please note the above document was generated using voice recognition software. It may contain grammatical, syntax or spelling errors. Any formal questions or concerns about the content, text or information contained within the body of this dictation should be directly addressed to the provider for clarification Admission and Anticipated Discharge Date Admission Date: June 02, 2024 Subjective Patient seen and examined at bedside. He appears to be lethargic; does not respond to any verbal stimuli. He is receiving Ativan and Dilaudid for management of agitation and pain. Review of Systems Review of Systems: Unobtainable due to reduced consciousness Physical Exam Physical Exam: Constitutional: lethargic, doesn't responds to any questions. HEENT: Mucous membranes moist. Lungs: Bilateral basilar crackles present, Occasional wheeze CV: S1-S2, irregular Abdomen: Soft, nontender, nondistended Extremities: No significant edema Neuro: No focal deficits Psych: Confused, poor memory Results & Data Results & Data Vital Signs (Past 12 Hours) Vital Signs Pulse BP O2 Del Method 06/21/24 09:01 Room Air 06/21/24 08:46 132 H 112/81
[2024-06-22] MEDS: LORazepam 2 MG/1 ML VIAL IV STA (06:30)
--- NOTE | 2024-06-22 10:05 | Hospitalist Progress Note ---
Date of Service June 22, 2024 Assessment & Plan (1) Acute renal failure: (2) Prostate cancer: (3) Acute GI bleeding: (4) Rectal mass: Plan: (1) Lower gastrointestinal bleed: (2) Rectal mass: (3) Acute blood loss anemia: (4) Atrial fibrillation with RVR: (5) Acute on chronic heart failure with preserved ejection fraction: (6) Myocardial infarction due to demand ischemia: (7) Upper respiratory tract infection due to COVID-19 virus: (8) Acute kidney injury superimposed on CKD: (9) BPH loc w urin obs/LUTS: (10) Mixed Alzheimer's and vascular dementia: (11) Delirium superimposed on dementia: Rectal Mass, metastatic adenocarcinoma of prostatic origin Lower GI Bleed Patient presents from home with reports of dizziness. He was reported to have bright red blood per rectum for 3 weeks. Hemoglobin of 9.3 on admission, CT abdomen pelvis showed thickening of rectal wall which may represent proctitis; underlying mass cannot be excluded Colonoscopy done on 06/17; found to have rectal mass. Also small 4 to 6 mm polyps found in descending colon which was sessile. Biopsy result of the rectal mass shows metastatic adenocarcinoma prostatic origin. PSA markedly elevated; Oncology evaluated the patient on 06/15; started on bicalutamide 50mg daily. Possible to be started on androgen deprivation therapy with lupron 22.5mg sc every 3 months. Patient is started on comfort care measures on June 21, 2024 Possible Pneumonia Possible Sepsis On 06/12; patient reported increasing shortness of breath. He was also hypotensive. Chest x-raycardiomegaly with vascular congestion procal neg Completed course of IV antibiotics SEGUNDO on CKD Presented with creatinine of 2.5; down trended to baseline of 1.2-1.3 with IV hydration and Aldrich catheterization. However, trended up to 2.0 again(on 06/12). Suspect prerenal cause due to hypotension. CT abdomen pelvis shows bilateral hydronephrosis likely due to bladder outlet obstruction Creatinine progressively increased up to 3.7 Urine output also decreased significantly Nephrology service consulted Likely secondary to underlying pneumonia, episode of hypotension, antibiotics Nephrology service discussed with family that patient is a very poor hemodialysis candidate, patient's family agrees Patient transition to comfort care measures. Atrial fibrillation with RVR Demand ischemia On presentation, patient was found to have atrial fibrillation with RVR. Evaluated by cardiology; started on metoprolol succinate 100 mg once a day--> held due to hypotension -- resumed at a much lower dose monitor HR Not on anticoagulation due to GI bleed Echocardiogram shows EF of 55 to 60% with moderate concentric LVH. Monitor on telemetry Metoprolol succinate changed to metoprolol tartrate 100 mg twice a day for better heart rate control. I discussed with patient's that patient has recurrent atrial fibrillation that puts him at risk for stroke on 06/11. He has rectal mass resulting in lower GI bleed recently; so he is not placed on anticoagulation. His acknowledged and understands the risks of stroke as he is not a candidate for anticoagulation at this time. Covid 19 infection- Diagnosed on admission. completed remdesivir. Dementia At baseline, patient is oriented to self. Continue on donepezil Monitor for delirium 1:1 as needed DNR/DNI. Comfort care measures Please note the above document was generated using voice recognition software. It may contain grammatical, syntax or spelling errors. Any formal questions or concerns about the content, text or information contained within the body of this dictation should be directly addressed to the provider for clarification Admission and Anticipated Discharge Date Admission Date: June 02, 2024 Subjective Patient continues to be agitated overnight requiring IV Ativan and as needed Dilaudid He appears comfortable. Review of Systems Review of Systems: Unobtainable due to reduced consciousness Physical Exam Physical Exam: Constitutional: lethargic, doesn't responds to any questions. HEENT: Mucous membranes moist. Lungs: Bilateral basilar crackles present, Occasional wheeze CV: S1-S2, irregular Abdomen: Soft, nontender, nondistended Extremities: No significant edema Neuro: No focal deficits Psych: Confused, poor memory Results & Data Results & Data Vital Signs (Past 12 Hours) Vital Signs O2 Del Method 06/22/24 05:40 Room Air
[2024-06-22] MEDS: LORazepam 2 MG/1 ML VIAL IV PRN (12:34)
[2024-06-22] MEDS: HYDROmorphone INJ 1 MG/ML SYRINGE IV PRN (13:19)
--- NOTE | 2024-06-22 14:07 | Discharge Summary ---
Date of Service June 22, 2024 Admission HPI Per Admitting Provider 78-year-old male with PMH HLD, chronic HFpEF, HTN, CAD s/p CABG x 4 in 1996, carotid artery disease, dementia, history of SVT with possible short runs of paroxysmal atrial fibrillation, GERD, CKD stage III, history of bariatric surgery, and other problems listed below who presents to the ED for evaluation of dizziness. Due to underlying dementia, history is obtained from patient's who is the bedside. History also obtained from review of outpatient PCP and cardiology records. states that patient has been having rectal bleeding over the past few weeks and it has been worsening. describes patient passing bright red blood as well as clots. Patient was seen at PCPs office on 05/25 and had labs drawn that showed Hgb 10.5, previously 11.2 02/2024. states that patient had a fall an unwitnessed few days ago. It is unclear if the patient passed out. also reports a 50 pound weight loss over the past 2 months. There has not been much change in patient's appetite. No other complaints offered by patient. In the ED, labs show Hgb 9.3, creatinine 2.5, troponin 1200. Stool is Hemoccult positive. Blood pressures have been borderline low. Patient was given IV famotidine, IV Protonix, IVF. Admission Exam Per Admitting Provider oriented x3, not in distress, speaks in sentences with no effort nor accessory muscle use normal rate, regular rhythm, no murmurs clear breath sounds bilaterally non distended, soft, nontender no bipedal edema, erythema, warmth no neuro deficits Principal Diagnosis Metastatic adenocarcinoma of the prostate Lower GI bleed Acute kidney injury Discharge Exam Patient at 1:27 PM on June 22, 2024 Heart and lung sounds are absent. No spontaneous cardiac or respiratory activity. Patient is not responsive/nonreactive to verbal or painful stimuli. No corneal or pupillary reflex present. Pupil fixed and dilated. Discharge Data Allergies Allergy/AdvReac Type Severity Reaction Status Date / Time No Known Allergies Allergy Verified 06/02/24 16:23 Consultations 06/02/24 16:25 ED Decision to Admit Stat 06/02/24 16:29 Consult Gastroenterology Routine 06/02/24 16:44 Consult Cardiology Routine 06/02/24 18:59 Consult Cardiology Routine 06/07/24 15:14 Consult General Surgery Routine 06/13/24 11:53 Consult Oncology Routine 06/15/24 10:05 Consult Nephrology Routine 06/16/24 22:31 Consult Gear Finisher Routine 06/17/24 00:47 Consult Palliative Care Routine Procedures Performed Operation Date: 06/07/24 13:00 Actual Procedures p Colonoscopy Biopsy Cytology - Felipe Espinal MD Ordered Studies 06/02/24 16:39 CT abd pelvis wo con Stat 06/14/24 09:11 CT chest diagnostic wo con Routine 06/15/24 17:50 US Renal Bladder [US renal/blad retro comp] Routine Hospital Course (1) Acute renal failure: (2) Prostate cancer: (3) Acute GI bleeding: (4) Rectal mass: (1) Lower gastrointestinal bleed: (2) Rectal mass: (3) Acute blood loss anemia: (4) Atrial fibrillation with RVR: (5) Acute on chronic heart failure with preserved ejection fraction: (6) Myocardial infarction due to demand ischemia: (7) Upper respiratory tract infection due to COVID-19 virus: (8) Acute kidney injury superimposed on CKD: (9) BPH loc w urin obs/LUTS: (10) Mixed Alzheimer's and vascular dementia: (11) Delirium superimposed on dementia: Patient presents from home with reports of dizziness. He was reported to have bright red blood per rectum for [address] abdomen pelvis showed thickening of rectal wall. Colonoscopy done on 06/07; found to have rectal mass. Also small 4 to 6 mm polyps found in descending colon which was sessile. Biopsy result of the rectal mass shows metastatic adenocarcinoma prostatic origin. PSA markedly elevated; Oncology evaluated the patient on 06/15; started on bicalutamide 50mg daily. Possible to be started on androgen deprivation therapy with lupron 22.5mg sc every 3 months if patient is discharged. During the hospitalization, patient developed pneumonia for which he was treated with antibiotic. He had periods of hypotension leading to ICU transfer for need of vasopressors. Patient developed acute kidney injury. He also had atrial fibrillation with rapid ventricular rate; was not able to be started on anticoagulation due to history of rectal bleed. Patient also had advanced dementia. Goals of care discussion was done with family on 06/20 by palliative care. He was transition to comfort care measures. He at 1:27 PM on 06/22/2024. Family were at bedside. Please note the above document was generated using voice recognition software. It may contain grammatical, syntax or spelling errors. Any formal questions or concerns about the content, text or information contained within the body of this dictation should be directly addressed to the provider for clarification Total Time Total Time Spent Total Time Spent (In Minutes): 35 Total Time Includes: Examination of the Patient, Discharge Planning, Medication Reconciliation, Communication With Other Providers and Other Discharge Plan Discharge Items Reason For Visit: RECTAL BLEEDING Follow-up/Referrals: Mika Baxter MD [Primary Care Provider] - Medications and DC Order Prescriptions: No Action atorvastatin 80 mg tablet 80 mg PO DAILY metoprolol succinate 50 mg tablet extended release 24 hr 75 mg PO QAM donepezil 10 mg tablet 10 mg PO DAILY famotidine 20 mg tablet 20 mg PO QAM ferrous sulfate 325 mg (65 mg iron) Tablet 650 mg PO DAILY lisinopril 5 mg tablet 5 mg PO DAILY furosemide 20 mg tablet 20 mg PO DAILY Rx Instructions: states this dose. [facility] says to alternate with 40 mg QOD. omega-3 fatty acids [Fish Oil Concentrate] 1,000 mg Capsule 1,000 mg PO DAILY cyanocobalamin (vitamin B-12) [Vitamin B-12] 1,000 mcg Tablet 1,000 mcg PO DAILY aspirin [Aspir-Low] 81 mg Tablet,Delayed Release (Dr/Ec) 81 mg PO DAILY cholecalciferol (vitamin D3) [Vitamin D3] 25 mcg (1,000 unit) Tablet 25 mcg PO DAILY diclofenac sodium [Voltaren Arthritis Pain] 1 % Gel 0 g TOPICAL QID PRN (Reason: ..) Admission Data Admit Date/Time: 06/02/24 16:36 Attending Provider: Devyn Neal Admit Provider: Miguel Palomino Primary Care Provider: Mika Baxter Other Providers: [place],[facility]; [place],[facility]; Miguel Palomino; Adalid Diaz; Yohan Villegas; Shannon May; Karen Hwang; Otis Pradhan; Erica Lima
[2024-06-22 17:30] VITALS: BP 98/61; PULSE 98
== END 2024-06-22 17:31 | disposition expired | DRG 374 ==
LOC: ED 14:49 → 2E 16:36 → SUATTDRO 16:36 → 2E 18:54 → 2S 06-04 05:59 → 2N 06-04 18:55 → 2S 06-12 18:39 → 1E 06-16 19:18 → 3N 06-17 11:58